=== PATIENT | male | born 1960 | race Caucasian/White ===

== ENCOUNTER 2018-03-25 20:00 | Emergency (ER) | payer SELFPAY ==
[2018-03-25 20:37] LABS: Absolute Monocytes 0.4 K/uL (0.1-1.3); Monocytes % 4.4 % (3.3-12.3)
[2018-03-25 20:40] LABS: Absolute Neutrophil 7.2 K/uL (1.8-8.0); Basophils % 0.5 % (0-1.3); Eosinophils % 1.1 % (0-4.4); Hematocrit 47.9 % (39.6-49.0); Lymphocytes % 20.2 % (15.3-44.8); MCH 28.8 pg (27.0-35.0); MCV 82.9 fL (80-100); MPV 9.2 fL (7.6-11.3); Protime INR 1.05; RBC Red Blood Cell Count 5.78 M/uL (4.33-5.43)
--- NOTE | 2018-03-25 20:46 | RAD REPORT ---
EXAM DESCRIPTION: CT - Head Brain Wo Cont - 03/25/2018 8:38 pm CLINICAL HISTORY: Difficulty speaking, confusion, transient alteration of awareness, drowsiness COMPARISON: CT head September 2017 TECHNIQUE: Axial 5 mm thick images of the head were obtained without IV contrast. All CT scans are performed using dose optimization technique as appropriate and may include automated exposure control or mA/KV adjustment according to patient size. FINDINGS: No intracranial hemorrhage, mass, edema or shift of mid-line structures. No acute cortical based infarction. There is a moderately large area of encephalomalacia in the left occipital lobe. T his is larger than seen in 2017. Patient may have had intervening infarction or further aging of the infarction present back in September. There is diminished attenuation in the right parietal periventri cular white matter new from the prior study. This is relatively hypodense but could still be a subacu te nonhemorrhagic infarction. No cortical edema or sulcal effacement. No abnormal extra-axial fluid c ollections. Ventricles are normal. Mastoid air cells and visualized portions of the paranasal sinuses are clear. No acute bony findings. IMPRESSION: No intracranial hemorrhage is present and no acute cortical based infarction confirmed. Left parietal occipital old CVA changes are present larger than seen in September. This is not suspect ed to be acute but may represent further aging or progression of the infarction that occurred back in September. Diminished attenuation 18 mm in size in the right parietal white matter is of uncertain age. Acute to subacute infarction is possible. Small low-density area near the left head of the caudate also appears to be new and could be an acute left basal ganglia infarction.
--- NOTE | 2018-03-25 20:48 | RAD REPORT ---
EXAM DESCRIPTION: RAD - Chest Single View - 03/25/2018 8:41 pm CLINICAL HISTORY: CVA COMPARISON: September 2017 TECHNIQUE: AP portable chest image was obtained 2028 hours . FINDINGS: Lung volumes are low. No peripheral mass or consolidation. Significant failure or volume o verload are doubtful. Haziness over the lateral left lung base is a common portable film artifact. Tr achea is midline. Heart and vasculature are normal. No measurable pleural effusion and no pneumothora x. No gross bony abnormality seen. No acute aortic findings suspected. IMPRESSION: No acute cardiopulmonary process. No significant change from comparison.
[2018-03-25 20:52] LABS: Magnesium 2.2 mg/dL (1.8-2.4); Potassium 3.3 mmol/L (3.5-5.1)
[2018-03-25] MEDS ORDERED: LABETALOL 20 MG/4ML SYRINGE IV ONE (21:00)
[2018-03-25] MEDS ORDERED: ASPIRIN EC 81 MG TAB PO ONE (21:01)
[2018-03-25] MEDS ORDERED: CLOPIDOGREL 75 MG TABLET ONE (21:01)
[2018-03-25] MEDS ORDERED: FOLIC ACID 5 MG/ML VIAL ONE (21:03)
[2018-03-25] MEDS ORDERED: NA CHLORIDE 0.9% 100 ML IV ONE (21:04)
[2018-03-25 21:13] LABS: Blood Morphology Comment NOT SEEN (NOT SEEN); Platelet Estimate ADEQ; Platelets, Giant FEW
[2018-03-25] MEDS ORDERED: Nicardipine/NS 25 MG/250 ML KIT IV ONE (21:36)
[2018-03-25] MEDS ORDERED: LABETALOL HCL 100 MG/20 ML ONE (21:45)
--- NOTE | 2018-03-25 21:45 | ER ---
Nurse's Notes [facility] Unit Name: Calos Marie Age: 58 yrs Sex: Male : 1960 Arrival Date: 03/25/2018 Time: 20:07 Bed 2 Private MD: Diagnosis: Cerebral infarction Presentation: 03/25 20:09 Presenting complaint: Patient states: Trouble speaking and having some confusion since aj yesterday evening. Patient is oriented to person and place. Ambulated with steady gait, no facial droop. Having difficulty with speech. Transition of care: patient was not received from another setting of care. An acute neurological deficit is present. The charge nurse has been notified. Pre-hospital glucose is not applicable to this patient. Onset of symptoms was March 24, 2018 at 20:00. Risk Assessment: Do you want to hurt yourself or someone else? Patient reports no desire to harm self or others. Initial Sepsis Screen: Does the patient meet any 2 criteria? No. Patient's initial sepsis screen is negative. Does the patient have a suspected source of infection? No. Patient's initial sepsis screen is negative. Care prior to arrival: None. 20:09 Method Of Arrival: Ambulatory aj 20:09 Acuity: KRIS 2 aj Triage Assessment: 20:12 The onset of the patients symptoms was March 24, 2018 at 20:00. General: Appears in no aj apparent distress. uncomfortable, Behavior is cooperative, anxious. Pain: Denies pain. Neuro: Level of Consciousness is awake, obeys commands, Oriented to person, place, situation, Animal Science Instructor are equal bilaterally Moves all extremities. Full function Gait is steady, Speech with expressive aphasia noted, Facial symmetry appears normal, Pupils are PERRLA, Reports. Respiratory: Airway is patent Respiratory effort is even, unlabored, Respiratory pattern is regular, symmetrical. Derm: Skin is intact, is healthy with good turgor, Skin is pink, warm \T\ dry. normal. Stroke Activation: Symptom onset > 6 hours Physician: Stroke Attending; Name: ; Notified At: ; Arrived At: Physician: Chief Stroke Resident; Name: ; Notified At: ; Arrived At: Physician: Stroke Resident; Name: ; Notified At: ; Arrived At: Physician: ED Attending; Name: ; Notified At: ; Arrived At: Physician: ED Resident; Name: ; Notified At: ; Arrived At: Historical: - Allergies: 20:11 No Known Allergies; aj - Home Meds: 20:11 None [Active]; aj - PMHx: 20:12 CVA; Hypertension; aj - PSHx: 20:11 None; aj - Immunization history:: Adult Immunizations up to date. - Social history:: Smoking status: Patient/guardian denies using tobacco. - Ebola Screening: : Patient negative for fever greater than or equal to 101.5 degrees Fahrenheit, and additional compatible Ebola Virus Disease symptoms Patient denies exposure to infectious person Patient denies travel to an Ebola-affected area in the 21 days before illness onset No symptoms or risks identified at this time. Screenin:36 Abuse screen: Denies threats or abuse. Denies injuries from another. Nutritional mg2 screening: No deficits noted. Tuberculosis screening: No symptoms or risk factors identified. Fall Risk Secondary diagnosis (15 points) CVA, IV access (20 points). Assessment: 20:37 General: Appears in no apparent distress. comfortable, Behavior is calm, cooperative. mg2 Pain: Denies pain. Neuro: Level of Consciousness is awake, alert, obeys commands, Oriented to person, place, time, situation. Cardiovascular: Capillary refill < 3 seconds Patient's skin is warm and dry. Rhythm is sinus rhythm. Respiratory: Airway is patent Respiratory effort is even, unlabored, Respiratory pattern is regular, symmetrical. GI: No signs and/or symptoms were reported involving the gastrointestinal system. : No signs and/or symptoms were reported regarding the genitourinary system. EENT: No signs and/or symptoms were reported regarding the EENT system. Derm: Skin is intact, Skin is pink, warm \T\ dry. normal. Musculoskeletal: No signs and/or symptoms reported regarding the musculoskeletal system. 20:38 Reassessment: patient in ct. mg2 21:14 Patient has been NPO before screening. The patient is alert, and able to follow mg2 commands. The patient does not exhibit slurred or garbled speech. The patient is not exhibiting difficulty speaking. The patient does not exhibit difficulty understanding words. The patient is able to swallow own secretions with no drooling or need for suction. Patient tolerated one teaspoon of water. No drooling, immediate coughing, gurgling, or clearing of the throat was noted. The patient passed the bedside swallow screening. Oral medications may be given as ordered. Contact Physician for further diet orders. 21:54 Reassessment: patient informed about the plan for transfer. mg2 22:20 Reassessment: report given to MO Saxena. mg2 Vital Signs: 20:12 BP 241 / 127; Pulse 96; Resp 21; Temp 99.5; Pulse Ox 96% on R/A; Weight 113.4 kg; aj Height 5 ft. 10 in. (177.80 cm); 21:14 BP 203 / 117; Pulse 68; Resp 18; Pulse Ox 96% on R/A; Pain 0/10; mg2 21:51 BP 162 / 114; Pulse 62; Resp 18; Pulse Ox 94% on R/A; Pain 0/10; mg2 22:04 BP 169 / 103; Pulse 63; Resp 18; Pulse Ox 95% on R/A; Pain 0/10; mg2 22:30 BP 179 / 103; Pulse 62; Resp 18; Pulse Ox 100% on R/A; Pain 0/10; mg2 20:12 Body Mass Index 35.87 (113.40 kg, 177.80 cm) aj NIH Stroke Scale Scores: 20:09 NIHSS Score: 4 jr8 21:00 NIHSS Score: 1 mg2 ED Course: 20:07 Patient arrived in ED. bb 20:08 Da Worrell PA is PHCP. jr8 20:08 Darryl Noland MD is Attending Physician. jr8 20:10 Triage completed. aj 20:12 Arm band placed on right wrist. Patient placed in an exam room, on a stretcher. aj 20:35 Phil Sandoval RN is Primary Nurse. mg2 20:36 Inserted saline lock: 20 gauge in left antecubital area, using aseptic technique. Blood mg2 collected. 20:38 CT Head Brain wo Cont In Process Unspecified. EDMS 20:38 X-ray completed. Portable x-ray completed in exam room. Patient tolerated procedure jr1 well. 20:39 Stroke CXR 1 View In Process Unspecified. EDMS 20:[address] via stretcher. nj 20:40 CT completed. Patient tolerated procedure well. Patient moved to radiology Patient nj moved back from CT. 21:30 Patient has correct armband on for positive identification. Placed in gown. Bed in low mg2 position. Call light in reach. Side rails up X2. playground monitor on. Pulse ox on. NIBP on. Door closed. Warm blanket given. 21:31 No provider procedures requiring assistance completed. mg2 22:46 Patient transferred, IV remains in place. mg2 Administered Medications: 21:13 Drug: Labetalol 20 mg Route: IVP; Infused Over: 2 mins; Site: left antecubital; mg2 21:53 Follow up: Response: No adverse reaction; Blood pressure is unchanged mg2 21:13 Drug: foLIC Acid 1 mg Route: IVPB; Site: left antecubital; mg2 21:13 Drug: PlaVIX 75 mg Route: PO; mg2 21:53 Follow up: Response: No adverse reaction mg2 21:13 Drug: Aspirin 162 mg Route: PO; mg2 21:53 Follow up: Response: No adverse reaction mg2 21:41 Not Given (Patient ): Cardene 5 mg/hr IV at calculated rate continuous; 5mg/hr jr8 21:50 Drug: Labetalol 40 mg Route: IVP; Infused Over: 2 mins; Site: left antecubital; mg2 22:23 Follow up: Response: No adverse reaction; Blood pressure is lowered mg2 Point of Care Testing: Blood Glucose: 20:12 Blood Glucose: 170 mg/dL; aj Ranges: Outcome: 21:43 ER care complete, transfer ordered by . jr8 22:46 Transferred by ground EMS to [facility], Transfer form completed. mg2 22:46 Condition: stable 22:46 Instructed on the need for transfer. 22:48 Patient left the ED. mg2 NIH Stroke Scale - NIH Stroke Score Date: 03/25/2018 Time: 20:09 Total Score = 4 1a. Level of Consciousness (LOC) - 0(Alert) 1b. Level of Consciousness (LOC) (Year \T\ Age) - 0(Both) 1c. LOC Commands (Open \T\ Closes Eyes/Negative Cleaner) - 0(Both) 2. Best Gaze (Lateral Gaze Paresis) - 0(Normal) 3. Visual Field Loss - 2(Complete hemianopia) 4. Facial Palsy - 0(Normal) 5a. Left Arm: Motor (10-second hold) - 0(No drift) 5b. Right Arm: Motor (10-second hold) - 0(No drift) 6a. Left Leg: Motor (5-second hold - always test supine) - 0(No drift) 6b. Right Leg: Motor (5-second hold - always test supine) - 0(No drift) 7. Limb Ataxia (finger/nose \T\ heel/dobson - test with eyes open) - 1(Present in one limb) 8. Sensory Loss (pinprick arms/legs/face) - 0(Normal) 9. Best Language: Aphasia (description/naming/reading) - 1(Mild to moderate aphasia) 10. Dysarthria (speech clarity - read or repeat words) - 0(Normal) 11. Extinction and Inattention (visual/tactile/auditory/spatial/personal) - 0(No abnormality) Initials: jr8 NIH Stroke Scale - NIH Stroke Score Date: 03/25/2018 Time: 21:00 Total Score = 1 1a. Level of Consciousness (LOC) - 0(Alert) 1b. Level of Consciousness (LOC) (Year \T\ Age) - 0(Both) 1c. LOC Commands (Open \T\ Closes Eyes/Negative Cleaner) - 0(Both) 2. Best Gaze (Lateral Gaze Paresis) - 0(Normal) 3. Visual Field Loss - 0(No visual loss) 4. Facial Palsy - 0(Normal) 5a. Left Arm: Motor (10-second hold) - 0(No drift) 5b. Right Arm: Motor (10-second hold) - 0(No drift) 6a. Left Leg: Motor (5-second hold - always test supine) - 0(No drift) 6b. Right Leg: Motor (5-second hold - always test supine) - 0(No drift) 7. Limb Ataxia (finger/nose \T\ heel/dobson - test with eyes open) - 0(Absent) 8. Sensory Loss (pinprick arms/legs/face) - 0(Normal) 9. Best Language: Aphasia (description/naming/reading) - 1(Mild to moderate aphasia) 10. Dysarthria (speech clarity - read or repeat words) - 0(Normal) 11. Extinction and Inattention (visual/tactile/auditory/spatial/personal) - 0(No abnormality) Initials: mg2 Signatures: Dispatcher [employer] Tenisha Schaeffer RN RN aj Ringgold, Jennifer jr1 Sanaz Churchill RN RN bb Roszak, Josh, PA PA jr8 Walt, Thad nj Gardose, Phil, RN RN mg2
--- NOTE | 2018-03-25 21:45 | EDPHYS ---
Physician Documentation [facility] Name: Calos Marie Age: 58 yrs Sex: Male : 1960 Arrival Date: 03/25/2018 Time: 20:07 Bed 2 Private MD: ED Physician Darryl Noland HPI: 03/25 20:09 This 58 yrs old Male presents to ER via Unassigned with complaints of S/S of jr8 Possible Stroke. 20:09 The patient's problem is reported as aphasia . Onset: The symptoms/episode jr8 began/occurred last known well was last night. Could not give exact time . Duration: The episode is continuous. The symptoms are alleviated by nothing. The symptoms are aggravated by nothing. Associated signs and symptoms: The patient has no apparent associated signs or symptoms. Severity of symptoms: At their worst the symptoms were moderate in the emergency department the symptoms are unchanged. The patient has experienced a previous episode. The patient has not recently seen a physician. Patient stated that he has history of stroke in past. Has not been compliant with medication. Stated that some time last night started to notice he was having trouble thinking and doing certain tasks. Historical: - Allergies: 20:11 No Known Allergies; aj - Home Meds: 20:11 None [Active]; aj - PMHx: 20:12 CVA; Hypertension; aj - PSHx: 20:11 None; aj - Immunization history:: Adult Immunizations up to date. - Social history:: Smoking status: Patient/guardian denies using tobacco. - Ebola Screening: : Patient negative for fever greater than or equal to 101.5 degrees Fahrenheit, and additional compatible Ebola Virus Disease symptoms Patient denies exposure to infectious person Patient denies travel to an Ebola-affected area in the 21 days before illness onset No symptoms or risks identified at this time. ROS: 20:09 Eyes: Negative for injury, pain, redness, and discharge, ENT: Negative for injury, jr8 pain, and discharge, Neck: Negative for injury, pain, and swelling, Cardiovascular: Negative for chest pain, palpitations, and edema, Respiratory: Negative for shortness of breath, cough, wheezing, and pleuritic chest pain, Abdomen/GI: Negative for abdominal pain, nausea, vomiting, diarrhea, and constipation, Back: Negative for injury and pain, MS/Extremity: Negative for injury and deformity, Skin: Negative for injury, rash, and discoloration. 20:09 Neuro: Positive for altered mental status, Negative for dizziness, gait disturbance, headache, hearing loss, loss of consciousness, numbness, seizure activity, speech changes, syncope, near syncope, tingling, tinnitus, tremor, visual changes, weakness. Exam: 20:09 Head/Face: Normocephalic, atraumatic. Eyes: Pupils equal round and reactive to light, jr8 extra-ocular motions intact. Lids and lashes normal. Conjunctiva and sclera are non-icteric and not injected. Cornea within normal limits. Periorbital areas with no swelling, redness, or edema. ENT: Nares patent. No nasal discharge, no septal abnormalities noted. Tympanic membranes are normal and external auditory canals are clear. Oropharynx with no redness, swelling, or masses, exudates, or evidence of obstruction, uvula midline. Mucous membranes moist. Neck: Trachea midline, no thyromegaly or masses palpated, and no cervical lymphadenopathy. Supple, full range of motion without nuchal rigidity, or vertebral point tenderness. No Meningismus. Chest/axilla: Normal chest wall appearance and motion. Nontender with no deformity. No lesions are appreciated. Cardiovascular: Regular rate and rhythm with a normal S1 and S2. No gallops, murmurs, or rubs. Normal PMI, no JVD. No pulse deficits. Respiratory: Lungs have equal breath sounds bilaterally, clear to auscultation and percussion. No rales, rhonchi or wheezes noted. No increased work of breathing, no retractions or nasal flaring. Abdomen/GI: Soft, non-tender, with normal bowel sounds. No distension or tympany. No guarding or rebound. No evidence of tenderness throughout. Back: No spinal tenderness. No costovertebral tenderness. Full range of motion. Skin: Warm, dry with normal turgor. Normal color with no rashes, no lesions, and no evidence of cellulitis. MS/ Extremity: Pulses equal, no cyanosis. Neurovascular intact. Full, normal range of motion. 20:09 Neuro: Orientation: to person, place \T\ time. Mentation: slow to respond, Memory: is normal, Cranial nerves: CN I not tested, CN II- XII are normal as tested, hononymous hemianopia noted, extraocular movements are intact, Facial palsy and sensory deficits are absent. Nystagmus is absent. Speech is clear and appropriate. slowed, Tongue strength is normal, Cerebellar function: dysmetria is noted on the right, Motor: moves all fours, Sensation: no obvious gross deficits, Gait: not tested. seizure activity, is not displayed by the patient, Abnormal movements: there are no abnormal movements. 20:35 Radiologist reports: subacute and old infarcts noted [facility] Vital Signs: 20:12 BP 241 / 127; Pulse 96; Resp 21; Temp 99.5; Pulse Ox 96% on R/A; Weight 113.4 kg; aj Height 5 ft. 10 in. (177.80 cm); 21:14 BP 203 / 117; Pulse 68; Resp 18; Pulse Ox 96% on R/A; Pain 0/10; mg2 21:51 BP 162 / 114; Pulse 62; Resp 18; Pulse Ox 94% on R/A; Pain 0/10; mg2 22:04 BP 169 / 103; Pulse 63; Resp 18; Pulse Ox 95% on R/A; Pain 0/10; mg2 22:30 BP 179 / 103; Pulse 62; Resp 18; Pulse Ox 100% on R/A; Pain 0/10; mg2 20:12 Body Mass Index 35.87 (113.40 kg, 177.80 cm) NIH Stroke Scale Scores: 20:09 NIHSS Score: 4 [facility] 21:00 NIHSS Score: 1 mg2 MDM: 20:08 Patient medically screened. [facility] 21:30 Data reviewed: vital signs, nurses notes, lab test result(s), EKG, radiologic studies, [facility] CT scan, plain films. Data interpreted: Pulse oximetry: on room air is 96 %. Counseling: I had a detailed discussion with the patient and/or guardian regarding: the historical points, exam findings, and any diagnostic results supporting the discharge/admit diagnosis, lab results, radiology results, the need to transfer to another facility, for higher level of care, [facility] does not immediately have the required specialist. ED course: Patient well outside of TPA window. Last known well approximately 24 hours ago. No Neurology on today. Will need to transfer for MRI and further neurologic evaluation for subacute stroke. Patient is good with this. 21:42 ED course: Dr. Laboy consulted at [facility] and accepted patient. Wants to do jr8 push dose labetolol for now and have BP just below 200 systolic . 03/25 20:09 Order name: Troponin (emerg Dept Use Only); Complete Time: 20:56 03/25 20:09 Order name: Magnesium; Complete Time: 20:56 03/25 20:09 Order name: Basic Metabolic Panel; Complete Time: 20:56 03/25 20:09 Order name: CBC with Diff; Complete Time: 21:16 03/25 20:09 Order name: Protime (+inr); Complete Time: 20:56 03/25 20:44 Order name: Manual Differential; Complete Time: 21:16 EDMS 03/25 20:09 Order name: Stroke CXR 1 View; Complete Time: 20:56 03/25 20:09 Order name: CT Head Brain wo Cont; Complete Time: 20:56 03/25 20:09 Order name: EKG; Complete Time: 20:09 03/25 20:09 Order name: Accucheck; Complete Time: 20:35 03/25 20:09 Order name: Cardiac monitoring; Complete Time: 20:35 03/25 20:09 Order name: EKG - Nurse/Tech; Complete Time: 20:35 03/25 20:09 Order name: IV Saline Lock; Complete Time: 20:35 03/25 20:09 Order name: Labs collected and sent; Complete Time: 20:35 03/25 20:09 Order name: NPO; Complete Time: 20:36 03/25 20:09 Order name: O2 Per Protocol; Complete Time: 20:36 03/25 20:09 Order name: O2 Sat Monitoring; Complete Time: 20:36 03/25 20:09 Order name: Stroke Swallow Screen; Complete Time: 21:14 Administered Medications: 21:13 Drug: Labetalol 20 mg Route: IVP; Infused Over: 2 mins; Site: left antecubital; mg2 21:53 Follow up: Response: No adverse reaction; Blood pressure is unchanged mg2 21:13 Drug: foLIC Acid 1 mg Route: IVPB; Site: left antecubital; mg2 21:13 Drug: PlaVIX 75 mg Route: PO; mg2 21:53 Follow up: Response: No adverse reaction mg2 21:13 Drug: Aspirin 162 mg Route: PO; mg2 21:53 Follow up: Response: No adverse reaction mg2 21:41 Not Given (Patient ): Cardene 5 mg/hr IV at calculated rate continuous; 5mg/hr jr8 21:50 Drug: Labetalol 40 mg Route: IVP; Infused Over: 2 mins; Site: left antecubital; mg2 22:23 Follow up: Response: No adverse reaction; Blood pressure is lowered mg2 Point of Care Testing: Blood Glucose: 20:12 Blood Glucose: 170 mg/dL; aj Ranges: Critical Glucose Levels:Adult <50 mg/dl or >400 mg/dl <40 mg/dl or >180 mg/dl Disposition: 03/26 19:04 Co-signature as Attending Physician, Darryl Noland MD. Disposition: 03/25/18 21:43 Transfer ordered to [facility]. Diagnosis is Cerebral infarction. - Reason for transfer: Higher level of care. - Accepting physician is Dr. Roper. - Condition is Fair. - Problem is new. - Symptoms are unchanged. NIH Stroke Scale - NIH Stroke Score Date: 03/25/2018 Time: 20:09 Total Score = 4 1a. Level of Consciousness (LOC) - 0(Alert) 1b. Level of Consciousness (LOC) (Year \T\ Age) - 0(Both) 1c. LOC Commands (Open \T\ Closes Eyes/Patient Educator) - 0(Both) 2. Best Gaze (Lateral Gaze Paresis) - 0(Normal) 3. Visual Field Loss - 2(Complete hemianopia) 4. Facial Palsy - 0(Normal) 5a. Left Arm: Motor (10-second hold) - 0(No drift) 5b. Right Arm: Motor (10-second hold) - 0(No drift) 6a. Left Leg: Motor (5-second hold - always test supine) - 0(No drift) 6b. Right Leg: Motor (5-second hold - always test supine) - 0(No drift) 7. Limb Ataxia (finger/nose \T\ heel/dobson - test with eyes open) - 1(Present in one limb) 8. Sensory Loss (pinprick arms/legs/face) - 0(Normal) 9. Best Language: Aphasia (description/naming/reading) - 1(Mild to moderate aphasia) 10. Dysarthria (speech clarity - read or repeat words) - 0(Normal) 11. Extinction and Inattention (visual/tactile/auditory/spatial/personal) - 0(No abnormality) Initials: jr8 NIH Stroke Scale - NIH Stroke Score Date: 03/25/2018 Time: 21:00 Total Score = 1 1a. Level of Consciousness (LOC) - 0(Alert) 1b. Level of Consciousness (LOC) (Year \T\ Age) - 0(Both) 1c. LOC Commands (Open \T\ Closes Eyes/Patient Educator) - 0(Both) 2. Best Gaze (Lateral Gaze Paresis) - 0(Normal) 3. Visual Field Loss - 0(No visual loss) 4. Facial Palsy - 0(Normal) 5a. Left Arm: Motor (10-second hold) - 0(No drift) 5b. Right Arm: Motor (10-second hold) - 0(No drift) 6a. Left Leg: Motor (5-second hold - always test supine) - 0(No drift) 6b. Right Leg: Motor (5-second hold - always test supine) - 0(No drift) 7. Limb Ataxia (finger/nose \T\ heel/dobson - test with eyes open) - 0(Absent) 8. Sensory Loss (pinprick arms/legs/face) - 0(Normal) 9. Best Language: Aphasia (description/naming/reading) - 1(Mild to moderate aphasia) 10. Dysarthria (speech clarity - read or repeat words) - 0(Normal) 11. Extinction and Inattention (visual/tactile/auditory/spatial/personal) - 0(No abnormality) Initials: mg2 Signatures: Dispatcher [employer] Tenisha Schaeffer RN RN Da Balderas PA PA jr8 Darryl Noland MD MD gs [place]ose, Michele, RN RN mg2 Corrections: (The following items were deleted from the chart) 03/25 21:29 20:28 Head/Face: Normocephalic, atraumatic. Eyes: Pupils equal round and jr8 reactive to light, extra-ocular motions intact. Lids and lashes normal. Conjunctiva and sclera are non-icteric and not injected. Cornea within normal limits. Periorbital areas with no swelling, redness, or edema. ENT: Nares patent. No nasal discharge, no septal abnormalities noted. Tympanic membranes are normal and external auditory canals are clear. Oropharynx with no redness, swelling, or masses, exudates, or evidence of obstruction, uvula midline. Mucous membranes moist. Neck: Trachea midline, no thyromegaly or masses palpated, and no cervical lymphadenopathy. Supple, full range of motion without nuchal rigidity, or vertebral point tenderness. No Meningismus. Chest/axilla: Normal chest wall appearance and motion. Nontender with no deformity. No lesions are appreciated. Cardiovascular: Regular rate and rhythm with a normal S1 and S2. No gallops, murmurs, or rubs. Normal PMI, no JVD. No pulse deficits. Respiratory: Lungs have equal breath sounds bilaterally, clear to auscultation and percussion. No rales, rhonchi or wheezes noted. No increased work of breathing, no retractions or nasal flaring. Abdomen/GI: Soft, non-tender, with normal bowel sounds. No distension or tympany. No guarding or rebound. No evidence of tenderness throughout. Back: No spinal tenderness. No costovertebral tenderness. Full range of motion. Skin: Warm, dry with normal turgor. Normal color with no rashes, no lesions, and no evidence of cellulitis. MS/ Extremity: Pulses equal, no cyanosis. Neurovascular intact. Full, normal range of motion. jr8 : 20:28 Neuro: Orientation: to person, place \T\ time. Mentation: slow to respond, [facility] Memory: is normal, Cranial nerves: CN I not tested, CN II- XII are normal as tested, hononymous hemianopia noted, extraocular movements are intact, Facial palsy and sensory deficits are absent. Nystagmus is absent. Speech is clear and appropriate. slowed, Tongue strength is normal, Cerebellar function: dysmetria is noted on the right, Motor: moves all fours, Sensation: no obvious gross deficits, Gait: not tested. seizure activity, is not displayed by the patient, Abnormal movements: there are no abnormal movements, 8 20:28 NIHSS Score: 3 [place] [id number] 22:48 21:43 03/25/2018 21:43 Transfer ordered to [facility]. mg2 Diagnosis is Cerebral infarction. Reason for transfer: Higher level of care. Accepting physician is Dr. Roper. Condition is Fair. Problem is new. Symptoms are unchanged. jr8
--- NOTE | 2018-03-26 11:16 | EKG ---
Test Date: 2018-03-25 Test Time: 20:29:28 Product Development Chemist: MEASUREMENT RESULTS: Intervals: Rate: 88 [place]: 164 QRSD: 92 QT: 412 QTc: 498 [place]: P: 22 [place]: 164 QRS: -19 T: 161 INTERPRETIVE STATEMENTS: Normal sinus rhythm Voltage criteria for left ventricular hypertrophy Nonspecific ST and T wave abnormality Prolonged QT Abnormal ECG Compared to ECG 09/07/2017 12:02:11 ST (T wave) deviation now present T-wave abnormality no longer present Electronically Signed On 03-26-18 11:15:53 CDT by Logan Lynch
== END 2018-03-25 22:48 | disposition short-term general hospital (02) ==
LOC: ER 20:00
DX: I63.9 Cerebral infarction, unspecified (principal); I10 Essential (primary) hypertension; R29.704 NIHSS score 4
CPT/HCPCS: 36415; 70450; 71045; 80048; 82962; 83735; 84484; 85025; 85610; 93005; 96374; 96375; 99285

== ENCOUNTER 2021-05-24 02:54 | Inpatient (IN) | payer OTHER ==
--- OUTSIDE RECORDS SUMMARY | 2021-05-24 02:57 | XMS REPORT | Continuity of Care Document ---
:1960 Author Organization [facility] t Address [address] [place] [address] Care Team Providers Name Role Phone CARLEEN PEARSON Attending Clinician Unavailable CARLEEN PEARSON Admitting Clinician Unavailable Problems Condition Condition Condition Status Onset Resolution Last Treating Co mments Source Name Details Category Date Date Treatment Clinician Date Acute Acute Disease Active [facility] right right 03-26 [facility] - parietal parietal 00:00: Medica l lobe lobe 00 [facility] infarct. infarct. 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 - athy athy 00:00: Medical 00 [facility] Hypertensi Hypertensi Disease Active [facility] ve urgency ve urgency 03-25 [facility] - 00:00: Medical 00 [facility] CKD CKD Disease Active [facility] (chronic (chronic 03-25 [facility] - kidney kidney 00:00: Medical disease) disease) 00 [facility] stage 3, stage 3, GFR 30-59 GFR 30-59 ml/min 2/2 ml/min 2/2 DM and HTN DM and HTN Allergies, Adverse Reactions, Alerts This patient has no known allergies or adverse reactions. Social History Social Habit Start Date Stop Date Quantity Comments Source Sex Assigned At [facility] Tobacco use and 2018-03-26 2018-03-[address] [facility] [address] [facility] - exposure [facility] Smoking Status Start Date Stop Date Source Never sm[facility] Medications Ordered Filled Start Stop Current Ordering Indication Dosage Frequency Signature Comments Components Source Medication Medication Date Date Medication? Clinician (SIG) Name Name HydrALAZINE HydrALAZINE Yes Ashley [address] [facility] [address] HCl HCl 6-26 [facility] - [facility] Outpat[facility] ent Clinics Lancets Lancets Yes Ashley as [facility] 6[facility]14 [facility] - 00:00: (dispense Mem[facility] 00 lancets l formulary Outpati to ent insurance) Clinics Blood Blood Yes Ashley as [facility] Glucose Glucose 6-14 [facility] - Test Strip Test Strip 00:00: (DISPENSE Mem[facility] 00 BLOOD l GLUCOSE Outpati TEST ent STRIPS Clinics FORMULARY TO INSURANCE) Blood Blood Yes Ashley as [facility] Glucose Glucose 6-14 [facility] - Monitor Monitor 00:00: (DISPENSE Me moria 00 BLOOD l GLUCOSE Outpati MONITOR ent FORMULARY Clinics TO INSURANCE) Lipitor Lipitor 2018-0 Yes Ashley [address] 3[facility] Millender in evening [facility] - 00:00: [facility] Crestor Crestor 2018-0 Yes Ashley [address] [facility] - [facility]: [facility] Lisinopril Lisinopril 2018-0 Yes Ashley [address] [facility] 2-12 [facility] - [facility]: [facility] Amlodipine Amlodipine Yes Ashley [address] Besylate Besylate [facility]ender Maria kes - [facility] Glimepiride Glimepiride Yes Ashley [address] [facility] first main Outpati meal of ent the day Clinics Coreg Coreg Yes Ashley [address] [facility] [address] [facility] Metoprolol Metoprolol Yes Ashley [address] Succinate Succinate [facility] - ER [facility] Procedures This patient has no known procedures. Encounters Start End Encounter Admission Attending Care Care Encounter Source Date/Time Date/Time Type Type Clinicians Facility Department ID 2020-11-14 2020-11-14 Outpatient [facility] [id number] [facility]00 [facility] Outpati ent Clinics 2020-04-04 2020-04-04 [facility] [id number] 01:14:00 01:14:00 [facility] Medicine Outpati ent Clinics 2020-03-30 2020-03-30 [facility] [id number] 15:40:00 15:40:00 t [facility] Medicine Outpati ent Clinics 2019-10-26 2019-10-26 [facility] [id number] 09:28:00 09:28:00 [facility] Medicine Outpati ent Clinics 2019-10-19 2019-10-19 [facility] [id number] 14:47:00 14:47:00 [facility] Medicine Outpati ent Clinics 2019-10-03 2019-10-03 [facility] [id number] 12:08:00 12:08:00 [facility] Medicine Outpati ent Clinics 2019-09-23 2019-09-23 [facility] [id number] 16:00:00 16:00:00 t [facility] Medicine Outpati ent Clinics 2019-06-23 2019-06-23 [facility] [id number] 19:12:00 19:12:00 t [facility] Medicine Outpati ent Clinics 2019-06-21 2019-06-21 [facility] [id number] 16:00:00 16:00:00 [facility] Medicine Outpati ent Clinics 2019-03-18 2019-03-18 [facility] [id number] 00:13:00 00:13:00 [facility] Medicine Outpati ent Clinics 2019-03-16 2019-03-16 [facility] [id number] 16:00:00 16:00:00 t [facility] Medicine Outpati ent Clinics 2019-02-17 2019-02-17 [facility] [id number] 13:16:00 13:16:00 t [facility] Medicine Outpati ent Clinics 2018-12-23 2018-12-23 [facility] [id number] 09:11:00 09:11:00 t [facility] Medicine Outpati ent Clinics 2018-12-15 2018-12-15 [facility] [id number] 01:25:00 01:25:00 [facility] Medicine Outpati ent Clinics 2018-12-14 2018-12-14 [facility] [id number] 16:00:00 16:00:00 [facility] Medicine Outpati ent Clinics 2018-11-25 2018-11-25 [facility] [id number] 13:38:00 13:38:00 t [facility] Medicine Outpati ent Clinics 2018-11-23 2018-11-23 [facility] [id number] 15:24:00 15:24:00 t [facility] Medicine Outpati ent Clinics 2018-11-18 2018-11-18 [facility] [id number] 14:50:00 14:50:00 t [facility] Medicine Outpati ent Clinics 2018-11-17 2018-11-17 [facility] [id number] 18:12:00 18:12:00 [facility] Medicine Outpati ent Clinics 2018-11-16 2018-11-16 [facility] [id number] 22:29:00 22:29:00 [facility] 2018-11-16 2018-11-16 [facility] [id number] 15:00:00 15:00:00 [facility] Results Test Description Test Time Test Comments Results Result Comments Source POCT-GLUCOSE METER 2018-03-29 17:37:00 Test Item Value Reference Range Interpretation Comme nts POC-GLUCOSE METER (BEAKER) (test 104 mg/dL 70-110 TESTED AT [facility] [address] [place], [place] [address]NER code = 1538) [facility] 7703 0 POCT-GLUCOSE [id number] 12:37:00 Test Item Value Reference Range Interpretation Comments POC-GLUCOSE METER 145 mg/dL 70-110 H TESTED AT [facility] 6720 (BEAKER) (test code = FRANKIE Rogers [facility] 1538) [id number] POCT-GLUCOSE [id number] 08:16:00 Test Item Value Reference Range Interpretation Comments POC-GLUCOSE METER 111 mg/dL 70-110 H TESTED AT [facility] 6720 (BEAKER) (test code = CARIUT Ken [facility] 1538) [address] BASIC METABOLIC [id number] 06:49:00 Test Item Value Reference Range Interpretation Comments SODIUM (BEAKER) 141 meq/L 136-145 (test code = 381) POTASSIUM (BEAKER) 3.8 meq/L 3.5-5.1 (test code = 379) CHLORIDE (BEAKER) 107 meq/L 98-107 (test code = 382) CO2 (BEAKER) (test 28 meq/L 22-29 code = 355) BLOOD UREA NITROGEN 17 mg/dL 7-21 (BEAKER) (test code = 354) CREATININE (BEAKER) 1.46 mg/dL 0.57-1.25 H (test code = 358) GLUCOSE RANDOM 114 mg/dL 70-105 H (BEAKER) (test code = 652) CALCIUM (BEAKER) 9.0 mg/dL 8.4-10.2 (test code = 697) EGFR (BEAKER) (test 49 mL/min/1.73 ESTIMA ANURADHA GFR IS code = 1092) sq m NOT ACCURATE CREATININE CLEARANCE IN PREDICTING GLOMERULAR FILTRATION RATE . ESTIMATED GFR I S NOT APPLICABLE FOR DIALYSIS PATIEN TS. [id number] 01:30:00 Test Item Value Reference Range Interpretation Comments RPR SCREEN (Novi) (test code = Nonreactive Nonreactive 420) POCT-GLUCOSE [id number] 20:55:00 Test Item Value Reference Range Interpretation Comments POC-GLUCOSE METER 179 mg/dL 70-110 H TESTED AT [place] [address] ([facility]) (test code = [facility] 1538) [address] VITAMIN B12 AND [id number] 20:25:00 Test Item Value Reference Range Interpretation Comments VITAMIN B12 (Novi) (test code = 422 pg/mL 213-816 774) FOLATE (Novi) (test code = 362) 9.9 ng/mL >=7.0 POCT-GLUCOSE [id number] 17:11:00 Test Item Value Reference Range Interpretation Comments POC-GLUCOSE METER 159 mg/dL 70-110 H TESTED AT [place] [address] [facility] (test code = [facility] 1538) [address] PROTHROMBIN [id number] 15:55:00 Test Item Value Reference Range Interpretation Comments PROTIME (Novi) (test code = 14.1 seconds 11.7-14.7 759) INR (Novi) (test code = 370) 1.1 <=5.9 RECOMMENDED COUMADIN/WARFARIN INR THERAPY RANGESSTANDARD DOSE: 2.0 - 3.0 Includes: PROPHYLAXIS forvenous thrombosis, systemic embolization; TREATMENT for venous thrombosis and/or pulmonary embolus.HIGH RISK: Target INR is 2.5-3.5 for patients with mechanical heart valves.[id number] 15:34:00 Test Item Value Reference Range Interpretation Comments AMMONIA (Novi) (test code = 348) 31 mol/L 18-72 POCT-GLUCOSE [id number] 11:41:00 Test Item Value Reference Range Interpretation Comments POC-GLUCOSE METER 219 mg/dL 70-110 H TESTED AT [place] [address] ([facility]) (test code = [facility] 1538) [id number] POCT-GLUCOSE [id number] 08:20:00 Test Item Value Reference Range Interpretation Comments POC-GLUCOSE METER 114 mg/dL 70-110 H TESTED AT [place] [address] (BEAKER) (test code = FRANKIE [place] 1538) [id number] TSH/FREE T4 IF [id number] 05:29:00 Test Item Value Reference Range Interpretation Comments THYROID STIMULATING HORMONE 2.18 uIU/mL 0.35-4.94 (BEAKER) (test code = 772) [id number] 04:58:00 Test Item Value Reference Range Interpretation Comments PHOSPHORUS (BEAKER) (test code = 2.3 mg/dL 2.3-4.7 604) [id number] 04:58:00 Test Item Value Reference Range Interpretation Comments MAGNESIUM (BEAKER) (test code = 2.1 mg/dL 1.6-2.6 627) COMPREHENSIVE METABOLIC [id number] 04:58:00 Test Item Value Reference Range Interpretation Comments TOTAL PROTEIN 6.9 gm/dL 6.0-8.3 (BEAKER) (test code = 770) ALBUMIN (BEAKER) 4.1 g/dL 3.5-5.0 (test code = 1145) ALKALINE PHOSPHATASE 83 U/L 40-150 (BEAKER) (test code = 346) BILIRUBIN TOTAL 1.4 mg/dL 0.2-1.2 H (BEAKER) (test code = 377) SODIUM (BEAKER) (test 140 meq/L 136-145 code = 381) POTASSIUM (BEAKER) 3.4 meq/L 3.5-5.1 L (test code = 379) CHLORIDE (BEAKER) 106 meq/L 98-107 (test code = 382) CO2 (BEAKER) (test 25 meq/L 22-29 code = 355) BLOOD UREA NITROGEN 18 mg/dL 7-21 (BEAKER) (test code = 354) CREATININE (BEAKER) 1.54 mg/dL 0.57-1.25 H (test code = 358) GLUCOSE RANDOM 120 mg/dL 70-105 H (BEAKER) (test code = 652) CALCIUM (BEAKER) 8.9 mg/dL 8.4-10.2 (test code = 697) AST (SGOT) (BEAKER) 21 U/L 5-34 (test code = 353) ALT (SGPT) (BEAKER) 26 U/L 6-55 (test code = 347) EGFR (BEAKER) (test 46 mL/min/1.73 ESTIMA ANURADHA GFR IS code = 1092) sq m NOT ACCURATE CREATININE CLEARANCE IN PREDICTING GLOMERULAR FILTRATION RATE . ESTIMATED GFR I S NOT APPLICABLE FOR DIALYSIS PATIEN TS. CBC (HEMOGRAM ONLY)2018-03-28 04:42:00 Test Item Value Reference Range Interpretation Comments WHITE BLOOD CELL COUNT (BEAKER) 9.9 K/ L 3.5-10.5 (test code = 775) RED BLOOD CELL COUNT (BEAKER) 4.97 M/ L 4.63-6.08 (test code = 761) HEMOGLOBIN (BEAKER) (test code = 14.2 GM/DL 13.7-17.5 410) HEMATOCRIT (BEAKER) (test code = 41.2 % 40.1-51.0 411) MEAN CORPUSCULAR VOLUME (BEAKER) 82.9 fL 79.0-92.2 (test code = 753) MEAN CORPUSCULAR HEMOGLOBIN 28.6 pg 25.7-32.2 (BEAKER) (test code = 751) MEAN CORPUSCULAR HEMOGLOBIN CONC 34.5 GM/DL 32.3-36.5 (BEAKER) (test code = 752) RED CELL DISTRIBUTION WIDTH 13.7 % 11.6-14.4 (BEAKER) (test code = 412) PLATELET COUNT (BEAKER) (test 208 K/CU MM 150-450 code = 756) MEAN PLATELET VOLUME (BEAKER) 10.4 fL 9.4-12.4 (test code = 754) NUCLEATED RED BLOOD CELLS 0 /100 WBC 0-0 (BEAKER) (test code = 413) POCT-GLUCOSE [id number] 20:46:00 Test Item Value Reference Range Interpretation Comments POC-GLUCOSE METER 197 mg/dL 70-110 H TESTED AT [place] [address] ([facility]) (test code = FR[place] 1538) [id number] POCT-GLUCOSE [id number] 17:00:00 Test Item Value Reference Range Interpretation Comments POC-GLUCOSE METER 158 mg/dL 70-110 H TESTED AT [place] [address] ([facility]) (test code = [place] 1538) [id number] POCT-GLUCOSE [id number] 12:04:00 Test Item Value Reference Range Interpretation Comments POC-GLUCOSE METER 180 mg/dL 70-110 H TESTED AT [facility] 6720 (BEAKER) (test code = [place] 1538) [id number] 04:51:00 Test Item Value Reference Range Interpretation Comments PHOSPHORUS (BEAKER) (test code = 2.8 mg/dL 2.3-4.7 604) [id number] 04:51:00 Test Item Value Reference Range Interpretation Comments MAGNESIUM (BEAKER) (test code = 2.3 mg/dL 1.6-2.6 627) COMPREHENSIVE METABOLIC [id number] 04:51:00 Test Item Value Reference Range Interpretation Comments TOTAL PROTEIN 7.0 gm/dL 6.0-8.3 (BEAKER) (test code = 770) ALBUMIN (BEAKER) 4.1 g/dL 3.5-5.0 (test code = 1145) ALKALINE PHOSPHATASE 81 U/L 40-150 (BEAKER) (test code = 346) BILIRUBIN TOTAL 1.4 mg/dL 0.2-1.2 H (BEAKER) (test code = 377) SODIUM (BEAKER) (test 139 meq/L 136-145 code = 381) POTASSIUM (BEAKER) 3.2 meq/L 3.5-5.1 L (test code = 379) CHLORIDE (BEAKER) 104 meq/L 98-107 (test code = 382) CO2 (BEAKER) (test 26 meq/L 22-29 code = 355) BLOOD UREA NITROGEN 19 mg/dL 7-21 (BEAKER) (test code = 354) CREATININE (BEAKER) 1.62 mg/dL 0.57-1.25 H (test code = 358) GLUCOSE RANDOM 179 mg/dL 70-105 H (BEAKER) (test code = 652) CALCIUM (BEAKER) 8.9 mg/dL 8.4-10.2 (test code = 697) AST (SGOT) (BEAKER) 21 U/L 5-34 (test code = 353) ALT (SGPT) (BEAKER) 26 U/L 6-55 (test code = 347) EGFR (BEAKER) (test 44 mL/min/1.73 ESTIMA ANURADHA GFR IS code = 1092) sq m NOT ACCURATE CREATININE CLEARANCE IN PREDICTING GLOMERULAR FILTRATION RATE . ESTIMATED GFR I S NOT APPLICABLE FOR DIALYSIS PATIEN TS. CBC (HEMOGRAM ONLY)2018-03-27 04:27:00 Test Item Value Reference Range Interpretation Comments WHITE BLOOD CELL COUNT (BEAKER) 6.8 K/ L 3.5-10.5 (test code = 775) RED BLOOD CELL COUNT (BEAKER) 5.10 M/ L 4.63-6.08 (test code = 761) HEMOGLOBIN (BEAKER) (test code = 14.3 GM/DL 13.7-17.5 410) HEMATOCRIT (BEAKER) (test code = 42.5 % 40.1-51.0 411) MEAN CORPUSCULAR VOLUME (BEAKER) 83.3 fL 79.0-92.2 (test code = 753) MEAN CORPUSCULAR HEMOGLOBIN 28.0 pg 25.7-32.2 (BEAKER) (test code = 751) MEAN CORPUSCULAR HEMOGLOBIN CONC 33.6 GM/DL 32.3-36.5 (BEAKER) (test code = 752) RED CELL DISTRIBUTION WIDTH 13.7 % 11.6-14.4 (BEAKER) (test code = 412) PLATELET COUNT (BEAKER) (test 205 K/CU MM 150-450 code = 756) MEAN PLATELET VOLUME (BEAKER) 10.4 fL 9.4-12.4 (test code = 754) NUCLEATED RED BLOOD CELLS 0 /100 WBC 0-0 (BEAKER) (test code = 413) POCT-GLUCOSE [id number] 20:52:00 Test Item Value Reference Range Interpretation Comments POC-GLUCOSE METER 300 mg/dL 70-110 H TESTED AT [facility] 67[address] ([facility]) (test code = [place] 1538) [id number] MR, MRA, BRAIN, WITHOUT [id number] 18:40:00Reason for exam:->Ischemic Stroke EvaluationFINAL REPORT MRI brain and MRA head and neck without contrast 03/26/2018 6:36 PM CLINICAL INDICATION: Ischemic Stroke Evaluationstroke eval TECHNIQUE: Multiplanar, multisequence MR imaging of the brain was performed utilizing the following imaging sequences: Axial T1, T2, FLAIR, GRE, and DWI; sagittal and coronal T1-weighted images. Two- and three- dimensional [id number] MRAimages of the intra- and extracranial carotid and vertebral arterial circulations were obtained, from which maximal intensity projection 3-D reconstructions were created. COMPARISON: None available FIND INGS: MRI: There is a small volume acute nonhemorrhagic infarct involving the periinsular right parietal lobe and adjacent right parietal periventricular white matter. There is no hematoma, mass, hydrocephalus, or extra-axial collection. There is a moderate volume chronic infarct in the adjacent left o ccipital and posterior temporal lobes. There is mild chronic microvascular ischemia in the supratentorial white matter and kulwant. There are dilated perivascular spaces and/or chronic lacunar infarcts inthe left corpus striatum. Normal appearing flow-voids are present in the major intracranial vascular structures. The sellar and pineal regions, craniocervical junction, orbits, face, and skull base arewithout worrisome finding. MRA neck: There is no vessel occlusion or flow-limiting stenosis. There is mild atherosclerotic plaque deposition in the proximal left cervical internal carotid artery, without NASCET quantifiable stenosis. Flow is antegrade in both vertebral arteries. MRA [place]: There is no acute vessel occlusion or flow-limiting stenosis. Asymmetrically diminished flow related enhancement in the left posterior cerebral artery conforms to be chronic infarct core. There is moderate stenosis in the M1 segment left middle cerebral artery. IMPRESSION: 1. Small volume acute nonhemorrhagic right parietal lobe infarct. 2. No evidence for acute vascular compromise. 3. Chronic findings as discussed. Signed: Luis Mancera Verified Date/Time: 03/26/2018 18:40:56 Reading Location: [facility] Radiology Reading Room MR, MRA, NECK, WITHOUT IV [id number] 18:40:00 Reason for exam:->Ischemic Stroke EvaluationFINAL REPORT MRI brain and MRA head and neck without contrast 03/26/2018 6:36 PM CLINICAL INDICATION: Ischemic Stroke Evaluationstroke eval TECHNIQUE: Multiplanar, multisequence MR imaging of the brain was performed utilizing the following imaging sequences: Axial T1, T2, FLAIR, GRE, and DWI; sagittal and coronal T1-weighted images. Two- and three-dimensional [id number] MRAimages of the intra- and extracranial carotid and vertebral arterial circulations were obtained, from which maximal intensity projection 3-D reconstructions were created. COMPARISON: None available FINDINGS: MRI: There is a small volume acute nonhemorrhagic infarct involving the periinsular right parietal lobe and adjacent right parietal periventricular white matter. There is no hematoma, mass, hydrocephalus, or extra-axial collection. There is a moderate volume chronic infarct in the adjacent left occipital and posterior temporal lobes. There is mild chronic microvascular ischemia in the supratentorial white matter and kulwant. There are dilated perivascular spaces and/or chronic lacunar infarcts inthe left corpus striatum. Normal appearing flow-voids are present in the major intracranial vascularstructures. The sellar and pineal regions, craniocervical junction, orbits, face, and skull base arewithout worrisome finding. MRA neck: There is no vessel occlusion or flow-limiting stenosis. There is mild atherosclerotic plaque deposition in the proximal left cervical internal carotid artery, without NASCET quantifiable stenosis. Flow is antegrade in both vertebral arteries. MRA [place]: There is no acute vessel occlusion or flow-limiting stenosis. Asymmetrically diminished flow related enhancement in the left posterior cerebral artery conforms to be chronic infarct core. There is moderate stenosis in the M1 segment left middle cerebral artery. IMPRESSION: 1. Small volume acute nonhemorrhagic right parietal lobe infarct. 2. No evidence for acute vascular compromise. 3. Chronic findings as discussed. Signed: Luis Mancera Verified Date/Time: 03/26/2018 18:40:56 Reading Location: [facility] Radiology Reading Room MR, BRAIN, WITHOUT [id number] 18:40:00Reason for exam:->Ischemic Stroke EvaluationFINAL REPORT MRI brain and MRA head and neck without contrast 03/26/2018 6:36 PM CLINICAL INDICATION: Ischemic Stroke Evaluationstroke eval TECHNIQUE: Multiplanar, multisequence MR imaging of the brain was performed utilizing the following imaging sequences: Axial T1, T2, FLAIR, GRE, and DWI; sagittal and coronal T1- weighted images. Two- and three-dimensional khyi-hx-hxadbb MRAimages of the intra- and extracranial carotid and vertebral arterial circulations were obtained, from which maximal intensity projection 3-D reconstructions were created. COMPARISON: None available FINDINGS: MRI: There is a small volume acute nonhemorrhagic infarct involving the periinsular right parietal lobe and adjacent right parietal periventricular white matter. There is no hematoma, mass, hydrocephalus, or extra-axial collection. There is a moderate volume chronic infarct in the adjacent left occipital and posterior temporal lobes. There is mild chronic microvascular ischemia in the supratentorial white matter and kulwant. There are dilated perivascular spaces and/or chronic lacunar infarcts inthe left corpus striatum. Normal appearing flow-voids are present in the major intracranial vascularstructures. The sellar and pineal regions, craniocervical junction, orbits, face, and skull base arewithout worrisome finding. MRA neck: There is no vessel occlusion or flow-limiting stenosis. There is mild atherosclerotic plaque deposition in the proximal left cervical internal carotid artery, without NASCET quantifiable stenosis. Flow is antegrade in both vertebral arteries. MRA [place]: There is no acute vessel occlusion or flow-limiting stenosis. Asymmetrically diminished flow related enhancement in the left posterior cerebral artery conforms to be chronic infarct core. There is moderate stenosis in the M1 segment left middle cerebral artery. IMPRESSION: 1. Small volume acute nonhemorrhagic right parietal lobe infarct. 2. No evidence for acute vascular compromise. 3. Chronic findings as discussed. Signed: Luis Mancera Verified Date/Time: 03/26/2018 18:40:56 Reading Location: [facility] Radiology Reading Room EEG AWAKE AND [id number] 14:46:00Reason for exam:->Repeat EEG to rule out any seizures. Another episode of word finding difficultyreported today.Date(s) of EE03/26/2018 DATE OF REPORT: 03/26/2018 ACC: [id number] EEG Number: [id number] Test Location: Inpatient ICU Start time: 13:17 Stop time: 13:39 ICD-10: R56.9 CPT Code: 03618 HISTORY: 58 y/o man with HTN, prior stroke, noncompliant with medications presents with confusion MEDICATIONS THAT COULD AFFECT EEG: TECHNICAL SUMMARY: This is a digital video-EEG recorded with 32 input channels reviewed with bipolar and referential montages using the modified combinatorial system nomenclature. DESCRIPTION OF RECORD: During the maximally alert state a 8-9 Hz posterior dominant rhythm was seen that was symmetric. More anteriorly, low voltage frontocentral beta predominated. Drowsiness was characterized by alpha attenuation and increased frontocentral theta. Stage 2 sleep was not reached. SIGNIFICANT VIDEO EVENTS: None SIGNIFICANT ELECTROCARDIOGRAM EVENTS: None HV: Hyperventilation was not performed. PHOTIC STIMULATION: Photic stimulation was done from 1-33 Hz; no photic driving was seen; photoparoxysmal responses were absent. IMPRESSION: Normal Awake and Drowsy EEG CLINICAL CORRELATION: An EEG without epileptiform discharges does not exclude the possibility of epilepsy. Kamille Holman MD Neurophysiology Fellow Magdiel Wall MD Attending Neurophysiologist JAMARCUS Lowry [facility] [place] POCT-GLUCOSE [id number] 12:30:00 Test Item Value Reference Range Interpretation Comments POC-GLUCOSE METER 154 mg/dL 70-110 H TESTED AT [facility] 6720 ([facility]) (test code = [facility] 1538) [address] HEMOGLOBIN [id number] 08:33:00 Test Item Value Reference Range Interpretation Comments HEMOGLOBIN A1C (BEAKER) (test code = 8.3 % 4.3-6.1 H 368) [id number] 02:46:00 Test Item Value Reference Range Interpretation Comments PHOSPHORUS (BEAKER) (test code = 2.8 mg/dL 2.3-4.7 604) [id number] 02:46:00 Test Item Value Reference Range Interpretation Comments MAGNESIUM (BEAKER) (test code = 2.3 mg/dL 1.6-2.6 627) COMPREHENSIVE METABOLIC [id number] 02:46:00 Test Item Value Reference Range Interpretation Comments TOTAL PROTEIN 7.1 gm/dL 6.0-8.3 (BEAKER) (test code = 770) ALBUMIN (BEAKER) 4.1 g/dL 3.5-5.0 (test code = 1145) ALKALINE PHOSPHATASE 86 U/L 40-150 (BEAKER) (test code = 346) BILIRUBIN TOTAL 1.0 mg/dL 0.2-1.2 (BEAKER) (test code = 377) SODIUM (BEAKER) (test 138 meq/L 136-145 code = 381) POTASSIUM (BEAKER) 3.1 meq/L 3.5-5.1 L (test code = 379) CHLORIDE (BEAKER) 102 meq/L 98-107 (test code = 382) CO2 (BEAKER) (test 24 meq/L 22-29 code = 355) BLOOD UREA NITROGEN 20 mg/dL 7-21 (BEAKER) (test code = 354) CREATININE (BEAKER) 1.75 mg/dL 0.57-1.25 H (test code = 358) GLUCOSE RANDOM 235 mg/dL 70-105 H (BEAKER) (test code = 652) CALCIUM (BEAKER) 8.8 mg/dL 8.4-10.2 (test code = 697) AST (SGOT) (BEAKER) 19 U/L 5-34 (test code = 353) ALT (SGPT) (BEAKER) 23 U/L 6-55 (test code = 347) EGFR (BEAKER) (test 40 mL/min/1.73 ESTIMA ANURADHA GFR IS code = 1092) sq m NOT ACCURATE CREATININE CLEARANCE IN PREDICTING GLOMERULAR FILTRATION RATE . ESTIMATED GFR I S NOT APPLICABLE FOR DIALYSIS PATIEN TS. LIPID [id number] 02:46:00 Test Item Value Reference Range Interpretation Comments TRIGLYCERIDES (BEAKER) (test code = 138 mg/dL 540) CHOLESTEROL (BEAKER) (test code = 216 mg/dL 631) HDL CHOLESTEROL (BEAKER) (test code 36 mg/dL = 976) LDL CHOLESTEROL CALCULATED (BEAKER) 152 mg/dL (test code = 633) Triglyceride Reference Range: Low Risk <150 Borderline 150-199 High Risk 200-499 Very High Risk >=500Cholesterol Reference Range: Low Risk <200 Borderline 200-239 High Risk >240HDL Cholesterol Reference Range: Low Risk >=60 High Risk <40LDL Cholesterol Reference Range: Optimal <100 Near Optimal 100-129 Borderline 130-159 High 160-189 Very High >=190CBC (HEMOGRAM ONLY)2018-03-26 02:18:00 Test Item Value Reference Range Interpretation Comments WHITE BLOOD CELL COUNT (BEAKER) 8.5 K/ L 3.5-10.5 (test code = 775) RED BLOOD CELL COUNT (BEAKER) 4.99 M/ L 4.63-6.08 (test code = 761) HEMOGLOBIN (BEAKER) (test code = 14.1 GM/DL 13.7-17.5 410) HEMATOCRIT (BEAKER) (test code = 40.7 % 40.1-51.0 411) MEAN CORPUSCULAR VOLUME (BEAKER) 81.6 fL 79.0-92.2 (test code = 753) MEAN CORPUSCULAR HEMOGLOBIN 28.3 pg 25.7-32.2 (BEAKER) (test code = 751) MEAN CORPUSCULAR HEMOGLOBIN CONC 34.6 GM/DL 32.3-36.5 (BEAKER) (test code = 752) RED CELL DISTRIBUTION WIDTH 13.7 % 11.6-14.4 (BEAKER) (test code = 412) PLATELET COUNT (BEAKER) (test 226 K/CU MM 150-450 code = 756) MEAN PLATELET VOLUME (BEAKER) 10.7 fL 9.4-12.4 (test code = 754) NUCLEATED RED BLOOD CELLS 0 /100 WBC 0-0 (BEAKER) (test code = 413)
[2021-05-24] MEDS ORDERED: NITROGLYCERIN 0.4 MG/TAB SL ONE (03:17)
[2021-05-24] MEDS ORDERED: NITROGLYCERIN/D5W 50 MG/250 ML BTL IV ONE (03:24)
[2021-05-24 03:26] LABS: Absolute Lymphocytes (CBC) 2.4 K/uL (0.7-4.9); Basophils % 0.8 % (0-1.3); Hematocrit 44.7 % (39.6-49.0); Lymphocytes % 18.6 % (15.3-44.8); MPV 9.2 fL (7.6-11.3)
[2021-05-24 03:27] LABS: Protime INR 0.98
[2021-05-24 03:49] LABS: Albumin 3.9 g/dL (3.4-5.0); Bilirubin Direct 0.2 mg/dL (0-0.2); Bilirubin Total 0.8 mg/dL (0.2-1.0); Magnesium 1.9 mg/dL (1.8-2.4); Potassium 3.4 mmol/L (3.5-5.1); Protein, Total 7.9 g/dL (6.4-8.2); Troponin (Emerg Dept Use Only) 0.03 ng/mL (0.0-0.045)
--- NOTE | 2021-05-24 04:05 | ER ---
Nurse's Notes [facility] Name: Calos Marie Age: 61 yrs Sex: Male : 1960 Arrival Date: 05/24/2021 Time: 02:55 Bed 5 Private MD: Diagnosis: Acute systolic (congestive) heart failure Presentation: 05/24 02:55 Chief complaint: EMS states: pt called EMS for SOB, 85% room air O2 sat. diaphoretic, bs2 tripoding, tachypneic, Hypertensive. Coronavirus screen: difficulty breathing, shortness of breath. Ebola Screen: No symptoms or risks identified at this time. Initial Sepsis Screen: Does the patient meet any 2 criteria? RR > 20 per min. No. Patient's initial sepsis screen is negative. Does the patient have a suspected source of infection? No. Patient's initial sepsis screen is negative. Risk Assessment: Do you want to hurt yourself or someone else? Patient reports no desire to harm self or others. Onset of symptoms was May 24, 2021. Care prior to arrival: IV initiated. 20 GA, in the left Oxygen administered. via nasal cannula, via CPAP or BiPAP. Transition of care: patient was not received from another setting of care. 02:55 Method Of Arrival: EMS: [facility] bs2 02:55 Acuity: KRIS 2 bs2 Triage Assessment: 02:55 General: Appears distressed, uncomfortable, obese, well groomed, well developed, well bs2 nourished, Behavior is cooperative, anxious, restless, Denies fever, chills. Pain: Denies pain. Cardiovascular:. Respiratory: Reports shortness of breath at rest air hunger labored breathing Onset: The symptoms/episode began/occurred today, the patient has moderate shortness of breath. Derm: Skin is clammy, diaphoretic, Skin is pale. Historical: - Allergies: 03:33 No Known Allergies; bs2 - Home Meds: 03:33 Unable to obtain [Active]; bs2 - PMHx: 03:33 CVA; Hypertension; bs2 - Immunization history:: Adult Immunizations not up to date, Client reports having NOT received the Covid vaccine. - Social history:: Smoking status: Patient denies any tobacco usage or history of. Patient uses street drugs, marijuana. Screenin:37 Abuse screen: Denies threats or abuse. Denies injuries from another. Nutritional bs2 screening: No deficits noted. Tuberculosis screening: No symptoms or risk factors identified. Fall Risk IV access (20 points). Assessment: 03:37 General: Appears distressed, uncomfortable, obese, Behavior is cooperative, anxious. bs2 Pain: Denies pain. Cardiovascular: Rhythm is sinus tachycardia. Respiratory: Airway is patent Respiratory effort is labored, Breath sounds are clear bilaterally. Vital Signs: 02:55 BP 212 / 115; Pulse 87; Resp 30; Temp 97.6(TE); Pulse Ox 93% on NC; Pain 2/10; bs2 03:15 BP 157 / 95; Pulse 87; Resp 26; Temp 97.6(TE); Pulse Ox 97% on 15% Non-rebreather mask; bs2 Weight 117.8 kg; Height 5 ft. 10 in. (177.80 cm); Pain 0/10; 03:30 BP 131 / 98; Pulse 75; Resp 16; Pulse Ox 98% on Non-rebreather mask; jb4 03:45 BP 163 / 103; Pulse 75; Resp 21; Pulse Ox 99% on Non-rebreather mask; jb4 04:00 BP 166 / 98; Pulse 69; Resp 18; Pulse Ox 99% on Non-rebreather mask; jb4 04:20 BP 160 / 93; Pulse 76; Resp 19; Pulse Ox 92% on R/A; jb4 04:40 BP 185 / 93; Pulse 76; Resp 19; Pulse Ox 92% on R/A; jb4 03:15 Body Mass Index 37.26 (117.80 kg, 177.80 cm) bs2 ED Course: 02:55 Patient arrived in ED. em 02:55 Arm band placed on right wrist. Patient placed in an exam room, on a stretcher, on bs2 oxygen, on phototypesetting equipment monitor, on pulse oximetry. EKG completed in triage. Results shown to . 03:06 Martha Sanchez, [place] is Primary Nurse. bs2 03:12 Deven Keene is Attending Physician. sp3 03:33 Triage completed. bs2 03:37 Patient has correct armband on for positive identification. Placed in gown. Bed in low bs2 position. Call light in reach. Side rails up X2. teletypesetter monitor on. Pulse ox on. NIBP on. Door closed. 03:37 No provider procedures requiring assistance completed. Inserted saline lock: 18 gauge bs2 in right forearm, using aseptic technique. Blood collected. Oxygen administration administration via face mask \\T\\ 10L/min. 03:41 COVID-19 : Document "Date of Symptom Onset" if Symptomatic. Sent. bs2 03:41 Basic Metabolic Panel Sent. bs2 03:41 CBC with Diff Sent. bs2 03:41 XRAY Chest (1 view) Sent. bs2 03:41 LFT's Sent. bs2 03:41 Magnesium Sent. bs2 03:41 NT PRO-BNP Sent. bs2 03:42 PT-INR Sent. bs2 03:42 Troponin (emerg Dept Use Only) Sent. bs2 03:46 XRAY Chest (1 view) In Process Unspecified. EDMS 04:04 Waldo Marquez DO is Hospitalizing Provider. sp3 04:30 Patient admitted, IV remains in place. jb4 10:16 Echocardiogram with doppler completed by chemical technician. tc Administered Medications: 02:55 Drug: Nitroglycerin 0.4 mg Route: Sublingual; jb4 03:00 Drug: Nitroglycerin 0.4 mg Route: Sublingual; jb4 03:05 Drug: Nitroglycerin 0.4 mg Route: Sublingual; jb4 03:40 Follow up: Response: Marked relief of symptoms; Blood pressure is lowered jb4 03:10 Drug: Nitro Drip - (Nitroglycerin 50 mg, D5W 250 ml) Route: IV; Rate: 5 mcg/min; Site: jb right forearm; 04:05 Drug: Lasix (furosemide) 40 mg Route: IVP; Site: left antecubital; jb4 05:14 Follow up: Response: No adverse reaction jb4 04:05 Drug: Aspirin 325 mg Route: PO; jb4 05:14 Follow up: Response: No adverse reaction jb4 04:41 Drug: Metoprolol 50 mg Route: PO; jb4 Outcome: 04:04 Decision to Hospitalize by Provider. sp3 04:30 Admitted to ER Hold. [facility]. jb4 04:30 Condition: stable 04:30 Discharge instructions given to patient, Instructed on the need for admit, Demonstrated understanding of instructions. 05/25 18:21 Patient left the ED. iw Signatures: Dispatcher [employer] Octaviano Chu, RN RN Edna Quinones RN RN iw Rola Farah, funding coordinator EKG Ttc Manolo Martin RN RN jb4 Deven Keene3 Martha Sanchez RN RN bs2 Corrections: (The following items were deleted from the chart) 05/24 04:49 04:41 BP 160 / 93; Pulse 76bpm; Resp 19bpm; Pulse Ox 92% RA; jb4 jb4 05:43 03:15 BP 157 / 95; Pulse 87bpm; Resp 26bpm; Pulse Ox 97% Non-rebreather mask; jb4 bs2
--- NOTE | 2021-05-24 04:05 | EDPHYS ---
Physician Documentation [facility] Name: Calos Marie Age: 61 yrs Sex: Male : 1960 Arrival Date: 05/24/2021 Time: 02:55 Bed 5 Private MD: ED Physician Deven Keene HPI: 05/24 03:14 This 61 yrs old Male presents to ER via Unassigned with complaints of sp3 Shortness Of Breath. 03:14 1-year-old male with history of hypertension and CVA in 2018 presents with chief sp3 complaint shortness of breath and hypertension via EMS. EMS arrived on scene to find dyspneic patient and had to put him on CPAP. They were unable to get a blood pressure in route secondary to it being "high". Patient was brought to the ED placed in room 5 at which point IVs were established initial vital signs were performed. Patient denies headache, neck pain, chest pain, back pain, abdominal pain, nausea, vomiting, diarrhea, fever, URI symptoms, syncope, near syncope, motor weakness, sensory deficits, memory loss other than baseline, or any other ROS at this time.. Historical: - Allergies: 03:33 No Known Allergies; bs2 - Home Meds: 03:33 Unable to obtain [Active]; bs2 - PMHx: 03:33 CVA; Hypertension; bs2 - Immunization history:: Adult Immunizations not up to date, Client reports having NOT received the Covid vaccine. - Social history:: Smoking status: Patient denies any tobacco usage or history of. Patient uses street drugs, marijuana. ROS: 03:15 Constitutional: Negative for fever, chills, and weight loss, Neck: Negative for injury, sp3 pain, and swelling, Abdomen/GI: Negative for abdominal pain, nausea, vomiting, diarrhea, and constipation, Back: Negative for injury and pain, MS/Extremity: Negative for injury and deformity, Skin: Negative for injury, rash, and discoloration, Neuro: Negative for headache, weakness, numbness, tingling, and seizure, Psych: Negative for depression, anxiety, suicide ideation, homicidal ideation, and hallucinations, Allergy/Immunology: Negative for hives, rash, and allergies, Endocrine: Negative for neck swelling, polydipsia, polyuria, polyphagia, and marked weight changes. 03:15 Cardiovascular: Negative for chest pain, palpitations, and edema. 03:15 Respiratory: Positive for dyspnea on exertion, shortness of breath, Negative for wheezing. 03:17 All other systems are negative. sp3 Exam: 03:16 Head/Face: Normocephalic, atraumatic. Eyes: Pupils equal round and reactive to light, sp3 extra-ocular motions intact. Lids and lashes normal. Conjunctiva and sclera are non-icteric and not injected. Cornea within normal limits. Periorbital areas with no swelling, redness, or edema. Neck: Trachea midline, no thyromegaly or masses palpated, and no cervical lymphadenopathy. Supple, full range of motion without nuchal rigidity, or vertebral point tenderness. No Meningismus. Chest/axilla: Normal chest wall appearance and motion. Nontender with no deformity. No lesions are appreciated. Cardiovascular: Regular rate and rhythm with a normal S1 and S2. No gallops, murmurs, or rubs. Normal PMI, no JVD. No pulse deficits. Abdomen/GI: Soft, non-tender, with normal bowel sounds. No distension or tympany. No guarding or rebound. No evidence of tenderness throughout. Back: No spinal tenderness. No costovertebral tenderness. Full range of motion. Skin: Warm, dry with normal turgor. Normal color with no rashes, no lesions, and no evidence of cellulitis. Neuro: Awake and alert, GCS 15, oriented to person, place, time, and situation. Cranial nerves II-XII grossly intact. Motor strength 5/5 in all extremities. Sensory grossly intact. Cerebellar exam normal. Normal gait. Psych: Awake, alert, with orientation to person, place and time. Behavior, mood, and affect are within normal limits. 03:16 Constitutional: The patient appears anxious, diaphoretic, obese, in obvious distress, moderately distressed. 03:16 Respiratory: moderate respiratory distress is noted, Respirations: labored breathing, Breath sounds: rales, that are moderate, are scattered, are heard diffusely, Respiratory rate: 45 Vital Signs: 02:55 BP 212 / 115; Pulse 87; Resp 30; Temp 97.6(TE); Pulse Ox 93% on NC; Pain 2/10; bs2 03:15 BP 157 / 95; Pulse 87; Resp 26; Temp 97.6(TE); Pulse Ox 97% on 15% Non-rebreather mask; bs2 Weight 117.8 kg; Height 5 ft. 10 in. (177.80 cm); Pain 0/10; 03:30 BP 131 / 98; Pulse 75; Resp 16; Pulse Ox 98% on Non-rebreather mask; jb4 03:45 BP 163 / 103; Pulse 75; Resp 21; Pulse Ox 99% on Non-rebreather mask; jb4 04:00 BP 166 / 98; Pulse 69; Resp 18; Pulse Ox 99% on Non-rebreather mask; jb4 04:20 BP 160 / 93; Pulse 76; Resp 19; Pulse Ox 92% on R/A; jb4 04:40 BP 185 / 93; Pulse 76; Resp 19; Pulse Ox 92% on R/A; jb4 03:15 Body Mass Index 37.26 (117.80 kg, 177.80 cm) bs2 MDM: 03:13 Patient medically screened. sp3 03:17 Data reviewed: vital signs, nurses notes, EMS record, lab test result(s), EKG, sp3 radiologic studies. 03:17 ED course: Patient arrived and was placed on the bed and immediately started on sp3 nitroglycerin 0.4 mg sublingual every 5 minutes x 3. Patient was then put on a nitro drip initially at 20 mcg/min but quickly titrated up to 100 mcg/min. Blood pressure initially was 260/130 range and has come down to the 180/80 range we will continue the nitroglycerin and titrate to decrease work of breathing. EKG demonstrates normal sinus rhythm at 90 bpm with high voltage nonspecific intraventricular delay, nonspecific ST/T changes normal axis. Total critical care time is 30 minutes. I spent that time directly at bedside titrating nitro drip and giving orders regarding oxygen delivery. Will admit patient to the hospitalist service as his primary care physician is Dr. Salvador Keene.. 03:29 ED course: There is now 125/80 and patient is speaking in complete sentences. Chest sp3 x-ray still pending and laboratory values are still pending as well.. 03:33 ED course: Repeat EKG with better waveform demonstrates normal sinus rhythm at 72 bpm sp3 with no intraventricular delay but leftward axis and continued nonspecific ST/T changes diffuse.. 04:03 ED course: Patient will be dispositioned to the hospitalist service with serial cardiac sp3 markers and diuresis.. 05/24 02:56 Order name: Basic Metabolic Panel em 05/24 02:56 Order name: CBC with Diff em 05/24 02:56 Order name: LFT's; Complete Time: 03:55 em 05/24 02:56 Order name: Magnesium; Complete Time: 03:55 em 05/24 02:56 Order name: NT PRO-BNP; Complete Time: 03:52 em 05/24 02:56 Order name: PT-INR; Complete Time: 03:48 em 05/24 02:56 Order name: Troponin (emerg Dept Use Only); Complete Time: 03:55 em 05/24 02:56 Order name: Basic Metabolic Panel; Complete Time: 03:53 EDMS 05/24 02:56 Order name: CBC with Automated Diff; Complete Time: 03:48 EDMS 05/24 03:10 Order name: COVID-19 : Document "Date of Symptom Onset" if Symptomatic. em 05/24 04:06 Order name: SARS-COV-2 RT PCR; Complete Time: 04:18 EDMS 05/24 05:10 Order name: Urine Dipstick-Ancillary EDMS 05/24 06:25 Order name: Urinalysis EDMS 05/24 02:56 Order name: XRAY Chest (1 view) em 05/24 09:07 Order name: Troponin I EDMS 05/24 09:07 Order name: Lipid Profile EDMS 05/24 09:07 Order name: T4 Free EDMS 05/24 09:07 Order name: Thyroid Stimulating Hormone EDMS 05/24 09:17 Order name: Hemoglobin A1c EDMS 05/24 15:30 Order name: Troponin I EDMS 05/25 05:48 Order name: CBC with Automated Diff EDMS 05/25 06:27 Order name: Comprehensive Metabolic Panel EDMS 05/25 06:27 Order name: Magnesium EDMS 05/25 07:37 Order name: RAD EDMS 05/25 09:46 Order name: Urine Culture EDMS 05/25 15:20 Order name: Potassium EDMS 05/25 16:04 Order name: Ur Protein EDMS 05/24 02:56 Order name: EKG; Complete Time: 02:57 em 05/24 02:56 Order name: Cardiac monitoring; Complete Time: 03:06 em 05/24 02:56 Order name: EKG - Nurse/Tech; Complete Time: 03:06 em 05/24 02:56 Order name: IV Saline Lock; Complete Time: 03:06 em 05/24 02:56 Order name: Labs collected and sent; Complete Time: 03:06 em 05/24 02:56 Order name: O2 Per Protocol; Complete Time: 03:07 em 05/24 02:56 Order name: O2 Sat Monitoring; Complete Time: 03:07 em Administered Medications: 02:55 Drug: Nitroglycerin 0.4 mg Route: Sublingual; jb4 03:00 Drug: Nitroglycerin 0.4 mg Route: Sublingual; jb4 03:05 Drug: Nitroglycerin 0.4 mg Route: Sublingual; jb4 03:40 Follow up: Response: Marked relief of symptoms; Blood pressure is lowered jb4 03:10 Drug: Nitro Drip - (Nitroglycerin 50 mg, D5W 250 ml) Route: IV; Rate: 5 mcg/min; Site: jb4 right forearm; 04:05 Drug: Lasix (furosemide) 40 mg Route: IVP; Site: left antecubital; jb4 05:14 Follow up: Response: No adverse reaction jb4 04:05 Drug: Aspirin 325 mg Route: PO; jb4 05:14 Follow up: Response: No adverse reaction jb4 04:41 Drug: Metoprolol 50 mg Route: PO; jb4 Disposition Summary: 05/24/21 04:04 Hospitalization Ordered Hospitalization Status: Observation sp3 Provider: Waldo Marquez sp3 Condition: Stable sp3 Problem: an acute exacerbation sp3 Symptoms: have improved sp3 Bed/Room Type: Standard sp3 Location: [facility] ER HOLD(05/25/21 11:57) Room Assignment: ERHOLD-(05/25/21 11:57) eb Diagnosis - Acute systolic (congestive) heart failure sp3 Forms: - Medication Reconciliation Form sp3 - SBAR form sp3 Signatures: Dispatcher [employer] Octaviano Chu RN RN em Abdirizak Bustamante, DEPUTY CLERK OF COURT-C DEPUTY CLERK OF COURT-Cla1 Manolo Martin RN RN jb4 Shanae Fuentes Deven Keene sp3 Martha Sanchez RN RN bs2 Corrections: (The following items were deleted from the chart) 03:14 03:11 CORONAVIRUS ordered. EDMS EDMS 11:52 04:04 Telemetry/MedSurg (observation) sp3 bs2 11:52 04:04 sp3 bs2 05/25 11:53 08 11:52 [facility] ER HOLD bs2 eb 05/25 11:53 05/24 11:52 ERHOLD- bs2 eb 05/25 11:57 11:53 Telemetry/MedSurg (observation) [facility] 11:57 11:53 206 [facility]
[2021-05-24] MEDS ORDERED: ACETAMINOPHEN 500 MG TAB PO PRN (04:30)
[2021-05-24] MEDS ORDERED: ONDANSETRON 4 MG/2 ML VIAL IV PRN (04:30)
--- NOTE | 2021-05-24 04:30 | P.HP ---
Certification for Inpatient Patient admitted to: Inpatient With expected LOS: >2 Midnights Patient will require the following post-hospital care: None Practitioner: I am a practitioner with admitting privileges, knowledge of patient current condition, hospital course, and medical plan of care. Services: Services provided to patient in accordance with Admission requirements found in Title 42 Section 412.3 of the Code of Federal Regulations Patient History Date of Service: 05/24/21 Reason for admission: Dyspnea, History of Present Illness: 61-year-old male with history of hypertension, previously CVA presents emergency primary for shortness of breath, hypertension. Patient called EMS for respiratory distress upon arrival to the emergency room and patient was tripoding, diaphoretic, significantly hypertensive with blood pressure around 215/120. Patient was medially placed on BiPAP and given nitroglycerin p.o., patient was then started on nitroglycerin drip initially titrating up to around 100 mics per minute but this was quickly trended down as patient had rapid improvement. At this time patient doing much better able to speak in full clear sentences reports significant provement in his breathing at this time chest x- ray appears to demonstrate volume overload pattern. Patient denies any known history of CHF. Patient also noted to have elevated creatinine 2.03 and GFR 33, patient denies any known history of kidney disease but this is similar to his previous labs regarding his GFR. Patient was given Lasix as well in the emergency department will admit for further evaluation and management of suspected CHF exacerbation. Allergies No Known Allergies Allergy (Unverified 09/07/17 15:26) Home Medications: Aspirin [Aspirin EC 325 MG] 325 mg PO DAILY #30 tablet.dr 09/08/17 Atorvastatin Calcium [Lipitor] 80 mg PO BEDTIME #30 tab 09/08/17 hydroCHLOROthiazide [Hydrochlorothiazide*] 12.5 mg PO DAILY #30 cap 09/08/17 - Past Medical/Surgical History -: CVA -: Hypertension -: None Psychosocial/ Personal History: Patient unemployed lives alone - Family History Father -: Heart disease - Social History Smoking Status: Never smoker Alcohol use: No CD- Drugs: Yes Caffeine use: No Place of Residence: Home Review of Systems 10-point ROS is otherwise unremarkable Respiratory: Cough, Shortness of Breath Physical Examination - Physical Exam General: Alert, In no apparent distress, Oriented x3 HEENT: Atraumatic, PERRLA, EOMI, Sclerae nonicteric Neck: Supple, 2+ carotid pulse no bruit, No LAD, Without JVD or thyroid abnormality Respiratory: Clear to auscultation bilaterally, Normal air movement Cardiovascular: Regular rate/rhythm, Normal S1 S2 Gastrointestinal: Normal bowel sounds, No tenderness Musculoskeletal: No tenderness Integumentary: No rashes Neurological: Normal speech, Normal strength at 5/5 x4 extr, Normal tone, Normal affect - Studies Laboratory Data (last 24 hrs) 05/24/21 03:07: PT 11.3, INR 0.98 05/24/21 03:07: WBC 12.70 H, Hgb 15.4, Hct 44.7, Plt Count 250 05/24/21 03:07: Sodium 140, Potassium 3.4 L, BUN 26 H, Creatinine 2.03 H, Glucose 164 H, Magnesium 1.9, Total Bilirubin 0.8, AST 23, ALT 38, Alkaline Phosphatase 92 Assessment and Plan - Plan Assessment: Dyspnea, hypertension, volume overload suspect underlying CHF exacerbationunknown EF CKD 3 History of CVA Hyperglycemia Plan: Dyspnea, hypertension, volume overload suspect underlying CHF exacerbationunknown EF: Cardiology consulted, monitor on telemetry initial troponin 0.03 will trend. Patient given Lasix 40 mg IV in the emergency department, was initially on nitro drip but this has been titrated down. Patient has been off his medications for blood pressure for the last few months, unsure what his medications were at home. Creatinine is 2 which will limit our options, will continue with Lopressor 50 mg p.o. twice daily with parameters as well as Lasix 40 mg IV 3 times daily. Appreciate further input from cardiology. Echocardiogram ordered CKD 3: Similar to previous labs will consult nephrology as patient will be getting diuresed, possible worsening renal function. History of CVA: Obtain and continue medications Hyperglycemia: Obtain a1c, pt reports borderline DM DVT PPX: Heparin Code status: Full Discharge Plan: Home Plan to discharge in: 48 Hours - Advance Directives Does patient have a Living Will: No Does patient have a Durable POA for Healthcare: No - Code Status/Comfort Care Code Status Assessed: Yes (Full code) Critical Care: No Time Spent Managing Pts Care (In Minutes): 55
[2021-05-24] MEDS ORDERED: ASPIRIN 325 MG TAB ONE (04:50)
[2021-05-24] MEDS ORDERED: FUROSEMIDE 40 MG/4 ML VIAL ONE ×3 (04:51→17:49)
[2021-05-24] MEDS ORDERED: METOPROLOL TAR 50 MG TAB ONE ×3 (05:03→19:51)
[2021-05-24 05:10] LABS: Urine Blood Trace-lysed (Negative); Urine Glucose Trace (Negative); Urine Protein 3+ (Negative); Urine Specific Gravity 1.025 (1.005-1.030)
[2021-05-24 06:12] LABS: Urine Appearance CLEAR (Clear); Urine Bilirubin NEGATIVE (Negative); Urine Blood TRACE (Negative); Urine Color YELLOW (Yellow); Urine Glucose TRACE (Negative); Urine Protein 3+ (Negative); Urine Urobilinogen 0.2 mg/dL (0.2-1.0)
[2021-05-24 06:25] LABS: Urine Microscopic Reflex ORDER UMIC
[2021-05-24 06:28] LABS: Urine Bacteria 20-50 /HPF (NONE SEEN); Urine Mucus 1+ /HPF (NONE SEEN); Urine RBC <5 /HPF (NONE SEEN)
--- NOTE | 2021-05-24 06:37 | P.PN ---
Subjective Date of Service: 05/24/21 Chief Complaint: Dyspnea, Subjective: Improving (Patient overall stable. Blood pressure improved. Patient off nitro drip.) Physical Examination - Studies Laboratory Data (last 24 hrs) 05/24/21 03:07: PT 11.3, INR 0.98 05/24/21 03:07: WBC 12.70 H, Hgb 15.4, Hct 44.7, Plt Count 250 05/24/21 03:07: Sodium 140, Potassium 3.4 L, BUN 26 H, Creatinine 2.03 H, Glucose 164 H, Magnesium 1.9, Total Bilirubin 0.8, AST 23, ALT 38, Alkaline Phosphatase 92 Assessment & Plan Discharge Plan: Home Plan to discharge in: 48 Hours Physician Review Additional Text: COVID: negative CXR: FINDINGS: Patient is lordotic in positioning with under penetrated technique. Overlying soft tissues accentuate each lower lung field. Interstitial markings are prominent without a dense mass or consolidation identifiable. Cardiac silhouette is prominent but not clearly different from comparison. Pericardial fat pads are present. Trachea is midline. Recording device overlies the upper left lung field. No measurable pleural effusion and no pneumothorax. No acute bony abnormality seen. No acute aortic findings suspected. IMPRESSION: No mass, focal consolidation or other focal lung parenchymal process. Interstitial pattern is increased throughout both lung boone most of which is artifact from body habitus and film technique. A mild interstitial edema or infiltrate would still be possible. ECHO: MEASUREMENTS (cm) DIASTOLIC (NORMALS) SYSTOLIC (NORMALS) IVSd 1.4 (0.6-1.2) LA Diam 3.1 (1.9-4.0) LVEF 48% LVIDd 5.8 (3.5-5.7) LVIDs 4.4 (2.0-3.5) %FS 25% LVPWd 1.5 (0.6-1.2) Ao Diam 3.0 (2.0-3.7) 2 DIMENSIONAL ASSESSMENT: RIGHT ATRIUM: NORMAL LEFT ATRIUM: NORMAL RIGHT VENTRICLE: NORMAL LEFT VENTRICLE: LEFT VENTRICULAR HYPERTROPHY TRICUSPID VALVE: NORMAL MITRAL VALVE: NORMAL PULMONIC VALVE: NORMAL AORTIC VALVE: NORMAL PERICARDIAL EFFUSION: NONE AORTIC ROOT: NORMAL LEFT VENTRICULAR WALL MOTION: MILD GLOBAL HYPOKINESIS. DOPPLER/COLOR FLOW: MILD TRICUSPID REGURGITATION. COMMENTS: MILD GLOBAL HYPOKINESIS. LEFT VENTRICULAR EJECTION FRACTION 45- 50%. MILD TRICUSPID REGURGITATION. NORMAL RIGHT VENTRICULAR SYSTOLIC PRESSURE. LEFT VENTRICULAR HYPERTROPHY. Physical exam: General: Alert, In no apparent distress, Oriented x3 HEENT: Atraumatic, PERRLA, EOMI, Sclerae nonicteric Neck: Supple, 2+ carotid pulse no bruit, No LAD, Without JVD or thyroid abnormality Respiratory: Decreased at the bases. Currently on 4 L per nasal cannula. Cardiovascular: Regular rate/rhythm, Normal S1 S2 Gastrointestinal: Normal bowel sounds, No tenderness Musculoskeletal: No tenderness Integumentary: No rashes Neurological: Normal speech, Normal strength at 5/5 x4 extr, Normal tone, Normal affect Impression: Dyspnea secondary to acute on chronic diastolic CHF with ejection fraction 48% Hypertensive urgency Acute on chronic renal disease stage III History of CVA Hyperlipidemia Hyperglycemia suspect diabetes mellitus type 2 Plan: Dyspnea secondary to acute on chronic diastolic CHF with ejection fraction 48%: Continue IV diuretic therapy. Echocardiogram reviewed. Ejection fraction 48%. Patient with diastolic dysfunction. Case discussed with cardiology. Continue with IV Lasix. This can be transitioned to oral medication at discharge. We will arrange for home oxygen if required at discharge. Patient now off nitro drip. We will continue with metoprolol and hydralazine for blood pressure control. We will add lisinopril. We will try to wean off oxygen to maintain sats above 90%. Patient may require oxygen at discharge. Possible discharge within the next 48 hours. I will turn the service over to the hospitalist team tomorrow. I will go plan of care with him. Hypertensive urgency: Patient now off nitro drip. Continue with metoprolol. Hydralazine added this morning. We will also add lisinopril. Acute on chronic renal disease stage III: We will obtain renal ultrasound. Nephrology consulted. Continue with above plan of care. Anticipated continued improvement History of CVA: Continue with aspirin, folic acid. Hyperlipidemia: LDL 132. Continue with statin medication. Hyperglycemia secondary to diabetes mellitus type 2: Hemoglobin A1c 6.6. Continue Accu-Cheks and sliding scale. Patient will likely require medication at discharge. DVT PPX: Heparin Code status: Full Discharge Plan: Home at discharge likely with home oxygen. Time Spent Managing Pts Care (In Minutes): 55
[2021-05-24] MEDS ORDERED: HYDRALAZINE HCL 20 MG/ML VIAL IV PRN (06:47)
[2021-05-24] MEDS: HYDRALAZINE HCL 25 MG TABLET PO SCH ×3 (06:50→20:49)
[2021-05-24] MEDS ORDERED: HYDRALAZINE HCL 25 MG TABLET ONE ×2 (07:09→19:51)
--- NOTE | 2021-05-24 07:32 | P.CNS ---
Chief Complaint: Dyspnea, Allergies No Known Allergies Allergy (Unverified 09/07/17 15:26) Home Medications: Aspirin [Aspirin EC 325 MG] 325 mg PO DAILY #30 tablet. 09/08/17 Atorvastatin Calcium [Lipitor] 80 mg PO BEDTIME #30 tab 09/08/17 hydroCHLOROthiazide [Hydrochlorothiazide*] 12.5 mg PO DAILY #30 cap 09/08/17 - Past Medical/Surgical History -: CVA -: Hypertension -: None Psychosocial/ Personal History: Patient unemployed lives alone - Family History Father Medical History: Heart disease - Social History Alcohol use: No CD- Drugs: Yes Caffeine use: No Place of Residence: Home Physical Examination Laboratory Data (last 24 hrs) 05/24/21 03:07: PT 11.3, INR 0.98 05/24/21 03:07: WBC 12.70 H, Hgb 15.4, Hct 44.7, Plt Count 250 05/24/21 03:07: Sodium 140, Potassium 3.4 L, BUN 26 H, Creatinine 2.03 H, Glucose 164 H, Magnesium 1.9, Total Bilirubin 0.8, AST 23, ALT 38, Alkaline Phosphatase 92
[2021-05-24] MEDS ORDERED: FOLIC ACID 1 MG TABLET ONE (08:31)
[2021-05-24] MEDS ORDERED: THIAMINE HCL 100 MG TABLET ONE (08:31)
[2021-05-24] MEDS ORDERED: HEPARIN 5000 UNIT/ML 1 ML VIAL ONE ×2 (08:31→19:51)
[2021-05-24] MEDS ORDERED: ASPIRIN EC 81 MG TAB PO ONE (08:32)
[2021-05-24] MEDS: METOPROLOL TAR 50 MG TAB PO SCH ×2 (09:00→20:49)
[2021-05-24] MEDS: THIAMINE HCL 100 MG TABLET PO SCH (09:00)
[2021-05-24] MEDS: FOLIC ACID 1 MG TABLET PO SCH (09:00)
[2021-05-24] MEDS: HEPARIN 5000 UNIT/ML 1 ML VIAL SQ SCH ×2 (09:00→20:49)
[2021-05-24] MEDS: ASPIRIN EC 81 MG TAB PO SCH (09:00)
[2021-05-24] MEDS: FUROSEMIDE 40 MG/4 ML VIAL IV SCH ×2 (09:00→17:00)
--- NOTE | 2021-05-24 09:04 | RAD REPORT ---
EXAM DESCRIPTION: RAD - Chest Single View - 05/24/2021 3:46 am CLINICAL HISTORY: CHEST PAIN COMPARISON: March 25 TECHNIQUE: AP portable chest image was obtained 05/24/2021 3:46 am . FINDINGS: Patient is lordotic in positioning with under penetrated technique. Overlying soft tissues accentuate each lower lung field. Interstitial markings are prominent without a dense mass or consol idation identifiable. Cardiac silhouette is prominent but not clearly different from comparison. Veronique cardial fat pads are present. Trachea is midline. Recording device overlies the upper left lung field . No measurable pleural effusion and no pneumothorax. No acute bony abnormality seen. No acute aortic findings suspected. IMPRESSION: No mass, focal consolidation or other focal lung parenchymal process. Interstitial pattern is increased throughout both lung boone most of which is artifact from body hab itus and film technique. A mild interstitial edema or infiltrate would still be possible.
[2021-05-24 09:07] LABS: Thyroid Stimulating Hormone 1.5 uIU/mL (0.360-3.740); Troponin I 0.06 ng/mL (0.0-0.045)
[2021-05-24 10:22] VITALS: BMI 37.3
--- NOTE | 2021-05-24 11:09 | EKG ---
Test Date: 2021-05-24 Test Time: 03:32:06 Manager Transportation Planning: EPIFANIO MEASUREMENT RESULTS: Intervals: Rate: 72 WA: 150 QRSD: 90 QT: 448 QTc: 490 [place]ell: P: 18 WA: 150 QRS: -35 T: 106 INTERPRETIVE STATEMENTS: Normal sinus rhythm Possible Left atrial enlargement Left axis deviation Left ventricular hypertrophy with repolarization abnormality Prolonged QT Abnormal ECG Compared to ECG 03/25/2018 20:29:28 Left-axis deviation now present Early repolarization now present ST (T wave) deviation no longer present Electronically Signed On 05-24-21 11:07:28 CDT by Mauricio Arguelles
--- NOTE | 2021-05-24 11:09 | EKG ---
Test Date: 2021-05-24 Test Time: 02:56:32 Elderly Companion: MEASUREMENT RESULTS: Intervals: Rate: 90 CA: 164 QRSD: 94 QT: 400 QTc: 489 [place]: P: 47 CA: 164 QRS: -1 T: 108 INTERPRETIVE STATEMENTS: Normal sinus rhythm Possible Left atrial enlargement ST & T wave abnormality, consider lateral ischemia Prolonged QT Abnormal ECG Compared to ECG 03/25/2018 20:29:28 Possible ischemia now present Left ventricular hypertrophy no longer present ST (T wave) deviation still present Electronically Signed On 05-24-21 11:07:29 CDT by Mauricio Arguelles
--- NOTE | 2021-05-24 12:16 | ECHO ---
HEIGHT: 5 ft 10 in WEIGHT: 260 lb 0 oz DATE OF STUDY: 05/24/[address]: Abdirizak Bustamante NP 2-DIMENSIONAL: YES M.MODE: YES DOPPLER: YES COLOR FLOW: YES TDS: YES PORTABLE: YES DEFINITY: NO BUBBLE STUDY: NO DIAGNOSIS: DYSPNEA, HYPERTENSION, SUSPECT CONGESTIVE HEART FAILURE CARDIAC HISTORY: CATHERIZATION: NO SURGERY: NO PROSTHETIC VALVE: NO PACEMAKER: NO MEASUREMENTS (cm) DIASTOLIC (NORMALS) SYSTOLIC (NORMALS) IVSd 1.4 (0.6-1.2) LA Diam 3.1 (1.9-4.0) LVEF 48% LVIDd 5.8 (3.5-5.7) LVIDs 4.4 (2.0-3.5) %FS 25% LVPWd 1.5 (0.6-1.2) Ao Diam 3.0 (2.0-3.7) 2 DIMENSIONAL ASSESSMENT: RIGHT ATRIUM: NORMAL LEFT ATRIUM: NORMAL RIGHT VENTRICLE: NORMAL LEFT VENTRICLE: LEFT VENTRICULAR HYPERTROPHY TRICUSPID VALVE: NORMAL MITRAL VALVE: NORMAL PULMONIC VALVE: NORMAL AORTIC VALVE: NORMAL PERICARDIAL EFFUSION: NONE AORTIC ROOT: NORMAL LEFT VENTRICULAR WALL MOTION: MILD GLOBAL HYPOKINESIS. DOPPLER/COLOR FLOW: MILD TRICUSPID REGURGITATION. COMMENTS: MILD GLOBAL HYPOKINESIS. LEFT VENTRICULAR EJECTION FRACTION 45-50%. MILD TRICUSPID REGURGITATION. NORMAL RIGHT VENTRICULAR SYSTOLIC PRESSURE. LEFT VENTRICULAR HYPERTROPHY. TECHNOLOGIST: Guzman VARGAS
[2021-05-24] MEDS ORDERED: HYDRALAZINE HCL 20 MG/ML VIAL ONE (19:16)
[2021-05-24] MEDS ORDERED: ATORVASTATIN 20 MG TAB ONE (19:51)
[2021-05-24] MEDS ORDERED: ATORVASTATIN 20 MG TAB PO SCH (21:00)
[2021-05-25] MEDS: FUROSEMIDE 40 MG/4 ML VIAL IV SCH ×3 (00:30→17:00)
[2021-05-25] MEDS ORDERED: FUROSEMIDE 40 MG/4 ML VIAL ONE ×3 (00:49→17:34)
[2021-05-25 05:47] LABS: Basophils % 0.6 % (0-1.3); Hematocrit 42.9 % (39.6-49.0); Lymphocytes % 17.8 % (15.3-44.8); MPV 9.1 fL (7.6-11.3); RBC Red Blood Cell Count 5.15 M/uL (4.33-5.43)
[2021-05-25 06:27] LABS: Albumin 3.9 g/dL (3.4-5.0); Bilirubin Total 0.9 mg/dL (0.2-1.0); Magnesium 2.3 mg/dL (1.8-2.4); Potassium 3.1 mmol/L (3.5-5.1); Protein, Total 7.7 g/dL (6.4-8.2)
[2021-05-25 06:40] VITALS: O2SAT 98
--- NOTE | 2021-05-25 07:37 | RAD REPORT ---
EXAM DESCRIPTION: Walter Single View05/25/2021 5:21 am CLINICAL HISTORY: CHF COMPARISON: May 24, 2021 FINDINGS: Minimal bilateral interstitial lung opacities. Heart remains enlarged. protection chief industrial plant overlies left chest IMPRESSION: Minimal CHF is suspected
[2021-05-25] MEDS ORDERED: POTASSIUM CL SA 10 MEQ TAB PO ONE ×3 (08:10→09:35)
--- NOTE | 2021-05-25 08:26 | P.PN ---
Subjective Date of Service: 05/25/21 Chief Complaint: Dyspnea, Subjective: Doing well (Patient is doing well on lasix . Denies SOB , edema , chest pain. Breathing on RA.) <Dari Oliver - Last Filed: 05/25/21 11:03> Date of Service: 05/25/21 Agree with plan of care as mentioned above. Physical exam: General: Oriented to person place and time Cardiovascular: Regular rate rhythm no murmur Lungs: Clear bilaterally. Abdomen: Nontender Neuro: No focal deficits Assessment: 1. Dehydration Plan: 1. IV hydration and plan to discharge afterwards <Lorie Pryor - Last Filed: 06/03/21 03:07> Physical Examination - Vital Signs Temperature: 98.3 F Blood Pressure: 167/94 Pulse: 64 Respirations: 20 Pulse Ox (%): 100 - Physical Exam General: Alert, In no apparent distress, Oriented x3, Cooperative, Obese HEENT: Atraumatic, Normocephalic, PERRLA, Mucous membr. moist/pink, Sclerae nonicteric Neck: Supple, JVD not distended, Without JVD or thyroid abnormality Respiratory: Clear to auscultation bilaterally, Normal air movement Cardiovascular: No edema, Normal pulses, Regular rate/rhythm Gastrointestinal: Normal bowel sounds, Soft and benign, Non-distended, No tenderness, No rebound, No guarding Musculoskeletal: No clubbing, No swelling, No erythema, No tenderness, No warmth Integumentary: No rashes, No erythema, No ulcers Neurological: Normal gait, Normal speech, Normal strength at 5/5 x4 extr <Dari Oliver - Last Filed: 05/25/21 11:03> Assessment And Plan Discharge Plan: Home Plan to discharge in: 72 Hours Physician Review: Patient Assessed, Agree with Above Assessment and Plan Physician Review Additional Text: COVID: negative CXR: FINDINGS: Patient is lordotic in positioning with under penetrated technique. Overlying soft tissues accentuate each lower lung field. Interstitial markings are prominent without a dense mass or consolidation identifiable. Cardiac silhouette is prominent but not clearly different from comparison. Pericardial fat pads are present. Trachea is midline. Recording device overlies the upper left lung field. No measurable pleural effusion and no pneumothorax. No acute bony abnormality seen. No acute aortic findings suspected. IMPRESSION: No mass, focal consolidation or other focal lung parenchymal process. Interstitial pattern is increased throughout both lung boone most of which is artifact from body habitus and film technique. A mild interstitial edema or infiltrate would still be possible. ECHO: MEASUREMENTS (cm) DIASTOLIC (NORMALS) SYSTOLIC (NORMALS) IVSd 1.4 (0.6-1.2) LA Diam 3.1 (1.9-4.0) LVEF 48% LVIDd 5.8 (3.5-5.7) LVIDs 4.4 (2.0-3.5) %FS 25% LVPWd 1.5 (0.6-1.2) Ao Diam 3.0 (2.0-3.7) 2 DIMENSIONAL ASSESSMENT: RIGHT ATRIUM: NORMAL LEFT ATRIUM: NORMAL RIGHT VENTRICLE: NORMAL LEFT VENTRICLE: LEFT VENTRICULAR HYPERTROPHY TRICUSPID VALVE: NORMAL MITRAL VALVE: NORMAL PULMONIC VALVE: NORMAL AORTIC VALVE: NORMAL PERICARDIAL EFFUSION: NONE AORTIC ROOT: NORMAL LEFT VENTRICULAR WALL MOTION: MILD GLOBAL HYPOKINESIS. DOPPLER/COLOR FLOW: MILD TRICUSPID REGURGITATION. COMMENTS: MILD GLOBAL HYPOKINESIS. LEFT VENTRICULAR EJECTION FRACTION 45- 50%. MILD TRICUSPID REGURGITATION. NORMAL RIGHT VENTRICULAR SYSTOLIC PRESSURE. LEFT VENTRICULAR HYPERTROPHY. Physical exam: General: Alert, In no apparent distress, Oriented x3 HEENT: Atraumatic, PERRLA, EOMI, Sclerae nonicteric Neck: Supple, 2+ carotid pulse no bruit, No LAD, Without JVD or thyroid abnormality Respiratory: Decreased at the bases. Currently on 4 L per nasal cannula. Cardiovascular: Regular rate/rhythm, Normal S1 S2 Gastrointestinal: Normal bowel sounds, No tenderness Musculoskeletal: No tenderness Integumentary: No rashes Neurological: Normal speech, Normal strength at 5/5 x4 extr, Normal tone, Normal affect Impression: Dyspnea secondary to acute on chronic diastolic CHF with ejection fraction 48% Hypertensive urgency Acute on chronic renal disease stage III History of CVA Hyperlipidemia Hyperglycemia suspect diabetes mellitus type 2 Plan: Dyspnea secondary to acute on chronic diastolic CHF with ejection fraction 48%: Continue IV diuretic therapy. Echocardiogram reviewed. Ejection fraction 48%. Patient with diastolic dysfunction. Case discussed with cardiology. Continue with IV Lasix. This can be transitioned to oral medication at discharge. We w ill arrange for home oxygen if required at discharge. Patient now off nitro drip. We will continue with metoprolol and hydralazine for blood pressure control. We will add lisinopril. weaned off oxygen. sats above 90%. Patient may require oxygen at discharge. Possible discharge within the next 48 hours. Hypertensive urgency: Patient now off nitro drip. Continue with metoprolol. Hydralazine added this morning. We will also add lisinopril. Acute on chronic renal disease stage III: We will obtain renal ultrasound. Nephrology consulted. Continue with above plan of care. Anticipated continued improvement History of CVA: Continue with aspirin, folic acid. Hyperlipidemia: LDL 132. Continue with statin medication. Hyperglycemia secondary to diabetes mellitus type 2: Hemoglobin A1c 6.6. Continue Accu-Cheks and sliding scale. Patient will likely require medication at discharge. Hypokalemia: likely 2/2 lasix. will replete per protocol. DVT PPX: Heparin Code status: Full Discharge Plan: Home at discharge likely with home oxygen. <Dari Oliver - Last Filed: 05/25/21 11:03>
[2021-05-25] MEDS ORDERED: THIAMINE HCL 100 MG TABLET ONE (08:37)
[2021-05-25] MEDS ORDERED: HYDRALAZINE HCL 10 MG TABLET ONE ×2 (08:37→14:36)
[2021-05-25] MEDS ORDERED: HEPARIN 5000 UNIT/ML 1 ML VIAL ONE ×2 (08:37→08:38)
[2021-05-25] MEDS ORDERED: METOPROLOL TAR 50 MG TAB ONE (08:37)
[2021-05-25] MEDS ORDERED: FOLIC ACID 1 MG TABLET ONE (08:37)
[2021-05-25] MEDS: HYDRALAZINE HCL 25 MG TABLET PO SCH ×2 (08:38→15:15)
[2021-05-25] MEDS: ASPIRIN EC 81 MG TAB PO SCH (08:38)
[2021-05-25] MEDS: FOLIC ACID 1 MG TABLET PO SCH (08:38)
[2021-05-25] MEDS ORDERED: ASPIRIN EC 81 MG TAB PO ONE (08:38)
[2021-05-25] MEDS: THIAMINE HCL 100 MG TABLET PO SCH (08:39)
[2021-05-25] MEDS: METOPROLOL TAR 50 MG TAB PO SCH (08:39)
[2021-05-25] MEDS: HEPARIN 5000 UNIT/ML 1 ML VIAL SQ SCH (08:39)
[2021-05-25] MEDS ORDERED: POTASSIUM CL SA 10 MEQ TAB PO SCH (09:00)
[2021-05-25] MEDS ORDERED: lisinopriL 5 MG TAB PO SCH (09:00)
--- NOTE | 2021-05-25 11:04 | P.DS ---
Admission Date: 05/24/21 Discharge Date: 05/25/21 Reason for Admission: Dyspnea, Consultations: Cardiology - Dr. Mauricio Arguelles Nephrology- Dr. Lilly Reddy Procedures: COVID: negative CXR: FINDINGS: Patient is lordotic in positioning with under penetrated technique. Overlying soft tissues accentuate each lower lung field. Interstitial markings are prominent without a dense mass or consolidation identifiable. Cardiac silhouette is prominent but not clearly different from comparison. Pericardial fat pads are present. Trachea is midline. Recording device overlies the upper left lung field. No measurable pleural effusion and no pneumothorax. No acute bony abnormality seen. No acute aortic findings suspected. IMPRESSION: No mass, focal consolidation or other focal lung parenchymal process. Interstitial pattern is increased throughout both lung boone most of which is artifact from body habitus and film technique. A mild interstitial edema or infiltrate would still be possible. ECHO: MEASUREMENTS (cm) DIASTOLIC (NORMALS) SYSTOLIC (NORMALS) IVSd 1.4 (0.6-1.2) LA Diam 3.1 (1.9-4.0) LVEF 48% LVIDd 5.8 (3.5-5.7) LVIDs 4.4 (2.0-3.5) %FS 25% LVPWd 1.5 (0.6-1.2) Ao Diam 3.0 (2.0-3.7) 2 DIMENSIONAL ASSESSMENT: RIGHT ATRIUM: NORMAL LEFT ATRIUM: NORMAL RIGHT VENTRICLE: NORMAL LEFT VENTRICLE: LEFT VENTRICULAR HYPERTROPHY TRICUSPID VALVE: NORMAL MITRAL VALVE: NORMAL PULMONIC VALVE: NORMAL AORTIC VALVE: NORMAL PERICARDIAL EFFUSION: NONE AORTIC ROOT: NORMAL LEFT VENTRICULAR WALL MOTION: MILD GLOBAL HYPOKINESIS. DOPPLER/COLOR FLOW: MILD TRICUSPID REGURGITATION. COMMENTS: MILD GLOBAL HYPOKINESIS. LEFT VENTRICULAR EJECTION FRACTION 45- 50%. MILD TRICUSPID REGURGITATION. NORMAL RIGHT VENTRICULAR SYSTOLIC PRESSURE. LEFT VENTRICULAR HYPERTROPHY. Brief History of Present Illness: Medical problem list: Dyspnea secondary to acute on chronic diastolic CHF with ejection fraction 48% Hypertensive urgency Acute on chronic renal disease stage III History of CVA Hyperlipidemia diabetes mellitus type 2 Brief History of present illness: 61 year old male with PMHx of HTN , CVA admitted hospital for respiratory distress and hypertension. He was diaphoretic with blood pressure in 200s systolic. He was admitted for treatment. Hospital Course: Patient presented to emegency department with respiratory distress and hypertensive urgency requiring admission for oxygen therapy via bipap. He was p laced on IV nitro which was later discontinued as patient's condition stabilized. He was consulted by cardiology for troponin of 0.3 and his cardiac work up was noted for ejection fraction of 48%. He was treated with IV Lasix which eventually improved his breathing and he was weaned off oxygen. Blood pressure is normalized. His creatinine was also found to be 2 which has now improved to 1.99. He was also consulted by nephrology and his renal ultrasound is unremarkable. Dyspnea secondary to acute on chronic diastolic CHF with ejection fraction 48%: Stable on room air. did not qualify for home oxyegen. Hypertensive urgency: Continue metoprolol and hydralazine. He will start lisinopril 20 mg once daily. Acute on chronic renal disease stage III: Avoid nephrotoxic agents. Strict diabetic and hypertension control. History of CVA: Continue with aspirin, folic acid. Hyperlipidemia: Continue with statin medication. Hyperglycemia secondary to diabetes mellitus type 2: Hemoglobin A1c 6.6. start metformin 500 mg twice daily Hypokalemia: improved <Dari Oliver - Last Filed: 05/25/21 12:12> Admission Date: 05/24/21 Discharge Date: 06/03/21 <Lorie Pryor - Last Filed: 06/03/21 03:08> Disposition: ROUTINE DISCHARGE Discharge Condition: GOOD Vital Signs/Physical Exam: Temp Pulse Resp BP Pulse Ox 98.3 F 64 20 167/94 H 100 05/25/21 11:03 05/25/21 11:03 05/25/21 11:03 05/25/21 11:03 05/25/21 11:03 General: Alert, In no apparent distress, Oriented x3 HEENT: Atraumatic, Normocephalic, PERRLA, Mucous membr. moist/pink, Sclerae nonicteric Neck: Supple, Without JVD or thyroid abnormality Respiratory: Clear to auscultation bilaterally, Normal air movement Cardiovascular: No edema, Normal pulses, Regular rate/rhythm Gastrointestinal: Normal bowel sounds, No tenderness, No masses, No rebound Musculoskeletal: No clubbing, No swelling, No erythema Integumentary: No rashes, No breakdown, No ulcers Neurological: Normal gait, Normal speech, Normal strength at 5/5 x4 extr Laboratory Data at Discharge: WBC 11.00 K/uL (4.3-10.9) H 05/25/21 05:35 Hgb 14.9 g/dL (13.6-17.9) 05/25/21 05:35 Hct 42.9 % (39.6-49.0) 05/25/21 05:35 Plt Count 259 K/uL (152-406) 05/25/21 05:35 PT 11.3 SECONDS (9.5-12.5) 05/24/21 03:07 INR 0.98 05/24/21 03:07 Sodium 139 mmol/L (136-145) 05/25/21 05:35 Potassium Cancelled 05/25/21 Unknown BUN 29 mg/dL (7-18) H 05/25/21 05:35 Creatinine 1.99 mg/dL (0.55-1.3) H 05/25/21 05:35 Glucose 137 mg/dL (74-106) H 05/25/21 05:35 Magnesium 2.3 mg/dL (1.8-2.4) 05/25/21 05:35 Total Bilirubin 0.9 mg/dL (0.2-1.0) 05/25/21 05:35 AST 18 U/L (15-37) 05/25/21 05:35 ALT 32 U/L (12-78) 05/25/21 05:35 Alkaline Phosphatase 81 U/L (45-117) 05/25/21 05:35 Troponin I 0.06 ng/mL (0.0-0.045) H 05/24/21 14:56 Triglycerides 136 mg/dL (<150) 05/24/21 08:32 Cholesterol 201 mg/dL (<200) H 05/24/21 08:32 HDL Cholesterol 42 mg/dL (40-60) 05/24/21 08:32 Cholesterol/HDL Ratio 4.79 05/24/21 08:32 <Benito,Dari - Last Filed: 05/25/21 12:12> Vital Signs/Physical Exam: Temp Pulse Resp BP Pulse Ox 98.0 F 72 18 176/73 H 98 05/25/21 17:30 05/25/21 17:30 05/25/21 17:30 05/25/21 17:30 05/25/21 17:30 Laboratory Data at Discharge: WBC 11.00 K/uL (4.3-10.9) H 05/25/21 05:35 Hgb 14.9 g/dL (13.6-17.9) 05/25/21 05:35 Hct 42.9 % (39.6-49.0) 05/25/21 05:35 Plt Count 259 K/uL (152-406) 05/25/21 05:35 PT 11.3 SECONDS (9.5-12.5) 05/24/21 03:07 INR 0.98 05/24/21 03:07 Sodium 139 mmol/L (136-145) 05/25/21 05:35 Potassium Cancelled 05/25/21 Unknown BUN 29 mg/dL (7-18) H 05/25/21 05:35 Creatinine 1.99 mg/dL (0.55-1.3) H 05/25/21 05:35 Glucose 137 mg/dL (74-106) H 05/25/21 05:35 Magnesium 2.3 mg/dL (1.8-2.4) 05/25/21 05:35 Total Bilirubin 0.9 mg/dL (0.2-1.0) 05/25/21 05:35 AST 18 U/L (15-37) 05/25/21 05:35 ALT 32 U/L (12-78) 05/25/21 05:35 Alkaline Phosphatase 81 U/L (45-117) 05/25/21 05:35 Troponin I 0.06 ng/mL (0.0-0.045) H 05/24/21 14:56 Triglycerides 136 mg/dL (<150) 05/24/21 08:32 Cholesterol 201 mg/dL (<200) H 05/24/21 08:32 HDL Cholesterol 42 mg/dL (40-60) 05/24/21 08:32 Cholesterol/HDL Ratio 4.79 05/24/21 08:32 <Lorie Pryor - Last Filed: 06/03/21 03:08> Diet: AHA Activity: Ad eileen Physician Review: Patient Assessed, Agree with Above Assessment and Plan Time spent managing pt's care (in minutes): 55 <Dari Oliver - Last Filed: 05/25/21 12:12> <Lorie Pryor - Last Filed: 06/03/21 03:08> Home Medications: Atorvastatin Calcium [Lipitor] 80 mg PO BEDTIME #30 tab 09/08/17 Furosemide [Lasix] 40 mg PO BID #60 tablet 05/25/21 Hydralazine [Apresoline*] 50 mg PO TID #90 tab 05/25/21 Isosorbide Dinitrate [Isordil] 30 mg PO DAILY #30 tablet 05/25/21 Metoprolol Tartrate 50 mg PO BID #60 tablet 05/25/21 Potassium Chloride [K-Dur] 10 meq PO BID #60 tab.er.prt 05/25/21 New Medications: Hydralazine [Apresoline*] 50 mg PO TID #90 tab Isosorbide Dinitrate [Isordil] 30 mg PO DAILY #30 tablet Potassium Chloride [K-Dur] 10 meq PO BID #60 tab.er.prt Furosemide [Lasix] 40 mg PO BID #60 tablet Metoprolol Tartrate 50 mg PO BID #60 tablet Physician Discharge Instructions: Patient presented to emegency department with respiratory distress and hypertensive urgency requiring admission for oxygen therapy via bipap. He was placed on IV nitro which was later discontinued as patient's condition stabilized. He was consulted by cardiology for troponin of 0.3 and his cardiac work up was noted for ejection fraction of 48%. He was treated with IV Lasix which eventually improved his breathing and he was weaned off oxygen. Blood pressure is normalized. His creatinine was also found to be 2 which has now improved to 1.99. He was also consulted by nephrology and his renal ultrasound is unremarkable. Dyspnea secondary to acute on chronic diastolic CHF with ejection fraction 48%: Stable on room air. did not qualify for home oxyegen. Hypertensive urgency: Continue metoprolol and hydralazine. Acute on chronic renal disease stage III: Avoid nephrotoxic agents. Strict diabetic and hypertension control. History of CVA: Continue with aspirin, folic acid. Hyperlipidemia: Continue with statin medication. Hyperglycemia secondary to diabetes mellitus type 2: Hemoglobin A1c 6.6. start metformin 500 mg twice daily Hypokalemia: improved Followup: Mauricio Arguelles MD [ACTIVE - CAN ADMIT] - Date of Service: 05/25/21 Agree with plan of care as mentioned above <Lorie Pryor - Last Filed: 06/03/21 03:08>
[2021-05-25] MEDS ORDERED: HYDRALAZINE HCL 20 MG/ML VIAL IV ONE ×2 (14:30→17:50)
[2021-05-25] MEDS ORDERED: HYDRALAZINE HCL 20 MG/ML VIAL ONE (14:37)
[2021-05-25] MEDS ORDERED: HYDRALAZINE HCL 25 MG TABLET ONE (15:39)
[2021-05-25 16:04] LABS: Urine Protein/Creatinine Ratio 0.76 ratio (<0.15)
[2021-05-25] MEDS ORDERED: HYDRALAZINE HCL 20 MG/ML VIAL IV PRN (17:50)
[2021-05-25] MEDS ORDERED: MORPHINE 2 MG/ML SYR IV PRN (17:54)
[2021-05-25 18:09] VITALS: BP 176/73; TEMP 98
[2021-05-25] MEDS ORDERED: SPIRONOLACTONE 25 MG TABLET PO SCH (21:00)
[2021-05-25] MEDS ORDERED: clonazePAM 0.5 MG TAB PO SCH (21:00)
--- NOTE | 2021-05-25 21:17 | PN ---
Date of Progress Note: 05/25/2021 Mr. Marie was admitted and seen on 05/24/2021 with congestive heart failure, renal insufficiency, hype rtension. EKG showed left ventricular hypertrophy. Chest x-ray showed mild interstitial edema. He has improved oxygenation is as adequate. He is 97% o n nasal cannula. His blood pressure, however, was 203/96. Creatinine is 1.99. Echocardiogram showe d an ejection fraction of 48% with mild global hypokinesis. He should be on KIMBERLY inhibitor, low-dose beta bambi, Lasix, aspirin. Continue his statin. Discontinue his hydrochlorothiazide. Consider a dding Norvasc to his regimen for his beta-bambi or consider increasing metoprolol or the hydralazin e. He can go home whenever it is okay with Dr. Marquez. When I will see him in the office as an outp atient, he will need a Lexiscan. DWAYNE/ALINE Voice ID: [id number] Report ID: [id number]
--- NOTE | 2021-05-25 22:02 | CON ---
Date of Consultation: 05/24/2021 Reason For Admission: Congestive heart failure. History Of Present Illness: Mr. Marie is 61, has a history of hypertension and dyslipidemia who was a dmitted with shortness of breath. No chest pain. Denies nausea, vomiting, diaphoresis, PND, orthopn ea, or pedal edema. Has had some syncope and has had some palpitations, but no syncope. Denied any fever or chills. Symptoms have been going on for about 2 weeks. Chest x-ray showed mild interstitia l anemia. EKG showed left ventricular hypertrophy. He was very hypertensive when he came in. Past Medical History: As stated above his. Allergies: NONE. Review of Systems: Negative. Social History: Negative. Family History: Noncontributory. Medications: At home include aspirin, Lipitor, and hydrochlorothiazide. Physical Examination: General: Mr. Marie was in no acute distress. Mildly obese. Vital Signs: Stable except he was hypertensive with a sinus rhythm, afebrile. HEENT: Negative. Neck: Supple. No bruit. Chest: Clear to auscultation and percussion. Cardiac: Revealed irregular rhythm and rate with S4 gallops. No murmurs or rubs. Abdomen: Obese, but benign. Extremities: Revealed 1+ edema. Diagnostic Data: Creatinine is 1.99, potassium is 3.14. Chest x-ray and EKG were stated earlier. Impression And Plan: Acute congestive heart failure, more likely systolic. Echocardiogram is pendin g. He needs to be on beta blockers, Lasix, inhibitors. We will watch his creatinine. We will watch his I's and O's and weight. He should eventually have an outpatient stress test, most likely MPI af ter he goes home. We will focus on better blood pressure control. His dyslipidemia is well controll ed. I will continue to follow him. NB/MODL Voice ID: [id number] Report ID: [id number]
[2021-05-26] MEDS ORDERED: ISOSORBIDE MONO SR 30 MG TAB PO ONE (17:52)
== END 2021-05-25 17:45 | disposition home or self-care (01) | DRG 291 ==
LOC: ER 02:54 → ERHOLD 04:14
PROVIDERS: ADMIT Hospitalist; ATTEND Family Medicine
DX: I13.0 Hypertensive heart and chronic kidney disease with heart failure and stage 1 through stage 4 chronic kidney disease, or unspecified chronic kidney disease (principal); I50.33 Acute on chronic diastolic (congestive) heart failure; N17.9 Acute kidney failure, unspecified; I50.32 Chronic diastolic (congestive) heart failure; N18.30 Chronic kidney disease, stage 3 unspecified; E11.22 Type 2 diabetes mellitus with diabetic chronic kidney disease; E11.65 Type 2 diabetes mellitus with hyperglycemia; I16.0 Hypertensive urgency; E78.5 Hyperlipidemia, unspecified; E87.6 Hypokalemia; R06.03 Acute respiratory distress; Z86.73 Personal history of transient ischemic attack (TIA), and cerebral infarction without residual deficits; Z20.822 Contact with and (suspected) exposure to COVID-19
CPT/HCPCS: 36415; 71045; 80048; 80053; 80061; 80076; 81003; 81015; 82570; 83036; 83735; 83880; 84132; 84156; 84439; 84443; 84484; 85025; 85610; 86021; 86038; 87086; 87088; 93005; 93306; 99285; J0360; J1644; J1940; U0003

== ENCOUNTER 2023-01-14 11:58 | Inpatient (IN) | payer OTHER ==
--- OUTSIDE RECORDS SUMMARY | 2023-01-14 12:03 | XMS REPORT | Continuity of Care Document ---
:[address] [facility] t Address [address] [facility] [place] [address] Care Team Providers Name Role Phone Salvador Keene Attending Clinician Unavailable Ashley Pike Attending Clinician Unavailable KAROLINE PEARSON Attending Clinician Unavailable KAROLINE PEARSON Admitting Clinician Unavailable Payers Payer Name Policy Type Policy Number Effective Date [place] [address] [id number] 2021 [facility] 00:00:00 Spirit - [facility] Problems Condition Condition Condition Status Onset Resolution Last Treating Co mments Source Name Details Category Date Date Treatment Clinician Date Acute Acute Disease Active [facility] parietal [facility]: Medica l lobe lobe 00 [place] infarct. infarct. Acute Acute Disease Active [facility] Encephalop Encephalop 03-25 Maria kes athy athy 00:00: Medical 00 [place] Hypertensi Hypertensi Disease Active C [facility] ve urgency ve urgency 03-25 Maria kes 00:00: Medical 00 [place] CKD CKD Disease Active [facility] (chronic (chronic 6-21 [facility] kidney kidney 00:00: Medical disease) disease) Center stage 3, stage 3, GFR 30-59 GFR 30-59 ml/min 2/2 ml/min 2/2 DM and HTN DM and HTN Type 2 Type 2 Disease Active [facility] diabetes diabetes 03-25 [facility] mellitus mellitus 00:00: Medica l with with Center kidney kidney complicati complicati on, on, without without long-term long-term current current use of use of insulin insulin [id number] Uncontroll Problem Com mon ed Spirit hypertensi - [facility] on [facility] [id number] Shortness Problem Com mon of breath Spirit [facility] Anxiety Anxiety Problem Common [facility] [id number] History of Problem Co mmon multiple Spirit strokes [facility] [id number] Orthopnea Problem Comm on [facility] [id number] Uncontroll Problem Co mmon ed type 2 Spirit diabetes - [facility] mellitus with [facility] hyperglyce Medica l [facility] [id number] Abnormal Problem Comm on laboratory Spirit test - [facility] result [facility] [id number] Microalbum Problem Co mmon inuria [facility] [id number] Essential Problem Comm on hypertensi Spirit on [facility] [id number] [place] [id number] tunnel Spirit syndrome - [facility] of right [facility] [id number] Hyperglobu Problem Co mmon linemia [facility] [id number] Type 2 Problem Commo n 05 diabetes Spirit mellitus - [facility] with diabetic [facility] chronic Medical kidney Center disease [id number] Elevated Problem Comm on brain Spirit natriureti - [facility] c peptide St (BNP) [facility] [id number] Hypoxia Problem Commo n Spirit - [facility] [id number] Mixed Problem Common hyperlipid Spirit emia [facility] [id number] Abnormal Problem Commo n renal Spirit function - [facility] [id number] Obesity Problem Commo n (BMI Spirit 30-39.9) - [facility] [id number] Peripheral Problem Co mmon edema Spirit [facility] [id number] Type 2 [place] [address] diabetes Spirit mellitus - [facility] with other [facility] kidney Medical complicati Center on Allergies, Adverse Reactions, Alerts This patient has no known allergies or adverse reactions. Social History Social Habit Start Date Stop Date Quantity Comments Source History of Tobacco Common Spirit - Use [facility] Tobacco use and 2018-03-26 2018-03-26 Never used [facility] exposure 00:00:00 00:00:00 Medical Center Sex Ass[birth year] At [birth year] [facility] 00:00:00 00:00:00 [facility] Smoking Status Start Date Stop Date Source Never Smoker [facility] Medications Ordered Filled Start Stop Current Ordering Indication Dosage Frequency Signature Comments Components Source Medication Medication Date Date Medication? Clinician (SIG) Name Name Lisinopril Lisinopril 2021-0 No .5{tabl BID Lisinopril 40 MG 40 MG 3-16 et} 40 MG 00:00: 00 Lisinopril Lisinopril 2-0 No .5{tabl BID Lisinopril 40 MG 40 MG 3-16 et} 40 MG 00:00: 00 Lisinopril Lisinopril 2-0 No .5{tabl BID Lisinopril 40 MG 40 MG 3-16 et} 40 MG 00:00: 00 HydrALAZINE HydrALAZINE 2019-0 Yes Ashley 1 tablet Common HCl HCl 6-26 Millender Spirit 00:00: [facility] Lancets Lancets 2019-0 Yes Ashley as Common 6-14 [place] directed Spirit 00:00: (dispense - [facility] lancets [facility] to Medical insurance) [place] Blood Blood 2019-0 Yes Ashley as Common Glucose Glucose 6-14 Millender directed Spirit Test Strip Test Strip 00:00: (DISPENSE - [facility] BLOOD GLUCOSE [facility] TEST Medical STRIPS [place] FORMULARY TO INSURANCE) Blood Blood 2019-0 Yes Ashley as Common Glucose Glucose 6-14 Millender directed Spirit Monitor Monitor 00:00: (DISPENSE - [facility] BLOOD GLUCOSE [facility] MONITOR Medical FORMULARY [place] TO INSURANCE) Lancets - Lancets - 2019-0 No Lancets - 6-14 00:00: 00 Blood Blood 2019-0 No Blood Glucose Glucose 6-14 Glucose Monitor Monitor 00:00: Monitor 00 Blood Blood 2019-0 No Blood Glucose Glucose 6-14 Glucose Test Strip Test Strip 00:00: Test Strip 00 Lancets - Lancets - No Lancets - 6-14 00:00: 00 Blood Blood No Blood Glucose Glucose 6-14 Glucose Monitor Monitor 00:00: Monitor 00 Blood Blood No Blood Glucose Glucose 6-14 Glucose Monitor Monitor 00:00: Monitor 00 Blood Blood No Blood Glucose Glucose 6-14 Glucose Test Strip Test Strip 00:00: Test Strip Lancets - Lancets - No Lancets - 6-14 00:00: 00 Blood Blood No Blood Glucose Glucose 6-14 Glucose Test Strip Test Strip 00:00: Test Strip Lipitor Lipitor Yes Ashley 1 tablet Co mmon 3-21 Millender in evening Spir it 00:00: - [facility] 00 [facility] Crestor Crestor Yes Ashley 1 tablet Co mmon 3-13 Millender Spirit 00:00: - [facility] Crestor 20 Crestor 20 No 1{table Crestor 20 mg mg 3-13 t} mg 00:00: 00 Crestor 20 Crestor 20 No 1{table Crestor 20 mg mg 3-13 t} mg 00:00: 00 Crestor 20 Crestor 20 No 1{table Crestor 20 mg mg 3-13 t} mg 00:00: 00 Lisinopril Lisinopril Yes Ashley 1 tablet Common 2-12 Millender Spirit 00:00: - [facility] 00 [facility] Amlodipine Amlodipine Yes Ashley 1 tablet Common Besylate Besylate Millender Sp yaw [facility] Glimepiride Glimepiride Yes Ashley 1 tablet Common Millender with Spirit breakfast [facility] or the [facility] meal of Medical the day [place] Coreg Coreg Yes Ashley 1 tablet Common [facility] Spirit [facility] Metoprolol Metoprolol Yes Ashley 1 tablet Common Succinate Succinate Millender Spirit ER ER [facility] Furosemide Furosemide No Furosemide Coreg 12.5 Coreg 12.5 No 1{table BID Coreg 12.5 MG MG t} MG Glimepiride Glimepiride No 1{table QD Glimepirid 2 MG 2 MG t_with_ e [address]_or_t he_firs t_main_ meal_of _the_da y} amLODIPine amLODIPine No 1{table QD amLODIPine Besylate 10 Besylate 10 t} Besylate MG MG 10 MG hydrALAZINE hydrALAZINE No 1{table hydrALAZIN HCl 50 MG HCl 50 MG t} E HCl 50 MG Lisinopril Lisinopril No 1{table Lisinopril 20 MG 20 MG t} 20 MG Metoprolol Metoprolol No 1{table Metoprolol Succinate Succinate t} Succinate ER 25 MG ER 25 MG ER 25 MG hydrALAZINE hydrALAZINE No hydrALAZIN HCl 25 MG HCl 25 MG E HCl 25 MG Lipitor 20 Lipitor 20 No QD Lipitor 20 MG MG MG Furosemide Furosemide No Furosemide Coreg 12.5 Coreg 12.5 No 1{table BID Coreg 12.5 MG MG t} MG Glimepiride Glimepiride No 1{table QD Glimepirid 2 MG 2 MG t_with_ e [address]_or_t he_firs t_main_ meal_of _the_da y} amLODIPine amLODIPine No 1{table QD amLODIPine Besylate 10 Besylate 10 t} Besylate MG MG 10 MG hydrALAZINE hydrALAZINE No 1{table hydrALAZIN HCl 50 MG HCl 50 MG t} E HCl 50 MG Lisinopril Lisinopril No 1{table Lisinopril 20 MG 20 MG t} 20 MG hydrALAZINE hydrALAZINE No 1{table hydrALAZIN HCl 100 MG HCl 100 MG t} E HCl 100 MG Lipitor 20 Lipitor 20 No QD Lipitor 20 MG MG MG amLODIPine amLODIPine No 1{table QD amLODIPine Besylate 10 Besylate 10 t} Besylate MG MG 10 MG Coreg 12.5 Coreg 12.5 No 1{table BID Coreg 12.5 MG MG t} MG Furosemide Furosemide No Furosemide Lisinopril Lisinopril No 1{table Lisinopril 20 MG 20 MG t} 20 MG Glimepiride Glimepiride No 1{table QD Glimepirid 2 MG 2 MG t_with_ e [address]_or_t he_firs t_main_ meal_of _the_da y} amLODIPine amLODIPine No 1{table QD amLODIPine Besylate 10 Besylate 10 t} Besylate MG MG 10 MG Glimepiride Glimepiride No 1{table QD Glimepirid 2 MG 2 MG t_with_ e [address]_or_t he_firs t_main_ meal_of _the_da y} hydrALAZINE hydrALAZINE No hydrALAZIN HCl 50 MG HCl 50 MG E HCl 50 MG Lipitor 20 Lipitor 20 No QD Lipitor 20 MG MG MG Lisinopril Lisinopril No Lisinopril 20 MG 20 MG 20 MG Glimepiride Glimepiride No Glimepirid 2 MG 2 MG e 2 MG Carvedilol Carvedilol No Carvedilol 12.5 MG 12.5 MG 12.5 MG hydrALAZINE hydrALAZINE No 1{table TID hydrALAZIN HCl 100 MG HCl 100 MG t} E HCl 100 MG Atorvastati Atorvastati No Atorvastat n Calcium n Calcium in Calcium 20 MG 20 MG 20 MG Lisinopril Lisinopril No 1{table Lisinopril 20 MG 20 MG t} 20 MG amLODIPine amLODIPine No amLODIPine Besylate 10 Besylate 10 Besylate MG MG 10 MG Furosemide Furosemide No Furosemide Coreg 12.5 Coreg 12.5 No 1{table BID Coreg 12.5 MG MG t} MG hydrALAZINE hydrALAZINE No hydrALAZIN HCl 100 MG HCl 100 MG E HCl 100 MG Carvedilol Carvedilol No Carvedilol 12.5 MG 12.5 MG 12.5 MG Glimepiride Glimepiride No 1{table QD Glimepirid 2 MG 2 MG t_with_ e [address]_or_t he_firs t_main_ meal_of _the_da y} Lisinopril Lisinopril No Lisinopril 20 MG 20 MG 20 MG Lipitor 20 Lipitor 20 No QD Lipitor 20 MG MG MG Furosemide Furosemide No Furosemide amLODIPine amLODIPine No amLODIPine Besylate 10 Besylate 10 Besylate MG MG 10 MG Glimepiride Glimepiride No Glimepirid 2 MG 2 MG e 2 MG hydrALAZINE hydrALAZINE No 1{table TID hydrALAZIN HCl 100 MG HCl 100 MG t} E HCl 100 MG hydrALAZINE hydrALAZINE No hydrALAZIN HCl 50 MG HCl 50 MG E HCl 50 MG amLODIPine amLODIPine No 1{table QD amLODIPine Besylate 10 Besylate 10 t} Besylate MG MG 10 MG Atorvastati Atorvastati No Atorvastat n Calcium n Calcium in Calcium 20 MG 20 MG 20 MG Coreg 12.5 Coreg 12.5 No 1{table BID Coreg 12.5 MG MG t} MG hydrALAZINE hydrALAZINE No hydrALAZIN HCl 100 MG HCl 100 MG E HCl 100 MG amLODIPine amLODIPine No amLODIPine Besylate 10 Besylate 10 Besylate MG MG 10 MG Glimepiride Glimepiride No Glimepirid 2 MG 2 MG e 2 MG Lisinopril Lisinopril No 1{table Lisinopril 20 MG 20 MG t} 20 MG hydrALAZINE hydrALAZINE No 1{table TID hydrALAZIN HCl 100 MG HCl 100 MG t} E HCl 100 MG Coreg 12.5 Coreg 12.5 No 1{table BID Coreg 12.5 MG MG t} MG Glimepiride Glimepiride No 1{table QD Glimepirid 2 MG 2 MG t_with_ e [address]_or_t he_firs t_main_ meal_of _the_da y} hydrALAZINE hydrALAZINE No hydrALAZIN HCl 100 MG HCl 100 MG E HCl 100 MG amLODIPine amLODIPine No 1{table QD amLODIPine Besylate 10 Besylate 10 t} Besylate MG MG 10 MG Carvedilol Carvedilol No Carvedilol 12.5 MG 12.5 MG 12.5 MG Lisinopril Lisinopril No Lisinopril 20 MG 20 MG 20 MG Furosemide Furosemide No Furosemide Lipitor 20 Lipitor 20 No QD Lipitor 20 MG MG MG Atorvastati Atorvastati No Atorvastat n Calcium n Calcium in Calcium 20 MG 20 MG 20 MG hydrALAZINE hydrALAZINE No BID hydrALAZIN HCl 50 MG HCl 50 MG E HCl 50 MG Lipitor 20 Lipitor 20 No QD Lipitor 20 MG MG MG Atorvastati Atorvastati No Atorvastat n Calcium n Calcium in Calcium 20 MG 20 MG 20 MG amLODIPine amLODIPine No amLODIPine Besylate 10 Besylate 10 Besylate MG MG 10 MG hydrALAZINE hydrALAZINE No BID hydrALAZIN HCl 50 MG HCl 50 MG E HCl 50 MG Lisinopril Lisinopril No 1{table Lisinopril 20 MG 20 MG t} 20 MG Coreg 12.5 Coreg 12.5 No 1{table BID Coreg 12.5 MG MG t} MG Furosemide Furosemide No Furosemide Lisinopril Lisinopril No Lisinopril 20 MG 20 MG 20 MG Carvedilol Carvedilol No Carvedilol 12.5 MG 12.5 MG 12.5 MG Glimepiride Glimepiride No Glimepirid 2 MG 2 MG e 2 MG hydrALAZINE hydrALAZINE No hydrALAZIN HCl 100 MG HCl 100 MG E HCl 100 MG Lisinopril Lisinopril No 1{table Lisinopril 20 MG 20 MG t} 20 MG amLODIPine amLODIPine No 1{table QD amLODIPine Besylate 10 Besylate 10 t} Besylate MG MG 10 MG Glimepiride Glimepiride No 1{table QD Glimepirid 2 MG 2 MG t_with_ e [address]_or_t he_firs t_main_ meal_of _the_da y} hydrALAZINE hydrALAZINE No 1{table TID hydrALAZIN HCl 100 MG HCl 100 MG t} E HCl 100 MG Lisinopril Lisinopril No Lisinopril 20 MG 20 MG 20 MG Carvedilol Carvedilol No Carvedilol 12.5 MG 12.5 MG 12.5 MG Atorvastati Atorvastati No Atorvastat n Calcium n Calcium in Calcium 20 MG 20 MG 20 MG Glimepiride Glimepiride No Glimepirid 2 MG 2 MG e 2 MG hydrALAZINE hydrALAZINE No BID hydrALAZIN HCl 50 MG HCl 50 MG E HCl 50 MG amLODIPine amLODIPine No amLODIPine Besylate 10 Besylate 10 Besylate MG MG 10 MG Chlorthalid Chlorthalid No 1{table QD Chlorthali one 25 MG one 25 MG t_in_th done 25 MG e_morni ng_with _food} Coreg 25 MG Coreg 25 MG No 1{table BID Coreg 25 t} MG Lipitor 20 Lipitor 20 No QD Lipitor 20 MG MG MG Furosemide Furosemide No Furosemide Spironolact Spironolact No 1{table QD Spironolac one 50 MG one 50 MG t} tone 50 MG hydrALAZINE hydrALAZINE No hydrALAZIN HCl 100 MG HCl 100 MG E HCl 100 MG Lisinopril Lisinopril No Lisinopril 40 MG 40 MG 40 MG Lisinopril Lisinopril No 1{table Lisinopril 20 MG 20 MG t} 20 MG Lipitor 20 Lipitor 20 No QD Lipitor 20 MG MG MG Glimepiride Glimepiride No 1{table QD Glimepirid 2 MG 2 MG t_with_ e [address]_or_t he_firs t_main_ meal_of _the_da y} Coreg 12.5 Coreg 12.5 No 1{table BID Coreg 12.5 MG MG t} MG amLODIPine amLODIPine No 1{table QD amLODIPine Besylate 10 Besylate 10 t} Besylate MG MG 10 MG hydrALAZINE hydrALAZINE No 1{table hydrALAZIN HCl 25 MG HCl 25 MG t} E HCl 25 MG hydrALAZINE hydrALAZINE No 1{table hydrALAZIN HCl 25 MG HCl 25 MG t} E HCl 25 MG Coreg 12.5 Coreg 12.5 No 1{table BID Coreg 12.5 MG MG t} MG Lisinopril Lisinopril No 1{table Lisinopril 20 MG 20 MG t} 20 MG Furosemide Furosemide No Furosemide Glimepiride Glimepiride No 1{table QD Glimepirid 2 MG 2 MG t_with_ e [address]_or_t he_firs t_main_ meal_of _the_da y} hydrALAZINE hydrALAZINE No hydrALAZIN HCl 25 MG HCl 25 MG E HCl 25 MG Metoprolol Metoprolol No 1{table Metoprolol Succinate Succinate t} Succinate ER 25 MG ER 25 MG ER 25 MG amLODIPine amLODIPine No 1{table QD amLODIPine Besylate 10 Besylate 10 t} Besylate MG MG 10 MG Lipitor 20 Lipitor 20 No QD Lipitor 20 MG MG MG Metoprolol Metoprolol No 1{table Metoprolol Succinate Succinate t} Succinate ER 25 MG ER 25 MG ER 25 MG hydrALAZINE hydrALAZINE No hydrALAZIN HCl 25 MG HCl 25 MG E HCl 25 MG Lipitor 20 Lipitor 20 No QD Lipitor 20 MG MG MG Vital Signs Vital Name Observation Time Observation Value Comments Source height 2022-05-12 13:00:00 71.00 [in_i] [facility] weight 2022-05-12 13:00:00 279.8 [lb_av] [facility] temperature 2022-05-12 13:00:00 100.0 [degF] [facility] bmi 2022-05-12 13:00:00 39.02 kg/m2 [facility] oximetry 2022-05-12 13:00:00 91 % [facility] respiratory rate 2022-05-12 13:00:00 16 /min Comm on [facility] blood pressure 2022-05-12 13:00:00 189 mm[Hg] Common [facility] - systolic [facility] blood pressure 2022-05-12 13:00:00 86 mm[Hg] Common [facility] - diastolic [facility] height 2021-12-09 11:20:00 71.00 [in_i] [facility] weight 2021-12-09 11:20:00 275.8 [lb_av] [facility] temperature 2021-12-09 11:20:00 97.4 [degF] [facility] bmi 2021-12-09 11:20:00 38.46 kg/m2 [facility] oximetry 2021-12-09 11:20:00 97 % [facility] respiratory rate 2021-12-09 11:20:00 19 /min Comm on [facility] blood pressure 2021-12-09 11:20:00 152 mm[Hg] Common [facility] - systolic [facility] blood pressure 2021-12-09 11:20:00 79 mm[Hg] Common Spirit - diastolic [facility] height 2021-11-08 10:50:00 71.00 [in_i] Common S pirit [facility] weight 2021-11-08 10:50:00 275.2 [lb_av] [facility] temperature 2021-11-08 10:50:00 97.9 [degF] Common S pirit - [facility] bmi 2021-11-08 10:50:00 38.38 kg/m2 Common S pirit [facility] oximetry 2021-11-08 10:50:00 98 % Common S [facility] respiratory rate 2021-11-08 10:50:00 18 /min Comm on [facility] blood pressure 2021-11-08 10:50:00 165 mm[Hg] Common [facility] - systolic [facility] blood pressure 2021-11-08 10:50:00 74 mm[Hg] Common [facility] - diastolic [facility] height 2021-10-11 10:10:00 71.00 [in_i] Common S [facility] weight 2021-10-11 10:10:00 280.5 [lb_av] [facility] temperature 2021-10-11 10:10:00 97.7 [degF] Common S pirit [facility] bmi 2021-10-11 10:10:00 39.12 kg/m2 Common S pirit [facility] oximetry 2021-10-11 10:10:00 98 % Common S pirit [facility] respiratory rate 2021-10-11 10:10:00 18 /min Comm on [facility] blood pressure 2021-10-11 10:10:00 178 mm[Hg] Common [facility] - systolic [facility] blood pressure 2021-10-11 10:10:00 80 mm[Hg] Common Spirit - diastolic [facility] height 2021-09-11 14:30:00 71.00 [in_i] Common S pirit [facility] weight 2021-09-11 14:30:00 264.9 [lb_av] Common [facility] temperature 2021-09-11 14:30:00 98.4 [degF] Common [facility] bmi 2021-09-11 14:30:00 36.94 kg/m2 Common [facility] oximetry 2021-09-11 14:30:00 95 % Common [facility] respiratory rate 2021-09-11 14:30:00 18 /min Comm on [facility] blood pressure 2021-09-11 14:30:00 192 mm[Hg] Common [facility] systolic [facility] blood pressure 2021-09-11 14:30:00 88 mm[Hg] Common [facility] diastolic [facility] Procedures This patient has no known procedures. Encounters Start End Encounter Admission Attending Care Care Encounter Source Date/Time Date/Time Type Type Clinicians Facility Department ID 2022-05-12 Outpatient Keene, STLMLC [facility] [id number] Common 13:03:00 Salvador [facility] 2021-11-08 Outpatient Keene, STLMLC [facility] [id number] Common 10:52:00 Salvador [facility] 2021-11-07 Outpatient Keene, STLMLC [facility] [id number] Common 12:04:00 Salvador [facility] 2021-10-30 Outpatient Keene, STLMLC [facility] [id number] Common 14:32:21 Salvador [facility] 2021-10-30 Outpatient Keene, STLMLC [facility] [id number] Common 14:31:54 Salvador [facility] 2021-10-30 Outpatient Keene, STLMLC [facility] [id number] Common 14:22:25 Salvador [id number] [facility] 2021-10-30 Outpatient Keene, STLMLC [facility] [id number] Common 12:40:20 Salvador 92043 [facility] 2021-10-30 Outpatient Keene, STLMLC [facility] [id number] Common 12:39:30 Salvador [id number] [facility] 2021-10-30 Outpatient Keene, STLMLC [facility] [id number] Common 12:32:53 Salvador 65341 [facility] 2021-10-30 Outpatient Keene, STLMLC ST[facility] [id number] Common 12:29:47 Salvador 24109 [facility] 2021-10-30 Outpatient Millender, STLMLC [facility] [id number] Common 11:28:42 Ashley 43275 [facility] 2021-10-30 Outpatient Millender, STLMLC ST[facility] [id number] Common 11:14:50 Ashley [id number] [facility] 2021-10-30 Outpatient Millender, STLMLC STL[facility]C [id number] 11:14:28 Ashley [id number] [facility] 2022-09-05 2022-09-05 (TEL) STLMLC STLMLC [id number] Co mmon 00:00:00 00:00:00 [facility] 2022-05-15 2022-05-15 (TEL) STLMLC STL[facility]C [id number] Co mmon 00:00:00 00:00:00 [facility] 2022-05-12 2022-05-12 OFFICE STLMLC STLMLC [id number] Co mmon 00:00:00 00:00:00 VISIT [facility] PT - CHI LEVEL 4 [facility] 2021-12-16 2021-12-16 (TEL) STLMLC STLMLC [id number] Co mmon 00:00:00 00:00:00 [facility] 2021-12-09 2021-12-09 OFFICE STLMLC STLMLC [id number] Co mmon 00:00:00 00:00:00 VISIT Spirit [facility] PT - CHI LEVEL 4 [facility] 2021-11-08 2021-11-08 OFFICE STLMLC STLMLC [id number] Co mmon 00:00:00 00:00:00 VISIT [facility] PT - CHI LEVEL 4 [facility] 2021-10-11 2021-10-11 OFFICE STLMLC STLMLC [id number] Co mmon 00:00:00 00:00:00 VISIT Spirit ESTAB PT - CHI LEVEL 4 [facility] 2021-10-09 2021-10-09 (TEL) STLMLC STLMLC [id number] Co mmon 00:00:00 00:00:00 Spirit - CHI [facility] 2021-09-11 2021-09-11 OFFICE STLMLC STLMLC [id number] Co mmon 00:00:00 00:00:00 VISIT Spirit ESTAB PT - CHI LEVEL 5 [facility] 2021-09-10 2021-09-10 (TEL) STLMLC STLMLC [id number] Co mmon 00:00:00 00:00:00 [facility] 2020-11-14 2020-11-14 Outpatient STLMLC STLMLC [id number] Common 00:00:00 00:00:00 [facility] 2020-04-04 2020-04-04 [facility] [id number] Common 01:14:00 01:14:[address] [facility] [address] [facility] 2020-03-30 2020-03-30 [facility] [id number] Common 15:40:00 15:40:00 [facility] [address] [facility] 2019-10-26 2019-10-26 [facility] [id number] Common 09:28:00 09:28:[address] [facility] [address] [facility] [address] [facility] 2019-10-19 2019-10-19 [facility] [id number] Common 14:47:00 14:47:[address] [facility] [address] [facility] [address] [facility] 2019-10-03 2019-10-03 [facility] [id number] Common 12:08:00 12:08:00 [facility] it [address] [facility] 2019-09-23 2019-09-23 [facility] [id number] Common 16:00:00 16:00:[address] Spir [address] [facility] 2019-06-23 2019-06-23 [facility] [id number] Common 19:12:00 19:12:[address] Spir [address] [facility] 2019-06-21 2019-06-21 [facility] [id number] Common 16:00:00 16:00:[address] Sp[address] [facility] 2019-03-18 2019-03-18 [facility] [id number] Common 00:13:00 00:13:[address] Sp[address] [facility] 2019-03-16 2019-03-16 [facility] [id number] Common 16:00:00 16:00:[address] Sp[address] [facility] 2019-02-17 2019-02-17 [facility] [id number] Common 13:16:00 13:16:[address] [facility] 2018-12-23 2018-12-23 [facility] [id number] Common 09:11:00 09:11:[address] [facility] 2018-12-15 2018-12-15 [facility] 24 [id number] Common 01:25:00 01:25:[address] [facility] 2018-12-14 2018-12-14 [facility] 24 [id number] Common 16:00:00 16:00:[address] [facility] 2018-11-25 2018-11-25 [facility] 24 [id number] Common 13:38:00 13:38:[address] [facility] 2018-11-23 2018-11-23 [facility] 24 [id number] Common 15:24:00 15:24:[address] [facility] 2018-11-18 2018-11-18 [facility] 24 [id number] Common 14:50:00 14:50:00 t [facility] [address] [facility] 2018-11-17 2018-11-17 [facility] 24 [id number] Common 18:12:00 18:12:00 t [facility] [address] [facility] 2018-11-16 2018-11-16 [facility] 24 [id number] Common 22:29:00 22:29:00 t [facility] [address] [facility] 2018-11-16 2018-11-16 [facility] [id number] Common 15:00:00 15:00:00 t [facility] [address] [facility] Results Test Description Test Time Test Comments Results Result Comments Source HEMOGLOBIN A1C 2022-05-12 00:00:00 Test Item Value Reference Range Interpretation Comme nts A1C (test code = 4548-4) 6.8 POCT-GLUCOSE [id number] 17:37:00 Test Item Value Reference Range Interpretation Comments POC-GLUCOSE METER 104 mg/dL 70-110 TESTED AT [facility] 67[facility] (test code = FRANKIE Rogers [facility] 1538) [id number] POCT-GLUCOSE [id number] 12:37:00 Test Item Value Reference Range Interpretation Comments POC-GLUCOSE METER 145 mg/dL 70-110 H TESTED AT [facility] 67[facility] (test code = FRANKIE Rogers [facility] 1538) [address] POCT-GLUCOSE [id number] 08:16:00 Test Item Value Reference Range Interpretation Comments POC-GLUCOSE METER 111 mg/dL 70-110 H TESTED AT [facility] 67[address] [facility] (test code = FRANKIE Rogers [facility] 1538) [address] BASIC METABOLIC [id number] 06:49:00 Test Item Value Reference Range Interpretation Comments SODIUM (BEAKER) 141 meq/L 136-145 (test code = 381) POTASSIUM (BEAKER) 3.8 meq/L 3.5-5.1 (test code = 379) CHLORIDE (BEAKER) 107 meq/L 98-107 (test code = 382) CO2 (BEAKER) (test 28 meq/L 22-29 code = 355) BLOOD UREA NITROGEN 17 mg/dL 7-21 ([facility]) (test code = 354) CREATININE (BEAKER) 1.46 mg/dL 0.57-1.25 H (test code = 358) GLUCOSE RANDOM 114 mg/dL 70-105 H ([facility]) (test code = 652) CALCIUM (BEAKER) 9.0 mg/dL 8.4-10.2 (test code = 697) EGFR (AKER) (test 49 mL/min/1.73 ESTIMA ANURADHA GFR IS code = 1092) sq m NOT ACCURATE CREATININE CLEARANCE IN PREDICTING GLOMERULAR FILTRATION RATE . ESTIMATED GFR I S NOT APPLICABLE FOR DIALYSIS PATISHAHEEN TS. [id number] 01:30:00 Test Item Value Reference Range Interpretation Comments RPR SCREEN ([facility]) (test code = Nonreactive Nonreactive 420) POCT-GLUCOSE [id number] 20:55:00 Test Item Value Reference Range Interpretation Comments POC-GLUCOSE METER 179 mg/dL 70-110 H TESTED AT [place] [address] ([facility]) (test code = [facility] 1538) [address] VITAMIN B12 AND [id number] 20:25:00 Test Item Value Reference Range Interpretation Comments VITAMIN B12 ([facility]) (test code = 422 pg/mL 213-816 774) FOLATE ([facility]) (test code = 362) 9.9 ng/mL >=7.0 POCT-GLUCOSE [id number] 17:11:00 Test Item Value Reference Range Interpretation Comments POC-GLUCOSE METER 159 mg/dL 70-110 H TESTED AT [place] [address] ([facility]) (test code = [facility] 1538) [address] PROTHROMBIN [id number] 15:55:00 Test Item Value Reference Range Interpretation Comments PROTIME ([facility]) (test code = 14.1 seconds 11.7-14.7 759) INR ([facility]) (test code = 370) 1.1 <=5.9 RECOMMENDED COUMADIN/WARFARIN INR THERAPY RANGESSTANDARD DOSE: 2.0 - 3.0 Includes: PROPHYLAXIS for venous thrombosis, systemic embolization; TREATMENT for venous thrombosis and/or pulmonary embolus.HIGH RISK: Target INR is 2.5-3.5 for patients with mechanical heart valves.[id number] 15:34:00 Test Item Value Reference Range Interpretation Comments AMMONIA (BEAKER) (test code = 348) 31 mol/L 18-72 POCT-GLUCOSE [id number] 11:41:00 Test Item Value Reference Range Interpretation Comments POC-GLUCOSE METER 219 mg/dL 70-110 H TESTED AT [facility] 6720 (BEAKER) (test code = FRANKIE Rogers [place] 1538) [id number] POCT-GLUCOSE [id number] 08:20:00 Test Item Value Reference Range Interpretation Comments POC-GLUCOSE METER 114 mg/dL 70-110 H TESTED AT [facility] 67[address] [facility] (test code = CAR[place] 1538) [address] TSH/FREE T4 IF [id number] 05:29:00 Test Item Value Reference Range Interpretation Comments THYROID STIMULATING HORMONE 2.18 uIU/mL 0.35-4.94 (BEAKER) (test code = 772) [id number] 04:58:00 Test Item Value Reference Range Interpretation Comments PHOSPHORUS (BEAKER) (test code = 2.3 mg/dL 2.3-4.7 604) [id number] 04:58:00 Test Item Value Reference Range Interpretation Comments MAGNESIUM (BEAKER) (test code = 2.1 mg/dL 1.6-2.6 627) COMPREHENSIVE METABOLIC [id number] 04:58:00 Test Item Value Reference Range Interpretation [...] 0-0 (BEAKER) (test code = 413) POCT-GLUCOSE [id number] 20:46:00 Test Item Value Reference Range Interpretation Comments POC-GLUCOSE METER 197 mg/dL 70-110 H TESTED AT [facility] 67[address] (BEAKER) (test code = FRANKIE Rogers [facility] 1538) [address] POCT-GLUCOSE [id number] 17:00:00 Test Item Value Reference Range Interpretation Comments POC-GLUCOSE METER 158 mg/dL 70-110 H TESTED AT [facility] 6720 (BEAKER) (test code = FRANKIE Rogers [facility] 1538) [address] POCT-GLUCOSE [id number] 12:04:00 Test Item Value Reference Range Interpretation Comments POC-GLUCOSE METER 180 mg/dL 70-110 H TESTED AT [facility] 67[address] (BEAKER) (test code = FRANKIE Rogers [facility] 1538) [address] [id number] 04:51:00 Test Item Value Reference Range Interpretation Comments PHOSPHORUS (BEAKER) (test code = 2.8 mg/dL 2.3-4.7 604) [id number] 04:51:00 Test Item Value Reference Range Interpretation Comments MAGNESIUM (BEAKER) (test code = 2.3 mg/dL 1.6-2.6 627) COMPREHENSIVE METABOLIC [id number] 04:51:00 Test Item Value Reference Range Interpretation [...] 0-0 (BEAKER) (test code = 413) POCT-GLUCOSE [id number] 20:52:00 Test Item Value Reference Range Interpretation Comments POC-GLUCOSE METER 300 mg/dL 70-110 H TESTED AT [facility] 67[address] ([facility]) (test code = FRANKIE CHANEL 6923) [address] MR, MRA, BRAIN, WITHOUT [id number] 18:40:00Reason for exam:->Ischemic Stroke EvaluationFINAL REPORT MRI brain and MRA head and neck without contrast 03/26/2018 6:36 PMCLINICAL INDICATION: Ischemic Stroke Evaluationstroke eval TECHNIQUE: Multiplanar, multisequence MR imaging of the brain was performed utilizing the following imaging sequences: Axial T1, T2, FLAIR, GRE, and DWI; sagittal and coronal T1-weighted images. Two- and three- dimensional [id number]-qc-[id number] MRA images of the intra- and extracranial carotid and vertebral arterial circulations were obtained, from which maximal intensity projection 3-D reconstructions were created. COMPARISON: None available FINDING S: MRI: There is a small volume acute nonhemorrhagic infarct involving the periinsular right parietal lobe and adjacent right parietal periventricular white matter. There is no hematoma, mass, hydrocephalus, or extra-axial collection. There is a moderate volume chronic infarct in the adjacent left occi pital and posterior temporal lobes. There is mild chronic microvascular ischemia in the supratentorial white matter and kulwant. There are dilated perivascular spaces and/or chronic lacunar infarcts in the left corpus striatum. Normal appearing flow-voids are present in the major intracranial vascular structures. The sellar and pineal regions, craniocervical junction, orbits, face, and skull base are without worrisome finding. MRA neck: There is no vessel occlusion or flow-limiting stenosis. There is mild atherosclerotic plaque deposition in the proximal left cervical internal carotid artery, without NASCET quantifiable stenosis. Flow is antegrade in both vertebral arteries. MRA ambler of Boy[place]: There is no acute vessel occlusion or flow-limiting stenosis. Asymmetrically diminished flow related enhancement in the left posterior cerebral artery conforms to be chronic infarct core. There is moderatestenosis in the M1 segment left middle cerebral artery. IMPRESSION: 1. Small volume acute nonhemorrhagic right parietal lobe infarct. 2. No evidence for acute vascular compromise. 3. Chronic findings as discussed. Signed: Luis Mancera Verified Date/Time: 03/26/2018 18:40:56 Reading Location: [facility] Reading Room MR, MRA, NECK, WITHOUT IV [id number] 18:40:00Reason for exam:->Ischemic Stroke EvaluationFINAL REPORT MRI brain and MRA head and neck without contrast 03/26/2018 6:36 PMCLINICAL INDICATION: Ischemic Stroke Evaluationstroke eval TECHNIQUE: Multiplanar, multisequence MR imaging of the brain was performed utilizing the following imaging sequences: Axial T1, T2, FLAIR, GRE, and DWI; sagittal and coronal T1-weighted images. Two- and three- dimensional mjyr-op-igdora MRA images of the intra- and extracranial carotid and vertebral arterial circulations were obtained, from which maximal intensity projection 3-D reconstructions were created. COMPARISON: None available FINDING S: MRI: There is a small volume acute nonhemorrhagic infarct involving the periinsular right parietal lobe and adjacent right parietal periventricular white matter. There is no hematoma, mass, hydrocephalus, or extra-axial collection. There is a moderate volume chronic infarct in the adjacent left occi pital and posterior temporal lobes. There is mild chronic microvascular ischemia in the supratentorial white matter and kulwant. There are dilated perivascular spaces and/or chronic lacunar infarcts in the left corpus striatum. Normal appearing flow-voids are present in the major intracranial vascular structures. The sellar and pineal regions, craniocervical junction, orbits, face, and skull base are without worrisome finding. MRA neck: There is no vessel occlusion or flow-limiting stenosis. There is mild atherosclerotic plaque deposition in the proximal left cervical internal carotid artery, without NASCET quantifiable stenosis. Flow is antegrade in both vertebral arteries. MRA ambler of Boyle: There is no acute vessel occlusion or flow-limiting stenosis. Asymmetrically diminished flow related enhancement in the left posterior cerebral artery conforms to be chronic infarct core. There is moderatestenosis in the M1 segment left middle cerebral artery. IMPRESSION: 1. Small volume acute nonhemorrhagic right parietal lobe infarct. 2. No evidence for acute vascular compromise. 3. Chronic findings as discussed. Signed: Luis Mancera Verified Date/Time: 03/26/2018 18:40:56 Reading Location: [facility] Reading Room MR, BRAIN, WITHOUT [id number] 18:40:00Reason for exam:->Ischemic Stroke EvaluationFINAL REPORT MRI brain and MRA head and neck without contrast 03/26/2018 6:36 PMCLINICAL INDICATION: Ischemic Stroke Evaluationstroke eval TECHNIQUE: Multiplanar, multisequence MR imaging of the brain was performed utilizing the following imaging sequences: Axial T1, T2, FLAIR, GRE, and DWI; sagittal and coronal T1-weighted images. Two- and three- dimensional hxnu-kz-yinjzm MRA images of the intra- and extracranial carotid and vertebral arterial circulations were obtained, from which maximal intensity projection 3-D reconstructions were created. COMPARISON: None available FINDING S: MRI: There is a small volume acute nonhemorrhagic infarct involving the periinsular right parietal lobe and adjacent right parietal periventricular white matter. There is no hematoma, mass, hydrocephalus, or extra-axial collection. There is a moderate volume chronic infarct in the adjacent left occi pital and posterior temporal lobes. There is mild chronic microvascular ischemia in the supratentorial white matter and kulwant. There are dilated perivascular spaces and/or chronic lacunar infarcts in the left corpus striatum. Normal appearing flow-voids are present in the major intracranial vascular structures. The sellar and pineal regions, craniocervical junction, orbits, face, and skull base are without worrisome finding. MRA neck: There is no vessel occlusion or flow-limiting stenosis. There is mild atherosclerotic plaque deposition in the proximal left cervical internal carotid artery, without NASCET quantifiable stenosis. Flow is antegrade in both vertebral arteries. MRA ambler of [place]le: There is no acute vessel occlusion or flow-limiting stenosis. Asymmetrically diminished flow related enhancement in the left posterior cerebral artery conforms to be chronic infarct core. There is moderatestenosis in the M1 segment left middle cerebral artery. IMPRESSION: 1. Small volume acute nonhemorrhagic right parietal lobe infarct. 2. No evidence for acute vascular compromise. 3. Chronic findings as discussed. Signed: Luis Mancera Verified Date/Time: 03/26/2018 18:40:56 Reading Location: [facility] Reading Room EEG AWAKE AND [id number] 14:46:00Reason for exam:->Repeat EEG to rule out any seizures. Another episode of word finding difficultyreported today.Date(s) of EE03/26/2018 DATE OF REPORT: 03/26/2018 ACC: [id number] EEG Number: [id number] Test Location: Inpatient ICU Start time: 13:17 Stop time: 13:39 ICD-10: R56.9 CPT Code: 78871 HISTORY: 58 y/o manwith HTN, prior stroke, noncompliant with medications presents with confusion MEDICATIONS THAT COULDAFFECT EEG: TECHNICAL SUMMARY: This is a digital video-EEG recorded with 32 input channels reviewed w ith bipolar and referential montages using the modified [...] Neurophysiology Fellow Magdiel Wall MD Attending Neurophysiologist [facility] POCT-GLUCOSE METER 2018-03-26 12:30:00 Test Item Value Reference Range Interpretation Comments POC-GLUCOSE METER 154 mg/dL 70-110 H TESTED AT [facility] 6720 (BEAKER) (test code = FRANKIE Rogers [facility] 1538) [address] HEMOGLOBIN [id number] 08:33:00 Test Item Value Reference Range Interpretation Comments HEMOGLOBIN A1C (BEAKER) (test code = 8.3 % 4.3-6.1 H 368) [id number] 02:46:00 Test Item Value Reference Range Interpretation Comments PHOSPHORUS (BEAKER) (test code = 2.8 mg/dL 2.3-4.7 604) [id number] 02:46:00 Test Item Value Reference Range Interpretation Comments MAGNESIUM (BEAKER) (test code = 2.3 mg/dL 1.6-2.6 627) COMPREHENSIVE METABOLIC [id number] 02:46:00 Test Item Value Reference Range Interpretation [...] NOT APPLICABLE FOR DIALYSIS PATIEN TS. LIPID [id number] 02:46:00 Test Item Value Reference Range Interpretation Comments TRIGLYCERIDES (BEAKER) (test code = 138 mg/dL 540) CHOLESTEROL (BEAKER) (test code = 216 mg/dL 631) HDL CHOLESTEROL (BEAKER) (test code 36 mg/dL = 976) LDL CHOLESTEROL CALCULATED (BEAKER) 152 mg/dL (test code = 633) Triglyceride Reference Range: Low Risk <150 Borderline 150-199 High Risk 200- 499 Very High Risk >=500Cholesterol Reference Range: Low [...]
[2023-01-14] MEDS ORDERED: NITROGLYCERIN 0.4 MG/TAB SL ONE (12:24)
[2023-01-14 12:31] LABS: Absolute Lymphocytes (CBC) 0.9 K/uL (0.7-4.9); Hematocrit 40.5 % (39.6-49.0); Lymphocytes % 11.1 % (15.3-44.8); MCV 86.2 fL (80-100); MPV 8.9 fL (7.6-11.3)
[2023-01-14 12:32] LABS: Protime INR 1.25
--- NOTE | 2023-01-14 12:32 | RAD REPORT ---
EXAM DESCRIPTION: RADChest Single View01/14/2023 12:25 pm CLINICAL HISTORY: DYSPNEA COMPARISON: Chest Single View dated 05/25/2021; Chest Single View dated 05/24/2021; Chest Single View dated 03/25/2018; Chest Single View dated 09/07/2017 TECHNIQUE: Portable AP view of the chest. FINDINGS: The lungs are clear. No pneumothorax or effusion. The heart is moderate to markedly enlarg ed. Mediastinal contours are stable. Implantable rhythm monitoring device is present. . IMPRESSION: No acute pulmonary process. Moderate to marked enlargement of the cardiac silhouette.
[2023-01-14 13:45] LABS: Bilirubin Total 1.3 mg/dL (0.2-1.0); Magnesium 1.7 mg/dL (1.6-2.4); Potassium 3.2 mEq/L (3.5-5.1); Protein, Total 7.3 g/dL (6.4-8.2)
[2023-01-14 13:48] LABS: Albumin 3.4 g/dL (3.4-5.0); Bilirubin Direct 0.3 mg/dL (0-0.2)
[2023-01-14] MEDS ORDERED: LABETALOL 20 MG/4ML SYRINGE IV ONE (13:48)
[2023-01-14 13:50] LABS: Troponin High Sensitivity 62.6 pg/mL (<58.9)
[2023-01-14] MEDS ORDERED: FUROSEMIDE 40 MG/4 ML VIAL ONE ×3 (14:14→18:45)
--- NOTE | 2023-01-14 14:22 | ER ---
Nurse's Notes [facility] Name: Calos Marie Age: 62 yrs Sex: Male : 1960 Arrival Date: 01/14/2023 Time: 11:59 Bed 26 Private MD: Salvador Keene Diagnosis: NSTEMI, CHF Exacerbation, HTN Urgency Presentation: 01/14 12:10 Chief complaint: Patient states: difficulty breathing that began weeks ago. Pt states, ss "my blood pressure is always kendell high, and my testicles are swollen, I haven't peed much.". Coronavirus screen: Client denies travel out of the [place] in the last 14 days. Ebola Screen: Patient denies exposure to infectious person. Patient denies travel to an Ebola-affected area in the 21 days before illness onset. Initial Sepsis Screen: Does the patient meet any 2 criteria? No. Patient's initial sepsis screen is negative. Does the patient have a suspected source of infection? No. Patient's initial sepsis screen is negative. Risk Assessment: Do you want to hurt yourself or someone else? Patient reports no desire to harm self or others. Onset of symptoms is unknown. 12:10 Method Of Arrival: Ambulatory ss 12:10 Acuity: KRIS 1 ss Historical: - Allergies: 14:09 No Known Allergies; kc6 - PMHx: 12:13 CVA; Hypertension; ss Screenin:[address] [facility] ED Fall Risk Assessment (Adult) History of falling in the last 3 months, kc6 including since admission No falls in past 3 months (0 pts) Confusion or Disorientation No (0 pts) Intoxicated or Sedated No (0 pts) Impaired Gait No (0 pts) Mobility Assist Device Used No (0 pt) Altered Elimination No (0 pt) Score/Fall Risk Level 0 - 2 = Low Risk Oriented to surroundings, Maintained a safe environment, Educated pt \\T\\ family on fall prevention, incl call for assistance when getting out of bed, Assessed \\T\\ reinforced patient's understanding of fall precautions, Hourly rounding (assess needs \\T\\ fall precautionary measures) done. Abuse screen: Denies threats or abuse. Denies injuries from another. Nutritional screening: No deficits noted. Tuberculosis screening: No symptoms or risk factors identified. Assessment: 12:24 General: Appears in no apparent distress. comfortable, obese, Behavior is cooperative, kc6 appropriate for age, anxious. Pain: Denies pain. Neuro: Pina Agitation-Sedation Scale (RASS): 0 - Alert and Calm Level of Consciousness is awake, alert, obeys commands, Oriented to person, place, time, situation, Appropriate for age. Cardiovascular: Heart tones S1 S2 present Capillary refill < 3 seconds Edema is 3+ to left midcalf and right midcalf pitting to left midcalf and right midcalf Rhythm is sinus tachycardia Chest pain is denied. Respiratory: Reports shortness of breath at rest on exertion Airway is patent Trachea midline Respiratory effort is even, labored, Respiratory pattern is symmetrical, tachypnea Breath sounds with crackles bilaterally. GI: No signs and/or symptoms were reported involving the gastrointestinal system. : No signs and/or symptoms were reported regarding the genitourinary system. EENT: Reports blurred vision. Derm: No signs and/or symptoms reported regarding the dermatologic system. Skin is intact, Skin is pink, warm \\T\\ dry. Musculoskeletal: No signs and/or symptoms reported regarding the musculoskeletal system. Circulation, motion, and sensation intact. Capillary refill < 3 seconds, Range of motion: intact in all extremities. 13:24 Reassessment: Patient appears in no apparent distress at this time. No changes from kc6 previously documented assessment. Patient and/or family updated on plan of care and expected duration. Pain level reassessed. Patient is alert, oriented x 3, equal unlabored respirations, skin warm/dry/pink. 13:50 Reassessment: pt appears to be 88% on RA. respirations even, tachypneic. placed on 2L kc6 via NC. pt is now 96% on 2L. 14:24 Reassessment: Patient appears in no apparent distress at this time. No changes from kc6 previously documented assessment. Patient and/or family updated on plan of care and expected duration. Pain level reassessed. Patient is alert, oriented x 3, equal unlabored respirations, skin warm/dry/pink. 15:05 Reassessment: pt appears to have voided 125 mL of clear yellow urine into urinal. kc6 15:23 Reassessment: pt appears to have voided 450 mL of clear, yellow urine into the urinal. kc6 15:24 Reassessment: Patient appears in no apparent distress at this time. No changes from kc6 previously documented assessment. Patient and/or family updated on plan of care and expected duration. Pain level reassessed. Patient is alert, oriented x 3, equal unlabored respirations, skin warm/dry/pink. 16:24 Reassessment: Patient appears in no apparent distress at this time. No changes from kc6 previously documented assessment. Patient and/or family updated on plan of care and expected duration. Pain level reassessed. Patient is alert, oriented x 3, equal unlabored respirations, skin warm/dry/pink. 17:00 Reassessment: please see [facility] for further charting. kc6 17:24 Reassessment: Patient appears in no apparent distress at this time. No changes from kc6 previously documented assessment. Patient and/or family updated on plan of care and expected duration. Pain level reassessed. Patient is alert, oriented x 3, equal unlabored respirations, skin warm/dry/pink. 23:30 Reassessment: Patient appears in no apparent distress at this time. Patient and/or jb4 family updated on plan of care and expected duration. Pain level reassessed. Patient is alert, oriented x 3, equal unlabored respirations, skin warm/dry/pink. 01/15 00:38 Reassessment: Patient appears in no apparent distress at this time. Patient and/or jb4 family updated on plan of care and expected duration. Pain level reassessed. Patient is alert, oriented x 3, equal unlabored respirations, skin warm/dry/pink. 02:00 Reassessment: Pt is resting in bed with eyes closed, respirations are even and jb4 unlabored with no s/s of pain or distress noted. 04:50 Reassessment: Patient appears in no apparent distress at this time. Patient and/or jb4 family updated on plan of care and expected duration. Pain level reassessed. Patient is alert, oriented x 3, equal unlabored respirations, skin warm/dry/pink. Pt resting peacefully in bed. Vital Signs: 01/14 12:10 BP 244 / 135; Pulse 104; Resp 26; Temp 99.4(O); Pulse Ox 95% on R/A; Pain 0/10; ss 13:28 BP 218 / 133; Pulse 95; Resp 18; Pulse Ox 90% on R/A; ld1 14:04 BP 217 / 132; Pulse 84; Resp 18; Pulse Ox 95% on 2 lpm NC; kc6 15:27 BP 225 / 131; Pulse 85; Pulse Ox 95% on 2 lpm NC; kc6 15:32 BP 200 / 106; Pulse 84; Pulse Ox 96% on 2 lpm NC; kc6 15:37 BP 186 / 91; Pulse 73; Resp 18; Pulse Ox 94% on 2 lpm NC; kc6 18:12 BP 172 / 90; Pulse 76; Resp 18; Pulse Ox 95% on 2 lpm NC; ld1 20:15 BP 226 / 125; Pulse 88; jb4 20:30 BP 194 / 96; Pulse 87; jb4 21:00 BP 203 / 106; Pulse 87; Resp 21; Pulse Ox 93% ; jb4 21:30 BP 188 / 104; Pulse 85; Resp 25; Pulse Ox 84% on 5 lpm NC; jb4 22:30 BP 181 / 78; Pulse 72; Resp 21; Pulse Ox 93% on 40 lpm BiPAP; jb4 23:29 BP 201 / 114; Pulse 73; jb4 04/13 00:06 BP 176 / 86; Pulse 68; Resp 15; Pulse Ox 97% on BiPAP; jb4 00:30 BP 176 / 85; Pulse 67; Resp 14; Pulse Ox 94% on R/A; jb4 01:47 BP 193 / 101; Pulse 73; jb4 03:14 BP 139 / 72; Pulse 61; Resp 17; Pulse Ox 100% on 40 lpm Mask: BiPAP; jb4 03:22 BP 151 / 71; Pulse 100; Resp 16; Pulse Ox 100% on BiPAP; jb4 03:30 BP 138 / 72; Pulse 62; Resp 17; Temp 97.1(TE); Pulse Ox 98% on BiPAP; jb4 04:30 BP 149 / 78; Pulse 63; Resp 19; Pulse Ox 100% on BiPAP; jb4 06:15 BP 152 / 79; Pulse 66; Resp 16; Pulse Ox 100% on BiPAP; jb4 08:21 BP 180 / 98; Pulse 67; Resp 19; Pulse Ox 95% on CPAP; rs5 01/14 12:10 Pain Scale: Adult ss ED Course: 01/14 11:59 Patient arrived in ED. rg4 11:59 Salvador Keene DO is Private Physician. rg4 12:02 Deven Keene MD is Attending Physician. sp3 12:11 Meron Alcocer, [place] is Primary Nurse. kc6 12:13 Triage completed. ss 12:13 Arm band placed on right wrist. ss 12:23 Inserted saline lock: 20 gauge in left antecubital area, using aseptic technique. Blood kc6 collected. 12:27 XRAY Chest (1 view) In Process Unspecified. EDMS 12:27 Patient has correct armband on for positive identification. Placed in gown. Bed in low kc6 position. Call light in reach. Side rails up X2. Adult w/ patient. 14:21 Remington Bro MD is Hospitalizing Provider. sp3 19:05 Coud inserted, using sterile technique, 14 Fr. Returned clear yellow urine. To gravity kc6 drainage. 01/15 01:15 Missed attempt(s): 20 gauge in right forearm. bc6 01:19 Missed attempt(s): 20 gauge in right forearm. bc6 Administered Medications: 01/14 12:20 Drug: Nitroglycerin Sublingual 0.4 mg Route: Sublingual; kc6 12:20 Drug: Nitroglycerin Sublingual 0.4 mg Route: Sublingual; ld1 12:25 Drug: Nitroglycerin Sublingual 0.4 mg Route: Sublingual; ld1 15:41 Follow up: Response: No adverse reaction; Blood pressure is unchanged kc6 13:47 Drug: Labetalol IV 10 mg Route: IV; Rate: calculated rate; Site: left antecubital; kc6 15:41 Follow up: Response: No adverse reaction; Blood pressure is unchanged; IV Status: kc6 Completed infusion 14:11 Drug: Furosemide IVP 40 mg Route: IVP; Site: left antecubital; ld1 15:42 Follow up: Response: No adverse reaction kc6 15:27 Drug: Nitroglycerin Sublingual 0.4 mg Route: Sublingual; kc6 15:28 Drug: Furosemide IVP 40 mg Route: IVP; Site: left antecubital; kc6 16:00 Follow up: Response: No adverse reaction kc6 15:32 Drug: Nitroglycerin Sublingual 0.4 mg Route: Sublingual; kc6 15:37 Drug: Nitroglycerin Sublingual 0.4 mg Route: Sublingual; kc6 15:42 Follow up: Response: No adverse reaction; Blood pressure is lowered kc6 19:10 Drug: Nitro Drip - (Nitroglycerin IV 50 mg, D5W IV 250 ml) 5 mcg/min Route: IV; Rate: 5 kc6 mcg/min; Site: left antecubital; 20:30 Follow up: Rate change 15 mcg/min jb4 21:11 Follow up: Rate change 25 mcg/min jb4 21:45 Follow up: Rate change 45 mcg/min jb4 22:45 Follow up: Rate change 55 mcg/min jb4 23:29 Follow up: BP 201 / 114; Pulse 73 bpm; Rate change 70 mcg/min jb4 0413 00:06 Follow up: Rate change 80 mcg/min jb4 00:39 Follow up: Rate change 100 mcg/min jb4 01:47 Follow up: BP 193 / 101; Pulse 73 bpm; Rate change 120 mcg/min jb4 03:14 Follow up: BP 139 / 72; Pulse 61 bpm; Resp 17 bpm; Pulse Ox 100% 40lpm Mask: BiPAP; jb4 Rate change 100 mcg/min 03:38 Follow up: Rate change 80 mcg/min jb4 04:00 Follow up: Rate change 60 mcg/min jb4 04:49 Follow up: Rate change 40 mcg/min jb4 10:46 Follow up: Rate change 20 mcg/min ph Output: 00:44 Urine: 2250ml (Kwon); Total: 2250ml. jb4 Outcome: 01/14 14:22 Decision to Hospitalize by Provider. sp3 01/16 13:55 Patient left the ED. eb Signatures: Dispatcher [employer] EDMS Raina Helton RN RN ss Hall, Patricia, RN RN ph Garcia, Rubi rg4 Manolo Martin RN RN jb4 Shanae Fuentes Jacqueline Nova RN RN ld1 Deven Keene MD MD sp3 Meron Alcocer RN RN kc6 Maxwell Llamas rs5 Angela Mathias bc6 Corrections: (The following items were deleted from the chart) 01/14 12:27 12:24 Cardiovascular: Heart tones S1 S2 present Capillary refill < 3 seconds Rhythm is kc6 sinus tachycardia Chest pain is denied kc6 14:10 14:04 BP 217 / 132; Pulse 84bpm; Resp 18bpm; Pulse Ox 95% RA; [facility] kc6 15:41 15:38 BP 186 / 91; Pulse 74bpm; Resp 18bpm; Pulse Ox 95% 2 lpm Nasal Cannula; [facility] kc6 20:44 20:31 BP 226 / 125; Pulse 88bpm; jb4 jb4 04 03:43 03:30 BP 138 / 72; Pulse 62bpm; Resp 17bpm; Pulse Ox 98% BiPAP; [facility] jb4 06:30 06:30 BP 152 / 79; Pulse 66bpm; Resp 16bpm; Pulse Ox 100% BiPAP; 4 4
--- NOTE | 2023-01-14 14:23 | EDPHYS ---
Physician Documentation [facility] Name: Calos Marie Age: 62 yrs Sex: Male : 1960 Arrival Date: 01/14/2023 Time: 11:59 Bed 26 Private MD: Jassi [facility] ED Physician Deven Keene HPI: 01/14 13:26 This 62 yrs old Male presents to ER via Ambulatory with complaints of Shortness Of sp3 Breath, Breathing Difficulty. 13:26 62-year-old male with a history of CVA and hypertension presents to the ED with chief sp3 complaint shortness of breath and elevated blood pressure. Patient's PCP is also Dr. Keene whom the family called who recommended to come to the ED. Patient denies chest pain, headache, abdominal pain, nausea, vomiting, diarrhea, rash or any other symptoms on ROS at this time. He does have some peripheral edema which she states has been getting worse. He does not report any prior history of congestive heart failure, asthma or COPD. Patient has been recently seeing a cashier receptionist and sack maker for unknown pathology.. Historical: - Allergies: 14:09 No Known Allergies; kc6 - PMHx: 12:13 CVA; Hypertension; ss ROS: 13:32 Constitutional: Negative for fever, chills, and weight loss, Eyes: Negative for injury, sp3 pain, redness, and discharge, ENT: Negative for injury, pain, and discharge, Neck: Negative for injury, pain, and swelling, Abdomen/GI: Negative for abdominal pain, nausea, vomiting, diarrhea, and constipation, Back: Negative for injury and pain, Skin: Negative for injury, rash, and discoloration, Neuro: Negative for headache, weakness, numbness, tingling, and seizure, Psych: Negative for depression, anxiety, suicide ideation, homicidal ideation, and hallucinations, Allergy/Immunology: Negative for hives, rash, and allergies, Endocrine: Negative for neck swelling, polydipsia, polyuria, polyphagia, and marked weight changes. 13:32 All other systems are negative. Exam: 13:32 Head/Face: Normocephalic, atraumatic. Eyes: Pupils equal round and reactive to light, sp3 extra-ocular motions intact. Lids and lashes normal. Conjunctiva and sclera are non-icteric and not injected. Cornea within normal limits. Periorbital areas with no swelling, redness, or edema. ENT: Nares patent. No nasal discharge, no septal abnormalities noted. External auditory canals are clear. Oropharynx with no redness, swelling, or masses, exudates, or evidence of obstruction, uvula midline. Mucous membranes moist. Neck: Trachea midline, no thyromegaly or masses palpated, and no cervical lymphadenopathy. Supple, full range of motion without nuchal rigidity, or vertebral point tenderness. No Meningismus. Chest/axilla: Normal chest wall appearance and motion. Nontender with no deformity. No lesions are appreciated. Cardiovascular: Regular rate and rhythm with a normal S1 and S2. No gallops, murmurs, or rubs. Normal PMI, no JVD. No pulse deficits. Abdomen/GI: Soft, non-tender, with normal bowel sounds. No distension or tympany. No guarding or rebound. No evidence of tenderness throughout. Skin: Warm, dry with normal turgor. Normal color with no rashes, no lesions, and no evidence of cellulitis. Neuro: Awake and alert, GCS 15, oriented to person, place, time, and situation. Cranial nerves II-XII grossly intact. Motor strength 5/5 in all extremities. Sensory grossly intact. Cerebellar exam normal. Normal gait. Psych: Awake, alert, with orientation to person, place and time. Behavior, mood, and affect are within normal limits. 13:32 ECG was reviewed by the Attending Physician. EKG demonstrates normal sinus rhythm at 97 bpm with normal intervals, normal axis, normal QRS, nonspecific diffuse ST/T-segment changes particularly in leads III without any evidence of acute ischemia. 13:32 Respiratory: Patient mild respiratory distress currently tripoding and breathing at 20-24 times per minute. Full edema noted on the entirety of both lower extremities. Lung sounds are clear with no audible rales or rhonchi. Blood pressure is 250/120 on initial exam.. Vital Signs: 12:10 BP 244 / 135; Pulse 104; Resp 26; Temp 99.4(O); Pulse Ox 95% on R/A; Pain 0/10; ss 13:28 BP 218 / 133; Pulse 95; Resp 18; Pulse Ox 90% on R/A; ld1 14:04 BP 217 / 132; Pulse 84; Resp 18; Pulse Ox 95% on 2 lpm NC; kc6 15:27 BP 225 / 131; Pulse 85; Pulse Ox 95% on 2 lpm NC; kc6 15:32 BP 200 / 106; Pulse 84; Pulse Ox 96% on 2 lpm NC; kc6 15:37 BP 186 / 91; Pulse 73; Resp 18; Pulse Ox 94% on 2 lpm NC; kc6 18:12 BP 172 / 90; Pulse 76; Resp 18; Pulse Ox 95% on 2 lpm NC; ld1 20:15 BP 226 / 125; Pulse 88; jb4 20:30 BP 194 / 96; Pulse 87; jb4 21:00 BP 203 / 106; Pulse 87; Resp 21; Pulse Ox 93% ; jb4 21:30 BP 188 / 104; Pulse 85; Resp 25; Pulse Ox 84% on 5 lpm NC; jb4 22:30 BP 181 / 78; Pulse 72; Resp 21; Pulse Ox 93% on 40 lpm BiPAP; jb4 23:29 BP 201 / 114; Pulse 73; jb4 01/15 00:06 BP 176 / 86; Pulse 68; Resp 15; Pulse Ox 97% on BiPAP; jb4 00:30 BP 176 / 85; Pulse 67; Resp 14; Pulse Ox 94% on R/A; jb4 01:47 BP 193 / 101; Pulse 73; jb4 03:14 BP 139 / 72; Pulse 61; Resp 17; Pulse Ox 100% on 40 lpm Mask: BiPAP; jb4 03:22 BP 151 / 71; Pulse 100; Resp 16; Pulse Ox 100% on BiPAP; jb4 03:30 BP 138 / 72; Pulse 62; Resp 17; Temp 97.1(TE); Pulse Ox 98% on BiPAP; jb4 04:30 BP 149 / 78; Pulse 63; Resp 19; Pulse Ox 100% on BiPAP; jb4 06:15 BP 152 / 79; Pulse 66; Resp 16; Pulse Ox 100% on BiPAP; jb4 08:21 BP 180 / 98; Pulse 67; Resp 19; Pulse Ox 95% on CPAP; rs5 01/14 12:10 Pain Scale: Adult ss MDM: 01/14 12:13 Patient medically screened. sp3 13:35 Data reviewed: vital signs, nurses notes, lab test result(s), EKG, radiologic studies. sp3 ED course: 62-year-old male with hypertensive urgency and difficulty breathing. Initially nitroglycerin x3 were given sublingually to bring blood pressure down which is helped patient tremendously. Further labetalol is indicated IV. Chest x-ray is clear and EKG demonstrates no significant ischemic changes. We will continue to monitor remainder of diagnostic work-up and disposition accordingly which would likely be inpatient observation for anginal equivalent and hypertensive urgency as well as any other diagnoses that are made after complete work-up.. 14:19 ED course: Patient is much improved. Troponin is positive. Will admit with diagnoses sp3 NSTEMI, hypertensive urgency and CHF exacerbation. Hospitalist team notified and have accepted patient.. 01/14 12:02 Order name: Basic Metabolic Panel; Complete Time: 14:06 sp3 01/14 12:02 Order name: CBC with Diff; Complete Time: 13:26 sp3 01/14 12:02 Order name: LFT's; Complete Time: 14:06 sp3 01/14 12:02 Order name: Magnesium; Complete Time: 14:06 sp3 01/14 12:02 Order name: NT PRO-BNP; Complete Time: 14:06 sp3 01/14 12:02 Order name: PT-INR; Complete Time: 13:26 sp3 01/14 12:02 Order name: Troponin HS; Complete Time: 14:06 sp3 01/14 15:27 Order name: Troponin High Sensitivity EDMS 01/14 15:27 Order name: Troponin High Sensitivity EDMS 01/14 15:27 Order name: Troponin High Sensitivity EDMS 01/14 16:43 Order name: SARS-COV-2 Antigen Rapid; Complete Time: 18:31 bd 01/14 16:47 Order name: Magnesium EDMS 01/14 16:47 Order name: Phosphorus EDMS 01/14 16:47 Order name: T4 Free EDMS 01/14 16:47 Order name: Thyroid Stimulating Hormone EDMS 01/14 16:47 Order name: Urinalysis w/ reflexes EDMS 01/14 16:47 Order name: CBC with Automated Diff EDMS 01/14 16:47 Order name: CBC with Automated Diff EDMS 01/14 16:47 Order name: Comprehensive Metabolic Panel EDMS 01/14 16:47 Order name: Comprehensive Metabolic Panel EDMS 01/14 16:47 Order name: Lipid Profile EDMS 01/14 16:47 Order name: Lipid Profile EDTN 01/14 16:47 Order name: NT PRO-BNP EDTN 01/14 16:47 Order name: NT PRO-BNP EDTN 01/14 16:49 Order name: Hemoglobin A1c EDTN 01/15 05:50 Order name: Troponin High Sensitivity EDTN 01/16 02:18 Order name: Comprehensive Metabolic Panel EDTN 01/16 03:34 Order name: Cortisol EDTN 01/16 04:56 Order name: Miscellaneous Test Lab EDTN 01/14 12:02 Order name: XRAY Chest (1 view); Complete Time: 13:26 sp3 01/14 16:52 Order name: Echo with Doppler EDTN 01/14 12:02 Order name: EKG; Complete Time: 12:03 sp3 01/15 16:42 Order name: Diet Heart Healthy; Complete Time: 16:42 ph 01/14 12:02 Order name: Cardiac monitoring; Complete Time: 12:16 sp3 01/14 12:02 Order name: EKG - Nurse/Tech; Complete Time: 12:23 sp3 01/14 12:02 Order name: IV Saline Lock; Complete Time: 12:23 sp3 01/14 12:02 Order name: Labs collected and sent; Complete Time: 12:23 sp3 01/14 12:02 Order name: O2 Per Protocol; Complete Time: 12:16 sp3 01/14 12:02 Order name: O2 Sat Monitoring; Complete Time: 12:16 sp3 01/14 18:41 Order name: Kwon; Complete Time: 19:12 la1 01/14 19:22 Order name: IV Saline Lock - Large Bore; Complete Time: 19:12 kc Administered Medications: 12:20 Drug: Nitroglycerin Sublingual 0.4 mg Route: Sublingual; kc6 12:20 Drug: Nitroglycerin Sublingual 0.4 mg Route: Sublingual; ld1 12:25 Drug: Nitroglycerin Sublingual 0.4 mg Route: Sublingual; ld1 15:41 Follow up: Response: No adverse reaction; Blood pressure is unchanged kc6 13:47 Drug: Labetalol IV 10 mg Route: IV; Rate: calculated rate; Site: left antecubital; kc6 15:41 Follow up: Response: No adverse reaction; Blood pressure is unchanged; IV Status: kc6 Completed infusion 14:11 Drug: Furosemide IVP 40 mg Route: IVP; Site: left antecubital; ld1 15:42 Follow up: Response: No adverse reaction kc6 15:27 Drug: Nitroglycerin Sublingual 0.4 mg Route: Sublingual; kc6 15:28 Drug: Furosemide IVP 40 mg Route: IVP; Site: left antecubital; kc6 16:00 Follow up: Response: No adverse reaction kc6 15:32 Drug: Nitroglycerin Sublingual 0.4 mg Route: Sublingual; kc6 15:37 Drug: Nitroglycerin Sublingual 0.4 mg Route: Sublingual; kc6 15:42 Follow up: Response: No adverse reaction; Blood pressure is lowered kc6 19:10 Drug: Nitro Drip - (Nitroglycerin IV 50 mg, D5W IV 250 ml) 5 mcg/min Route: IV; Rate: 5 kc6 mcg/min; Site: left antecubital; 20:30 Follow up: Rate change 15 mcg/min jb4 21:11 Follow up: Rate change 25 mcg/min jb4 21:45 Follow up: Rate change 45 mcg/min jb4 22:45 Follow up: Rate change 55 mcg/min jb4 23:29 Follow up: BP 201 / 114; Pulse 73 bpm; Rate change 70 mcg/min jb4 0413 00:06 Follow up: Rate change 80 mcg/min jb4 00:39 Follow up: Rate change 100 mcg/min jb4 01:47 Follow up: BP 193 / 101; Pulse 73 bpm; Rate change 120 mcg/min jb4 03:14 Follow up: BP 139 / 72; Pulse 61 bpm; Resp 17 bpm; Pulse Ox 100% 40lpm Mask: BiPAP; jb4 Rate change 100 mcg/min 03:38 Follow up: Rate change 80 mcg/min jb4 04:00 Follow up: Rate change 60 mcg/min jb4 04:49 Follow up: Rate change 40 mcg/min jb4 10:46 Follow up: Rate change 20 mcg/min ph Disposition Summary: 01/14/23 14:22 Hospitalization Ordered Hospitalization Status: Inpatient Admission sp3 Provider: Remington Bro spLudmila Condition: Stable sp3 Problem: new sp3 Symptoms: have worsened sp3 Bed/Room Type: Standard sp3 Location: Telemetry/MedSurg (Inpatient)(01/16/23 12:13) ja1 Room Assignment: 205(01/16/23 12:13) ja1 Diagnosis - NSTEMI, CHF Exacerbation, HTN Urgency sp3 Forms: - Medication Reconciliation Form sp3 - SBAR form sp3 Signatures: Dispatcher [employer] EDMS Raina Helton RN RN ss Abdirizak Bustamante, OUTSIDE SOLAR SALES CONSULTANT-C OUTSIDE [employer]AR SALES CONSULTANT-Cla1 Damari Ramos, RN RN cg Armen Whitaker RN RN ja1 Jacqueline Nova RN RN ld1 Deven Keene MD MD sp3 Meron Alcocer RN RN kc6 Cristy Spence RN Manolo Martin RN jb4 Corrections: (The following items were deleted from the chart) 01/14 13:30 13:26 62-year-old male with a history of CVA and hypertension presents to the ED with sp3 chief complaint shortness of breath and elevated blood pressure. Patient's PCP is also Dr. Keene whom the family called who recommended to come to the ED. Patient denies chest pain, headache, abdominal pain, nausea, vomiting, diarrhea, rash or any other symptoms on ROS at this time. He does have some peripheral edema which she states has been getting worse. He does not report any prior history of congestive heart failure, asthma or COPD.. sp3 22:30 14:22 Telemetry/MedSurg (Inpatient) sp3 cg 22:30 14:22 sp3 cg 01/16 12:13 01/14 22:30 [facility] ER HOLD cg ja1 01/16 12:13 01/14 22:30 ERHOLD- cg ja1
[2023-01-14] MEDS ORDERED: ACETAMINOPHEN 325 MG TABLET PO PRN (16:34)
[2023-01-14] MEDS ORDERED: ONDANSETRON 4 MG/2 ML VIAL IV PRN (16:44)
--- NOTE | 2023-01-14 16:50 | P.HP ---
Certification for Inpatient Patient admitted to: Inpatient With expected LOS: >2 Midnights Patient will require the following post-hospital care: None Practitioner: I am a practitioner with admitting privileges, knowledge of patient current condition, hospital course, and medical plan of care. Services: Services provided to patient in accordance with Admission requirements found in Title 42 Section 412.3 of the Code of Federal Regulations Patient History Date of Service: 01/14/23 Reason for admission: Shortness of breath History of Present Illness: Patient is a 62-year-old male with a past medical history significant for hypertension, CVA, obesity who presents with complaint of shortness of breath and elevated blood pressure. Patient reports generalized swelling that has been ongoing for the past 1 week. Swelling is mainly pronounced in the abdomen, bilateral lower extremity and scrotum. Patient reported that he has been having trouble with urinating--(experiences episodes of hesitancy and dribbling). Patient also noted with bilateral lower wound. Patient denies any other signs and symptoms. Symptoms are aggravated by exertion and relieved by nothing. Patient decided to present to the hospital due to worsening symptoms. Of note, patient reported that has been following up with a emergency planner and black puller outpatient. Allergies No Known Allergies Allergy (Unverified 09/07/17 15:26) Home Medications: Atorvastatin Calcium [Lipitor] 80 mg PO BEDTIME #30 tab 09/08/17 Furosemide [Lasix] 40 mg PO BID #60 tablet 05/25/21 Hydralazine [Apresoline*] 50 mg PO TID #90 tab 05/25/21 Isosorbide Dinitrate [Isordil] 30 mg PO DAILY #30 tablet 05/25/21 Metoprolol Tartrate 50 mg PO BID #60 tablet 05/25/21 Potassium Chloride [K-Dur] 10 meq PO BID #60 tab.er.prt 05/25/21 - Past Medical/Surgical History Diabetic: No -: CVA -: Hypertension -: None Psychosocial/ Personal History: Patient unemployed lives alone - Family History Father -: Heart disease - Social History Smoking Status: Never smoker Alcohol use: No CD- Drugs: Yes Caffeine use: No Place of Residence: Home Review of Systems General: Unremarkable Eyes: Unremarkable ENT: Unremarkable Respiratory: Shortness of Breath, SOB with Excertion Cardiovascular: Edema Gastrointestinal: Distention, Other Genitourinary: Frequency, Retention (Hesitancy), Other Musculoskeletal: Pedal edema Integumentary: Unremarkable Neurological: Unremarkable Lymphatics: Unremarkable Physical Examination - Physical Exam General: Alert, Oriented x3, Cooperative, Mild distress HEENT: Atraumatic, PERRLA, Mucous membr. moist/pink, EOMI, Sclerae nonicteric Neck: Supple, 2+ carotid pulse no bruit, No LAD, Without JVD or thyroid abnormality Respiratory: Diminished Cardiovascular: Regular rate/rhythm, Normal S1 S2, Edema Capillary refill: <2 Seconds Gastrointestinal: Normal bowel sounds, No tenderness, Other (Excoriation to abdominal folds.), Distended Musculoskeletal: No clubbing, No tenderness, Swelling Integumentary: No rashes, No breakdown, Tenderness/swelling Neurological: Normal speech, Normal tone, Normal affect Lymphatics: No axilla or inguinal lymphadenopathy - Studies Laboratory Data (last 24 hrs) 01/14/23 12:21: PT 13.8 H, INR 1.25 01/14/23 12:21: WBC 8.50, Hgb 13.2 L, Hct 40.5, Plt Count 304 01/14/23 12:21: Sodium 139, Potassium 3.2 L, BUN 42 H, Creatinine 3.24 H, Glucose 161 H, Magnesium 1.7, Total Bilirubin 1.3 H, AST 24, ALT 46, Alkaline Phosphatase 89 Male Exam - Male Exam Scrotum: Edema Assessment and Plan - Plan --Acute on chronic systolic CHF exacerbation. Cardiology consulted. Chest x- ray indicates : No acute pulmonary process. Moderate to marked enlargement of the cardiac silhouette. Patient placed on diuresis with Lasix. Daily weight and strict I/O. Echocardiogram pending to assess cardiac structures and functions. Telemetry to monitor for any significant arrhythmia. Further management per emergency planner. -- ELMER on CKD 3B. Nephrology consulted. Will await further recommendations from black puller. --Hypertensive urgency. Continue home medications and labetalol as needed. Further management per emergency planner. --Bilateral lower extremity wound. Wound care consult initiated. We will await further recommendation. --History of CVA. Continue aspirin and statin. --Hyperlipidemia. Continue statin. --Hypokalemia. Replete as needed. --Elevated troponin. Likely secondary to demand ischemia. We will continue to trend troponin levels. Telemetry. Further management per emergency planner. --DVT prophylaxis with Lovenox subQ. Discharge Plan: Home Plan to discharge in: Greater than 2 days - Advance Directives Does patient have a Living Will: No Does patient have a Durable POA for Healthcare: No - Code Status/Comfort Care Code Status Assessed: Yes Physician Review: Patient Assessed, Agree with Above Assessment and Plan Critical Care: No
[2023-01-14] MEDS: FUROSEMIDE 40 MG/4 ML VIAL IV SCH (17:00)
[2023-01-14] MEDS: ENOXAPARIN 40 MG/0.4 ML SQ SCH (17:00)
[2023-01-14 17:22] LABS: SARS-CoV-2 Antigen Rapid Res Negative (Negative)
[2023-01-14] MEDS ORDERED: ENOXAPARIN 40 MG/0.4 ML SQ ONE (18:45)
[2023-01-14] MEDS ORDERED: NITROGLYCERIN/D5W 50 MG/250 ML BTL IV ONE (18:54)
[2023-01-14] MEDS ORDERED: NITROGLYCERIN/D5W 50 MG/250 ML BTL IV SCH (19:00)
[2023-01-14 19:17] LABS: Magnesium 1.8 mg/dL (1.6-2.4); Phosphorus 3.4 mg/dL (2.5-4.9); Thyroid Stimulating Hormone 3.26 uIU/mL (0.358-3.740)
[2023-01-14] MEDS ORDERED: LABETALOL 20 MG/4ML SYRINGE IV PRN (19:35)
[2023-01-14] MEDS ORDERED: IPRATROPIUM BROM 0.5MG/2.5ML NEB SCH (20:00)
[2023-01-14] MEDS ORDERED: ALBUTEROL 2.5 MG/3 ML NEB SOL NEB SCH (20:00)
[2023-01-14] MEDS ORDERED: ALBUTEROL 2.5 MG/3 ML NEB SOL NEB PRN (20:00)
[2023-01-14] MEDS ORDERED: IPRATROPIUM BROM 0.5MG/2.5ML NEB PRN (20:00)
[2023-01-14] MEDS: NYSTATIN PWDR 100000 UNIT/GM TOP SCH (21:00)
[2023-01-14] MEDS ORDERED: HOME MED 1 EA UNK (Potassium Chloride [K-Dur] 10 MEQ Tab.Er.Prt) PO SCH (21:00)
[2023-01-14] MEDS: METOPROLOL TAR 50 MG TAB PO SCH (21:00)
[2023-01-14] MEDS ORDERED: POTASSIUM CL SA 10 MEQ TAB PO SCH (21:00)
[2023-01-15] MEDS ORDERED: METOPROLOL TAR 50 MG TAB ONE ×3 (02:23→21:40)
[2023-01-15] MEDS ORDERED: ATORVASTATIN 40 MG TAB ONE ×2 (02:24→20:40)
[2023-01-15] MEDS ORDERED: HYDRALAZINE HCL 25 MG TABLET ONE ×4 (02:24→20:39)
[2023-01-15] MEDS: HYDRALAZINE HCL 25 MG TABLET PO SCH ×4 (02:33→21:00)
[2023-01-15] MEDS: ATORVASTATIN 80 MG TAB PO SCH ×2 (02:33→21:00)
[2023-01-15 05:17] LABS: Absolute Lymphocytes (CBC) 0.8 K/uL (0.7-4.9); Hematocrit 37.3 % (39.6-49.0); Lymphocytes % 8.1 % (15.3-44.8); MCV 86.4 fL (80-100); MPV 8.8 fL (7.6-11.3); RBC Red Blood Cell Count 4.32 M/uL (4.33-5.43)
[2023-01-15 05:48] LABS: Bilirubin Total 1.6 mg/dL (0.2-1.0); Potassium 2.7 mEq/L (3.5-5.1); Protein, Total 6.3 g/dL (6.4-8.2)
[2023-01-15 05:49] LABS: Troponin High Sensitivity 77.8 pg/mL (<58.9)
[2023-01-15] MEDS ORDERED: POTASSIUM CL SA 10 MEQ TAB PO ONE ×4 (07:35→14:52)
[2023-01-15] MEDS: ENOXAPARIN 40 MG/0.4 ML SQ SCH (09:00)
[2023-01-15] MEDS ORDERED: ISOSORBIDE DINITRATE 30 MG PO SCH (09:00)
[2023-01-15] MEDS: ASPIRIN 81 MG CHEWABLE TABLET PO SCH (09:00)
[2023-01-15] MEDS: METOPROLOL TAR 50 MG TAB PO SCH ×2 (09:00→21:00)
[2023-01-15] MEDS: FUROSEMIDE 40 MG/4 ML VIAL IV SCH ×3 (09:00→19:05)
[2023-01-15] MEDS: NYSTATIN PWDR 100000 UNIT/GM TOP SCH ×2 (09:00→21:00)
[2023-01-15] MEDS ORDERED: FUROSEMIDE 40 MG/4 ML VIAL ONE ×3 (09:04→19:22)
[2023-01-15] MEDS ORDERED: ENOXAPARIN 40 MG/0.4 ML SQ ONE (09:04)
[2023-01-15] MEDS ORDERED: ASPIRIN EC 81 MG TAB PO ONE (09:04)
[2023-01-15] MEDS ORDERED: NITROGLYCERIN/D5W 50 MG/250 ML BTL IV ONE (09:05)
--- NOTE | 2023-01-15 09:08 | EKG ---
Test Date: 2023-01-14 Test Time: 12:25:33 Wholesale Representative: ONESIMO MEASUREMENT RESULTS: Intervals: Rate: 97 ME: 186 QRSD: 96 QT: 376 QTc: 477 Dumont: P: 53 ME: 186 QRS: 73 T: 42 INTERPRETIVE STATEMENTS: Normal sinus rhythm Biatrial enlargement Abnormal ECG Compared to ECG 05/24/2021 03:32:06 Left-axis deviation no longer present Left ventricular hypertrophy no longer present Early repolarization no longer present Prolonged QT interval no longer present Electronically Signed On 01-15-23 09:04:28 CDT by Mauricio Arguelles
--- NOTE | 2023-01-15 09:52 | P.CNS ---
Date of Consult: 01/15/23 Reason for Consult: ELMER/ CKD Requesting Physician: Remington Bro Chief Complaint: Shortness of breath History of Present Illness: Patient is a 62-year-old male with a past medical history significant for hypertension, CVA, obesity who presents with complaint of shortness of breath and elevated blood pressure. Patient reports generalized swelling that has been ongoing for the past 1 week. Swelling is mainly pronounced in the abdomen, bilateral lower extremity and scrotum. Patient reported that he has been having trouble with urinating--(experiences episodes of hesitancy and dribbling). Patient also noted with bilateral lower wound. Patient denies any other signs and symptoms. Symptoms are aggravated by exertion and relieved by nothing. Patient decided to present to the hospital due to worsening symptoms. Of note, patient reported that has been following up with a inspector radar and electronics and linux programmer outpatient. 13:26 This 62 yrs old Male presents to ER via Ambulatory with complaints of Sh ortness Of sp3 Breath, Breathing Difficulty. 13:26 62-year-old male with a history of CVA and hypertension presents to the ED with chief sp3 complaint shortness of breath and elevated blood pressure. Patient's PCP is also Dr. Keene whom the family called who recommended to come to the ED. Patient denies chest pain, headache, abdominal pain, nausea, vomiting, diarrhea, rash or any other symptoms on ROS at this time. He does have some peripheral edema which she states has been getting worse. He does not report any prior history of congestive heart failure, asthma or COPD. Patient has been recently seeing a inspector radar and electronics and linux programmer for unknown pathology.. Allergies No Known Allergies Allergy (Unverified 09/07/17 15:26) Home medications list reviewed: Yes Home Medications: Potassium Chloride [K-Dur] 10 meq PO BID #60 tab.er.prt 05/25/21 Amlodipine [Norvasc] 10 mg PO DAILY 01/15/23 Atorvastatin Calcium 20 mg PO DAILY 01/15/23 Carvedilol [Coreg] 25 mg PO BID 01/15/23 Chlorthalidone 25 mg PO DAILY 01/15/23 Glimepiride 2 mg PO DAILY 01/15/23 Hydralazine HCl 100 mg PO BID 01/15/23 Lisinopril [Zestril] 20 mg PO BID 01/15/23 Spironolactone 50 mg PO DAILY 01/15/23 - Past Medical/Surgical History Diabetic: No -: CVA -: HTN -: DM II -: CKD/ Proteinuria (Dr. Merritt) -: Systolic CHF -: None Psychosocial/ Personal History: Patient unemployed lives alone - Family History Father Medical History: Heart disease - Social History Alcohol use: No CD- Drugs: Yes Caffeine use: No Place of Residence: Home Review of Systems 10-point ROS is otherwise unremarkable General: Weakness, Malaise Respiratory: SOB with Excertion Cardiovascular: Edema Physical Examination Temp Pulse Resp BP Pulse Ox 97.8 F 66 20 173/96 H 100 01/15/23 07:31 01/15/23 08:31 01/15/23 08:31 01/15/23 08:31 01/15/23 08:31 General: Oriented x3, Cooperative HEENT: Atraumatic Neck: Supple Respiratory: Clear to auscultation bilaterally Cardiovascular: Regular rate/rhythm, Edema Gastrointestinal: Soft and benign, Non-distended Musculoskeletal: No clubbing, No contractures Integumentary: No cyanosis, Skin lesion Neurological: Normal speech Laboratory Data (last 24 hrs) 01/14/23 12:21: PT 13.8 H, INR 1.25 01/14/23 12:21: WBC 8.50, Hgb 13.2 L, Hct 40.5, Plt Count 304 01/14/23 12:21: Sodium 139, Potassium 3.2 L, BUN 42 H, Creatinine 3.24 H, Glucose 161 H, Magnesium 1.7, Total Bilirubin 1.3 H, AST 24, ALT 46, Alkaline Phosphatase 89 Imagings Data: EXAM DESCRIPTION: RADChest Single View01/14/2023 12:25 pm CLINICAL HISTORY: DYSPNEA COMPARISON: Chest Single View dated 05/25/2021; Chest Single View dated 05/24/2021; Chest Single View dated 03/25/2018; Chest Single View dated 09/07/2017 TECHNIQUE: Portable AP view of the chest. FINDINGS: The lungs are clear. No pneumothorax or effusion. The heart is moderate to markedly enlarged. Mediastinal contours are stable. Implantable rhythm monitoring device is present. . IMPRESSION: No acute pulmonary process. Moderate to marked enlargement of the cardiac silhouette. LEFT VENTRICULAR WALL MOTION: MILD GLOBAL HYPOKINESIS. DOPPLER/COLOR FLOW: MILD TRICUSPID REGURGITATION. COMMENTS: MILD GLOBAL HYPOKINESIS. LEFT VENTRICULAR EJECTION FRACTION 45-50%. MILD TRICUSPID REGURGITATION. NORMAL RIGHT VENTRICULAR SYSTOLIC PRESSURE. LEFT VENTRICULAR HYPERTROPHY. LEFT VENTRICULAR WALL MOTION: SEVERE GLOBAL HYPOKINESIS DOPPLER/COLOR FLOW: NORMAL COMMENTS: 1. SEVERE GLOBAL HYPOKINESIS 2. EJECTION FRACTION 23% 3. NO THROMBUS Conclusions/Impression: ELMER likely CRS complicated by HTN CKD III with proteinuria -No NSAIDs -Continue diuresis Hypokalemia -Replete potassium HTN with CKD/ CHF -Continue Hydralazine -Increase Imdur BID -Nitro gtt -24 hour urine for secondary HTN eval Systolic CHF, A/C -Increase Lasix q6h -Daily weight -Low sodium diet DM II with CKD -Recommend RISS -No sugar diet Anemia in chronic illness -Monitor H&H Case reviewed with Dr. Bro Thank you kindly for the consultation
--- NOTE | 2023-01-15 13:15 | CON ---
Date of Consultation: 01/15/2023 Reason For Consultation: Congestive heart failure. History Of Present Illness: Mr. Marie is 62. Has a history of hypertension, CHF, dyslipidemia. Came in with PND, orthopnea, pedal edema, palpitation. No syncope. No fever. No chills. He denied any chest pain. Was noted to have a BNP of 12,000, potassium was 2.7, creatinine is 3.10 which appears to be chronic. His troponin was 75. He is on CPAP and BiPAP right now. He is breathing a lot sol r. He does have a history of hypertension, dyslipidemia, obesity. Past Medical History: As stated above. Allergies: NONE. Review of Systems: Negative. Social History: Negative. Family History: Positive for CHF and diabetes. Medications: At home include metoprolol, hydralazine, Lipitor, Lasix, Imdur, and potassium. He is a lso now on Lovenox. Physical Examination: Vital Signs: He had a CPAP and BiPAP on with sinus rhythm, afebrile. O2 saturation was adequate. HEENT: Negative. Neck: Supple without any bruit, lymphadenopathy, JVD, or thyromegaly. Chest: Positive for rales and wheezing on expiration on both bases. Cardiac: Revealed sinus tachycardia with S3 gallops. Abdomen: Obese. Extremities: Revealed 4+ edema to the knees. Diagnostic Data: As stated earlier. Impression And Plan: Probable acute on chronic systolic congestive heart failure. Echocardiogram is pending. Consider Lasix drip. Consider Nephrology consultation. He has chronic renal insufficienc y. He does not know what his creatinine was. His potassium needs to be supplemented gently. He nichol l eventually to have an outpatient followup with us in the office for stress test and closer followup . I will continue to follow him. We will see what his echo shows and we will see what the pathology says. For now, I agree with his present regimen. DWAYNE/ALINE Voice ID: [id number] Report ID: [id number]
--- NOTE | 2023-01-15 14:10 | ECHO ---
HEIGHT: 5 ft 10 in WEIGHT: 282 lb 3.067 oz DATE OF STUDY: 01/15/[address]: Johann Lyons 2-DIMENSIONAL: YES M.MODE: YES DOPPLER: YES COLOR FLOW: YES TDS: PORTABLE: YES DEFINITY: BUBBLE STUDY: DIAGNOSIS: CONGESTIVE HEART FAILURE EXERBATION CARDIAC HISTORY: CATHERIZATION: NO SURGERY: NO PROSTHETIC VALVE: NO PACEMAKER: NO MEASUREMENTS (cm) DIASTOLIC (NORMALS) SYSTOLIC (NORMALS) IVSd 1.3 (0.6-1.2) LA Diam 3.6 (1.9-4.0) LVEF 23% LVIDd 5.5 (3.5-5.7) LVIDs 4.9 (2.0-3.5) %FS 11% LVPWd 1.3 (0.6-1.2) Ao Diam 2.8 (2.0-3.7) 2 DIMENSIONAL ASSESSMENT: RIGHT ATRIUM: NORMAL LEFT ATRIUM: NORMAL RIGHT VENTRICLE: NORMAL LEFT VENTRICLE: NORMAL TRICUSPID VALVE: NORMAL MITRAL VALVE: NORMAL PULMONIC VALVE: NORMAL AORTIC VALVE: NORMAL PERICARDIAL EFFUSION: NONE AORTIC ROOT: NORMAL LEFT VENTRICULAR WALL MOTION: SEVERE GLOBAL HYPOKINESIS DOPPLER/COLOR FLOW: NORMAL COMMENTS: 1. SEVERE GLOBAL HYPOKINESIS 2. EJECTION FRACTION 23% 3. NO THROMBUS 4. NO EFFUSION TECHNOLOGIST: TEJAL GUERRERO
--- NOTE | 2023-01-15 18:47 | P.PN ---
Subjective Date of Service: 01/15/23 Chief Complaint: Shortness of breath He presented yesterday with a blood pressure of 244/135. He was in respiratory distress and developed flash pulmonary edema. He was placed on BiPAP and a nitroglycerin drip, with significant improvement in his symptoms. He remains on the nitroglycerin drip, but has weaned off of BiPAP. Review of Systems 10-point ROS is otherwise unremarkable Respiratory: Cough, Shortness of Breath Cardiovascular: Edema Physical Examination - Vital Signs Temperature: 97.5 F Blood Pressure: 157/85 Pulse: 74 Respirations: 20 Pulse Ox (%): 98 - Physical Exam General: Alert, In no apparent distress, Oriented x3 HEENT: Atraumatic, EOMI, Sclerae nonicteric Neck: JVD distended Respiratory: Diminished, Crackles/rales (bibasilar) Cardiovascular: Regular rate/rhythm, Normal S1 S2, No gallops, No rubs, No murmurs, Edema (2-3+ BLE) Gastrointestinal: Normal bowel sounds, Soft and benign, Non-distended, No tenderness, No rebound, No guarding Musculoskeletal: No clubbing Integumentary: No rashes Neurological: Normal speech, Normal affect Assessment And Plan - Plan # Hypertensive Emergency with Acute on Chronic Decompensated Systolic Congestive Heart Failure with Reduced Ejection Fraction - Consulted Cardiology and spoke with Dr. Arguelles - recommendations appreciated - Consulted Nephrology and spoke with Dr. Merritt - recommendations appreciated - Chest x-ray = "No acute pulmonary process. Moderate to marked enlargement of the cardiac silhouette." - Transthoracic echocardiogram = "1. severe global hypokinesis 2. ejection fraction 23% 3. no thrombus 4. no effusion" - Currently off of BiPAP - Continue nitroglycerin drip and wean as tolerated - Continue Imdur, hydralazine, metoprolol - Daily weights - Strict I/O - Cardiac diet, 1.5 L fluid restriction, 2 g Na restriction # Suspect Type II Non-ST Segment Elevation Myocardial Infarction (Demand Ischemia) due to above # History of Cerebrovascular Accident # Dyslipidemia - Evaluation thus far: - EKG: reportedly without STEMI criteria, trend - Serial troponin: 62.6 -> 75.1 -> 78.1 -> 77.8 - Transthoracic echocardiogram = "1. severe global hypokinesis 2. ejection fraction 23% 3. no thrombus 4. no effusion" - Management plan: - Consult Cardiology and spoke with Dr. Arguelles - recommendations appreciated - Continue aspirin, atorvastatin, metoprolol - Hold KIMBERLY-inhibitor/ARB given ELMER # KDIGO Stage I Acute Kidney Injury on Chronic Kidney Disease Stage III # Hypokalemia - Nephrology consulted and spoke with Dr. Merritt - recommendations appreciated - Creatinine = 3.24 -> 3.10 - Urinalysis = pending - IV diuretics as mentioned above - Monitor creatinine and urine output - If worsening, obtain renal ultrasound - Renally dose medications Remington Bro M.D.
[2023-01-15] MEDS ORDERED: NYSTATIN 100MU/GM CREAM 15GM TOP ONE (20:41)
[2023-01-15] MEDS ORDERED: ISOSORBIDE MONO SR 30 MG TAB PO ONE (20:50)
[2023-01-15] MEDS: ISOSORBIDE MONO SR 30 MG TAB PO SCH (21:00)
[2023-01-16] MEDS: FUROSEMIDE 40 MG/4 ML VIAL IV SCH ×3 (00:25→17:30)
[2023-01-16] MEDS ORDERED: FUROSEMIDE 40 MG/4 ML VIAL ONE ×2 (00:27→06:06)
[2023-01-16 02:18] LABS: Bilirubin Total 1.8 mg/dL (0.2-1.0); Protein, Total 7.1 g/dL (6.4-8.2)
[2023-01-16] MEDS: ASPIRIN 81 MG CHEWABLE TABLET PO SCH (09:00)
[2023-01-16] MEDS: ENOXAPARIN 40 MG/0.4 ML SQ SCH (09:00)
[2023-01-16] MEDS: ISOSORBIDE MONO SR 30 MG TAB PO SCH ×2 (09:00→20:51)
[2023-01-16] MEDS: NYSTATIN PWDR 100000 UNIT/GM TOP SCH ×2 (09:00→21:00)
[2023-01-16] MEDS: METOPROLOL TAR 50 MG TAB PO SCH ×2 (09:00→20:50)
[2023-01-16] MEDS: HYDRALAZINE HCL 25 MG TABLET PO SCH ×3 (09:00→20:51)
[2023-01-16] MEDS ORDERED: ENOXAPARIN 40 MG/0.4 ML SQ ONE (09:25)
[2023-01-16] MEDS ORDERED: HYDRALAZINE HCL 25 MG TABLET ONE (09:25)
[2023-01-16] MEDS ORDERED: ASPIRIN 81 MG CHEWABLE TABLET ONE (09:25)
[2023-01-16] MEDS ORDERED: METOPROLOL TAR 50 MG TAB ONE (09:25)
[2023-01-16] MEDS: MAGNESIUM OXIDE 400 MG TAB PO SCH (10:30)
[2023-01-16] MEDS ORDERED: POTASSIUM CL SA 10 MEQ TAB PO ONE (10:50)
[2023-01-16] MEDS ORDERED: MAGNESIUM OXIDE 400 MG TAB ONE (10:59)
--- NOTE | 2023-01-16 12:43 | P.PN ---
Nephrology note: (S) Pt reports feeling better with diuresis this far, reports peripheral edema has improved, can breathe a bit easier, BP with cuff adjusted was down to systolic 150 when I checked it in the ER earlier. (O) Vitals reviewed in the EMR General: NAD HEENT: Atraumatic, on NC Neck: Supple Respiratory: Poor effott, Reduced BS at the bases Cardiovascular: Non tachy, no gallop heart sounds appreciated, improving peripheral edema Gastrointestinal: Obese, mild distention, NT Musculoskeletal: Shins are non tender Integumentary: Skin excoriations and plaques across LE Neurological: Normal speech, awake, alert, non focal Laboratory Data (last 24 hrs) Reviewed in the EMR Imagings Data: EXAM DESCRIPTION: RADChest Single View01/14/2023 12:25 pm CLINICAL HISTORY: DYSPNEA COMPARISON: Chest Single View dated 05/25/2021; Chest Single View dated 05/24/2021; Chest Single View dated 03/25/2018; Chest Single View dated 09/07/2017 TECHNIQUE: Portable AP view of the chest. FINDINGS: The lungs are clear. No pneumothorax or effusion. The heart is moderate to markedly enlarged. Mediastinal contours are stable. Implantable rhythm monitoring device is present. . IMPRESSION: No acute pulmonary process. Moderate to marked enlargement of the cardiac silhouette. LEFT VENTRICULAR WALL MOTION: MILD GLOBAL HYPOKINESIS. DOPPLER/COLOR FLOW: MILD TRICUSPID REGURGITATION. COMMENTS: MILD GLOBAL HYPOKINESIS. LEFT VENTRICULAR EJECTION FRACTION 45-50%. MILD TRICUSPID REGURGITATION. NORMAL RIGHT VENTRICULAR SYSTOLIC PRESSURE. LEFT VENTRICULAR HYPERTROPHY. LEFT VENTRICULAR WALL MOTION: SEVERE GLOBAL HYPOKINESIS DOPPLER/COLOR FLOW: NORMAL COMMENTS: 1. SEVERE GLOBAL HYPOKINESIS 2. EJECTION FRACTION 23% 3. NO THROMBUS Conclusions/Impression: Stage II ELMER on underlying Stage III CKD unspecified 2nd to multifactorial etiology but likely with CRS driving -Cont diuresis for renal vein decongestion, monitor renal function closely Hypokalemia -In the setting of loop diuretic escalation, Mg level ok. ARR screen ordered although there will secondary aldosterone activation in the setting of his CHF exacerbation, will restart Spironolactonr Accelerated HTN, hypertensive heart and kidney disease with HF -BP should improved as volume overload improves, cont current meds Systolic CHF, A/C -Will adjust Lasix freq to slow down diuresis slightly, as renal function stabilizes/improves, will assess for switching his ACEi to Entresto which would be indicated along with SGLT2i agent. Johnathon Sabillon MD, NILAM[facility]
[2023-01-16] MEDS: SPIRONOLACTONE 25 MG TABLET PO SCH (17:29)
--- NOTE | 2023-01-16 17:44 | P.PN ---
Subjective Date of Service: 01/16/23 Chief Complaint: Shortness of breath Overnight, he did very well. The nitroglycerin drip was discontinued. He continues to have significant urine output with the furosemide. Per charting, his net I/O is -10.5 L since admission. He is no longer in respiratory distress and is on 2 L nasal cannula on rounds. He denies any chest pain, palpitations, or shortness of breath. Review of Systems 10-point ROS is otherwise unremarkable Cardiovascular: Orthopnea, Edema Physical Examination - Vital Signs Temperature: 98.3 F Blood Pressure: 167/81 Pulse: 74 Respirations: 17 Pulse Ox (%): 94 Assessment And Plan - Plan - Physical Exam General: Alert, In no apparent distress, Oriented x3 HEENT: Atraumatic, Sclerae nonicteric Neck: JVD distended Respiratory: Diminished, Crackles/rales (bibasilar) Cardiovascular: Regular rate/rhythm, No murmurs, Edema (2+ BLE) Gastrointestinal: Normal bowel sounds, Soft, Non-distended, No tenderness Musculoskeletal: No clubbing Integumentary: No rashes Neurological: Normal speech, Normal affect # Hypertensive Emergency with Acute on Chronic Decompensated Systolic Congestive Heart Failure with Reduced Ejection Fraction - Consulted Cardiology and spoke with Dr. Arguelles - recommendations appreciated - Consulted Nephrology and spoke with Dr. Sabillon - recommendations appreciated - Chest x-ray = "No acute pulmonary process. Moderate to marked enlargement of the cardiac silhouette." - Transthoracic echocardiogram = "1. severe global hypokinesis 2. ejection fraction 23% 3. no thrombus 4. no effusion" - Continue Imdur, hydralazine, metoprolol, spironolactone - Daily weights - Strict I/O - Net I/O charted as -10.5 L since admission - Cardiac diet, 1.5 L fluid restriction, 2 g Na restriction # Suspect Type II Non-ST Segment Elevation Myocardial Infarction (Demand Ischemia) due to above # History of Cerebrovascular Accident # Dyslipidemia - Evaluation thus far: - EKG: reportedly without STEMI criteria, trend - Serial troponin: 62.6 -> 75.1 -> 78.1 -> 77.8 - Transthoracic echocardiogram = "1. severe global hypokinesis 2. ejection fraction 23% 3. no thrombus 4. no effusion" - Management plan: - Consult Cardiology and spoke with Dr. Arguelles - recommendations appreciated - Continue aspirin, atorvastatin, metoprolol - Hold KIMBERLY-inhibitor/ARB given ELMER # KDIGO Stage I Acute Kidney Injury on Chronic Kidney Disease Stage III # Hypokalemia - Nephrology consulted and spoke with Dr. Sabillon - recommendations appreciated - Creatinine = 3.24 -> 3.10 -> 3.18 - Urinalysis = pending - IV diuretics as mentioned above - Monitor creatinine and urine output - If worsening, obtain renal ultrasound - Renally dose medications Remington Bro M.D.
[2023-01-16] MEDS: ATORVASTATIN 80 MG TAB PO SCH (20:51)
--- NOTE | 2023-01-16 22:25 | PN ---
Date of Progress Note: 01/16/2023 Mr. Marie came in with congestive heart failure, acute on chronic systolic. Creatinine remained at 3. 1. His potassium remained at 2.7. He is on appropriate therapy with beta-blockers and Lasix, potass ium supplementation. Nephrology is following. Echocardiogram showed ejection fraction of 23% with s evere global hypokinesis. Mr. Marie, I think eventually need an outpatient Lexiscan and some more agg ressive treatment with possible defibrillator and pacemaker. I will make arrangements for that as an outpatient. Hopefully, we will see him in the office in the next week or 2 after discharge. DWAYNE/ALINE Voice ID: [id number] Report ID: [id number]
[2023-01-16 23:06] LABS: Specific Gravity 1.007 (1.005-1.030); Urine Bacteria <20 /HPF (<20); Urine Bilirubin NEGATIVE (Negative); Urine Blood Trace (Negative); Urine Clarity Clear (Clear); Urine Color Colorless (Yellow); Urine Glucose NEGATIVE (Negative); Urine Protein NEGATIVE (Negative); Urine RBC <5 /HPF (None Seen); Urine Urobilinogen Normal (Normal)
[2023-01-17 03:57] LABS: Albumin 2.9 g/dL (3.4-5.0); Bilirubin Direct 0.3 mg/dL (0-0.2); Bilirubin Total 1.5 mg/dL (0.2-1.0); Magnesium 1.8 mg/dL (1.6-2.4); Protein, Total 6.3 g/dL (6.4-8.2)
[2023-01-17] MEDS ORDERED: MAGNESIUM SULFATE 1 gm IVPB 1 GM/100 ML BAG IV ONE (04:02)
[2023-01-17] MEDS: FUROSEMIDE 40 MG/4 ML VIAL IV SCH ×2 (04:12→15:15)
[2023-01-17] MEDS: NYSTATIN PWDR 100000 UNIT/GM TOP SCH ×2 (09:00→21:00)
[2023-01-17] MEDS: ENOXAPARIN 40 MG/0.4 ML SQ SCH (09:35)
[2023-01-17] MEDS: METOPROLOL TAR 50 MG TAB PO SCH ×2 (09:36→21:15)
[2023-01-17] MEDS: ISOSORBIDE MONO SR 30 MG TAB PO SCH ×2 (09:36→21:15)
[2023-01-17] MEDS: MAGNESIUM OXIDE 400 MG TAB PO SCH (09:37)
[2023-01-17] MEDS: ASPIRIN 81 MG CHEWABLE TABLET PO SCH (09:37)
[2023-01-17] MEDS: SPIRONOLACTONE 25 MG TABLET PO SCH (09:37)
[2023-01-17] MEDS: HYDRALAZINE HCL 25 MG TABLET PO SCH ×3 (09:38→21:15)
[2023-01-17] MEDS ORDERED: POTASSIUM 25 MEQ EFFERV TAB PO ONE (16:52)
--- NOTE | 2023-01-17 16:55 | P.PN ---
Nephrology note: (S) Pt seen sitting in chair, continues to diurese, BP still a bit labile but not persistently elevated, no dyspnea reported (O) Vitals reviewed in the EMR General: NAD HEENT: Atraumatic, on NC Neck: Supple Respiratory: Improved lung sounds, no rales appreciated Cardiovascular: Non tachy, no gallop heart sounds appreciated, improving pitting b/l peripheral edema Gastrointestinal: Obese, mild distention, soft, NT Musculoskeletal: Shins are non tender Integumentary: Skin excoriations and plaques across LE Neurological: Normal speech, awake, alert, non focal Laboratory Data (last 24 hrs) Reviewed in the EMR Imagings Data: EXAM DESCRIPTION: RADChest Single View01/14/2023 12:25 pm CLINICAL HISTORY: DYSPNEA COMPARISON: Chest Single View dated 05/25/2021; Chest Single View dated 05/24/2021; Chest Single View dated 03/25/2018; Chest Single View dated 09/07/2017 TECHNIQUE: Portable AP view of the chest. FINDINGS: The lungs are clear. No pneumothorax or effusion. The heart is moderate to markedly enlarged. Mediastinal contours are stable. Implantable rhythm monitoring device is present. . IMPRESSION: No acute pulmonary process. Moderate to marked enlargement of the cardiac silhouette. LEFT VENTRICULAR WALL MOTION: MILD GLOBAL HYPOKINESIS. DOPPLER/COLOR FLOW: MILD TRICUSPID REGURGITATION. COMMENTS: MILD GLOBAL HYPOKINESIS. LEFT VENTRICULAR EJECTION FRACTION 45-50%. MILD TRICUSPID REGURGITATION. NORMAL RIGHT VENTRICULAR SYSTOLIC PRESSURE. LEFT VENTRICULAR HYPERTROPHY. LEFT VENTRICULAR WALL MOTION: SEVERE GLOBAL HYPOKINESIS DOPPLER/COLOR FLOW: NORMAL COMMENTS: 1. SEVERE GLOBAL HYPOKINESIS 2. EJECTION FRACTION 23% 3. NO THROMBUS Conclusions/Impression: Stage II ELMER on underlying Stage III CKD unspecified 2nd to multifactorial etiology but likely with CRS driving -Cont diuresis for renal vein decongestion, Cr level is downward trending, cont to monitor renal function closely Hypokalemia -In the setting of loop diuretic escalation, Mg level ok. ARR screen ordered although there will secondary aldosterone activation in the setting of his CHF exacerbation, did restart Spironolactone. Will replete with PO KCL Accelerated HTN, hypertensive heart and kidney disease with HF -BP should improved as volume overload improves, cont current meds includin afterload reduction agents with nitrate/Hydralazine Systolic CHF, A/C -Did adjust Lasix freq to slow down diuresis slightly, as renal function stabilizes/improving, will switch his home dose ACEi to low dose Entresto which would be indicated and if he tolerates, will explore adding a SGLT2i agent. Johnathon Sabillon MD, SHERRIE
[2023-01-17] MEDS ORDERED: POTASSIUM 25 MEQ EFFERV TAB ONE (17:10)
--- NOTE | 2023-01-17 19:29 | P.PN ---
Subjective Date of Service: 01/17/23 Chief Complaint: Shortness of breath No acute events overnight. He has had significant improvement in his breathing. Per charting, his net I/O is -13.0 L since admission. He reports some generalized weakness - will consult PT. He denies any chest pain, palpitations, or shortness of breath. Review of Systems 10-point ROS is otherwise unremarkable General: Weakness (generalized) Respiratory: Shortness of Breath (improved) Physical Examination - Vital Signs Temperature: 97.6 F Blood Pressure: 150/82 Pulse: 63 Respirations: 14 Pulse Ox (%): 94 Assessment And Plan - Plan - Physical Exam General: Alert, In no apparent distress, Oriented x3 HEENT: Atraumatic, Sclerae nonicteric Neck: JVD not distended Respiratory: Diminished, Crackles/rales (faint bibasilar) Cardiovascular: Regular rate/rhythm, No murmurs, Edema (1-2+ BLE) Gastrointestinal: Normal bowel sounds, Soft, Non-distended, No tenderness Musculoskeletal: No clubbing Integumentary: No rashes Neurological: Normal speech, Normal affect # Hypertensive Emergency with Acute on Chronic Decompensated Systolic Congestive Heart Failure with Reduced Ejection Fraction - Consulted Cardiology and spoke with Dr. Arguelles - recommendations appreciated - Consulted Nephrology - recommendations appreciated - Chest x-ray = "No acute pulmonary process. Moderate to marked enlargement of the cardiac silhouette." - Transthoracic echocardiogram = "1. severe global hypokinesis 2. ejection fraction 23% 3. no thrombus 4. no effusion" - Continue Imdur, hydralazine, metoprolol, spironolactone - Daily weights - Strict I/O - Net I/O charted as -13.0 L since admission - Cardiac diet, 1.5 L fluid restriction, 2 g Na restriction # Suspect Type II Non-ST Segment Elevation Myocardial Infarction (Demand Ischemia) due to above # History of Cerebrovascular Accident # Dyslipidemia - Evaluation thus far: - EKG: reportedly without STEMI criteria, trend - Serial troponin: 62.6 -> 75.1 -> 78.1 -> 77.8 - Transthoracic echocardiogram = "1. severe global hypokinesis 2. ejection fraction 23% 3. no thrombus 4. no effusion" - Management plan: - Consult Cardiology and spoke with Dr. Arguelles - recommendations appreciated - Continue aspirin, atorvastatin, metoprolol - Hold KIMBERLY-inhibitor/ARB given ELMER # KDIGO Stage I Acute Kidney Injury on Chronic Kidney Disease Stage III # Hypokalemia - Nephrology consulted - recommendations appreciated - Creatinine = 3.24 -> 3.10 -> 3.18 -> 2.78 - Urinalysis = fairly unremarkable - IV diuretics as mentioned above - Monitor creatinine and urine output - If worsening, obtain renal ultrasound - Renally dose medications Remington Bro M.D.
[2023-01-17] MEDS: SACUBITRIL/VALSARTAN 24/26 MG TAB PO SCH (21:15)
[2023-01-17] MEDS: ATORVASTATIN 80 MG TAB PO SCH (21:16)
[2023-01-18] MEDS: FUROSEMIDE 40 MG/4 ML VIAL IV SCH (04:51)
[2023-01-18 05:03] LABS: Magnesium 2.1 mg/dL (1.6-2.4); Potassium 3.3 mEq/L (3.5-5.1)
[2023-01-18] MEDS: NYSTATIN PWDR 100000 UNIT/GM TOP SCH ×2 (09:00→21:00)
[2023-01-18] MEDS: ENOXAPARIN 40 MG/0.4 ML SQ SCH (09:06)
[2023-01-18] MEDS: MAGNESIUM OXIDE 400 MG TAB PO SCH (09:07)
[2023-01-18] MEDS: SACUBITRIL/VALSARTAN 24/26 MG TAB PO SCH (09:07)
[2023-01-18] MEDS: SPIRONOLACTONE 25 MG TABLET PO SCH (09:08)
[2023-01-18] MEDS: METOPROLOL TAR 50 MG TAB PO SCH ×2 (09:08→21:33)
[2023-01-18] MEDS: HYDRALAZINE HCL 25 MG TABLET PO SCH ×3 (09:08→21:33)
[2023-01-18] MEDS: ASPIRIN 81 MG CHEWABLE TABLET PO SCH (09:08)
[2023-01-18] MEDS: ISOSORBIDE MONO SR 30 MG TAB PO SCH ×2 (09:09→21:35)
--- NOTE | 2023-01-18 14:28 | P.PN ---
Subjective Date of Service: 01/18/23 Chief Complaint: Shortness of breath No acute events overnight. He has had significant improvement in his breathing. He is pending PT eval. Per charting, his net I/O is -14.2 L since admission. His creatinine is up-trending, appreciate Nephrology recs. He denies any chest pain, palpitations, or shortness of breath. Review of Systems 10-point ROS is otherwise unremarkable Respiratory: Shortness of Breath (mild) Cardiovascular: Edema Physical Examination - Vital Signs Temperature: 97.1 F Blood Pressure: 116/57 Pulse: 56 Respirations: 16 Pulse Ox (%): 93 Assessment And Plan - Plan - Physical Exam General: Alert, In no apparent distress, Oriented x3 HEENT: Atraumatic, Sclerae nonicteric Neck: JVD not distended Respiratory: Diminished, Crackles/rales (faint bibasilar) Cardiovascular: Regular rate/rhythm, No murmurs, Edema (1+ BLE) Gastrointestinal: Normal bowel sounds, Soft, Non-distended, No tenderness Musculoskeletal: No clubbing Integumentary: No rashes Neurological: Normal speech, Normal affect # Hypertensive Emergency with Acute on Chronic Decompensated Systolic Congestive Heart Failure with Reduced Ejection Fraction - Consulted Cardiology and spoke with Dr. Arguelles - recommendations appreciated - Consulted Nephrology - recommendations appreciated - Chest x-ray = "No acute pulmonary process. Moderate to marked enlargement of the cardiac silhouette." - Transthoracic echocardiogram = "1. severe global hypokinesis 2. ejection fraction 23% 3. no thrombus 4. no effusion" - Continue Imdur, hydralazine, metoprolol, spironolactone - Daily weights - Strict I/O - Net I/O charted as -14.2 L since admission - Cardiac diet, 1.5 L fluid restriction, 2 g Na restriction # Suspect Type II Non-ST Segment Elevation Myocardial Infarction (Demand Ischemia) due to above # History of Cerebrovascular Accident # Dyslipidemia - Evaluation thus far: - EKG: reportedly without STEMI criteria, trend - Serial troponin: 62.6 -> 75.1 -> 78.1 -> 77.8 - Transthoracic echocardiogram = "1. severe global hypokinesis 2. ejection fraction 23% 3. no thrombus 4. no effusion" - Management plan: - Consult Cardiology and spoke with Dr. Arguelles - recommendations appreciated - Continue aspirin, atorvastatin, metoprolol - Hold sacubitrilvalsartan given ELMER # KDIGO Stage I Acute Kidney Injury on Chronic Kidney Disease Stage III # Hypokalemia - Nephrology consulted - recommendations appreciated - Creatinine = 3.24 -> 3.10 -> 3.18 -> 2.78 -> 3.09 - Urinalysis = fairly unremarkable - IV diuretics as mentioned above - Monitor creatinine and urine output - If worsening, obtain renal ultrasound - Renally dose medications Remington Bro M.D.
[2023-01-18] MEDS: ATORVASTATIN 80 MG TAB PO SCH (21:33)
[2023-01-19 03:48] LABS: Albumin 3.1 g/dL (3.4-5.0); Bilirubin Total 0.9 mg/dL (0.2-1.0); Potassium 3.4 mEq/L (3.5-5.1)
[2023-01-19] MEDS: NYSTATIN PWDR 100000 UNIT/GM TOP SCH ×3 (09:00→21:00)
[2023-01-19] MEDS: METOPROLOL TAR 50 MG TAB PO SCH ×2 (09:23→21:33)
[2023-01-19] MEDS: SPIRONOLACTONE 25 MG TABLET PO SCH (09:24)
[2023-01-19] MEDS: MAGNESIUM OXIDE 400 MG TAB PO SCH (09:24)
[2023-01-19] MEDS: HYDRALAZINE HCL 25 MG TABLET PO SCH ×3 (09:24→21:33)
[2023-01-19] MEDS: ASPIRIN 81 MG CHEWABLE TABLET PO SCH (09:24)
[2023-01-19] MEDS: TORSEMIDE 20 MG TAB PO SCH (09:25)
[2023-01-19] MEDS: ISOSORBIDE MONO SR 30 MG TAB PO SCH (09:25)
[2023-01-19] MEDS: ENOXAPARIN 40 MG/0.4 ML SQ SCH (09:26)
--- NOTE | 2023-01-19 19:10 | P.PN ---
Subjective Date of Service: 01/19/23 Chief Complaint: Shortness of breath No acute events overnight. He denies any shortness of breath this morning. He is pending PT eval. Per charting, his net I/O is -14.5 L since admission. His creatinine continues to up-trend, appreciate Nephrology recs. He denies any chest pain, palpitations, or shortness of breath. Review of Systems 10-point ROS is otherwise unremarkable General: Weakness (generalized) Physical Examination - Vital Signs Temperature: 97.9 F Blood Pressure: 113/59 Pulse: 54 Respirations: 16 Pulse Ox (%): 94 Assessment And Plan - Plan - Physical Exam General: Alert, In no apparent distress, Oriented x3 HEENT: Atraumatic, Sclerae nonicteric Neck: JVD not distended Respiratory: Diminished, Crackles/rales (faint bibasilar) Cardiovascular: Regular rate/rhythm, No murmurs, Edema (1+ BLE) Gastrointestinal: Normal bowel sounds, Soft, Non-distended, No tenderness Musculoskeletal: No clubbing Integumentary: No rashes Neurological: Normal speech, Normal affect # Hypertensive Emergency with Acute on Chronic Decompensated Systolic Congestive Heart Failure with Reduced Ejection Fraction - Consulted Cardiology and spoke with Dr. Arguelles - recommendations appreciated - Consulted Nephrology - recommendations appreciated - Chest x-ray = "No acute pulmonary process. Moderate to marked enlargement of the cardiac silhouette." - Transthoracic echocardiogram = "1. severe global hypokinesis 2. ejection fraction 23% 3. no thrombus 4. no effusion" - Continue Imdur, hydralazine, metoprolol, spironolactone - Daily weights - Strict I/O - Net I/O charted as -14.5 L since admission - Cardiac diet, 1.5 L fluid restriction, 2 g Na restriction # Suspect Type II Non-ST Segment Elevation Myocardial Infarction (Demand I schemia) due to above # History of Cerebrovascular Accident # Dyslipidemia - Evaluation thus far: - EKG: reportedly without STEMI criteria, trend - Serial troponin: 62.6 -> 75.1 -> 78.1 -> 77.8 - Transthoracic echocardiogram = "1. severe global hypokinesis 2. ejection fraction 23% 3. no thrombus 4. no effusion" - Management plan: - Consult Cardiology and spoke with Dr. Arguelles - recommendations appreciated - Continue aspirin, atorvastatin, metoprolol - Hold sacubitrilvalsartan given ELMER # KDIGO Stage I Acute Kidney Injury on Chronic Kidney Disease Stage III # Hypokalemia - Nephrology consulted - recommendations appreciated - Creatinine = 3.24 -> 3.10 -> 3.18 -> 2.78 -> 3.09 -> 3.16 - Urinalysis = fairly unremarkable - IV diuretics as mentioned above - Monitor creatinine and urine output - If worsening, obtain renal ultrasound - Renally dose medications Remington Bro M.D.
--- NOTE | 2023-01-19 19:55 | P.PN ---
Date of Service: 01/19/23 Vital Signs Temp Pulse Resp BP Pulse Ox 97.9 F 54 16 113/59 L 94 01/19/23 19:22 01/19/23 19:22 01/19/23 19:22 01/19/23 19:22 01/19/23 19:22 Medications Acetaminophen (Acetaminophen 325 Mg Tablet) 650 mg PO Q6H PRN PRN Reason: TEMP > 100.4' F Aspirin (Aspirin 81 Mg Chewable Tablet) 81 mg PO DAILY [facility] Last Admin: 01/19/23 09:24 Dose: 81 mg Atorvastatin Calcium (Atorvastatin 80 Mg Tab) 80 mg PO BEDTIME [facility] Last Admin: 01/18/23 21:33 Dose: 80 mg Enoxaparin Sodium (Enoxaparin 40 Mg/0.4 Ml) 40 mg SQ DAILY [facility] Last Admin: 01/19/23 09:26 Dose: 40 mg Hydralazine HCl (Hydralazine Hcl 25 Mg Tablet) 50 mg PO TID [facility] Last Admin: 01/19/23 13:18 Dose: 50 mg Nitroglycerin/Dextrose (Ntg 0.2 Mg/Ml In D5w 250 Ml) 50 mg in 250 mls @ 3 mls/hr IV TITR [facility]; Protocol Last Titration: 01/15/23 15:00 Dose: 5 mcg/min, 1.5 mls/hr Isosorbide Mononitrate (Isosorbide [place] Sr 30 Mg Tab) 30 mg PO BID [facility] Last Admin: 01/19/23 09:25 Dose: 30 mg Labetalol HCl (Labetalol 20 Mg/4ml Syringe) 10 mg IV Q6H PRN PRN Reason: sbp Last Admin: 01/17/23 06:10 Dose: 10 mg Magnesium Oxide (Magnesium Oxide 400 Mg Tab) 400 mg PO DAILY [facility] Last Admin: 01/19/23 09:24 Dose: 400 mg Metoprolol Tartrate (Metoprolol Tar 50 Mg Tab) 50 mg PO BID [facility] Last Admin: 01/19/23 09:23 Dose: 50 mg Nystatin (Nystatin Pwdr [id number] Unit/Gm) 0 appl TOP BID [facility] Last Admin: 01/19/23 13:23 Dose: 15 appl Ondansetron HCl (Ondansetron 4 Mg/2 Ml Vial) 4 mg IV Q6HP PRN PRN Reason: NAUSEA / VOMITING Sodium Chloride (Flush Normal Saline 10 Ml) 10 ml IV BID [facility] Last Admin: 01/19/23 09:27 Dose: 10 ml Spironolactone (Spironolactone 25 Mg Tablet) 25 mg PO DAILY [facility] Last Admin: 01/19/23 09:24 Dose: 25 mg Torsemide (Torsemide 20 Mg Tab) 40 mg PO DAILY [facility] Last Admin: 01/19/23 09:25 Dose: 40 mg Assessment/ Plan: Nephrology No dyspnea No chest pain Feeling better No acute events overnight Vitals, medications, blood work and imaging reviewed in the chart. General: Oriented x3, Cooperative HEENT: Atraumatic Neck: Supple Respiratory: Clear to auscultation bilaterally Cardiovascular: Regular rate/rhythm, Edema Gastrointestinal: Soft and benign, Non-distended Musculoskeletal: No clubbing, No contractures Integumentary: No cyanosis, Skin lesion Neurological: Normal speech Laboratory Data (last 24 hrs) 01/14/23 12:21: PT 13.8 H, INR 1.25 01/14/23 12:21: WBC 8.50, Hgb 13.2 L, Hct 40.5, Plt Count 304 01/14/23 12:21: Sodium 139, Potassium 3.2 L, BUN 42 H, Creatinine 3.24 H, Glucose 161 H, Magnesium 1.7, Total Bilirubin 1.3 H, AST 24, ALT 46, Alkaline Phosphatase 89 Imagings Data: EXAM DESCRIPTION: RADChest Single View01/14/2023 12:25 pm CLINICAL HISTORY: DYSPNEA COMPARISON: Chest Single View dated 05/25/2021; Chest Single View dated 05/24/2021; Chest Single View dated 03/25/2018; Chest Single View dated 09/07/2017 TECHNIQUE: Portable AP view of the chest. FINDINGS: The lungs are clear. No pneumothorax or effusion. The heart is moderate to markedly enlarged. Mediastinal contours are stable. Implantable rhythm monitoring device is present. . IMPRESSION: No acute pulmonary process. Moderate to marked enlargement of the cardiac silhouette. LEFT VENTRICULAR WALL MOTION: MILD GLOBAL HYPOKINESIS. DOPPLER/COLOR FLOW: MILD TRICUSPID REGURGITATION. COMMENTS: MILD GLOBAL HYPOKINESIS. LEFT VENTRICULAR EJECTION FRACTION 45-50%. MILD TRICUSPID REGURGITATION. NORMAL RIGHT VENTRICULAR SYSTOLIC PRESSURE. LEFT VENTRICULAR HYPERTROPHY. LEFT VENTRICULAR WALL MOTION: SEVERE GLOBAL HYPOKINESIS DOPPLER/COLOR FLOW: NORMAL COMMENTS: 1. SEVERE GLOBAL HYPOKINESIS 2. EJECTION FRACTION 23% 3. NO THROMBUS Conclusions/Impression: ELMER likely CRS complicated by HTN CKD III with proteinuria -No NSAIDs -Continue diuresis Hyponatremia -Continue torsemide Hypokalemia -Replete potassium -Continue spironolactone HTN with CKD/ CHF -Continue Hydralazine -Reduce Imdur -Continue Metoprolol Systolic Diastolic CHF, A/C LVEF 23% -Continue torsemide & spironolactone -Daily weight -Low sodium diet DM II with CKD -RISS prn -No sugar diet Anemia in chronic illness -Monitor H&H
--- NOTE | 2023-01-19 20:40 | PN ---
Date of Progress Note: 01/19/2023 Mr. Marie has been followed by Dr. Bro and ourself for congestive heart failure, but he has been in the hospital about a plan; however, we noted that his creatinine had gone up to 3.16. He is on aspirin, Lipitor, Lovenox, Lasix, hydralazine, metoprolol, Aldactone, and Entresto. I think it would be better to take him off the Entresto. Follow his creatinine closely. Continue t he rest of the medicine for now. He will continue to follow. DWAYNE/ALINE Voice ID: [id number] Report ID: [id number]
[2023-01-19] MEDS: ATORVASTATIN 80 MG TAB PO SCH (21:33)
[2023-01-20 06:10] LABS: Absolute Lymphocytes (CBC) 0.9 K/uL (0.7-4.9); Hematocrit 41.8 % (39.6-49.0); Lymphocytes % 15.4 % (15.3-44.8); MCV 85.8 fL (80-100); MPV 8.3 fL (7.6-11.3); RBC Red Blood Cell Count 4.87 M/uL (4.33-5.43)
[2023-01-20 06:23] LABS: Magnesium 2.3 mg/dL (1.6-2.4); Phosphorus 3.4 mg/dL (2.5-4.9); Potassium 3.6 mEq/L (3.5-5.1)
--- NOTE | 2023-01-20 08:59 | P.DS ---
Admission Date: 01/14/23 Discharge Date: 01/20/23 Disposition: ROUTINE DISCHARGE Discharge Condition: GOOD Reason for Admission: Shortness of breath Consultations: 1. Cardiology 2. Nephrology Hospital Course: DIAGNOSES: # Hypertensive Emergency with Acute on Chronic Decompensated Systolic Congestive Heart Failure with Reduced Ejection Fraction # Suspect Type II Non-ST Segment Elevation Myocardial Infarction (Demand Ischemia) due to above # History of Cerebrovascular Accident # Dyslipidemia # KDIGO Stage I Acute Kidney Injury on Chronic Kidney Disease Stage III # Hypokalemia HOSPITAL COURSE: Mr. Calos Marie is a pleasant 62-year-old male with a past medical history significant for chronic systolic congestive heart failure, prior cerebrovascular accident, dyslipidemia and chronic kidney disease stage III who was admitted to the [facility] on 01/14/2023 for hypertensive emergency with acute on chronic decompensated heart failure. He was admitted to the Medicine service. Upon further evaluation, his chest x- ray revealed, "no acute pulmonary process. Moderate to marked enlargement of the cardiac silhouette." His transthoracic echocardiogram revealed, "1. severe global hypokinesis 2. ejection fraction 23% 3. no thrombus 4. no effusion." His troponin trend was 62.6 -> 75.1 -> 78.1 -> 77.8. Cardiology was consulted and he was evaluated by Dr. Arguelles. He was given IV furosemide and placed on BiPAP. Over the course of his hospitalizations, his symptoms improved significantly. Per charting, he was net -14.5 L over the course of his admission. Today, his symptoms had improved significantly and he was able to ambulate, while maintaining adequate pulse oximetry readings. He requested to be discharged home. From a cardiology standpoint, Dr. Arguelles has cleared him for discharge home. During his evaluation, he was noted to have a KDIGO stage I acute kidney injury. Nephrology was consulted and he was evaluated by Dr. Merritt. Initially, he attempted to start sacubitrilvalsartan, but his creatinine continued to uptrend. Dr. Merritt recommended that he be discharged on isosorbide mononitrate, hydralazine, metoprolol, torsemide, and spironolactone. Dr. Merritt and Dr. Arguelles will follow him up in clinic and consider starting sacubitril- valsartan if tolerated. In regards to his depressed ejection fraction, his LVEF was 23%. He would be a good candidate for a LifeVest and possibly an implantable cardiodefibrillator as an outpatient after guideline directed medical management is attempted. Dr. Arguelles stated that he will assist with obtaining a LifeVest via his clinic. On 01/20/2023, he was seen on morning rounds and deemed medically stable for discharge. He was discharged with instructions to schedule follow-up appointments with his PCP (Dr. Keene), with Cardiology (Dr. Arguelles), and with Nephrology (Dr. Merritt). He was provided prescriptions for spironolactone, torsemide, hydralazine, isosorbide mononitrate, and metoprolol. He was given the opportunity to ask questions and reported no further questions. Furthermore, all questions were answered to the best of my ability. A copy of this discharge summary will be sent to the above providers to facilitate continuity of care. Today, I personally spent 25 minutes on his case, of which greater than 50% of the time was spent in patient education, counseling, and coordination of care as described above. - Physical Exam General: Alert, In no apparent distress, Oriented x3 HEENT: Atraumatic, Sclerae nonicteric Neck: JVD not distended Respiratory: Diminished, Clear to auscultation without wheezes, rhonchi, rales Cardiovascular: Regular rate/rhythm, No murmurs, Edema (trace BLE) Gastrointestinal: Normal bowel sounds, Soft, Non-distended, No tenderness Musculoskeletal: No clubbing Integumentary: No rashes Neurological: Normal speech, Normal affect Vital Signs/Physical Exam: Temp Pulse Resp BP Pulse Ox 97 F 62 18 158/69 H 94 01/20/23 04:00 01/20/23 04:00 01/20/23 04:00 01/20/23 04:00 01/20/23 04:00 Laboratory Data at Discharge: WBC 6.10 thou/uL (4.3-10.9) 01/20/23 05:53 Hgb 13.5 g/dL (13.6-17.9) L 01/20/23 05:53 Hct 41.8 % (39.6-49.0) 01/20/23 05:53 Plt Count 244 thou/uL (152-406) 01/20/23 05:53 PT 13.8 SECONDS (9.5-12.5) H 01/14/23 12:21 INR 1.25 01/14/23 12:21 Sodium 138 mEq/L (136-145) 01/20/23 05:53 Potassium 3.6 mEq/L (3.5-5.1) 01/20/23 05:53 BUN 50 mg/dL (7-18) H 01/20/23 05:53 Creatinine 2.91 mg/dL (0.70-1.30) H 01/20/23 05:53 Glucose 107 mg/dL (74-106) H 01/20/23 05:53 Phosphorus 3.4 mg/dL (2.5-4.9) 01/20/23 05:53 Magnesium 2.3 mg/dL (1.6-2.4) 01/20/23 05:53 Total Bilirubin 0.9 mg/dL (0.2-1.0) 01/19/23 02:56 AST 43 U/L (15-37) H 01/19/23 02:56 ALT 52 U/L (16-61) 01/19/23 02:56 Alkaline Phosphatase 81 U/L (45-117) 01/19/23 02:56 Triglycerides 83 mg/dL (<150) 01/15/23 04:42 Cholesterol 114 mg/dL (<200) 01/15/23 04:42 HDL Cholesterol 35 mg/dL (40-60) L 01/15/23 04:42 Cholesterol/HDL Ratio 3.26 01/15/23 04:42 Home Medications: Atorvastatin Calcium 20 mg PO DAILY 01/15/23 Glimepiride 2 mg PO DAILY 01/15/23 Aspirin Chewable [Aspirin Chewable*] 81 mg PO DAILY tab.chew 01/20/23 Hydralazine HCl 50 mg PO BID #60 tab 01/20/23 Isosorbide Mononitrate [Isosorbide Mononitrate ER] 30 mg PO DAILY #30 tab 01/20/23 Metoprolol Tartrate [Lopressor*] 50 mg PO BID #60 tab 01/20/23 Spironolactone [Aldactone*] 25 mg PO DAILY #30 tab 01/20/23 Torsemide [Demadex*] 40 mg PO DAILY #60 tab 01/20/23 New Medications: Spironolactone [Aldactone*] 25 mg PO DAILY #30 tab Torsemide [Demadex*] 40 mg PO DAILY #60 tab Hydralazine HCl 50 mg PO BID #60 tab Isosorbide Mononitrate [Isosorbide Mononitrate ER] 30 mg PO DAILY #30 tab Metoprolol Tartrate [Lopressor*] 50 mg PO BID #60 tab Physician Discharge Instructions: 1. Please call and schedule a follow-up appointment with your PCP (Dr. Keene) in 3-5 days 2. Please call and schedule a follow-up appointment with Cardiology (Dr. Arguelles) in 5-7 days 3. Please call and schedule a follow-up appointment with Nephrology (Dr. Merritt) in 5-7 days Followup: Shemar Merritt DO [ACTIVE - CAN ADMIT] - Mauricio Arguelles MD [ACTIVE - CAN ADMIT] - Salvador Keene DO [Primary Care Provider] - Time spent managing pt's care (in minutes): 25
[2023-01-20] MEDS ORDERED: ISOSORBIDE MONO SR 30 MG TAB PO SCH (09:00)
[2023-01-20] MEDS: ENOXAPARIN 40 MG/0.4 ML SQ SCH (09:00)
[2023-01-20] MEDS: NYSTATIN PWDR 100000 UNIT/GM TOP SCH (09:36)
[2023-01-20] MEDS: HYDRALAZINE HCL 25 MG TABLET PO SCH (09:36)
[2023-01-20] MEDS: METOPROLOL TAR 50 MG TAB PO SCH (09:37)
[2023-01-20] MEDS: ASPIRIN 81 MG CHEWABLE TABLET PO SCH (09:37)
[2023-01-20] MEDS: SPIRONOLACTONE 25 MG TABLET PO SCH (09:37)
[2023-01-20] MEDS: TORSEMIDE 20 MG TAB PO SCH (09:37)
[2023-01-20] MEDS: MAGNESIUM OXIDE 400 MG TAB PO SCH (09:37)
[2023-01-20 09:44] VITALS: BP 127/60; TEMP 97.8
[2023-01-20 09:53] VITALS: O2SAT 95
--- NOTE | 2023-01-20 20:23 | P.PN ---
Date of Service: 01/20/23 Vital Signs Temp Pulse Resp BP Pulse Ox 97.8 F 65 20 127/60 97 01/20/23 08:00 01/20/23 08:00 01/20/23 08:00 01/20/23 08:00 01/20/23 08:00 Assessment/ Plan: Nephrology No dyspnea No chest pain Feeling better No acute events overnight Vitals, medications, blood work and imaging reviewed in the chart. General: Oriented x3, Cooperative HEENT: Atraumatic Neck: Supple Respiratory: Clear to auscultation bilaterally Cardiovascular: Regular rate/rhythm, Edema Gastrointestinal: Soft and benign, Non-distended Musculoskeletal: No clubbing, No contractures. Ambulatory. Integumentary: No cyanosis, Skin lesion Neurological: Normal speech Laboratory Data (last 24 hrs) 01/14/23 12:21: PT 13.8 H, INR 1.25 01/14/23 12:21: WBC 8.50, Hgb 13.2 L, Hct 40.5, Plt Count 304 01/14/23 12:21: Sodium 139, Potassium 3.2 L, BUN 42 H, Creatinine 3.24 H, Glucose 161 H, Magnesium 1.7, Total Bilirubin 1.3 H, AST 24, ALT 46, Alkaline Phosphatase 89 Imagings Data: EXAM DESCRIPTION: RADChest Single View01/14/2023 12:25 pm CLINICAL HISTORY: DYSPNEA COMPARISON: Chest Single View dated 05/25/2021; Chest Single View dated 05/24/2021; Chest Single View dated 03/25/2018; Chest Single View dated 09/07/2017 TECHNIQUE: Portable AP view of the chest. FINDINGS: The lungs are clear. No pneumothorax or effusion. The heart is moderate to markedly enlarged. Mediastinal contours are stable. Implantable rhythm monitoring device is present. . IMPRESSION: No acute pulmonary process. Moderate to marked enlargement of the cardiac silhouette. LEFT VENTRICULAR WALL MOTION: MILD GLOBAL HYPOKINESIS. DOPPLER/COLOR FLOW: MILD TRICUSPID REGURGITATION. COMMENTS: MILD GLOBAL HYPOKINESIS. LEFT VENTRICULAR EJECTION FRACTION 45-50%. MILD TRICUSPID REGURGITATION. NORMAL RIGHT VENTRICULAR SYSTOLIC PRESSURE. LEFT VENTRICULAR HYPERTROPHY. LEFT VENTRICULAR WALL MOTION: SEVERE GLOBAL HYPOKINESIS DOPPLER/COLOR FLOW: NORMAL COMMENTS: 1. SEVERE GLOBAL HYPOKINESIS 2. EJECTION FRACTION 23% 3. NO THROMBUS Conclusions/Impression: [facility]MER likely CRS complicated by HTN CKD III with proteinuria -No NSAIDs -Continue diuresis Hyponatremia -Continue torsemide Hypokalemia -Replete potassium -Continue spironolactone HTN with CKD/ CHF -Continue Hydralazine -Continue Imdur -Continue Metoprolol Systolic Diastolic CHF, A/C LVEF 23% -Continue torsemide & spironolactone -Daily weight -Low sodium diet DM II with CKD -RISS prn -No sugar diet Anemia in chronic illness -Monitor H&H Case reviewed with Dr. Bro
[2023-01-22 18:09] LABS: 24 HR VOLUME 5000 mL/24 h; Epinephrine Level REPORT
[2023-01-26 14:35] LABS: Urine 24HR Volume Metan 5000 mL
[2023-01-27 10:48] LABS: Urine Total Volume (Cortisol) 5000 mL
== END 2023-01-20 09:45 | disposition home or self-care (01) | DRG 280 ==
LOC: ER 11:58 → ERHOLD 16:33 → 2ND 01-16 13:20
PROVIDERS: ADMIT Internal Medicine; ATTEND Internal Medicine
PROC: 5A09357 Assistance with Respiratory Ventilation, Less than 24 Consecutive Hours, Continuous Positive Airway Pressure (ICD-10-PCS; principal; 2023-01-14)
DX: I13.0 Hypertensive heart and chronic kidney disease with heart failure and stage 1 through stage 4 chronic kidney disease, or unspecified chronic kidney disease (principal); I50.23 Acute on chronic systolic (congestive) heart failure; I21.A1 Myocardial infarction type 2; N17.9 Acute kidney failure, unspecified; E87.1 Hypo-osmolality and hyponatremia; I16.0 Hypertensive urgency; N18.32 Chronic kidney disease, stage 3b; E11.22 Type 2 diabetes mellitus with diabetic chronic kidney disease; D63.1 Anemia in chronic kidney disease; E78.5 Hyperlipidemia, unspecified; E87.6 Hypokalemia; J44.9 Chronic obstructive pulmonary disease, unspecified; Z60.2 Problems related to living alone; Z56.0 Unemployment, unspecified; Z79.82 Long term (current) use of aspirin; Z79.84 Long term (current) use of oral hypoglycemic drugs; Z86.73 Personal history of transient ischemic attack (TIA), and cerebral infarction without residual deficits; Z79.899 Other long term (current) drug therapy; Z20.822 Contact with and (suspected) exposure to COVID-19
CPT/HCPCS: 36415; 71045; 80048; 80053; 80061; 80076; 81001; 82088; 82248; 82384; 82530; 82533; 82570; 82947; 83036; 83735; 83835; 83880; 84100; 84244; 84439; 84443; 84484; 85025; 85610; 87811; 93005; 93306; 94010; 94660; 96365; 96366; 96375; 97110; 97116; 97161; 99291; 99292; J1650; J1940

== ENCOUNTER 2023-03-13 01:15 | Inpatient (IN) | payer OTHER ==
--- OUTSIDE RECORDS SUMMARY | 2023-03-13 01:19 | XMS REPORT | Continuity of Care Document ---
:1960 Author Organization [facility] t Address [address] [facility] [address] [place] [address] Care Team Providers Name Role Phone Salvador Keene Attending Clinician Unavailable Ashley Pike Attending Clinician Unavailable KAROLINE PEARSON Attending Clinician Unavailable KAROLINE PEARSON Admitting Clinician Unavailable Payers Payer Name Policy Type Policy Number Effective Date [place] [id number] 2021 [facility] 00:00:00 Spirit - [facility] Problems Condition Condition Condition Status Onset Resolution Last Treating Co mments Source Name Details Category Date Date Treatment Clinician Date Acute Acute Disease Active [facility] right 03-26 [facility] parietal parietal 00:00: Medica l lobe lobe 00 [place] infarct. infarct. Acute Acute Disease Active [facility] Encephalop Encephalop - Maria kes athy athy 00:00: Medical 00 [place] Hypertensi Hypertensi Disease Active C [facility] ve urgency ve urgency - Maria kes 00:00: Medical 00 Center CKD CKD Disease Active [facility] (chronic (chronic 03-25 [facility] kidney kidney 00:00: Medical disease) disease) 00 Center stage 3, stage 3, GFR 30-59 GFR 30-59 ml/min 2/2 ml/min 2/2 DM and HTN DM and HTN Type 2 Type 2 Disease Active [facility] diabetes diabetes 03-25 [facility] mellitus mellitus 00:00: Medica l with with Center kidney kidney complicati complicati on, on, without without long-term long-term current current use of use of insulin insulin [id number] Uncontroll Problem Com mon ed Spirit hypertensi - [facility] on [facility] [id number] Shortness Problem Com mon of breath [facility] Anxiety Anxiety Problem Common [facility] [id number] History of Problem Co mmon multiple Spirit strokes [facility] [id number] Orthopnea Problem Comm on [facility] [id number] Uncontroll Problem Co mmon ed type 2 [facility] diabetes - [facility] mellitus with [facility] hyperglyce Medica l [facility] Center [id number] Abnormal Problem Comm on laboratory [facility] test - [facility] result [facility] [id number] Microalbum Problem Co mmon inuria [facility] [id number] Essential Problem Comm on hypertensi Spirit on [facility] [id number] [place] [address] tunnel Spirit syndrome - [facility] of right [facility] [id number] Hyperglobu Problem Co mmon linemia [facility] [id number] Type 2 Problem Commo n 05 diabetes [facility] mellitus - [facility] with diabetic [facility] chronic Medical kidney Center disease [id number] Elevated Problem Comm on brain [facility] natriureti [facility] c peptide (BNP) [facility] [id number] Hypoxia Problem Commo n Spirit [facility] [id number] Mixed Problem Common hyperlipid Spirit emia [facility] [id number] Abnormal Problem Commo n renal [facility] function [facility] [id number] Obesity Problem Commo n (BMI Spirit 30-39.9) - [facility] [id number] Peripheral Problem Co mmon edema [facility] [id number] Type 2 [place] [id number] diabetes [facility] mellitus - [facility] with other [facility] kidney [facility] complicati Center on Allergies, Adverse Reactions, Alerts This patient has no known allergies or adverse reactions. Social History Social Habit Start Date Stop Date Quantity Comments Source History of Common Spirit - Tobacco Use [facility] Tobacco use and 2018-03-26 2018-03-26 Smokeless tobacco CH [facility] exposure 00:00:00 00:00:00 non-user Medical Center Sex Assigned At [birth year] [facility] 00:00:00 00:00:00 Medical Center Smoking Status Start Date Stop Date Source Never Smoker [facility] Medications Ordered Filled Start Stop Current Ordering Indication Dosage Frequency Signature Comments Components Source Medication Medication Date Date Medication? Clinician (SIG) Name Name Lisinopril Lisinopril 0 No .5{tabl BID Lisinopril 40 MG 40 MG 3-16 et} 40 MG 00:00: 00 Lisinopril Lisinopril 2021-0 No .5{tabl BID Lisinopril 40 MG 40 MG 3-16 et} 40 MG 00:00: 00 Lisinopril Lisinopril 2-0 No .5{tabl BID Lisinopril 40 MG 40 MG 3-16 et} 40 MG 00:00: 00 HydrALAZINE HydrALAZINE 2019-0 Yes Ashley 1 tablet Common HCl HCl 6-26 [place] Spirit 00:00: - [facility] Lancets Lancets 2019-0 Yes Ashley as Common 6-14 [place] directed Spirit 00:00: (dispense - [facility] lancets [facility] to Medical insurance) [place] Blood Blood 2018-0 Yes Ashley as Common Glucose Glucose 6-14 [place] directed Spirit Test Strip Test Strip 00:00: (DISPENSE - [facility] BLOOD GLUCOSE [facility] TEST Medical STRIPS [place] FORMULARY TO INSURANCE) Blood Blood 2019-0 Yes Ashley as Common Glucose Glucose 6-14 [place] directed Spirit Monitor Monitor 00:00: (DISPENSE - [facility] BLOOD GLUCOSE [facility] MONITOR Medical FORMULARY [place] TO INSURANCE) Lancets - Lancets - 2019-0 No Lancets - 6-14 00:00: 00 Blood Blood 2019-0 No Blood Glucose Glucose 6-14 Glucose Monitor Monitor 00:00: Monitor Blood Blood 2018- No Blood Glucose Glucose 6-14 Glucose Test Strip Test Strip 00:00: Test Strip Lancets - Lancets - 0 No Lancets - 6-14 00:00: 00 Blood Blood 2018-0 No Blood Glucose Glucose 6-14 Glucose Monitor Monitor 00:00: Monitor 00 Blood Blood 2018- No Blood Glucose Glucose 6-14 Glucose Monitor Monitor 00:00: Monitor Blood Blood No Blood Glucose Glucose 6-14 Glucose Test Strip Test Strip 00:00: Test Strip Lancets - Lancets - No Lancets - 6-14 00:00: 00 Blood Blood 2018- No Blood Glucose Glucose 6-14 Glucose Test Strip Test Strip 00:00: Test Strip Lipitor Lipitor 2018-0 Yes Ashley 1 tablet Co mmon 3-21 [place] in evening Spir it 00:00: - [facility] 00 [facility] Crestor Crestor 2018-0 Yes Ashley 1 tablet Co mmon 3-13 [place] Spirit 00:00: - [facility] Crestor 20 Crestor 20 2018-0 No 1{table Crestor 20 mg mg 3-13 t} mg 00:00: 00 Crestor 20 Crestor 20 2018-0 No 1{table Crestor 20 mg mg 3-13 t} mg 00:00: 00 Crestor 20 Crestor 20 2018-0 No 1{table Crestor 20 mg mg 3-13 t} mg 00:00: 00 Lisinopril Lisinopril 2018- Yes Ashley 1 tablet Common 2-12 [place] Spirit 00:00: - [facility] 00 [facility] Amlodipine Amlodipine Yes Ashley 1 tablet Common Besylate Besylate [place] Sp yaw [facility] Glimepiride Glimepiride Yes Ashley 1 tablet Common [place] with Spirit breakfast [facility] or the [facility] meal of Medical the day [place] Coreg Coreg Yes Ashley 1 tablet Common [place] Spirit - [facility] Metoprolol Metoprolol Yes Ashley 1 tablet Common Succinate Succinate [place] Spirit ER ER [facility] Furosemide Furosemide No Furosemide Coreg 12.5 [...] Comments Source height 2022-05-12 13:00:00 71.00 [in_i] Common [facility] weight 2022-05-12 13:00:00 279.8 [lb_av] [facility] temperature 2022-05-12 13:00:00 100.0 [degF] [facility] bmi 2022-05-12 13:00:00 39.02 kg/m2 [facility] oximetry 2022-05-12 13:00:00 91 % [facility] respiratory rate 2022-05-12 13:00:00 16 /min Comm on [facility] blood pressure 2022-05-12 13:00:00 189 mm[Hg] [facility] systolic [facility] blood pressure 2022-05-12 13:00:00 86 mm[Hg] Common [facility] diastolic [facility] height 2021-12-09 11:20:00 71.00 [in_i] [facility] weight 2021-12-09 11:20:00 275.8 [lb_av] [facility] temperature 2021-12-09 11:20:00 97.4 [degF] [facility] bmi 2021-12-09 11:20:00 38.46 kg/m2 [facility] oximetry 2021-12-09 11:20:00 97 % [facility] respiratory rate 2021-12-09 11:20:00 19 /min Comm on [facility] blood pressure 2021-12-09 11:20:00 152 mm[Hg] Common [facility] - systolic [facility] blood pressure 2021-12-09 11:20:00 79 mm[Hg] Common Spirit - diastolic [facility] height 2021-11-08 10:50:00 71.00 [in_i] Common S pirit - [facility] weight 2021-11-08 10:50:00 275.2 [lb_av] [facility] temperature 2021-11-08 10:50:00 97.9 [degF] Common S pirit - [facility] bmi 2021-11-08 10:50:00 38.38 kg/m2 Common S pirit [facility] oximetry 2021-11-08 10:50:00 98 % Common S pirit [facility] respiratory rate 2021-11-08 10:50:00 18 /min Comm on [facility] blood pressure 2021-11-08 10:50:00 165 mm[Hg] Common [facility] - systolic [facility] blood pressure 2021-11-08 10:50:00 74 mm[Hg] Common [facility] - diastolic [facility] height 2021-10-11 10:10:00 71.00 [in_i] [facility] 2021-10-11 10:10:00 280.5 [lb_av] [facility] temperature 2021-10-11 10:10:00 97.7 [degF] Common S pirit [facility] bmi 2021-10-11 10:10:00 39.12 kg/m2 Common S pirit [facility] oximetry 2021-10-11 10:10:00 98 % Common S pirit [facility] respiratory rate 2021-10-11 10:10:00 18 /min Comm on [facility] blood pressure 2021-10-11 10:10:00 178 mm[Hg] Common [facility] - systolic [facility] blood pressure 2021-10-11 10:10:00 80 mm[Hg] Common [facility] - diastolic [facility] height 2021-09-11 14:30:00 71.00 [in_i] Common S pirit [facility] weight 2021-09-11 14:30:00 264.9 [lb_av] Common [facility] temperature 2021-09-11 14:30:00 98.4 [degF] Common [facility] bmi 2021-09-11 14:30:00 36.94 kg/m2 Common [facility] oximetry 2021-09-11 14:30:00 95 % Common [facility] respiratory rate 2021-09-11 14:30:00 18 /min Comm on [facility] blood pressure 2021-09-11 14:30:00 192 mm[Hg] Common [facility] systolic [facility] blood pressure 2021-09-11 14:30:00 88 mm[Hg] Common [facility] diastolic [facility] Procedures This patient has no known procedures. Encounters Start End Encounter Admission Attending Care Care Encounter Source Date/Time Date/Time Type Type Clinicians Facility Department ID 2023-01-26 Outpatient Keene, STLMLC [facility] [id number] Common 11:53:00 Salvador 05340 [facility] 2023-01-21 Out[facility] [id number] Common 14:45:00 Salvador [facility] 2022-05-12 Outpatient Keene, [facility] [id number] Common 13:03:00 Salvador [facility] 2021-11-08 Outpatient Keene, [facility] [id number] Common 10:52:00 Salvador [facility] 2021-11-07 Outpatient Keene, [facility] [id number] Common 12:04:00 Salvador [facility] 2021-10-30 Out[facility] Keene, [facility] [id number] Common 14:32:21 Salvador [facility] 2021-10-30 Outpatient Keene, [facility] [id number] Common 14:31:54 Salvador [facility] 2021-10-30 Outpatient Keene, STLMLC ST[facility]C [id number] Common 14:22:25 Salvador 97076 [facility] 2021-10-30 Outpatient Keene, STLMLC STLMLC [id number] Common 12:40:20 Salvador [id number] [facility] 2021-10-30 Outpatient Keene, STLMLC STLMLC [id number] Common 12:39:30 Salvador [id number] [facility] 2021-10-30 Outpatient Keene, STLMLC STLMLC [id number] Common 12:32:53 Salvador [id number] [facility] 2021-10-30 Outpatient Keene, STLMLC STLMLC [id number] Common 12:29:47 Salvador [id number] [facility] 2021-10-30 Outpatient Millender, STLMLC STLMLC [id number] Common 11:28:42 Ashley [id number] [facility] 2021-10-30 Outpatient Millender, STLMLC STLMLC [id number] Common 11:14:50 Ashley 98796 [facility] 2021-10-30 Outpatient Millender, STLMLC STLMLC [id number] Common 11:14:28 Ashley [id number] [facility] 2022-09-05 2022-09-05 (TEL) STLMLC STLMLC [id number] Co mmon 00:00:00 00:00:00 [facility] 2022-05-15 2022-05-15 (TEL) STLMLC STLMLC [id number] Co mmon 00:00:00 00:00:00 [facility] 2022-05-12 2022-05-12 OFFICE STLMLC STLMLC [id number] Co mmon 00:00:00 00:00:[address] [facility] LEVEL 4 [facility] 2021-12-16 2021-12-16 (TEL) STLMLC STLMLC [id number] Co mmon 00:00:00 00:00:00 [facility] 2021-12-09 2021-12-09 OFFICE STLMLC STLMLC [id number] Co mmon 00:00:00 00:00:00 VISIT Spirit ESTAB PT - CHI LEVEL 4 [facility] 2021-11-08 2021-11-08 OFFICE STLMLC STLMLC [id number] Co mmon 00:00:00 00:00:00 VISIT Spirit ESTAB PT - CHI LEVEL 4 [facility] 2021-10-11 2021-10-11 OFFICE STLMLC STLMLC [id number] Co mmon 00:00:00 00:00:00 VISIT Spirit ESTAB PT - CHI LEVEL 4 [facility] 2021-10-09 2021-10-09 (TEL) STLMLC STLMLC [id number] Co mmon 00:00:00 00:00:00 [facility] 2021-09-11 2021-09-11 OFFICE STLMLC STLMLC [id number] Co mmon 00:00:00 00:00:00 VISIT Spirit ESTAB PT - CHI LEVEL 5 [facility] 2021-09-10 2021-09-10 (TEL) STLMLC STLMLC [id number] Co mmon 00:00:00 00:00:00 [facility] 2020-11-14 2020-11-14 Outpatient STLMLC STLMLC [id number] Common 00:00:00 00:00:00 [facility] 2020-04-04 2020-04-04 [facility] [id number] Common 01:14:00 01:14:00 t [facility] Spir [address] Road [facility] 2020-03-30 2020-03-30 [facility] [id number] Common 15:40:00 15:40:00 t [facility] it Road [facility] 2019-10-26 2019-10-26 [facility] [id number] Common 09:28:00 09:28:00 t [facility] Spir [address] Road [facility] 2019-10-19 2019-10-19 [facility] [id number] Common 14:47:00 14:47:[address] [facility] 2019-10-03 2019-10-03 [facility] [id number] Common 12:08:00 12:08:[address] [facility] 2019-09-23 2019-09-23 [facility] [id number] Common 16:00:00 16:00:[address] [facility] 2019-06-23 2019-06-23 [facility] [id number] Common 19:12:00 19:12:[address] [facility] 2019-06-21 2019-06-21 [facility] [id number] Common 16:00:00 16:00:[address] [facility] 2019-03-18 2019-03-18 [facility] [id number] Common 00:13:00 00:13:[address] [facility] 2019-03-16 2019-03-16 [facility] [id number] Common 16:00:00 16:00:[address] [facility] 2019-02-17 2019-02-17 [facility] [id number] Common 13:16:00 13:16:[address] [facility] 2018-12-23 2018-12-23 [facility] [id number] Common 09:11:00 09:11:[address] [facility] 2018-12-15 2018-12-15 [facility] [id number] Common 01:25:00 01:25:[address] [facility] 2018-12-14 2018-12-14 [facility] [id number] Common 16:00:00 16:00:[address] [facility] 2018-11-25 2018-11-25 [facility] [id number] Common 13:38:00 13:38:00 t [facility] Spir [address] Road [facility] 2018-11-23 2018-11-23 [facility] [id number] Common 15:24:00 15:24:00 t [facility] [address] Sp[address] Road [facility] 2018-11-18 2018-11-18 [facility] [id number] Common 14:50:00 14:50:00 t [facility] [address] Sp[address] Road [facility] 2018-11-17 2018-11-17 [facility] [id number] Common 18:12:00 18:12:00 t [facility] [address] Sp[address] Road [facility] 2018-11-16 2018-11-16 [facility] [id number] Common 22:29:00 22:29:00 t [facility] [address] Sp[address] Road [facility] 2018-11-16 2018-11-16 [facility] [id number] Common 15:00:00 15:00:00 t [facility] [address] Sp[address] Road [facility] Results Test Description Test Time Test Comments Results Result Comments Source HEMOGLOBIN A1C 2022-05-12 00:00:00 Test Item Value Reference Range Interpretation Comme nts A1C (test code = 4548-4) 6.8 POCT-GLUCOSE [id number] 17:37:00 Test Item Value Reference Range Interpretation Comments POC-GLUCOSE METER 104 mg/dL 70-110 TESTED AT [place] [address] ([place]) (test code = [place]IE [place] 1538) [id number] POCT-GLUCOSE [id number] 12:37:00 Test Item Value Reference Range Interpretation Comments POC-GLUCOSE METER 145 mg/dL 70-110 H TESTED AT [place] [address] ([employer]) (test code = [place] 1538) [id number] POCT-GLUCOSE [id number] 08:16:00 Test Item Value Reference Range Interpretation Comments POC-GLUCOSE METER 111 mg/dL 70-110 H TESTED AT [place] [address] (BEAKER) (test code = FRANKIE Rogers [facility] 1538) [address] BASIC METABOLIC [id number] 06:49:00 Test Item Value Reference Range Interpretation [...] S NOT APPLICABLE FOR DIALYSIS PATIEN TS. [id number] 01:30:00 Test Item Value Reference Range Interpretation Comments RPR SCREEN (BEAKER) (test code = Nonreactive Nonreactive 420) POCT-GLUCOSE [id number] 20:55:00 Test Item Value Reference Range Interpretation Comments POC-GLUCOSE METER 179 mg/dL 70-[address] [facility] 6720 (BEAKER) (test code = [facility] 1538) 15969 VITAMIN B12 AND [id number] 20:25:00 Test Item Value Reference Range Interpretation Comments VITAMIN B12 (BEAKER) (test code = 422 pg/mL 213-816 774) FOLATE (BEAKER) (test code = 362) 9.9 ng/mL >=7.0 POCT-GLUCOSE [id number] 17:11:00 Test Item Value Reference Range Interpretation Comments POC-GLUCOSE METER 159 mg/dL 70-[address] [facility] 6720 (BEAKER) (test code = [facility] 1538) 89359 PROTHROMBIN [id number] 15:55:00 Test Item Value Reference Range Interpretation Comments PROTIME (BEAKER) (test code = 14.1 seconds 11.7-14.7 759) INR ([facility]) (test code = 370) 1.1 <=5.9 RECOMMENDED COUMADIN/WARFARIN INR THERAPY RANGESSTANDARD DOSE: 2.0 - 3.0 Includes: PROPHYLAXIS for venous thrombosis, systemic embolization; TREATMENT for venous thrombosis and/or pulmonary embolus.HIGH RISK: Target INR is 2.5-3.5 for patients with mechanical heart valves.[id number] 15:34:00 Test Item Value Reference Range Interpretation Comments AMMONIA (BECCA) (test code = 348) 31 mol/L 18-72 POCT-GLUCOSE [id number] 11:41:00 Test Item Value Reference Range Interpretation Comments POC-GLUCOSE METER 219 mg/dL 70-110 H TESTED AT [place] [address] ([facility]) (test code = [facility] 1538) 89363 POCT-GLUCOSE [id number] 08:20:00 Test Item Value Reference Range Interpretation Comments POC-GLUCOSE METER 114 mg/dL 70-110 H TESTED AT [place] [address] ([facility]) (test code = [facility] 1538) [address] TSH/FREE T4 IF [id number] 05:29:00 Test Item Value Reference Range Interpretation Comments THYROID STIMULATING HORMONE 2.18 uIU/mL 0.35-4.94 ([facility]) (test code = 772) [id number] 04:58:00 Test Item Value Reference Range Interpretation Comments [facility]OSPHORUS ([facility]) (test code = 2.3 mg/dL 2.3-4.7 604) [id number] 04:58:00 Test Item Value Reference Range Interpretation Comments MAGNESIUM (BEAKER) (test code = 2.1 mg/dL 1.6-2.6 627) COMPREHENSIVE METABOLIC [id number] 04:58:00 Test Item Value Reference Range Interpretation Comments TOTAL PROTEIN 6.9 gm/dL 6.0-8.3 (AKER) (test code = 770) ALBUMIN ([facility]) 4.1 g/dL 3.5-5.0 (test code = 1145) ALKALINE PHOSPHATASE 83 U/L 40-150 ([facility]) (test code = 346) BILIRUBIN TOTAL 1.4 [...] 0-0 (BEAKER) (test code = 413) POCT-GLUCOSE [id number] 20:46:00 Test Item Value Reference Range Interpretation Comments POC-GLUCOSE METER 197 mg/dL 70-110 H TESTED AT [place] [address] ([facility]) (test code = [facility] Ken [facility] 1538) [id number] POCT-GLUCOSE [id number] 17:00:00 Test Item Value Reference Range Interpretation Comments POC-GLUCOSE METER 158 mg/dL 70-110 H TESTED AT [place] [address] ([facility]) (test code = [facility] Ken [facility] 1538) [address]8061 POCT-GLUCOSE [id number] 12:04:00 Test Item Value Reference Range Interpretation Comments POC-GLUCOSE METER 180 mg/dL 70-110 H TESTED AT [place] [address] ([facility]) (test code = [facility] 1538) 15054 [id number] 04:51:00 Test Item Value Reference Range Interpretation Comments PHOSPHORUS (BEAKER) (test code = 2.8 mg/dL 2.3-4.7 604) [id number] 04:51:00 Test Item Value Reference Range Interpretation Comments MAGNESIUM (BEAKER) (test code = 2.3 mg/dL 1.6-2.6 627) COMPREHENSIVE METABOLIC [id number] 04:51:00 Test Item Value Reference Range Interpretation [...] RED BLOOD CELLS 0 /100 WBC 0-0 (MAGAN) (test code = 413) POCT-GLUCOSE [id number] 20:52:00 Test Item Value Reference Range Interpretation Comments POC-GLUCOSE METER 300 mg/dL 70-[address] [facility] 6720 (MAGAN) (test code = [place] 1538) [address] MR, MRA, BRAIN, WITHOUT [id number] 18:40:00Reason for exam:->Ischemic Stroke EvaluationFINAL REPORT MRI brain and MRA head and neck without contrast 03/26/2018 6:36 PMCLINICAL INDICATION: Ischemic Stroke Evaluationstroke eval TECHNIQUE: Multiplanar, multisequence MR imaging of the brain was performed utilizing the following imaging sequences: Axial T1, T2, FLAIR, GRE, and DWI; sagittal and coronal T1-weighted images. Two- and three- dimensional [id number] MRA images of the intra- and extracranial [...] is antegrade in both vertebral arteries. MRA bois forte of [place]: There is no acute vessel [...] Chronic findings as discussed. Signed: Luis Mancera MDReport Verified Date/Time: 03/26/2018 18:40:56 Reading Location: [facility] Radiology Reading Room MR, MRA, NECK, WITHOUT IV [id number] 18:40:00Reason for exam:->Ischemic Stroke EvaluationFINAL REPORT MRI brain and MRA head and neck without contrast 03/26/2018 6:36 PMCLINICAL INDICATION: Ischemic Stroke Evaluationstroke eval TECHNIQUE: Multiplanar, multisequence MR imaging of the brain was performed utilizing the following imaging sequences: Axial T1, T2, FLAIR, GRE, and DWI; sagittal and coronal T1-weighted images. Two- and three- dimensional [id number] MRA images of the intra- and extracranial [...] is antegrade in both vertebral arteries. MRA bois forte of [place]: There is no acute vessel [...] Chronic findings as discussed. Signed: Luis Mancera MDReport Verified Date/Time: 03/26/2018 18:40:56 Reading Location: [facility] Radiology Reading Room MR, BRAIN, WITHOUT [id number] 18:40:00Reason for exam:->Ischemic Stroke EvaluationFINAL REPORT MRI brain and MRA head and neck without contrast 03/26/2018 6:36 PMCLINICAL INDICATION: Ischemic Stroke Evaluationstroke eval TECHNIQUE: Multiplanar, multisequence MR imaging of the brain was performed utilizing the following imaging sequences: Axial T1, T2, FLAIR, GRE, and DWI; sagittal and coronal T1-weighted images. Two- and three- dimensional [id number] MRA images of the intra- and extracranial [...] is antegrade in both vertebral arteries. MRA bois for[place] of [place]: There is no acute vessel [...] Chronic findings as discussed. Signed: Luis Mancera MDReport Verified Date/Time: 03/26/2018 18:40:56 [facility] [place] [facility] EEG AWAKE AND [id number] 14:46:00Reason for exam:->Repeat EEG to rule out any seizures. Another episode of word finding difficultyreported today.Date(s) of EE03/26/2018 DATE OF REPORT: 03/26/2018 ACC: [id number] EEG Number: [id number] Test Location: Inpatient ICU Start time: 13:17 Stop time: 13:39 ICD-10: R56.9 CPT Code: 62166 HISTORY: 58 y/o manwith HTN, prior stroke, [...] Fellow Magdiel Wall MD Attending Neurophysiologist [facility] POCT-GLUCOSE METER 2018-03-26 12:30:00 Test Item Value Reference Range Interpretation Comments POC-GLUCOSE METER 154 mg/dL 70-[address] [facility] 6720 (MAGAN) (test code = FRANKIE Rogers [facility] 1538) [address] HEMOGLOBIN [id number] 08:33:00 Test Item Value Reference Range Interpretation Comments HEMOGLOBIN A1C (BEAKER) (test code = 8.3 % 4.3-6.1 H 368) [id number] 02:46:00 Test Item Value Reference Range Interpretation Comments PHOSPHORUS (BEAKER) (test code = 2.8 mg/dL 2.3-4.7 604) [id number] 02:46:00 Test Item Value Reference Range Interpretation Comments MAGNESIUM (BEAKER) (test code = 2.3 mg/dL 1.6-2.6 627) COMPREHENSIVE METABOLIC [id number] 02:46:00 Test Item Value Reference Range Interpretation [...] NOT APPLICABLE FOR DIALYSIS PATIEN TS. LIPID [id number] 02:46:00 Test Item Value Reference Range Interpretation [...]
[2023-03-13] MEDS ORDERED: NITROGLYCERIN/D5W 50 MG/250 ML BTL IV ONE ×4 (01:29→12:08)
[2023-03-13] MEDS ORDERED: FUROSEMIDE 40 MG/4 ML VIAL ONE ×2 (01:38→08:38)
[2023-03-13 02:06] LABS: Absolute Lymphocytes (CBC) 1.2 K/uL (0.7-4.9); Hematocrit 39.1 % (39.6-49.0); Lymphocytes % 11.5 % (15.3-44.8); MCV 84.8 fL (80-100); MPV 8.7 fL (7.6-11.3); RBC Red Blood Cell Count 4.62 M/uL (4.33-5.43)
[2023-03-13 02:32] LABS: Albumin 3.2 g/dL (3.4-5.0); Bilirubin Direct 0.4 mg/dL (0-0.2); Bilirubin Indirect, Calculated 0.8 mg/dL (0.2-0.8); Bilirubin Total 1.2 mg/dL (0.2-1.0); Magnesium 1.7 mg/dL (1.6-2.4); Potassium 3.2 mEq/L (3.5-5.1)
[2023-03-13 02:33] LABS: Troponin High Sensitivity 88.3 pg/mL (<58.9)
--- NOTE | 2023-03-13 02:44 | ER ---
Nurse's Notes [facility] Name: Calos Marie Age: 63 yrs Sex: Male : 1960 Arrival Date: 03/13/2023 Time: 01:15 Bed 3 Private MD: Diagnosis: CHF exacerbation, hypertensive urgency Presentation: 03/13 01:16 Chief complaint: Patient states: C/O SOB,onset 2200 tonight. [facility] stated patient pf1 was 02 sat's was 71% on RA improved to 100 on CPAP. EMS stated gave patient Nitro x 0.4mg SL. Patient stated has not taking any fluid medication in 2 weeks. Patient denies any pain. Coronavirus screen: Vaccine status: Patient reports receiving the 2nd dose of the covid vaccine. [employer] Client denies travel out of the [place] in the last 14 days. Client presents with at least one sign or symptom that may indicate coronavirus-19. Ebola Screen: Patient negative for fever greater than or equal to 101.5 degrees Fahrenheit, and additional compatible Ebola Virus Disease symptoms. 01:16 Method Of Arrival: EMS: [facility] pf1 01:16 Initial Sepsis Screen: Does the patient meet any 2 criteria? No. Patient's initial pf1 sepsis screen is negative. Does the patient have a suspected source of infection? No. Patient's initial sepsis screen is negative. Risk Assessment: Do you want to hurt yourself or someone else? Patient reports no desire to harm self or others. 01:16 Acuity: KRIS 2 pf1 Historical: - Allergies: 05:02 No Known Allergies; pf1 - PMHx: 05:02 CHF; CVA; Hypertension; pf1 - PSHx: 05:02 None; pf1 - Immunization history:: Adult Immunizations up to date, Client reports receiving the 2nd dose of the Covid vaccine, Last tetanus immunization: > 10 years ago Flu vaccine is not up to date. - Social history:: Smoking status: . Screenin:40 [facility] ED Fall Risk Assessment (Adult) History of falling in the last 3 months, pf1 including since admission No falls in past 3 months (0 pts) Confusion or Disorientation No (0 pts) Intoxicated or Sedated No (0 pts) Impaired Gait Yes (1 pt) Mobility Assist Device Used No (0 pt) Altered Elimination No (0 pt) Score/Fall Risk Level 0 - 2 = Low Risk Oriented to surroundings, Maintained a safe environment, Educated pt \T\ family on fall prevention, incl call for assistance when getting out of bed, Assessed \T\ reinforced patient's understanding of fall precautions, Provided non-skid footwear, Hourly rounding (assess needs \T\ fall precautionary measures) done, Used ambulatory aids as needed (educated on \T\ assisted with), Used gait belt as appropriate. Abuse screen: Denies threats or abuse. Nutritional screening: No deficits noted. Tuberculosis screening: No symptoms or risk factors identified. Assessment: 01:16 General: Appears in no apparent distress. comfortable, obese, Behavior is calm, pf1 cooperative, appropriate for age, quiet. 01:16 Pain: Denies pain. Neuro: No deficits noted. Level of Consciousness is awake, alert, pf1 obeys commands, Oriented to person, place, time, situation. Cardiovascular: Capillary refill < 3 seconds Patient's skin is warm and dry. Rhythm is sinus rhythm. Respiratory: Airway is patent Trachea midline Respiratory effort is even, labored, Respiratory pattern is tachypnea Patient placed on BiPAP: Inspiratory Pressure: 16 Expiratory (EPAP) Pressure: 7 FiO2%: 50 Respiratory Rate: 16 Breath sounds are diminished bilaterally. GI: No deficits noted. No signs and/or symptoms were reported involving the gastrointestinal system. Abdomen is round distended, Bowel sounds present X 4 quads. : No deficits noted. No signs and/or symptoms were reported regarding the genitourinary system. EENT: No deficits noted. No signs and/or symptoms were reported regarding the EENT system. Derm: No deficits noted. No signs and/or symptoms reported regarding the dermatologic system. Musculoskeletal: No deficits noted. Circulation, motion, and sensation intact. Capillary refill < 3 seconds, Swelling present in abdomen, pelvis, right arm, left arm, right leg and left leg. 02:20 Reassessment: Patient appears in no apparent distress at this time. No changes from pf1 previously documented assessment. Patient and/or family updated on plan of care and expected duration. Pain level reassessed. Patient is alert, oriented x 3, equal unlabored respirations, skin warm/dry/pink. Patient states symptoms have not improved. 03:30 Reassessment: Patient appears in no apparent distress at this time. Patient and/or pf1 family updated on plan of care and expected duration. Pain level reassessed. Patient is alert, oriented x 3, equal unlabored respirations, skin warm/dry/pink. Patient states feeling better. Patient states symptoms have improved. 04:30 Reassessment: Patient appears in no apparent distress at this time. No changes from pf1 previously documented assessment. Patient and/or family updated on plan of care and expected duration. Pain level reassessed. Patient is alert, oriented x 3, equal unlabored respirations, skin warm/dry/pink. Patient states feeling better. Patient states symptoms have improved. Vital Signs: 01:16 BP 234 / 147; Pulse 93; Resp 21; Temp 97.5(A); Pulse Ox 100% on BiPAP; Weight 131.5 kg; pf1 Height 5 ft. 10 in. ; Pain 0/10; 01:30 BP 213 / 131; Pulse 87; Resp 20; Pulse Ox 100% on BiPAP; pf1 02:00 BP 193 / 105; Pulse 76; Resp 18; Pulse Ox 99% on BiPAP; pf1 02:30 BP 189 / 114; Pulse 75; Resp 20; Pulse Ox 100% on BiPAP; pf1 03:00 BP 193 / 119; Pulse 79; Resp 20; Pulse Ox 100% on BiPAP; pf1 03:30 BP 195 / 120; Pulse 78; Resp 20; Pulse Ox 100% on BiPAP; pf1 04:00 BP 190 / 110; Pulse 81; Resp 20; Pulse Ox 100% on BiPAP; pf1 04:30 BP 196 / 113; Pulse 75; Resp 15; Pulse Ox 100% on BiPAP; pf1 05:00 BP 193 / 107; Pulse 74; Resp 18; Pulse Ox 100% on BiPAP; pf1 05:30 BP 194 / 105; Pulse 74; Resp 19; Pulse Ox 100% on BiPAP; pf1 01:16 Body Mass Index 41.60 (131.50 kg, 177.8 cm) pf1 01:16 Pain Scale: Adult pf1 ED Course: 01:16 Patient arrived in ED. rv1 01:16 Deven Keene MD is Attending Physician. sp3 01:16 No provider procedures requiring assistance completed. Maintain EMS IV. Dressing pf1 intact. Good blood return noted. Site clean \T\ dry. Gauge \T\ site: 20 gauge to left hand. 01:16 Patient has correct armband on for positive identification. Placed in gown. Bed in low pf1 position. Call light in reach. Side rails up X2. 01:20 Arm band placed on. pf1 01:50 XRAY Chest (1 view) In Process Unspecified. EDMS 02:00 Inserted saline lock: 20 gauge in right antecubital area, using aseptic technique. pf1 Blood collected. 02:03 Tara Swanson, RN is Primary Nurse. kd3 02:13 Basic Metabolic Panel Sent. pf1 02:13 LFT's Sent. pf1 02:13 Magnesium Sent. pf1 02:13 NT PRO-BNP Sent. pf1 02:13 Troponin HS Sent. pf1 02:24 Triage completed. pf1 02:43 Remington Bro MD is Hospitalizing Provider. sp3 04:12 Patient admitted, IV remains in place. pf1 Administered Medications: 01:28 Drug: Nitroglycerin IV 400 mcg Route: IV; Rate: bolus; Site: left hand; pf1 01:30 Follow up: Response: No adverse reaction; Marked relief of symptoms; IV Status: pf1 Completed infusion; IV Intake: 2ml 01:33 Drug: Nitro Drip - (Nitroglycerin IV 50 mg, D5W IV 250 ml) 5 mcg/min Route: IV; Rate: 5 pf1 mcg/min; Site: left hand; 01:45 Follow up: Rate change 60 mcg/min pf1 01:50 Follow up: Rate change 80 mcg/min pf1 02:00 Follow up: Rate change 90 mcg/min pf1 02:10 Follow up: Rate change 100 mcg/min pf1 02:15 Follow up: Rate change 120 mcg/min pf1 02:20 Follow up: Rate change 140 mcg/min pf1 02:25 Follow up: Rate change 160 mcg/min pf1 02:30 Follow up: Rate change 180 mcg/min pf1 02:35 Follow up: Rate change 200 mcg/min pf1 02:40 Follow up: Rate change 220 mcg/min pf1 02:45 Follow up: Rate change 240 mcg/min pf1 02:48 Follow up: Response: No adverse reaction; Marked relief of symptoms pf1 02:50 Follow up: Rate change 260 mcg/min pf1 02:55 Follow up: Rate change 280 mcg/min pf1 03:00 Follow up: Rate change 300 mcg/min pf1 03:10 Follow up: Rate change 320 mcg/min pf1 03:20 Follow up: Rate change 340 mcg/min pf1 03:30 Follow up: Rate change 360 mcg/min pf1 03:40 Follow up: Rate change 380 mcg/min pf1 03:50 Follow up: Rate change 400 mcg/min pf1 04:12 Follow up: Response: No adverse reaction; Marked relief of symptoms; Blood pressure is pf1 lowered; IV Status: Infusion continued upon admission 07:00 Follow up: Rate change 200 mcg/min pf1 01:35 Drug: Furosemide IVP 80 mg Route: IVP; Site: left hand; pf1 02:30 Follow up: Response: No adverse reaction; Marked relief of symptoms pf1 01:38 Drug: Nitroglycerin IV 400 mcg Route: IV; Rate: bolus; Site: left hand; pf1 01:40 Follow up: Response: No adverse reaction; Blood pressure is lowered; IV Status: pf1 Completed infusion; IV Intake: 2ml 04:28 Drug: Aspirin PO Chewable Tablet 324 mg Route: PO; pf1 05:18 Follow up: Response: No adverse reaction; Marked relief of symptoms pf1 Medication: 02:55 VIS not applicable for this client. pf1 Intake: 01:30 IV: 2ml; Total: 2ml. pf1 01:40 IV: 2ml; Total: 4ml. pf1 Outcome: 02:44 Decision to Hospitalize by Provider. sp3 04:12 Admitted to ER Hold. Please see [facility] for further documentation. pf1 04:12 Condition: stable pf1 04:12 Instructed on the need for admit, Demonstrated understanding of instructions. 17:25 Patient left the ED. Signatures: Dispatcher [employer] EDMS Raina Laboy RN RN ss Deven Keene MD MD sp3 Tara Swanson RN RN kd3 Zaynab España RN RN pf1 Brit Taylor rv1
--- NOTE | 2023-03-13 02:44 | EDPHYS ---
Physician Documentation [facility] Name: Calos Marie Age: 63 yrs Sex: Male : 1960 Arrival Date: 03/13/2023 Time: 01:15 Bed 3 Private MD: ED Physician Deven Keene HPI: 03/13 01:38 This 63 yrs old Male presents to ER via Unassigned with complaints of Shortness Of sp3 Breath. 01:38 63-year-old male with a history of CHF with an ejection fraction of 23% presents to the 3 ED with chief complaint difficulty breathing, peripheral edema and he states he is out of his Lasix. EMS arrived to find patient in respiratory distress and started CPAP. Initial blood pressures were 240/120s. Patient denies any chest pain, back pain, abdominal pain, nausea, vomiting, diarrhea, fever, URI symptoms, or any other signs or symptoms on ROS at this time.. Historical: - Allergies: 05:02 No Known Allergies; pf1 - PMHx: 05:02 CHF; CVA; Hypertension; pf1 - PSHx: 05:02 None; pf1 - Immunization history:: Adult Immunizations up to date, Client reports receiving the 2nd dose of the Covid vaccine, Last tetanus immunization: > 10 years ago Flu vaccine is not up to date. - Social history:: Smoking status: . ROS: 01:39 Constitutional: Negative for fever, chills, and weight loss, Eyes: Negative for injury, sp3 pain, redness, and discharge, ENT: Negative for injury, pain, and discharge, Neck: Negative for injury, pain, and swelling, Cardiovascular: Negative for chest pain, palpitations, and edema, Abdomen/GI: Negative for abdominal pain, nausea, vomiting, diarrhea, and constipation, Back: Negative for injury and pain, Skin: Negative for injury, rash, and discoloration, Neuro: Negative for headache, weakness, numbness, tingling, and seizure, Psych: Negative for depression, anxiety, suicide ideation, homicidal ideation, and hallucinations, Allergy/Immunology: Negative for hives, rash, and allergies, Endocrine: Negative for neck swelling, polydipsia, polyuria, polyphagia, and marked weight changes. 01:39 All other systems are negative. Exam: 01:39 Constitutional: This is a well developed, well nourished patient who is awake, alert, sp3 and in no acute distress. Head/Face: Normocephalic, atraumatic. Eyes: Pupils equal round and reactive to light, extra-ocular motions intact. Lids and lashes normal. Conjunctiva and sclera are non-icteric and not injected. Cornea within normal limits. Periorbital areas with no swelling, redness, or edema. Neck: Trachea midline, no thyromegaly or masses palpated, and no cervical lymphadenopathy. Supple, full range of motion without nuchal rigidity, or vertebral point tenderness. No Meningismus. Chest/axilla: Normal chest wall appearance and motion. Nontender with no deformity. No lesions are appreciated. Abdomen/GI: Soft, non-tender, with normal bowel sounds. No distension or tympany. No guarding or rebound. No evidence of tenderness throughout. Back: No spinal tenderness. No costovertebral tenderness. Full range of motion. Skin: Warm, dry with normal turgor. Normal color with no rashes, no lesions, and no evidence of cellulitis. Neuro: Awake and alert, GCS 15, oriented to person, place, time, and situation. Cranial nerves II-XII grossly intact. Motor strength 5/5 in all extremities. Sensory grossly intact. Cerebellar exam normal. Normal gait. Psych: Awake, alert, with orientation to person, place and time. Behavior, mood, and affect are within normal limits. 01:39 Respiratory: Peripheral edema noted. Rales bilaterally. Blood pressure initially 240s over 120.. 03:49 ECG was reviewed by the Attending Physician. EKG demonstrates normal sinus rhythm at 90 sp3 bpm with normal intervals, normal QRS, normal axis, nonspecific diffuse ST changes without evidence of acute ischemia. Vital Signs: 01:16 BP 234 / 147; Pulse 93; Resp 21; Temp 97.5(A); Pulse Ox 100% on BiPAP; Weight 131.5 kg; pf1 Height 5 ft. 10 in. ; Pain 0/10; 01:30 BP 213 / 131; Pulse 87; Resp 20; Pulse Ox 100% on BiPAP; pf1 02:00 BP 193 / 105; Pulse 76; Resp 18; Pulse Ox 99% on BiPAP; pf1 02:30 BP 189 / 114; Pulse 75; Resp 20; Pulse Ox 100% on BiPAP; pf1 03:00 BP 193 / 119; Pulse 79; Resp 20; Pulse Ox 100% on BiPAP; pf1 03:30 BP 195 / 120; Pulse 78; Resp 20; Pulse Ox 100% on BiPAP; pf1 04:00 BP 190 / 110; Pulse 81; Resp 20; Pulse Ox 100% on BiPAP; pf1 04:30 BP 196 / 113; Pulse 75; Resp 15; Pulse Ox 100% on BiPAP; pf1 05:00 BP 193 / 107; Pulse 74; Resp 18; Pulse Ox 100% on BiPAP; pf1 05:30 BP 194 / 105; Pulse 74; Resp 19; Pulse Ox 100% on BiPAP; pf1 01:16 Body Mass Index 41.60 (131.50 kg, 177.8 cm) pf1 01:16 Pain Scale: Adult pf1 MDM: 01:19 Patient medically screened. sp3 01:40 Data reviewed: vital signs, nurses notes, EMS record, old medical records, lab test sp3 result(s), EKG, radiologic studies. ED course: 63-year-old male with extensive medical history and EF of 23% now and CHF exacerbation secondary to not being on Lasix. Patient placed on BiPAP in the ER. Nitro drip started with 400 mcg boluses until blood pressures resolved and symptoms are improved. We will keep patient on nitro drip for now with disposition being admission to inpatient service. I am not highly suspicious for acute coronary syndrome, PE, sepsis/infectious etiology, vascular pathology including aneurysm and dissection, or any other critical illness at this time.. 03/13 01:19 Order name: Basic Metabolic Panel; Complete Time: 02:36 sp3 03/13 01:19 Order name: CBC with Diff; Complete Time: 02:14 sp3 03/13 01:19 Order name: LFT's; Complete Time: 02:36 sp3 03/13 01:19 Order name: Magnesium; Complete Time: 02:36 sp3 03/13 01:19 Order name: NT PRO-BNP; Complete Time: 02:36 sp3 03/13 01:19 Order name: Troponin HS; Complete Time: 02:36 sp3 03/13 07:57 Order name: Glucose, Ancillary Testing EDMS 03/13 09:48 Order name: Hemoglobin A1c EDMS 03/13 09:55 Order name: Troponin High Sensitivity EDMS 03/13 12:35 Order name: Glucose, Ancillary Testing EDMS 03/13 16:24 Order name: Troponin High Sensitivity EDMS 03/13 01:19 Order name: XRAY Chest (1 view) sp3 03/13 01:22 Order name: BIPAP sp3 03/13 01:19 Order name: EKG; Complete Time: 01:20 sp3 03/13 01:19 Order name: Cardiac monitoring; Complete Time: 01:38 sp3 03/13 01:19 Order name: EKG - Nurse/Tech; Complete Time: 02:13 sp3 03/13 01:19 Order name: IV Saline Lock; Complete Time: 01:38 sp3 03/13 01:19 Order name: Labs collected and sent; Complete Time: 02:13 sp3 03/13 01:19 Order name: O2 Per Protocol; Complete Time: :38 sp3 03/13 01:19 Order name: O2 Sat Monitoring; Complete Time: 01:38 sp3 Administered Medications: 01:28 Drug: Nitroglycerin IV 400 mcg Route: IV; Rate: bolus; Site: left hand; pf1 01:30 Follow up: Response: No adverse reaction; Marked relief of symptoms; IV Status: pf1 Completed infusion; IV Intake: 2ml 01:33 Drug: Nitro Drip - (Nitroglycerin IV 50 mg, D5W IV 250 ml) 5 mcg/min Route: IV; Rate: 5 pf1 mcg/min; Site: left hand; 01:45 Follow up: Rate change 60 mcg/min pf1 01:50 Follow up: Rate change 80 mcg/min pf1 02:00 Follow up: Rate change 90 mcg/min pf1 02:10 Follow up: Rate change 100 mcg/min pf1 02:15 Follow up: Rate change 120 mcg/min pf1 02:20 Follow up: Rate change 140 mcg/min pf1 02:25 Follow up: Rate change 160 mcg/min pf1 02:30 Follow up: Rate change 180 mcg/min pf1 02:35 Follow up: Rate change 200 mcg/min pf1 02:40 Follow up: Rate change 220 mcg/min pf1 02:45 Follow up: Rate change 240 mcg/min pf1 02:48 Follow up: Response: No adverse reaction; Marked relief of symptoms pf1 02:50 Follow up: Rate change 260 mcg/min pf1 02:55 Follow up: Rate change 280 mcg/min pf1 03:00 Follow up: Rate change 300 mcg/min pf1 03:10 Follow up: Rate change 320 mcg/min pf1 03:20 Follow up: Rate change 340 mcg/min pf1 03:30 Follow up: Rate change 360 mcg/min pf1 03:40 Follow up: Rate change 380 mcg/min pf1 03:50 Follow up: Rate change 400 mcg/min pf1 04:12 Follow up: Response: No adverse reaction; Marked relief of symptoms; Blood pressure is pf1 lowered; IV Status: Infusion continued upon admission 07:00 Follow up: Rate change 200 mcg/min pf1 01:35 Drug: Furosemide IVP 80 mg Route: IVP; Site: left hand; pf1 02:30 Follow up: Response: No adverse reaction; Marked relief of symptoms pf1 01:38 Drug: Nitroglycerin IV 400 mcg Route: IV; Rate: bolus; Site: left hand; pf1 01:40 Follow up: Response: No adverse reaction; Blood pressure is lowered; IV Status: pf1 Completed infusion; IV Intake: 2ml 04:28 Drug: Aspirin PO Chewable Tablet 324 mg Route: PO; pf1 05:18 Follow up: Response: No adverse reaction; Marked relief of symptoms pf1 Disposition Summary: 03/13/23 02:44 Hospitalization Ordered Hospitalization Status: Inpatient Admission sp3 Provider: Remington Bro spLudmila Condition: Stable sp3 Problem: an acute exacerbation sp3 Symptoms: have worsened sp3 Bed/Room Type: Standard sp3 Location: [facility](03/13/23 04:12) cg [facility] cg Diagnosis - CHF exacerbation, hypertensive urgency sp3 Forms: - Medication Reconciliation Form sp3 - SBAR form sp3 Signatures: Dispatcher [employer] EDAbdirizak Harrison FNP-C FNP-Cla1 Damari Ramos RN RN cg Deven Keene MD MD sp3 Zaynab España RN RN pf1 Corrections: (The following items were deleted from the chart) 04:12 02:44 Intensive Care Unit sp3 cg 04:12 02:44 sp3 cg
--- NOTE | 2023-03-13 03:38 | P.HP ---
Certification for Inpatient Patient admitted to: Inpatient With expected LOS: >2 Midnights Patient will require the following post-hospital care: None Practitioner: I am a practitioner with admitting privileges, knowledge of patient current condition, hospital course, and medical plan of care. Services: Services provided to patient in accordance with Admission requirements found in Title 42 Section 412.3 of the Code of Federal Regulations <Abdirizak Bustamante - Last Filed: 03/13/23 03:33> Patient History Date of Service: 03/13/23 Reason for admission: CHF exacerbation History of Present Illness: 63-year-old male chronic systolic congestive heart failure, previous CVA, hyperlipidemia, CKD 4, hypokalemia presents emergency department with respiratory distress, hypertensive reporting he has been out of his Lasix for the last couple of weeks. His last echocardiogram showed a LVEF of about 23%. He was evaluated in the emergency department his blood pressure was initially in the 230s over 140s, who is decreasing it, dyspneic requiring BiPAP. He was started on nitroglycerin drip and given IV Lasix. Symptoms are improving moderately. Blood pressure improved to around 190 systolic currently, diuresing well. He will need to be admitted to the ICU for decompensated CHF, NSTEMI, hypertensive emergency. - Past Medical/Surgical History Diabetic: No -: CVA -: HTN -: DM II -: CKD 4 (Dr. Merritt) -: Systolic CHF -: None Psychosocial/ Personal History: Patient unemployed lives alone - Family History Father -: Heart disease - Social History Smoking Status: Never smoker Alcohol use: No CD- Drugs: Yes Caffeine use: No Place of Residence: Home <Abdirizak Bustamante - Last Filed: 03/13/23 03:33> Date of Service: 03/13/23 <Remington Bro - Last Filed: 03/13/23 15:25> Allergies No Known Allergies Allergy (Unverified 09/07/17 15:26) Home Medications: Atorvastatin Calcium 20 mg PO DAILY 01/15/23 Glimepiride 2 mg PO DAILY 01/15/23 Aspirin Chewable [Aspirin Chewable*] 81 mg PO DAILY tab.chew 01/20/23 Isosorbide Mononitrate [Isosorbide Mononitrate ER] 30 mg PO DAILY #30 tab 01/20/23 Torsemide [Demadex*] 40 mg PO DAILY #60 tab 01/20/23 Hydralazine HCl 100 mg PO BID 03/13/23 Metoprolol Tartrate [Lopressor*] 25 mg PO BID 03/13/23 Spironolactone [Aldactone*] 50 mg PO DAILY 03/13/23 Review of Systems 10-point ROS is otherwise unremarkable Respiratory: Shortness of Breath <Abdirizak Bustamante - Last Filed: 03/13/23 03:33> Physical Examination - Vital Signs Pulse Ox (%): 99 - Physical Exam General: Alert, In no apparent distress, Oriented x3, Obese HEENT: Atraumatic, PERRLA, Mucous membr. moist/pink, EOMI, Sclerae nonicteric Neck: Supple, 2+ carotid pulse no bruit, No LAD, Without JVD or thyroid abnormality Respiratory: Diminished, Crackles/rales Cardiovascular: Regular rate/rhythm, Normal S1 S2, Edema Capillary refill: <2 Seconds Gastrointestinal: Normal bowel sounds, No tenderness Musculoskeletal: No tenderness Integumentary: No rashes Neurological: Normal speech, Normal strength at 5/5 x4 extr, Normal tone, Normal affect Lymphatics: No axilla or inguinal lymphadenopathy - Studies Laboratory Data (last 24 hrs) 03/13/23 01:50: WBC 10.00, Hgb 12.8 L, Hct 39.1 L, Plt Count 260 03/13/23 01:50: Sodium 138, Potassium 3.2 L, BUN 48 H, Creatinine 3.75 H, Glucose 192 H, Magnesium 1.7, Total Bilirubin 1.2 H, AST 21, ALT 30, Alkaline Phosphatase 74 <Abdirizak Bustamante - Last Filed: 03/13/23 03:33> - Studies Laboratory Data (last 24 hrs) 03/13/23 01:50: WBC 10.00, Hgb 12.8 L, Hct 39.1 L, Plt Count 260 03/13/23 01:50: Sodium 138, Potassium 3.2 L, BUN 48 H, Creatinine 3.75 H, Glucose 192 H, Magnesium 1.7, Total Bilirubin 1.2 H, AST 21, ALT 30, Alkaline Phosphatase 74 <Remington Bro - Last Filed: 03/13/23 15:25> Assessment and Plan - Plan Assessment: Acute on chronic decompensated systolic congestive heart failure Hypertensive emergency NSTEMI ELMER on CKD 4 Diabetes mellitus type [id number] with hyperglycemia Hypertension Hyperlipidemia Plan: Acute on chronic decompensated systolic congestive heart failure Hypertensive emergency NSTEMI Has been without Lasix in the past couple weeks, stressed importance of medication compliance at home. Received 80 of IV Lasix in the ED and was started on nitroglycerin drip, also on BiPAP at this time. Will need to be admitted to the ICU. Troponin mildly elevated suspect this is related to demand ischemia. Patient denies chest pain at this time EKG without STEMI criteria. Home medications continued, will attempt to wean off of nitroglycerin drip throughout the day. ELMER on CKD [address] in [address], continue with diuresis. Patient had been trialed on sacubitril/valsartan during previous admission but was unable to tolerate related to his creatinine. Diabetes mellitus type [id number] with hyperglycemia ACHS Accu-Chek, sliding scale insulin. A1c in the morning. Hypertension Continue nitroglycerin drip, other home medications continued. Will attempt to wean off of nitroglycerin. Hyperlipidemia Atorvastatin continued. DVT PPX: Heparin subcu Code status: Full Discharge Plan: Home Plan to discharge in: 72 Hours - Advance Directives Does patient have a Living Will: No Does patient have a Durable POA for Healthcare: No - Code Status/Comfort Care Code Status Assessed: Yes (Full code) Critical Care: No Time Spent Managing Pts Care (In Minutes): 70 <Abdirizak Bustamante - Last Filed: 03/13/23 03:33> Physician Review: Patient Assessed, Agree with Above Assessment and Plan <Remington Bro - Last Filed: 03/13/23 15:25>
[2023-03-13] MEDS ORDERED: ASPIRIN 81 MG CHEWABLE TABLET ONE (04:15)
[2023-03-13] MEDS ORDERED: D50W 25 GM/50 ML SYRINGE IV PRN (05:43)
[2023-03-13] MEDS ORDERED: GLUCAGON 1 MG/VIAL IM PRN (05:43)
[2023-03-13] MEDS ORDERED: ONDANSETRON 4 MG/2 ML VIAL IV PRN (05:43)
[2023-03-13] MEDS ORDERED: NITROPRUSSIDE 50 MG in D5W 250 ML IV SCH (05:43)
[2023-03-13] MEDS ORDERED: D10W 125 ML IV PRN (05:50)
[2023-03-13] MEDS: NITROGLYCERIN/D5W 50 MG/250 ML BTL IV SCH ×3 (07:00→11:30)
[2023-03-13] MEDS: INSULIN -REGULAR HUMAN 50 UNIT/0.5 ML ML SQ SCH ×2 (07:30→11:30)
[2023-03-13 07:38] VITALS: BMI 41.4
[2023-03-13] MEDS ORDERED: NITROGLYCERIN/D5W 50 MG/250 ML BTL IV SCH (08:00)
[2023-03-13] MEDS ORDERED: HEPARIN 5000 UNIT/ML 1 ML VIAL ONE (08:37)
[2023-03-13] MEDS ORDERED: METOPROLOL TAR 50 MG TAB ONE (08:37)
[2023-03-13] MEDS ORDERED: ASPIRIN EC 81 MG TAB PO ONE (08:38)
[2023-03-13] MEDS ORDERED: HYDRALAZINE HCL 25 MG TABLET ONE (08:38)
[2023-03-13] MEDS ORDERED: HYDRALAZINE HCL 25 MG TABLET PO SCH (09:00)
[2023-03-13] MEDS ORDERED: SPIRONOLACTONE 25 MG TABLET PO SCH (09:00)
[2023-03-13] MEDS ORDERED: HEPARIN 5000 UNIT/ML 1 ML VIAL SQ SCH (09:00)
[2023-03-13] MEDS ORDERED: FUROSEMIDE 40 MG/4 ML VIAL IV SCH (09:00)
[2023-03-13] MEDS ORDERED: METOPROLOL TAR 50 MG TAB PO SCH (09:00)
[2023-03-13] MEDS ORDERED: ASPIRIN EC 81 MG TAB PO SCH (09:00)
--- NOTE | 2023-03-13 12:11 | P.CNS ---
Date of Consult: 03/13/23 Reason for Consult: Renal insufficiency Requesting Physician: Remington Bro Chief Complaint: CHF exacerbation History of Present Illness: 63-year-old male chronic systolic congestive heart failure, HTN, CKD III/IV seen by Dr. Merritt in January, who presents to the emergency department with respiratory distress, hypertensive urgency reporting he has been out of his Lasix for the last couple of weeks. He reports not calling our office or other as he did not have a ride to the pharmacy or other. BP has improved but he remains on a nitro gtt. Allergies No Known Allergies Allergy (Unverified 09/07/17 15:26) Home Medications: Atorvastatin Calcium 20 mg PO DAILY 01/15/23 Glimepiride 2 mg PO DAILY 01/15/23 Aspirin Chewable [Aspirin Chewable*] 81 mg PO DAILY tab.chew 01/20/23 Hydralazine HCl 50 mg PO BID #60 tab 01/20/23 Isosorbide Mononitrate [Isosorbide Mononitrate ER] 30 mg PO DAILY #30 tab 01/20/23 Metoprolol Tartrate [Lopressor*] 50 mg PO BID #60 tab 01/20/23 Spironolactone [Aldactone*] 25 mg PO DAILY #30 tab 01/20/23 Torsemide [Demadex*] 40 mg PO DAILY #60 tab 01/20/23 - Past Medical/Surgical History Diabetic: No -: CVA -: HTN -: DM II -: CKD 4 (Dr. Merritt) -: Systolic CHF -: None Psychosocial/ Personal History: Patient unemployed lives alone - Family History Father Medical History: Heart disease - Social History Alcohol use: No CD- Drugs: Yes Caffeine use: No Place of Residence: Home Review of Systems General: Weakness Respiratory: Shortness of Breath, SOB with Excertion Cardiovascular: Paroxysmal Noc. Dyspnea, Edema, As per HPI Genitourinary: Unremarkable Musculoskeletal: Leg Pain Integumentary: Rash Neurological: Weakness, As per HPI Physical Examination Temp Pulse Resp BP Pulse Ox 97.4 F 68 18 146/75 H 96 03/13/23 11:00 03/13/23 11:00 03/13/23 11:00 03/13/23 11:00 03/13/23 11:00 General: In no apparent distress, Cooperative, Disheveled HEENT: Atraumatic, Normocephalic Neck: Supple Respiratory: Normal air movement, Other (on O2) Cardiovascular: Regular rate/rhythm, Edema Gastrointestinal: No tenderness, Distended Musculoskeletal: No tenderness, No warmth, Swelling Integumentary: Skin lesion, Venous stasis ulcer Neurological: Normal speech, Normal tone, Normal affect Laboratory Data (last 24 hrs) 03/13/23 01:50: WBC 10.00, Hgb 12.8 L, Hct 39.1 L, Plt Count 260 03/13/23 01:50: Sodium 138, Potassium 3.2 L, BUN 48 H, Creatinine 3.75 H, Glucose 192 H, Magnesium 1.7, Total Bilirubin 1.2 H, AST 21, ALT 30, Alkaline Phosphatase 74 Conclusions/Impression: A/P) Stage I ELMER on underlying CKD (previously Stage III historically but likely with progression since to Stage IV) 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 ARR prev checked and not elevated although low K can suppress aldosterone Systolic CHF, A/C -Cont IV lasix diuresis, will add back Spironolactone if renal function stabilizes/K level remains on the lower end. Johnathon Sabillon MD, SHERRIE
[2023-03-13] MEDS ORDERED: POTASSIUM 25 MEQ EFFERV TAB PO ONE (12:20)
--- NOTE | 2023-03-13 14:45 | EKG ---
Test Date: 2023-03-13 Test Time: 02:00:57 Lipcoat Sprayer: JUAQUIN MEASUREMENT RESULTS: Intervals: Rate: 89 MA: 178 QRSD: 104 QT: 414 QTc: 503 [place]: P: 53 MA: 178 QRS: 10 T: 85 INTERPRETIVE STATEMENTS: Normal sinus rhythm Nonspecific T wave abnormality Prolonged QT Abnormal ECG Compared to ECG 01/14/2023 12:25:33 T-wave abnormality now present Prolonged QT interval now present Atrial abnormality no longer present Electronically Signed On 03-13-23 14:44:13 CDT by Mauricio Arguelles
--- NOTE | 2023-03-13 15:33 | P.DS ---
Admission Date: 03/13/23 Discharge Date: 03/13/23 Disposition: TRANSFER TO [facility] Comment: [facility] [place], [place] Discharge Condition: FAIR Reason for Admission: CHF exacerbation Consultations: 1. Cardiology 2. Nephrology Hospital Course: DIAGNOSES: # Hypertensive Emergency with Acute on Chronic Decompensated Systolic Congestive Heart Failure with Reduced Ejection Fraction # Suspect Type II Non-ST Segment Elevation Myocardial Infarction (Demand Ischemia) due to above # KDIGO Stage I Acute Kidney Injury on Chronic Kidney Disease Stage III # History of Cerebrovascular Accident # Type II Diabetes Mellitus # Dyslipidemia # Hypokalemia HOSPITAL COURSE: Mr. Calos Marie is a pleasant 62-year-old male with a past medical history significant for chronic systolic congestive heart failure (LVEF 23 %), prior cerebrovascular accident, type II diabetes mellitus, dyslipidemia, and chronic kidney disease stage III who was admitted to the [facility] on 03/13/2023 for hypertensive emergency with acute on chronic decompensated systolic heart failure. He was admitted to the Medicine service. Upon further evaluation, his NT-Pro BNP was 14,991. His troponin trend was 88.3 -> 100.5. He was placed on a IV furosemide, a nitroglycerin drip, and a BiPAP mask due to respiratory distress. Cardiology and Nephrology were consulted. Shortly after admission, it was discovered that our hospital is at capacity, and we would be unable to place him in an ICU bed. After discussion with Mr. Marie, he agreed to transfer to a facility with ICU availability. Transfer requested was initiated. Doc-to-doc was completed with Dr. Zheng ([facility]), who has generously accepted him for transfer. On 03/13/2023, he was seen on rounds and deemed medically stable for transfer. He was given the opportunity to ask questions and reported no further questions. Furthermore, all questions were answered to the best of my ability. A copy of this discharge summary will be sent to the above providers to facilitate continuity of care. Today, I personally spent 40 minutes on his case, of which greater than 50% of the time was spent in patient education, counseling, and coordination of care as described above. Vital Signs/Physical Exam: Temp Pulse Resp BP Pulse Ox 97.9 F 71 18 135/76 97 03/13/23 13:00 03/13/23 13:00 03/13/23 13:00 03/13/23 13:00 03/13/23 13:00 General: Alert, Oriented x3, Mild distress HEENT: Atraumatic, Sclerae nonicteric Neck: JVD distended Respiratory: Diminished, Crackles/rales (bibasilar) Cardiovascular: Regular rate/rhythm, No gallops, No rubs, No murmurs, Edema (1- 2+ BLE) Gastrointestinal: Normal bowel sounds, Soft and benign, Non-distended, No tenderness, No rebound, No guarding Musculoskeletal: No clubbing Integumentary: No rashes Neurological: Normal speech, Normal affect Laboratory Data at Discharge: WBC 10.00 thou/uL (4.3-10.9) 03/13/23 01:50 Hgb 12.8 g/dL (13.6-17.9) L 03/13/23 01:50 Hct 39.1 % (39.6-49.0) L 03/13/23 01:50 Plt Count 260 thou/uL (152-406) 03/13/23 01:50 Sodium 138 mEq/L (136-145) 03/13/23 01:50 Potassium 3.2 mEq/L (3.5-5.1) L 03/13/23 01:50 BUN 48 mg/dL (7-18) H 03/13/23 01:50 Creatinine 3.75 mg/dL (0.70-1.30) H 03/13/23 01:50 Glucose 192 mg/dL (74-106) H 03/13/23 01:50 Magnesium 1.7 mg/dL (1.6-2.4) 03/13/23 01:50 Total Bilirubin 1.2 mg/dL (0.2-1.0) H 03/13/23 01:50 AST 21 U/L (15-37) 03/13/23 01:50 ALT 30 U/L (16-61) 03/13/23 01:50 Alkaline Phosphatase 74 U/L (45-117) 03/13/23 01:50 Home Medications: Atorvastatin Calcium 20 mg PO DAILY 01/15/23 Glimepiride 2 mg PO DAILY 01/15/23 Aspirin Chewable [Aspirin Chewable*] 81 mg PO DAILY tab.chew 04/18/23 Isosorbide Mononitrate [Isosorbide Mononitrate ER] 30 mg PO DAILY #30 tab 01/20/23 Torsemide [Demadex*] 40 mg PO DAILY #60 tab 01/20/23 Hydralazine HCl 100 mg PO BID 03/13/23 Metoprolol Tartrate [Lopressor*] 25 mg PO BID 03/13/23 Spironolactone [Aldactone*] 50 mg PO DAILY 03/13/23 Physician Discharge Instructions: - Continue care at [facility] Diet: AHA Activity: Bedrest Time spent managing pt's care (in minutes): 40
[2023-03-13 18:01] VITALS: TEMP 97.5
[2023-03-13 18:07] VITALS: O2SAT 100
[2023-03-13 18:18] VITALS: BP 194/105
[2023-03-13] MEDS ORDERED: ATORVASTATIN 20 MG TAB PO SCH (21:00)
--- NOTE | 2023-03-15 09:32 | CON ---
Date of Consultation: 03/13/2023 Reason For Consultation: Congestive heart failure. History Of Present Illness: Mr. Calos Marie is 63 years old. He is a patient of Dr. Keene. He has k nown chronic systolic congestive heart failure with an ejection fraction of 23%. He has a history of CVA and hypertension. Came in with a blood pressure of 190/405, renal insufficiency, creatinine of 3.75. He is on BiPAP. He is on nitroglycerin drip because of his blood pressure. His blood pressur e is improved. He never had any chest pain. His main complaint was shortness of breath, PND, orthop brian, and pedal edema. He denied fever or chills or palpitations. Past Medical History: As stated above. Allergies: NONE. Review of Systems: Negative. Social History: Negative. Family History: Negative. Physical Examination: Vital Signs: When I saw him; his blood pressure was 160/100 with a sinus rhythm. He was pleasant. He was still on BiPAP with adequate O2 saturation, still on nitroglycerin drip. HEENT: Negative. Neck: Supple with no bruit. Chest: Reveals rales both bases. Cardiac: Revealed tachycardia with S3 gallops. Abdomen: Obese, but benign. Extremities: Revealed 1+ edema. Diagnostic Data: Showed a creatinine of 3.75. Troponin was mildly elevated at 79. Chest x-ray show ed failure. Impression And Plan: 1.Acute on chronic systolic congestive heart failure. 2.Hypertensive crisis, on nitroglycerin. 3.History of cerebrovascular accident. 4.Elevated troponin secondary to demand ischemia. 5.Renal failure. The patient is on aspirin, BiPAP, nitroglycerin, Lasix metoprolol, and hydralazine . We can certainly add Norvasc to his regimen. He is not a candidate for KIMBERLY inhibitors or ARBs due to his kidney. I think we should have Nephrology following him. Continue present regimen. No need for any further cardiac workup at this point. We will continue to follow. DWAYNE/ALINE Voice ID: [id number] Report ID: [id number]
--- NOTE | 2023-03-15 14:15 | RAD REPORT ---
EXAM DESCRIPTION: XR Chest, 1 View CLINICAL HISTORY: The patient is 63 years old and is Male; DYSPNEA TECHNIQUE: Frontal view of the chest. COMPARISON: No relevant prior studies available. FINDINGS: LUNGS: Unremarkable. No consolidation. PLEURAL SPACE: Unremarkable. No pneumothorax. HEART: The cardiac silhouette is enlarged. MEDIASTINUM: Unremarkable. BONES/JOINTS: Unremarkable. UPPER ABDOMEN: Unremarkable as visualized. IMPRESSION: Cardiomegaly without failure. Electronically signed by: Laurita Lamas MD 03/13/2023 2:09 AM CDT Due to temporary technical issues with the PACS/Fluency reporting system, reports are being signed by the in house radiologists without review as a courtesy to insure prompt reporting. The interpreting radiologist is fully responsible for the content of the report.
== END 2023-03-13 17:30 | disposition short-term general hospital (02) | DRG 280 ==
LOC: ER 01:15 → ERHOLD 03:19
PROVIDERS: ADMIT Internal Medicine; ATTEND Internal Medicine
PROC: 5A09357 Assistance with Respiratory Ventilation, Less than 24 Consecutive Hours, Continuous Positive Airway Pressure (ICD-10-PCS; principal; 2023-03-13)
DX: I13.0 Hypertensive heart and chronic kidney disease with heart failure and stage 1 through stage 4 chronic kidney disease, or unspecified chronic kidney disease (principal); I50.23 Acute on chronic systolic (congestive) heart failure; I21.A1 Myocardial infarction type 2; N18.4 Chronic kidney disease, stage 4 (severe); I16.1 Hypertensive emergency; Z68.41 Body mass index [BMI] 40.0-44.9, adult; N17.9 Acute kidney failure, unspecified; E11.22 Type 2 diabetes mellitus with diabetic chronic kidney disease; E11.65 Type 2 diabetes mellitus with hyperglycemia; E66.9 Obesity, unspecified; E78.5 Hyperlipidemia, unspecified; E87.6 Hypokalemia; Z56.0 Unemployment, unspecified; Z60.2 Problems related to living alone; Z79.82 Long term (current) use of aspirin; Z86.73 Personal history of transient ischemic attack (TIA), and cerebral infarction without residual deficits; Z79.84 Long term (current) use of oral hypoglycemic drugs; Z79.899 Other long term (current) drug therapy
CPT/HCPCS: 36415; 71045; 80048; 80076; 82947; 83036; 83735; 83880; 84484; 85025; 93005; 94660; 96365; 96366; 96375; 99285; J1644; J1940

== ENCOUNTER 2023-04-03 11:33 | Observation (INO) | payer OTHER ==
--- OUTSIDE RECORDS SUMMARY | 2023-04-03 11:41 | XMS REPORT | Continuity of Care Document ---
:1960 Author Organization [facility] t Address [address] [facility] [place] [address] Care Team Providers Name Role Phone DESTINY RICO Primary Care Physician Unavailable OLIVIA SANCHES Attending Clinician Unavailable Salvador Keene Attending Clinician Unavailable Ashley Pike Attending Clinician Unavailable LEO WORLEY Attending Clinician Unavailable DESTINY RICO Attending Clinician Unavailable KAROLINE PEARSON Attending Clinician Unavailable LEO WORLEY Admitting Clinician Unavailable DESTINY RICO Admitting Clinician Unavailable KAROLINE PEARSON Admitting Clinician Unavailable Payers Payer Name Policy Type Policy Number Effective Date Expiration Date S fred MEDICARE A B [id number] 2023 00:00:00 [facility] [id number] 2023 PLAN 00:00:00 [place] [id number] 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 [id number] Shortness Problem Com mon of breath [facility] Anxiety Anxiety Problem Common [facility] [id number] History of Problem Co mmon multiple Spirit strokes [facility] [id number] Orthopnea Problem Comm on [facility] [id number] Uncontroll Problem Co mmon ed type 2 Spirit diabetes - CHI mellitus [facility] hyperglyce Medica l [facility] Center [id number] Abnormal Problem Comm on laboratory Spirit test - [facility] result [facility] [id number] Microalbum Problem Co mmon inuria [facility] [id number] Essential Problem Comm on hypertensi Spirit on [facility] [id number] Asymptomat Problem Co mmon ic Spirit hypertensi - [facility] ve urgency 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 [facility] [id number] Hyperglobu Problem Co mmon linemia Spirit [facility] [id number] Type 2 Problem Commo n 05 diabetes Spirit mellitus - [facility] with [facility] chronic [facility] kidney Center disease [id number] Elevated Problem Comm on brain Spirit natriureti - [facility] c peptide (BNP) [facility] [id number] Hypoxia Problem Commo n Spirit [facility] [id number] Mixed Problem Common hyperlipid Spirit emia [facility] [id number] Abnormal Problem Commo n renal Spirit function [facility] [id number] Obesity Problem Commo n (BMI Spirit 30-39.9) [facility] [id number] Peripheral Problem Co mmon edema Spirit - [facility] [id number] Chronic Problem Commo n kidney Spirit disease, - [facility] stage 3 [facility] [id number] Type 2 [place] [address] diabetes Spirit mellitus - [facility] with other diabetic [facility] kidney Medical complicati Center on Allergies, Adverse Reactions, Alerts Allergy Allergy Status Severity Reaction(s) Onset Inactive Treating Comm ents Source Name Type Date Date Clinician NO KNOWN Allergy Active [facility] ALLERGIE S Social History Social Habit Start Date Stop Date Quantity Comments Source History of Common Spirit - Tobacco Use [facility] Sex Assigned At Common Sp yaw - [facility] Tobacco use and 2018-03-26 2018-03-26 Smokeless tobacco I [facility] exposure 00:00:00 00:00:00 non-user Medical Center Smoking Status Start Date Stop Date Source Never Smoker [facility] Medications Ordered Filled Start Stop Current Ordering Indication Dosage Frequency Signature Comments Components Source Medication Medication Date Date Medication? Clinician (SIG) Name Name Lisinopril Lisinopril 2021-0 No .5{tabl BID Lisinopril 40 MG 40 MG 3-16 et} 40 MG 00:00: 00 Lisinopril Lisinopril 2-0 No .5{tabl BID Lisinopril 40 MG 40 MG 3-16 et} 40 MG 00:00: 00 Lisinopril Lisinopril 2022-0 No .5{tabl BID Lisinopril 40 MG 40 MG 3-16 et} 40 MG 00:00: 00 HydrALAZINE HydrALAZINE 2019-0 Yes Ashley 1 tablet Common HCl HCl 6-26 [facility] Spirit 00:00: - [facility] Lancets Lancets 2019-0 Yes Ashley as Common 6-14 Millender directed Spirit 00:00: (dispense - [facility] lancets [facility] to Medical insurance) [place] Blood Blood 2019-0 Yes Ashley as Common Glucose Glucose 6-14 Millender directed Spirit Test Strip Test Strip 00:00: (DISPENSE - [facility] BLOOD GLUCOSE [facility] TEST Medical STRIPS [place] FORMULARY TO INSURANCE) Blood Blood 2019- Yes Ashley as Common Glucose Glucose 6-14 Millender directed Spirit Monitor Monitor 00:00: (DISPENSE - BLOOD GLUCOSE [facility] MONITOR Medical FORMULARY Center TO INSURANCE) Lancets - Lancets - 2018-0 No Lancets - 6-14 00:00: 00 Blood [...] Strip Test Strip 00:00: Test Strip 00 Lipitor Lipitor Yes Ashley 1 tablet Co mmon 3-21 Millender in evening Spir it 00:00: - [facility] Crestor Crestor 2018-0 Yes Ashley 1 tablet Co mmon 3-13 Millender Spirit 00:00: - [facility] Crestor 20 Crestor 20 2018-0 No 1{table Crestor 20 mg mg 3-13 t} mg 00:00: 00 Crestor 20 Crestor 20 2018-0 No 1{table Crestor 20 mg mg 3-13 t} mg 00:00: 00 Crestor 20 Crestor 20 2018-0 No 1{table Crestor 20 mg mg 3-13 t} mg 00:00: 00 Lisinopril Lisinopril Yes Ashley 1 tablet Common 2-12 [facility]ender Spirit 00:00: - [facility] [address] [facility] Amlodipine Amlodipine Yes Ashley 1 tablet Common Besylate Besylate Millender Sp yaw - [facility] Glimepiride Glimepiride Yes Ashley 1 tablet Common Millender with Spirit breakfast - [facility] or the [facility] meal of Medical the day [place] Coreg Coreg Yes Ashley 1 tablet Common Millender Spirit - [facility] Metoprolol Metoprolol Yes Ashley 1 tablet Common Succinate Succinate Millender Spirit ER ER - [facility] Furosemide Furosemide No Furosemide Coreg 12.5 Coreg [...] Name Observation Time Observation Value Comments Source WEIGHT 2023-03-15 06:00:00 115 kg HEIGHT 2023-03-13 19:30:00 177.8 cm WEIGHT 2023-03-13 19:30:00 109.3 kg WEIGHT 2023-03-15 06:00:00 115 kg HEIGHT 2023-03-13 19:30:00 177.8 cm WEIGHT 2023-03-13 19:30:00 109.3 kg height 2022-05-12 13:00:00 71.00 [in_i] [facility] weight 2022-05-12 13:00:00 279.8 [lb_av] [facility] temperature 2022-05-12 13:00:00 100.0 [degF] [facility] bmi 2022-05-12 13:00:00 39.02 kg/m2 [facility] oximetry 2022-05-12 13:00:00 91 % [facility] respiratory rate 2022-05-12 13:00:00 16 /min Comm on [facility] blood pressure 2022-05-12 13:00:00 189 mm[Hg] Common [facility] - systolic [facility] blood pressure 2022-05-12 13:00:00 86 mm[Hg] [facility] - diastolic [facility] height 2021-12-09 11:20:00 71.00 [in_i] [facility] weight 2021-12-09 11:20:00 275.8 [lb_av] [facility] temperature 2021-12-09 11:20:00 97.4 [degF] Common S pirit [facility] bmi 2021-12-09 11:20:00 38.46 kg/m2 Common S pirit [facility] oximetry 2021-12-09 11:20:00 97 % [facility] respiratory rate 2021-12-09 11:20:00 19 /min Comm on [facility] blood pressure 2021-12-09 11:20:00 152 mm[Hg] Common [facility] - systolic [facility] blood pressure 2021-12-09 11:20:00 79 mm[Hg] Common [facility] - diastolic [facility] height 2021-11-08 10:50:00 71.00 [in_i] Common S [facility] weight 2021-11-08 10:50:00 275.2 [lb_av] [facility] temperature 2021-11-08 10:50:00 97.9 [degF] Common S [facility] bmi 2021-11-08 10:50:00 38.38 kg/m2 [facility] oximetry 2021-11-08 10:50:00 98 % [facility] respiratory rate 2021-11-08 10:50:00 18 /min Comm on [facility] blood pressure 2021-11-08 10:50:00 165 mm[Hg] Common [facility] - systolic [facility] blood pressure 2021-11-08 10:50:00 74 mm[Hg] Common [facility] - diastolic [facility] height 2021-10-11 10:10:00 71.00 [in_i] [facility] weight 2021-10-11 10:10:00 280.5 [lb_av] [facility] temperature 2021-10-11 10:10:00 97.7 [degF] [facility] bmi 2021-10-11 10:10:00 39.12 kg/m2 Common [facility] oximetry 2021-10-11 10:10:00 98 % Common [facility] respiratory rate 2021-10-11 10:10:00 18 /min Comm on [facility] blood pressure 2021-10-11 10:10:00 178 mm[Hg] Common [facility] - systolic [facility] blood pressure 2021-10-11 10:10:00 80 mm[Hg] Common [facility] - diastolic [facility] height 2021-09-11 14:30:00 71.00 [in_i] [facility] weight 2021-09-11 14:30:00 264.9 [lb_av] [facility] temperature 2021-09-11 14:30:00 98.4 [degF] [facility] bmi 2021-09-11 14:30:00 36.94 kg/m2 [facility] oximetry 2021-09-11 14:30:00 95 % [facility] respiratory rate 2021-09-11 14:30:00 18 /min Comm on [facility] blood pressure 2021-09-11 14:30:00 192 mm[Hg] Common [facility] - systolic [facility] blood pressure 2021-09-11 14:30:00 88 mm[Hg] [facility] diastolic [facility] Procedures This patient has no known procedures. Encounters Start End Encounter Admission Attending Care Care Encounter Source Date/Time Date/Time Type Type Clinicians Facility Department ID 2023-03-14 Inpatient ER VERÓNICA, ARTUROMarc [facility] [id number] [facility] 15:14:41 OLIVIA 2023-03-13 [facility] [id number] [facility] 19:34:56 OLIVIA 2023-03-13 [facility] [id number] [facility] 19:28:55 OLIVIA 2023-01-26 [facility] [id number] Common 11:53:00 [facility] [address] [facility] 2023-01-21 Out[facility] Keene[facility] [id number] Common 14:45:00 Salvador [facility] 2022-05-12 Outpatient Keene, STLMLC ST[facility] [id number] Common 13:03:00 Salvador [facility] 2021-11-08 Outpatient Keene, STLMLC ST[facility] [id number] Common 10:52:00 Salvador [facility] 2021-11-07 Outpatient Keene, STLMLC ST[facility] [id number] Common 12:04:00 Salvador [facility] 2021-10-30 Outpatient Keeen, STLMLC STLC [id number] Common 14:32:21 Salvador [facility] 2021-10-30 Outpatient Keene, STLMLC ST[facility] [id number] Common 14:31:54 Salvador [facility] 2021-10-30 Outpatient Keene, STLMLC STLC [id number] Common 14:22:25 Salvador 72699 [facility] 2021-10-30 Outpatient Keene, STLMLC STLC [id number] Common 12:40:20 Salvador 57027 [facility] 2021-10-30 Outpatient Keene, STLMLC STLC [id number] Common 12:39:30 Salvador 95271 [facility] 2021-10-30 Outpatient Keene, STLMLC ST[facility] [id number] Common 12:32:53 Salvador 15884 [facility] 2021-10-30 Outpatient Keene, STLMLC ST[facility] [id number] Common 12:29:47 Salvador 89085 [facility] 2021-10-30 Outpatient Millender, [facility] [id number] Common 11:28:42 Ashley 71581 [facility] 2021-10-30 Outpatient Millender, [facility] [id number] Common 11:14:50 Ashley 66635 [facility] 2021-10-30 Outpatient Glenyd, STLMLC STLMLC [id number] 11:14:28 Ashley 82101 [facility] 2023-03-13 2023-03-16 Inpatient ER DESTINY RICO [facility] Medical ICU [id number] [facility] 18:50:00 16:05:00 2022-09-05 2022-09-05 (TEL) STLMLC STLMLC [id number] Co mmon 00:00:00 00:00:00 [facility] 2022-05-15 2022-05-15 (TEL) STLMLC STLMLC [id number] Co mmon 00:00:00 00:00:00 [facility] 2022-05-12 2022-05-12 OFFICE STLMLC STLMLC [id number] Co mmon 00:00:00 00:00:00 VISIT Spirit ESTAB PT - [facility] LEVEL 4 [facility] 2021-12-16 2021-12-16 (TEL) STLMLC STLMLC [id number] Co mmon 00:00:00 00:00:00 [facility] 2021-12-09 2021-12-09 OFFICE STLMLC STLMLC [id number] Co mmon 00:00:00 00:00:00 VISIT Spirit ESTAB PT - [facility] LEVEL 4 [facility] 2021-11-08 2021-11-08 OFFICE STLMLC STLMLC [id number] Co mmon 00:00:00 00:00:00 VISIT Spirit ESTAB PT - [facility]I LEVEL [address] [facility] 2021-10-11 2021-10-11 OFFICE STLMLC STLMLC [id number] Co mmon 00:00:00 00:00:00 VISIT Spirit ESTAB PT - [facility] LEVEL 4 [facility] 2021-10-09 2021-10-09 (TEL) STLMLC STLMLC [id number] Co mmon 00:00:00 00:00:00 [facility] 2021-09-11 2021-09-11 OFFICE STLMLC STLMLC [id number] Co mmon 00:00:00 00:00:00 VISIT Spirit ESTAB PT - [facility] LEVEL 5 [facility] 2021-09-10 2021-09-10 (TEL) STLMLC STLMLC [id number] Co mmon 00:00:00 00:00:00 [facility] 2020-11-14 2020-11-14 Outpatient STLMLC STLMLC [id number] Common 00:00:00 00:00:00 [facility] 2020-04-04 2020-04-04 [facility] [id number] Common 01:14:00 01:14:[address] [facility] 2020-03-30 2020-03-30 [facility] [id number] Common 15:40:00 15:40:[address] [facility] 2019-10-26 2019-10-26 [facility] [id number] Common 09:28:00 09:28:[address] [facility] 2019-10-19 2019-10-19 [facility] [id number] Common 14:47:00 14:47:[address] [facility] 2019-10-03 2019-10-03 [facility] [id number] Common 12:08:00 12:08:[address] [facility] 2019-09-23 2019-09-23 [facility] [id number] Common 16:00:00 16:00:[address] [facility] 2019-06-23 2019-06-23 [facility] [id number] Common 19:12:00 19:12:[address] [facility] 2019-06-21 2019-06-21 [facility] [id number] Common 16:00:00 16:00:[address] [facility] 2019-03-18 2019-03-18 [facility] [id number] Common 00:13:00 00:13:[address] [facility] 2019-03-16 2019-03-16 [facility] [id number] Common 16:00:00 16:00:[address] [facility] 2019-02-17 2019-02-17 [facility] [id number] Common 13:16:00 13:16:[address] [facility] 2018-12-23 2018-12-23 [facility] [id number] Common 09:11:00 09:11:[address] [facility] 2018-12-15 2018-12-15 [facility] [id number] Common 01:25:00 01:25:[address] [facility] 2018-12-14 2018-12-14 [facility] [id number] Common 16:00:00 16:00:[address] [facility] 2018-11-25 2018-11-25 [facility] [id number] Common 13:38:00 13:38:[address] [facility] 2018-11-23 2018-11-23 [facility] [id number] Common 15:24:00 15:24:[address] [facility] 2018-11-18 2018-11-18 Out[facility] [id number] Common 14:50:00 14:50:[address] [facility] 2018-11-17 2018-11-17 [facility] [id number] Common 18:12:00 18:12:[address] [facility] 2018-11-16 2018-11-16 [facility] [id number] Common 22:29:00 22:29:00 [facility] 2018-11-16 2018-11-16 Out[facility] [id number] Common 15:00:00 15:00:00 [facility] Results Test Description Test Time Test Comments Results Result Comments Source BLOOD CULTURE 2023-03-18 22:00:59 Test Item Value Reference Range Interpretation Comme nts CULTURE (BEAKER) (test code = 1095) No growth in 5 days BLOOD [id number] 22:00:59 Test Item Value Reference Range Interpretation Comments CULTURE (BEAKER) (test No growth in 5 days code = 1095) POCT-GLUCOSE [id number] 11:32:44 Test Item Value Reference Range Interpretation Comments POC-GLUCOSE METER 125 mg/dL 70-110 H : TESTED A T [facility] 1317 (BEAKER) (test code [address], = 1538) [place] [id number]: Artillery Specialist/Techni dorys ID = [id number] for Buff ord, Mariya POCT-GLUCOSE [id number] 07:36:54 Test Item Value Reference Range Interpretation Comments POC-GLUCOSE METER 97 mg/dL 70-110 : TESTED A T [facility] 1317 (BEAKER) (test code = [address], 1538) [place] [id number]: Artillery Specialist/Techni dorys ID = [id number] for Buff ord, Mariya B-TYPE NATRIURETIC FACTOR (BNP)2023-03-16 05:20:06 Test Item Value Reference Range Interpretation Comments B-TYPE NATRIURETIC PEPTIDE (BEAKER) 294 pg/mL 0-100 H (test code = 700) Artillery Specialist ID - [id number] 05:10:37 Test Item Value Reference Range Interpretation Comments MAGNESIUM (BEAKER) 2.2 mg/dL 1.5-3.0 Specimen slightly (test code = 627) hemolyzed Artillery Specialist ID - [id number] ID - [id number] ID - [id number] ID - [id number] METABOLIC [id number] 05:09:31 Test Item Value Reference Range Interpretation Comments SODIUM (BEAKER) 136 meq/L 135-148 (test code = 381) POTASSIUM 3.7 meq/L 3.6-5.5 Specimen slight ly (BEAKER) (test hemolyzed code = 379) CHLORIDE (BEAKER) 102 meq/L 98-106 (test code = 382) CO2 (BEAKER) 19 meq/L 20-29 L (test code = 355) BLOOD UREA 42 mg/dL 10-26 H NITROGEN (BEAKER) (test code = 354) CREATININE 3.39 mg/dL 0.50-1.20 H Specimen slight ly (BEAKER) (test hemolyzed code = 358) GLUCOSE RANDOM 83 mg/dL 70-110 (BEAKER) (test code = 652) CALCIUM (BEAKER) 8.2 mg/dL 8.5-10.5 L (test code = 697) EGFR (BEAKER) 20 Interpretatio n of eGFR (test code = mL/min/1.73 values Stage De scription 1092) sq m Result G1 Opal l or high >=90 G2 Mildly decreased 60-89 G3a Mildl y to moderately 45-5 9 G3b Moderately to s everely 30-44 G4 Sever ly decreased 15-29 G5 Kidney failure <15Repo rted eGFR is based on the CKD-EPI 2020 equation t hat does not use a race coefficientEsti mated GFR is not as accur ate as Creatinine Lexis [place] in predicting glom erular filtration rate . Estimated GFR is not appl icable for dialysis patien ts Artillery Specialist ID - [id number] ID - [id number] ID - [id number] ID - [id number] ID - [id number] ID - [id number] ID - [id number] ID - [id number] ID - [id number] ID - [id number] 05:07:59 Test Item Value Reference Range Interpretation Comments PHOSPHORUS (BEAKER) 3.4 mg/dL 2.5-4.5 Specimen slightly (test code = 604) hemolyzed Artillery Specialist ID - [id number] W/PLT COUNT & AUTO [id number] 04:55:46 Test Item Value Reference Range Interpretation Comments WHITE BLOOD CELL COUNT (BEAKER) 8.3 K/ L 4.0-10.0 (test code = 775) RED BLOOD CELL COUNT (BEAKER) 4.53 M/ L 4.20-5.80 (test code = 761) HEMOGLOBIN (BEAKER) (test code = 12.6 GM/DL 13.0-16.8 L 410) HEMATOCRIT (BEAKER) (test code = 40.4 % 36.0-50.0 411) MEAN CORPUSCULAR VOLUME (BEAKER) 89 fL 82-99 (test code = 753) MEAN CORPUSCULAR HEMOGLOBIN 27.8 pg 27.0-33.0 (BEAKER) (test code = 751) MEAN CORPUSCULAR HEMOGLOBIN CONC 31.2 GM/DL 32.0-36.0 L (BEAKER) (test code = 752) RED CELL DISTRIBUTION WIDTH 18.0 % 12.0-15.0 H (BEAKER) (test code = 412) PLATELET COUNT (BEAKER) (test 280 K/CU MM 150-430 code = 756) MEAN PLATELET VOLUME (BEAKER) 10.9 fL 6.0-11.5 (test code = 754) NUCLEATED RED BLOOD CELLS 0 /100 WBC 0-0 (BEAKER) (test code = 413) NEUTROPHILS RELATIVE PERCENT 75 % (BEAKER) (test code = 429) LYMPHOCYTES RELATIVE PERCENT 12 % (BEAKER) (test code = 430) MONOCYTES RELATIVE PERCENT 9 % (BEAKER) (test code = 431) EOSINOPHILS RELATIVE PERCENT 4 % (BEAKER) (test code = 432) BASOPHILS RELATIVE PERCENT 1 % (BEAKER) (test code = 437) NEUTROPHILS ABSOLUTE COUNT 6.17 K/ L 1.80-8.00 (BEAKER) (test code = 670) LYMPHOCYTES ABSOLUTE COUNT 1.00 K/ L 1.48-4.50 L (BEAKER) (test code = 414) MONOCYTES ABSOLUTE COUNT (BEAKER) 0.71 K/ L 0.00-1.30 (test code = 415) EOSINOPHILS ABSOLUTE COUNT 0.30 K/ L 0.00-0.50 (BEAKER) (test code = 416) BASOPHILS ABSOLUTE COUNT (BEAKER) 0.06 K/ L 0.00-0.20 (test code = 417) IMMATURE GRANULOCYTES-RELATIVE 0.40 % 0.00-0.00 H PERCENT (BEAKER) (test code = 2801) CALCIUM, [id number] 04:33:04 Test Item Value Reference Range Interpretation Comments CALCIUM IONIZED (BEAKER) (test 1.01 mmol/L 1.12-1.27 L code = 698) PH, BLOOD (BEAKER) (test code = 7.45 1810) POCT-GLUCOSE [id number] 20:50:40 Test Item Value Reference Range Interpretation Comments POC-GLUCOSE METER 146 mg/dL 70-110 H : TESTED A T [facility] 1317 (BEAKER) (test code [facility], = 1538) [place] [id number]: Artillery Specialist/Techni dorys ID = [id number] for Rukhsana Busby POCT-GLUCOSE [id number] 17:26:32 Test Item Value Reference Range Interpretation Comments POC-GLUCOSE METER 126 mg/dL 70-110 H : TESTED A T [facility] 1317 (BEAKER) (test code [facility], = 1538) [place] [id number]: Artillery Specialist/Techni dorys ID = [id number] for Guero Sharron mullera POCT-GLUCOSE [id number] 13:21:50 Test Item Value Reference Range Interpretation Comments POC-GLUCOSE METER 176 mg/dL 70-110 H : TESTED A T [facility] 1317 (BEAKER) (test code [facility], = 1538) [place] [id number]: Artillery Specialist/Techni dorys ID = [id number] for Guero yohana, Jolene MRSA [id number] 09:43:15 Test Item Value Reference Range Interpretation Comments CULTURE (BEAKER) (test code No MRSA isolated = 1095) BASIC METABOLIC [id number] 04:14:53 Test Item Value Reference Range Interpretation Comments SODIUM (BEAKER) 139 meq/L 135-148 (test code = 381) POTASSIUM 3.3 meq/L 3.6-5.5 L (BEAKER) (test code = 379) CHLORIDE (BEAKER) 102 meq/L 98-106 (test code = 382) CO2 (BEAKER) 26 meq/L 20-29 (test code = 355) BLOOD UREA 34 mg/dL 10-26 H NITROGEN (BEAKER) (test code = 354) CREATININE 3.15 mg/dL 0.50-1.20 H (BEAKER) (test code = 358) GLUCOSE RANDOM 95 mg/dL 70-110 (BEAKER) (test code = 652) CALCIUM (BEAKER) 8.6 mg/dL 8.5-10.5 (test code = 697) EGFR (BEAKER) 21 Interpretatio n of eGFR (test code = mL/min/1.73 values Stage De scription 1092) sq m Result G1 Opal l or high >=90 G2 Mildly decreased 60-89 G3a Mildl y to moderately 45-5 9 G3b Moderately to s everely 30-44 G4 Severl y decreased 15-29 G5 Kidney failure <15Reported eGF R is based on the CKD-EPI 2020 equation that d oes not use a race coefficientEsti mated GFR is not as accur ate as Creatinine Lexis tiki in predicting glom erular filtration rate . Estimated GFR is not appl icable for dialysis patien ts Artillery Specialist ID - LITOOperator ID - LITOOperator ID - LITOOperator ID - LITOOperator ID - LITOOperator ID - LITOOperator ID - LITOOperator ID - LITOOperator ID - LITOOperator ID - [id number] 04:12:51 Test Item Value Reference Range Interpretation Comments MAGNESIUM (BEAKER) (test code = 2.1 mg/dL 1.5-3.0 627) Artillery Specialist ID - LITOOperator ID - LITOOperator ID - LITOOperator ID - DARRON [id number] 04:10:28 Test Item Value Reference Range Interpretation Comments PHOSPHORUS (BEAKER) (test code = 3.6 mg/dL 2.5-4.5 604) Artillery Specialist ID - LITOCBC W/PLT COUNT & AUTO [id number] 04:02:54 Test Item Value Reference Range Interpretation Comments WHITE BLOOD CELL COUNT (BEAKER) 9.3 K/ L 4.0-10.0 (test code = 775) RED BLOOD CELL COUNT (BEAKER) 4.75 M/ L 4.20-5.80 (test code = 761) HEMOGLOBIN (BEAKER) (test code = 13.1 GM/DL 13.0-16.8 410) HEMATOCRIT (BEAKER) (test code = 42.0 % 36.0-50.0 411) MEAN CORPUSCULAR VOLUME (BEAKER) 88 fL 82-99 (test code = 753) MEAN CORPUSCULAR HEMOGLOBIN 27.6 pg 27.0-33.0 (BEAKER) (test code = 751) MEAN CORPUSCULAR HEMOGLOBIN CONC 31.2 GM/DL 32.0-36.0 L (BEAKER) (test code = 752) RED CELL DISTRIBUTION WIDTH 18.0 % 12.0-15.0 H (BEAKER) (test code = 412) PLATELET COUNT (BEAKER) (test 247 K/CU MM 150-430 code = 756) MEAN PLATELET VOLUME (BEAKER) 10.8 fL 6.0-11.5 (test code = 754) NUCLEATED RED BLOOD CELLS 0 /100 WBC 0-0 (BEAKER) (test code = 413) NEUTROPHILS RELATIVE PERCENT 78 % (BEAKER) (test code = 429) LYMPHOCYTES RELATIVE PERCENT 11 % (BEAKER) (test code = 430) MONOCYTES RELATIVE PERCENT 7 % (BEAKER) (test code = 431) EOSINOPHILS RELATIVE PERCENT 3 % (BEAKER) (test code = 432) BASOPHILS RELATIVE PERCENT 1 % (BEAKER) (test code = 437) NEUTROPHILS ABSOLUTE COUNT 7.25 K/ L 1.80-8.00 (BEAKER) (test code = 670) LYMPHOCYTES ABSOLUTE COUNT 1.04 K/ L 1.48-4.50 L (BEAKER) (test code = 414) MONOCYTES ABSOLUTE COUNT (BEAKER) 0.67 K/ L 0.00-1.30 (test code = 415) EOSINOPHILS ABSOLUTE COUNT 0.30 K/ L 0.00-0.50 (BEAKER) (test code = 416) BASOPHILS ABSOLUTE COUNT (BEAKER) 0.05 K/ L 0.00-0.20 (test code = 417) IMMATURE GRANULOCYTES-RELATIVE 0.30 % 0.00-0.00 H PERCENT (BEAKER) (test code = 2801) CALCIUM, [id number] 03:46:05 Test Item Value Reference Range Interpretation Comments CALCIUM IONIZED (BEAKER) (test 1.12 mmol/L 1.12-1.27 code = 698) PH, BLOOD (BEAKER) (test code = 7.39 1810) BASIC METABOLIC [id number] 21:09:33 Test Item Value Reference Range Interpretation Comments SODIUM (BEAKER) 138 meq/L 135-148 (test code = 381) POTASSIUM 3.3 meq/L 3.6-5.5 L (BEAKER) (test code = 379) CHLORIDE (BEAKER) 100 meq/L 98-106 (test code = 382) CO2 (BEAKER) 25 meq/L 20-29 (test code = 355) BLOOD UREA 40 mg/dL 10-26 H NITROGEN (BEAKER) (test code = 354) CREATININE 3.47 mg/dL 0.50-1.20 H (BEAKER) (test code = 358) GLUCOSE RANDOM 111 mg/dL 70-110 H (BEAKER) (test code = 652) CALCIUM (BEAKER) 8.7 mg/dL 8.5-10.5 (test code = 697) EGFR (BEAKER) 19 Interpretatio n of eGFR (test code = mL/min/1.73 values Stage De scription 1092) sq m Result G1 Opal l or high >=90 G2 Mildly decreased 60-89 G3a Mildl y to moderately 45-5 9 G3b Moderately to s everely 30-44 G4 Severl y decreased 15-29 G5 Kidney failure <15Reported eGF R is based on the CKD-EPI 2020 equation that d oes not use a race coefficientEsti mated GFR is not as accur ate as Creatinine Lexis [place] in predicting glom erular filtration rate . Estimated GFR is not appl icable for dialysis patien ts Artillery Specialist ID - LEVIOTAOperator ID - LEVIOTAOperator ID - LEVIOTAOperator ID - LEVIOTAOperator ID - LEVIOTAOperator ID - LEVIOTAOperator ID - LEVIOTAOperator ID - LEVIOTAOperator ID - LEVIOTAOperator ID - [id number] 21:09:02 Test Item Value Reference Range Interpretation Comments MAGNESIUM (BEAKER) (test code = 2.1 mg/dL 1.5-3.0 627) Artillery Specialist ID - LEVIOTAOperator ID - LEVIOTAOperator ID - LEVIOTAOperator ID - [id number] 21:06:20 Test Item Value Reference Range Interpretation Comments PHOSPHORUS (BEAKER) (test code = 4.1 mg/dL 2.5-4.5 604) Artillery Specialist ID - LEVIOTAPOCT-GLUCOSE [id number] 21:02:34 Test Item Value Reference Range Interpretation Comments POC-GLUCOSE METER 114 mg/dL 70-110 H : TESTED A T [facility] [address] (BEAKER) (test code [address]ELV[address] PENDING SALE TO [facility], = 1538) [place] [id number]: Artillery Specialist/Techni dorys ID = [id number] for Lynda Ann CALCIUM, [id number] 20:52:49 Test Item Value Reference Range Interpretation Comments CALCIUM IONIZED (BEAKER) (test 1.10 mmol/L 1.12-1.27 L code = 698) PH, BLOOD (BEAKER) (test code = 7.39 1810) POCT-GLUCOSE [id number] 16:28:38 Test Item Value Reference Range Interpretation Comments POC-GLUCOSE METER 106 mg/dL 70-110 : TESTED A T [facility] [address] (BEAKER) (test code [address] ER[address] PENDING SALE TO [facility], = 1538) [place] [address]: Artillery Specialist/Techni dorys ID = [id number] for Laurie Ny [id number] 11:51:06 Test Item Value Reference Range Interpretation Comments CORTISOL, TOTAL (BEAKER) (test 17.3 ug/dL 3.7-19.4 code = 2755) Artillery Specialist ID - ADMINPOCT-GLUCOSE [id number] 11:48:51 Test Item Value Reference Range Interpretation Comments POC-GLUCOSE METER 196 mg/dL 70-110 H : TESTED A T [facility] [address] (BEAKER) (test code [address] PENDING SALE TO [facility], = 1538) [place] [address]: Artillery Specialist/Techni dorys ID = [id number] for Laurie Ny TROPONIN [id number] 09:20:49 Test Item Value Reference Range Interpretation Comments TROPONIN I (BEAKER) (test code = 0.11 ng/mL 0.00-0.15 397) Troponin I (TnI) levels must be interpreted in the context of the presenting symptoms and the clinical findings. Elevated TnI levels indicate myocardial damage, but are not specific for ischemic heart disease. Elevated TnI levels are seen in patients with other cardiac conditions (including myocarditis and congestive heart failure), and slight TnI elevations occur in patients with other conditions, including sepsis, renal failure, acidosis, acute neurological disease, and persistent tachyarrhythmia.Artillery Specialist ID - DSENSONPOCT-GLUCOSE METER 2023-03-14 08:41:35 Test Item Value Reference Range Interpretation Comments POC-GLUCOSE METER 241 mg/dL 70-110 H : TESTED A T [facility] [address] (BEAKER) (test code [address], = 1538) [facility] [place] [address]: Artillery Specialist/Techni dorys ID = [id number] for Laurie Ny CBC W/PLT COUNT & AUTO [id number] 05:05:13 Test Item Value Reference Range Interpretation Comments WHITE BLOOD CELL COUNT (BEAKER) 10.4 K/ L 4.0-10.0 H (test code = 775) RED BLOOD CELL COUNT (BEAKER) 4.46 M/ L 4.20-5.80 (test code = 761) HEMOGLOBIN (BEAKER) (test code = 12.2 GM/DL 13.0-16.8 L 410) HEMATOCRIT (BEAKER) (test code = 38.8 % 36.0-50.0 411) MEAN CORPUSCULAR VOLUME (BEAKER) 87 fL 82-99 (test code = 753) MEAN CORPUSCULAR HEMOGLOBIN 27.4 pg 27.0-33.0 (BEAKER) (test code = 751) MEAN CORPUSCULAR HEMOGLOBIN CONC 31.4 GM/DL 32.0-36.0 L (BEAKER) (test code = 752) RED CELL DISTRIBUTION WIDTH 17.8 % 12.0-15.0 H (BEAKER) (test code = 412) PLATELET COUNT (BEAKER) (test 251 K/CU MM 150-430 code = 756) MEAN PLATELET VOLUME (BEAKER) 10.7 fL 6.0-11.5 (test code = 754) NUCLEATED RED BLOOD CELLS 0 /100 WBC 0-0 (BEAKER) (test code = 413) NEUTROPHILS RELATIVE PERCENT 80 % (BEAKER) (test code = 429) LYMPHOCYTES RELATIVE PERCENT 11 % (BEAKER) (test code = 430) MONOCYTES RELATIVE PERCENT 8 % (BEAKER) (test code = 431) EOSINOPHILS RELATIVE PERCENT 1 % (BEAKER) (test code = 432) BASOPHILS RELATIVE PERCENT 1 % (BEAKER) (test code = 437) NEUTROPHILS ABSOLUTE COUNT 8.34 K/ L 1.80-8.00 H (BEAKER) (test code = 670) LYMPHOCYTES ABSOLUTE COUNT 1.10 K/ L 1.48-4.50 L (BEAKER) (test code = 414) MONOCYTES ABSOLUTE COUNT (BEAKER) 0.80 K/ L 0.00-1.30 (test code = 415) EOSINOPHILS ABSOLUTE COUNT 0.12 K/ L 0.00-0.50 (BEAKER) (test code = 416) BASOPHILS ABSOLUTE COUNT (BEAKER) 0.05 K/ L 0.00-0.20 (test code = 417) IMMATURE GRANULOCYTES-RELATIVE 0.30 % 0.00-0.00 H PERCENT (BEAKER) (test code = 2801) TROPONIN [id number] 04:10:45 Test Item Value Reference Range Interpretation Comments TROPONIN I (BEAKER) (test code = 0.08 ng/mL 0.00-0.15 397) Troponin I (TnI) levels must be interpreted in the context of the presenting symptoms and the clinical findings. Elevated TnI levels indicate myocardial damage, but are not specific for ischemic heart disease. Elevated TnI levels are seen in patients with other cardiac conditions (including myocarditis and congestive heart failure), and slight TnI elevations occur in patients with other conditions, including sepsis, renal failure, acidosis, acute neurological disease, and persistent tachyarrhythmia.Artillery Specialist ID - [id number] 2023-03-14 04:03:58 Test Item Value Reference Range Interpretation Comments MAGNESIUM (BEAKER) (test code = 1.8 mg/dL 1.5-3.0 627) Artillery Specialist ID - [id number] ID - [id number] ID - [id number] ID - [id number] METABOLIC [id number] 04:03:12 Test Item Value Reference Range Interpretation Comments SODIUM (BEAKER) 140 meq/L 135-148 (test code = 381) POTASSIUM 3.2 meq/L 3.6-5.5 L (BEAKER) (test code = 379) CHLORIDE (BEAKER) 103 meq/L 98-106 (test code = 382) CO2 (BEAKER) 26 meq/L 20-29 (test code = 355) BLOOD UREA 35 mg/dL 10-26 H NITROGEN (BEAKER) (test code = 354) CREATININE 3.06 mg/dL 0.50-1.20 H (BEAKER) (test code = 358) GLUCOSE RANDOM 123 mg/dL 70-110 H (BEAKER) (test code = 652) CALCIUM (BEAKER) 8.1 mg/dL 8.5-10.5 L (test code = 697) EGFR (BEAKER) 22 Interpretatio n of eGFR (test code = mL/min/1.73 values Stage De scription 1092) sq m Result G1 Opal l or high >=90 G2 Mildly decreased 60-89 G3a Mildl y to moderately 45-5 9 G3b Moderately to s everely 30-44 G4 Severl y decreased 15-29 G5 Kidney failure <15Reported eGF R is based on the CKD-EPI 2020 equation that d oes not use a race coefficientEsti mated GFR is not as accur ate as Creatinine Lexis tiki in predicting glom erular filtration rate . Estimated GFR is not appl icable for dialysis patien ts Artillery Specialist ID - [id number] ID - [id number] ID - [id number] ID - [id number] ID - [id number] ID - [id number] ID - [id number] ID - [id number] ID - [id number] ID - [id number] 04:00:57 Test Item Value Reference Range Interpretation Comments PHOSPHORUS (BEAKER) (test code = 3.4 mg/dL 2.5-4.5 604) Artillery Specialist ID - [id number], [id number] 03:38:25 Test Item Value Reference Range Interpretation Comments CALCIUM IONIZED (BEAKER) (test 1.04 mmol/L 1.12-1.27 L code = 698) PH, BLOOD (BEAKER) (test code = 7.46 1810) [id number] 01:19:44 Test Item Value Reference Range Interpretation Comments POTASSIUM (BEAKER) (test code = 3.0 meq/L 3.6-5.5 L 379) Artillery Specialist ID - [id number] ID - [id number] ID - [id number] ID - [id number]-KJGMKGL [id number] 01:09:31 Test Item Value Reference Range Interpretation Comments POC-GLUCOSE METER 152 mg/dL 70-110 H : TESTED A T [facility] [address] (BEAKER) (test code [address], = 1538) [facility] [address]: Artillery Specialist/Techni dorys ID = [id number] for Lynda Ann URINALYSIS W/ [id number] 22:40:11 Test Item Value Reference Range Interpretation Comments COLOR (BEAKER) (test code = Yellow 470) CLARITY (BEAKER) (test code = Clear 469) SPECIFIC GRAVITY UA (BEAKER) 1.020 1.001-1.035 (test code = 468) PH UA (BEAKER) (test code = 6.0 5.0-8.0 467) PROTEIN UA (BEAKER) (test code 30 mg/dL Negative A = 464) GLUCOSE UA (BEAKER) (test code Negative Negative = 365) KETONES UA (BEAKER) (test code Negative Negative = 371) BILIRUBIN UA (BEAKER) (test Negative Negative code = 462) BLOOD UA (BEAKER) (test code = Trace Negative A 461) NITRITE UA (BEAKER) (test code Negative Negative = 465) LEUKOCYTE ESTERASE UA (BEAKER) Negative Negative (test code = 466) UROBILINOGEN UA (BEAKER) (test 0.2 code = 463) BACTERIA (BEAKER) (test code = None Seen 517) RBC UA-MANUAL (BEAKER) (test None Seen /HPF code = 1659) WBC UA-MANUAL (BEAKER) (test None Seen /HPF code = 1661) SQUAMOUS EPITHELIAL MANUAL None Seen /HPF (BEAKER) (test code = 1663) SOURCE(BEAKER) (test code = 2795) VENOUS DOPPLER LEGS [id number] 22:24:09 [facility] 1960 Sex: MBilateral lower extremity venous DopplerHistory: leg swellingComparison: noneFindings:Study is obtained using gloria scale, compression technique, and colorflow/spectral analysis.The bilateral common femoral, superficial femoral, and popliteal veinsdemonstrate expected compressibility. No echogenic filling defect ort urbulent flow is identified. Expected venous waveforms andaugmentation responses are observed throughout. Interrogated portions ofthe bilateral posterior tibial and peroneal veins appear patent.IMPRESSION:Impression:No evidence of deep venous thrombosis in the bilateral lowerextremities.POCT-GLUCOSE [id number] 21:32:24 Test Item Value Reference Range Interpretation Comments POC-GLUCOSE METER 99 mg/dL 70-110 : TESTED A T [facility] ([facility]) (test code = [facility] [address]) [facility] [address]: Artillery Specialist/Techni dorys ID = [id number] for Lynda Ann LACTIC ACID, [id number] 21:20:38 Test Item Value Reference Range Interpretation Comments LACTATE BLOOD 1.03 mmol/L See_Comment Specimen moder ately VENOUS (2) ([facility]) hemolyze d [Automated (test code = 2872) message] The system which generated this result transmit anuradha reference range : 0.50-<2.00. The reference range was not used to interpr et this result as normal/abnormal . Artillery Specialist ID - [id number] ID - [id number] ID - [id number] ID - [id number] ID - [id number] ID - [id number] ID - [id number] TSH/FREE T4 IF [id number] 21:11:13 Test Item Value Reference Range Interpretation Comments THYROID STIMULATING HORMONE 1.490 uIU/mL 0.350-5.500 ([facility]) (test code = 772) Artillery Specialist ID - [id number] RSV [id number] 21:02:50 Test Item Value Reference Range Interpretation Comments RSV RAPID ANTIGEN (BEAKER) Negative Negative, Inconclusive (test code = 1078) SARS-COV2/RT-PCR ([facility])2023-03-13 21:00:52 Test Item Value Reference Range Interpretation Comments SARS-COV2/RT-PCR Negative Negative The SARS-Co V-2 target (test code = nucleic acids a re not [id number]) detected in thi s specimen. Negative result s do not preclude SARS-C oV-2 infection and s hould not be used as the eduard e basis for patient managem ent decisions. Nega tive results must be combine d with clinical observ ations, patient history , and epidemiological information. A false negativ e result may occur if a spec imen is improperly zay ected, transported or handled. This SARS CoV-2 test is a rapid, real-time RT-PC R test intended for th e qualitative detection of nu cleic acid from SARS-CoV-2 in a nasopharyngeal swab specimen collected from individuals suspected of CO VID-19 by their healthcar e provider. This test has been authorized by FDA under an EUA for use by authorized laboratories. This test is only authorized for the duration of the declaration that circumstances exist justifying the authorization of emergency use of in vitro diagnostic tests for detection and/or diagnosis of COVID-19 under Section 564(b)(1) of the Federal Food, Drug and Cosmetic Act, 21 U.S.C. 360bbb-3(b)(1), unless the authorization is terminated or revoked sooner. Fact Sheet for Healthcare Providers: https://www.[employer] m/Documents/Xpert%20Xpress%20SARS%20CoV-2/Fact%20Sheets/405-2830%36XAUC-ZYI-6%20 HEALTHCARE%20PROVIDERS%20FACT%20SHEET.pdf Fact Sheet for Healthcare Patients: https://www.[employer]/Documents/Xpert%20Xp ress%20SARS%20CoV-2/Fact%20Sheets/883-3210%54ZDPH-HBD-8%20PATIENT%20FACT%20SHEET .pdfB-TYPE NATRIURETIC FACTOR (BNP)2023-03-13 21:00:23 Test Item Value Reference Range Interpretation Comments B-TYPE NATRIURETIC PEPTIDE 1049 pg/mL 0-100 H (MAGAN) (test code = 700) Artillery Specialist ID - [id number] [id number] 20:59:02 Test Item Value Reference Range Interpretation Comments TROPONIN I (MAGAN) (test code = 0.08 ng/mL 0.00-0.15 397) Troponin I (TnI) levels must be interpreted in the context of the presenting symptoms and the clinical findings. Elevated TnI levels indicate myocardial damage, but are not specific for ischemic heart disease. Elevated TnI levels are seen in patients with other cardiac conditions (including myocarditis and congestive heart failure), and slight TnI elevations occur in patients with other conditions, including sepsis, renal failure, acidosis, acute neurological disease, and persistent tachyarrhythmia.Artillery Specialist ID - [id number] [id number] 2023-03-13 20:49:52 Test Item Value Reference Range Interpretation Comments HEMOGLOBIN A1C (MAGAN) (test code = 7.4 % 4.3-6.1 H 368) Artillery Specialist ID - [id number] 20:42:11 Test Item Value Reference Range Interpretation Comments PROCALCITONIN (MAGAN) (test code 0.11 ng/mL <0.05 H = 3036) SEPSIS RISK (ng/mL)Low: 0.05-0.50Intermediate: 0.51-2.00High: >=2.01XR CHEST 1 VIEW PORTABLE / [id number] 20:29:[facility] 1960 Sex: MChest, one vi ewHistory: Shortness of breathComparison: noneFindings:Clear lungs. Cardiac silhouette is accentuated by portable technique.However, the heart is likely enlarged. No pleural effusion orpneumothorax. IMPRESSION:Impression:No definite acute findings in the chest.[id number] 20:26:12 Test Item Value Reference Range Interpretation Comments D-DIMER QUANTITATIVE 0.77 MG/L FEU <0.50 H Final Information (BEAKER) (test code = (Auto Output) 671) REGARDING D-DIMER RESULTS: The 98% NPV (Negative Predictive Value) for DVT/PE exclusion is 0.50 mg/LFEU as suggested by the road contractor and as approved by the FDA.CBC W/PLT COUNT & AUTO [id number] 20:17:57 Test Item Value Reference Range Interpretation Comments WHITE BLOOD CELL COUNT (BEAKER) 11.1 K/ L 4.0-10.0 H (test code = 775) RED BLOOD CELL COUNT (BEAKER) 4.50 M/ L 4.20-5.80 (test code = 761) HEMOGLOBIN (BEAKER) (test code = 12.7 GM/DL 13.0-16.8 L 410) HEMATOCRIT (BEAKER) (test code = 37.9 % 36.0-50.0 411) MEAN CORPUSCULAR VOLUME (BEAKER) 84 fL 82-99 (test code = 753) MEAN CORPUSCULAR HEMOGLOBIN 28.2 pg 27.0-33.0 (BEAKER) (test code = 751) MEAN CORPUSCULAR HEMOGLOBIN CONC 33.5 GM/DL 32.0-36.0 (BEAKER) (test code = 752) RED CELL DISTRIBUTION WIDTH 17.6 % 12.0-15.0 H (BEAKER) (test code = 412) PLATELET COUNT (BEAKER) (test 244 K/CU MM 150-430 code = 756) MEAN PLATELET VOLUME (BEAKER) 10.4 fL 6.0-11.5 (test code = 754) NUCLEATED RED BLOOD CELLS 0 /100 WBC 0-0 (BEAKER) (test code = 413) NEUTROPHILS RELATIVE PERCENT 83 % (BEAKER) (test code = 429) LYMPHOCYTES RELATIVE PERCENT 9 % (BEAKER) (test code = 430) MONOCYTES RELATIVE PERCENT 7 % (BEAKER) (test code = 431) EOSINOPHILS RELATIVE PERCENT 1 % (BEAKER) (test code = 432) BASOPHILS RELATIVE PERCENT 1 % (BEAKER) (test code = 437) NEUTROPHILS ABSOLUTE COUNT 9.19 K/ L 1.80-8.00 H (BEAKER) (test code = 670) LYMPHOCYTES ABSOLUTE COUNT 0.95 K/ L 1.48-4.50 L (BEAKER) (test code = 414) MONOCYTES ABSOLUTE COUNT (BEAKER) 0.74 K/ L 0.00-1.30 (test code = 415) EOSINOPHILS ABSOLUTE COUNT 0.10 K/ L 0.00-0.50 (BEAKER) (test code = 416) BASOPHILS ABSOLUTE COUNT (BEAKER) 0.05 K/ L 0.00-0.20 (test code = 417) IMMATURE GRANULOCYTES-RELATIVE 0.20 % 0.00-0.00 H PERCENT (BEAKER) (test code = 2801) COMPREHENSIVE METABOLIC [id number] 20:10:33 Test Item Value Reference Range Interpretation Comments TOTAL PROTEIN 6.5 gm/dL 6.0-8.5 (BEAKER) (test code = 770) ALBUMIN (BEAKER) 3.6 g/dL 3.5-5.0 (test code = 1145) ALKALINE 63 U/L 30-115 PHOSPHATASE (BEAKER) (test code = 346) BILIRUBIN TOTAL 1.5 mg/dL 0.1-1.2 H (BEAKER) (test code = 377) SODIUM (BEAKER) 141 meq/L 135-148 (test code = 381) POTASSIUM (BEAKER) 2.7 meq/L 3.6-5.5 L (test code = 379) CHLORIDE (BEAKER) 102 meq/L 98-106 (test code = 382) CO2 (BEAKER) (test 25 meq/L 20-29 code = 355) BLOOD UREA 42 mg/dL 10-26 H NITROGEN (BEAKER) (test code = 354) CREATININE 3.50 mg/dL 0.50-1.20 H (BEAKER) (test code = 358) GLUCOSE RANDOM 114 mg/dL 70-110 H (BEAKER) (test code = 652) CALCIUM (BEAKER) 8.4 mg/dL 8.5-10.5 L (test code = 697) AST (SGOT) 16 U/L 5-40 (BEAKER) (test code = 353) ALT (SGPT) 20 U/L 5-50 (BEAKER) (test code = 347) EGFR (BEAKER) 19 Interpretatio n of eGFR (test code = 1092) mL/min/1.[address] age Description sq m Result G1 Opal l or high >=90 G2 Mildly decreased 60-89 G3a Mildl y to moderately 45-5 9 G3b Moderately to s everely 30-44 G4 Severl y decreased 15-29 G5 Kidney failure <15Reported eGF R is based on the CKD-EPI 202 equation that d oes not use a race coefficientEsti mated GFR is not as accur ate as Creatinine Lexis tiki in predicting glom erular filtration rate . Estimated GFR is not appl icable for dialysis patien ts Artillery Specialist ID - [id number] ID - [id number] ID - [id number] ID - [id number] ID - [id number] ID - [id number] ID - [id number] ID - [id number] ID - [id number] ID - [id number] ID - [id number] ID - [id number] ID - [id number] ID - [id number] ID - [id number] ID - [id number] 20:10:17 Test Item Value Reference Range Interpretation Comments MAGNESIUM (BEAKER) (test code = 1.5 mg/dL 1.5-3.0 627) Artillery Specialist ID - [id number] ID - [id number] ID - [id number] ID - [id number] 20:06:55 Test Item Value Reference Range Interpretation Comments PHOSPHORUS (BEAKER) (test code = 3.6 mg/dL 2.5-4.5 604) Artillery Specialist ID - [id number] 20:04:18 Test Item Value Reference Range Interpretation Comments PROTIME (BEAKER) 12.4 seconds 9.3-12.0 H Final Infor mation (test code = 759) (Auto Outp ut) INR (BEAKER) (test 1.17 <=5.90 Final Inf ormation code = 370) (Auto Output) RECOMMENDED COUMADIN/WARFARIN INR THERAPY RANGESSTANDARD DOSE: 2.0 - 3.0 Includes: PROPHYLAXIS for venous thrombosis, systemic embolization; TREATMENT for venous thrombosis and/or pulmonary embolus.HIGH RISK: Target INR is 2.5-3.5 for patients with mechanical heart valves.[id number] 20:04:17 Test Item Value Reference Range Interpretation Comments PROTIME (BEAKER) (test 12.4 seconds 9.3-12.0 H Final Information code = 759) (Auto Output) INR (BEAKER) (test 1.17 <=5.90 Final Inf ormation code = 370) (Auto Output) PARTIAL THROMBOPLASTIN 26.2 seconds 23.0-35.0 Final Information TIME (BEAKER) (test (Auto Ou tput) code = 760) RECOMMENDED COUMADIN/WARFARIN INR THERAPY RANGESSTANDARD DOSE: 2.0 - 3.0 Includes: PROPHYLAXIS for venous thrombosis, systemic embolization; TREATMENT for venous thrombosis and/or pulmonary embolus.HIGH RISK: Target INR is 2.5-3.5 for patients with mechanical heart valves.CALCIUM, [id number] 19:51:35 Test Item Value Reference Range Interpretation Comments CALCIUM IONIZED ([facility]) (test 1.04 mmol/L 1.12-1.27 L code = 698) PH, BLOOD ([facility]) (test code = 7.50 1810) HEMOGLOBIN [id number] 00:00:00 Test Item Value Reference Range Interpretation Comments A1C (test code = 4548-4) 6.8 POCT-GLUCOSE [id number] 17:37:00 Test Item Value Reference Range Interpretation Comments POC-GLUCOSE METER 104 mg/dL 70-110 TESTED AT [place] [address] ([facility]) (test code = FRANKIE Rogers [facility] 1538) [address] POCT-GLUCOSE [id number] 12:37:00 Test Item Value Reference Range Interpretation Comments POC-GLUCOSE METER 145 mg/dL 70-110 H TESTED AT [place] [address] ([facility]) (test code = FRANKIE Rogers [facility] 1538) [address] POCT-GLUCOSE [id number] 08:16:00 Test Item Value Reference Range Interpretation Comments POC-GLUCOSE METER 111 mg/dL 70-110 H TESTED AT [place] [address] ([facility]) (test code = FRANKIE Rogers [facility] 1538) [address] BASIC METABOLIC [id number] 06:49:00 Test Item Value Reference Range Interpretation [...] S NOT APPLICABLE FOR DIALYSIS PATISHAHEEN TS. [id number] 01:30:00 Test Item Value Reference Range Interpretation Comments RPR SCREEN (BEAKER) (test code = Nonreactive Nonreactive 420) POCT-GLUCOSE [id number] 20:55:00 Test Item Value Reference Range Interpretation Comments POC-GLUCOSE METER 179 mg/dL 70-110 H TEST[facility] AT [place] [address] [facility] (test code = [facility] Ken [facility] 1538) [address] VITAMIN B12 AND [id number] 20:25:00 Test Item Value Reference Range Interpretation Comments VITAMIN B12 (BEAKER) (test code = 422 pg/mL 213-816 774) FOLATE (BEAKER) (test code = 362) 9.9 ng/mL >=7.0 POCT-GLUCOSE [id number] 17:11:00 Test Item Value Reference Range Interpretation Comments POC-GLUCOSE METER 159 mg/dL 70-110 H TESTED AT [facility] 6720 (BEAKER) (test code = [facility] Ken [facility] 1538) [address] PROTHROMBIN [id number] 15:55:00 Test Item Value Reference Range Interpretation Comments PROTIME (BEAKER) (test code = 14.1 seconds 11.7-14.7 759) INR (BEAKER) (test code = 370) 1.1 <=5.9 RECOMMENDED COUMADIN/WARFARIN INR THERAPY RANGESSTANDARD DOSE: 2.0 - 3.0 Includes: PROPHYLAXIS for venous thrombosis, systemic embolization; TREATMENT for venous thrombosis and/or pulmonary embolus.HIGH RISK: Target INR is 2.5-3.5 for patients with mechanical heart valves.[id number] 15:34:00 Test Item Value Reference Range Interpretation Comments AMMONIA (BEAKER) (test code = 348) 31 mol/L 18-72 POCT-GLUCOSE [id number] 11:41:00 Test Item Value Reference Range Interpretation Comments POC-GLUCOSE METER 219 mg/dL 70-110 H TESTED AT [place] [address] ([facility]) ([facility] = [facility] 1538) [address] POCT-GLUCOSE [id number] 08:20:00 Test Item Value Reference Range Interpretation Comments POC-GLUCOSE METER 114 mg/dL 70-110 H TESTED AT [place] [address] ([facility]) (test code = [facility] Ken [facility] 1538) [address] TSH/FREE T4 IF [id number] 05:29:00 Test Item Value Reference Range Interpretation Comments THYROID STIMULATING HORMONE 2.18 uIU/mL 0.35-4.94 (AKER) (test code = 772) [id number] 04:58:00 Test Item Value Reference Range Interpretation Comments PHOSPHORUS (BEAKER) (test code = 2.3 mg/dL 2.3-4.7 604) [id number] 04:58:00 Test Item Value Reference Range Interpretation Comments MAGNESIUM (BEAKER) (test code = 2.1 mg/dL 1.6-2.6 627) COMPREHENSIVE METABOLIC [id number] 04:58:00 Test Item Value Reference Range Interpretation Comments TOTAL PROTEIN 6.9 gm/dL 6.0-8.3 (BEAKER) (test code = 770) ALBUMIN (BEAKER) 4.1 g/dL 3.5-5.0 (test code = 1145) ALKALINE PHOSPHATASE 83 U/L 40-150 (BEAKER) (test code = 346) BILIRUBIN TOTAL 1.4 mg/dL 0.2-1.2 H (AKER) (test code = 377) SODIUM (BEAKER) (test [...] 0-0 (BEAKER) (test code = 413) POCT-GLUCOSE [id number] 20:46:00 Test Item Value Reference Range Interpretation Comments POC-GLUCOSE METER 197 mg/dL 70-110 H TESTED AT [place] [address] ([facility]) (test code = [facility] 1538) [address] POCT-GLUCOSE [id number] 17:00:00 Test Item Value Reference Range Interpretation Comments POC-GLUCOSE METER 158 mg/dL 70-110 H TESTED AT [place] [address] ([facility]) (test code = [facility] 1538) [address] POCT-GLUCOSE [id number] 12:04:00 Test Item Value Reference Range Interpretation Comments POC-GLUCOSE METER 180 mg/dL 70-110 H TESTED AT [place] [address] ([facility]) (test code = [facility] 1538) [address] [id number] 04:51:00 Test Item Value Reference Range Interpretation Comments PHOSPHORUS (BEAKER) (test code = 2.8 mg/dL 2.3-4.7 604) [id number] 04:51:00 Test Item Value Reference Range Interpretation Comments MAGNESIUM (BEAKER) (test code = 2.3 mg/dL 1.6-2.6 627) COMPREHENSIVE METABOLIC [id number] 04:51:00 Test Item Value Reference Range Interpretation [...] 0-0 (MAGAN) (test code = 413) POCT-GLUCOSE [id number] 20:52:00 Test Item Value Reference Range Interpretation Comments POC-GLUCOSE METER 300 mg/dL 70-110 H TESTED AT [facility] 6720 (MAGAN) (test code = FRANKIE [place] 1538) [address] MR, MRA, BRAIN, WITHOUT [id number] 18:40:00Reason for exam:->Ischemic Stroke EvaluationFINAL REPORT MRI brain and MRA head and neck without contrast 03/26/2018 6:36 PMCLINICAL INDICATION: Ischemic Stroke Evaluationstroke eval TECHNIQUE: Multiplanar, multisequence MR imaging of the brain was performed utilizing the following imaging sequences: Axial T1, T2, FLAIR, GRE, and DWI; sagittal and coronal T1-weighted images. Two- and three- dimensional kryx-ax-eovncy MRA images of the intra- and extracranial [...] is antegrade in both vertebral arteries. MRA makah of [place]: There is no acute vessel occlusion or flow-limiting stenosis. Asymmetrically diminished flow related enhancement in the left posterior cerebral artery conforms to be chronic infarct core. There is moderatestenosis in the M1 segment left middle cerebral artery. IMPRESSION: 1. Small volume acute nonhemorrhagic right parietal lobe infarct. 2. No evidence for acute vascular compromise. 3. Chronic findings as discussed. Signed: Luis Chairez MDReport Verified Date/Time: 03/26/2018 18:40:56 Reading Location: [facility] Radiology Reading Room MR, MRA, NECK, WITHOUT IV [id number] 18:40:00Reason for exam:->Ischemic Stroke EvaluationFINAL REPORT MRI brain and MRA head and neck without contrast 03/26/2018 6:36 PMCLINICAL INDICATION: Ischemic Stroke Evaluationstroke eval TECHNIQUE: Multiplanar, multisequence MR imaging of the brain was performed utilizing the following imaging sequences: Axial T1, T2, FLAIR, GRE, and DWI; sagittal and coronal T1-weighted images. Two- and three- dimensional vfgx-kc-clsblh MRA images of the intra- and extracranial [...] is antegrade in both vertebral arteries. MRA makah of [place]: There is no acute vessel occlusion or flow-limiting stenosis. Asymmetrically diminished flow related enhancement in the left posterior cerebral artery conforms to be chronic infarct core. There is moderatestenosis in the M1 segment left middle cerebral artery. IMPRESSION: 1. Small volume acute nonhemorrhagic right parietal lobe infarct. 2. No evidence for acute vascular compromise. 3. Chronic findings as discussed. Signed: Luis Chairez MDReport Verified Date/Time: 03/26/2018 18:40:56 Reading Location: [facility] Radiology Reading Room MR, BRAIN, WITHOUT [id number] 18:40:00Reason for exam:->Ischemic Stroke EvaluationFINAL REPORT MRI brain and MRA head and neck without contrast 03/26/2018 6:36 PMCLINICAL INDICATION: Ischemic Stroke Evaluationstroke eval TECHNIQUE: Multiplanar, multisequence MR imaging of the brain was performed utilizing the following imaging sequences: Axial T1, T2, FLAIR, GRE, and DWI; sagittal and coronal T1-weighted images. Two- and three- dimensional xnqa-gf-tklscr MRA images of the intra- and extracranial [...] is antegrade in both vertebral arteries. MRA makah of [place]: There is no acute vessel occlusion or flow-limiting stenosis. Asymmetrically diminished flow related enhancement in the left posterior cerebral artery conforms to be chronic infarct core. There is moderatestenosis in the M1 segment left middle cerebral artery. IMPRESSION: 1. Small volume acute nonhemorrhagic right parietal lobe infarct. 2. No evidence for acute vascular compromise. 3. Chronic findings as discussed. Signed: Luis Chairez MDReport Verified Date/Time: 03/26/2018 18:40:56 Reading Location: [facility] Reading Room EEG AWAKE AND [id number] 14:46:00Reason for exam:->Repeat EEG to rule out any seizures. Another episode of word finding difficultyreported today.Date(s) of EE03/26/2018 DATE OF REPORT: 03/26/2018 ACC: [id number] EEG Number: [id number] Test Location: Inpatient ICU Start time: 13:17 Stop time: 13:39 ICD-10: R56.9 CPT Code: 86785 HISTORY: 58 y/o manwith HTN, prior stroke, [...] epilepsy. Kamille Holman MD Neurophysiology Fellow Magdiel Mcdermott MD Attending Neurophysiologist [facility] POCT-GLUCOSE METER 2018-03-26 12:30:00 Test Item Value Reference Range Interpretation Comments POC-GLUCOSE METER 154 mg/dL 70-110 H TESTED AT [facility] 6720 (MAGAN) (test code = FRANKIE Rogers [facility] 1538) [address] HEMOGLOBIN [id number] 08:33:00 Test Item Value Reference Range Interpretation Comments HEMOGLOBIN A1C (BEAKER) (test code = 8.3 % 4.3-6.1 H 368) [id number] 02:46:00 Test Item Value Reference Range Interpretation Comments PHOSPHORUS (BEAKER) (test code = 2.8 mg/dL 2.3-4.7 604) [id number] 02:46:00 Test Item Value Reference Range Interpretation Comments MAGNESIUM (BEAKER) (test code = 2.3 mg/dL 1.6-2.6 627) COMPREHENSIVE METABOLIC [id number] 02:46:00 Test Item Value Reference Range Interpretation [...] NOT APPLICABLE FOR DIALYSIS PATIEN TS. LIPID [id number] 02:46:00 Test Item Value Reference Range Interpretation [...]
[2023-04-03] MEDS ORDERED: NA CHLORIDE 0.9% 1,000 ML ONE (12:19)
[2023-04-03] MEDS ORDERED: SILVER SULFADIAZINE 1% 25 GM TOP ONE (12:19)
[2023-04-03 12:20] LABS: Absolute Lymphocytes (CBC) 1.2 K/uL (0.7-4.9); Hematocrit 40.2 % (39.6-49.0); Lymphocytes % 13.6 % (15.3-44.8); MCV 84.9 fL (80-100); MPV 8.9 fL (7.6-11.3); RBC Red Blood Cell Count 4.74 M/uL (4.33-5.43)
[2023-04-03] MEDS ORDERED: HYDRALAZINE HCL 25 MG TABLET ONE (12:37)
[2023-04-03] MEDS ORDERED: HYDRALAZINE HCL 20 MG/ML VIAL ONE (12:37)
[2023-04-03] MEDS ORDERED: LABETALOL 20 MG/4ML SYRINGE IV ONE (12:38)
[2023-04-03] MEDS ORDERED: LABETALOL HCL 100 MG TAB ONE (12:38)
[2023-04-03] MEDS ORDERED: LABETALOL HCL 100 MG/20 ML ONE (12:38)
--- NOTE | 2023-04-03 12:40 | RAD REPORT ---
EXAM DESCRIPTION: Walter Single View04/03/2023 12:34 pm CLINICAL HISTORY: Chest pain COMPARISON: March 13, 2023 FINDINGS: Upper lobe vessels are prominent indicative of pulmonary venous hypertension The lungs appear clear of acute infiltrate. The heart is moderately enlarged
[2023-04-03 12:43] LABS: Albumin 3.4 g/dL (3.4-5.0); Bilirubin Direct 0.5 mg/dL (0-0.2); Bilirubin Indirect, Calculated 1.1 mg/dL (0.2-0.8); Bilirubin Total 1.6 mg/dL (0.2-1.0); Potassium 3.1 mEq/L (3.5-5.1); Protein, Total 7.3 g/dL (6.4-8.2)
[2023-04-03 12:50] LABS: Protime INR 1.03
[2023-04-03 13:12] LABS: Troponin High Sensitivity 61.1 pg/mL (<58.9)
--- NOTE | 2023-04-03 13:17 | ER ---
Nurse's Notes [facility] Name: Calos Marie Age: 63 yrs Sex: Male : 1960 Arrival Date: 04/03/2023 Time: 11:33 Bed 16 Private MD: Diagnosis: Acute on chronic diastolic (congestive) heart failure Presentation: 04/03 11:42 Chief complaint: Patient states: SOB EMS states: SOB, CHF exacerbation. Coronavirus os screen: Vaccine status: Patient reports receiving the 2nd dose of the covid vaccine. Ebola Screen: Patient negative for fever greater than or equal to 101.5 degrees Fahrenheit, and additional compatible Ebola Virus Disease symptoms. Initial Sepsis Screen: Does the patient meet any 2 criteria? No. Patient's initial sepsis screen is negative. Does the patient have a suspected source of infection? No. Patient's initial sepsis screen is negative. Risk Assessment: Do you want to hurt yourself or someone else? Patient reports no desire to harm self or others. Onset of symptoms was April 03, 2023. 11:42 Method Of Arrival: EMS os 11:42 Acuity: KRIS 3 os Triage Assessment: 11:45 General: Appears distressed, Behavior is calm, cooperative, appropriate for age. Pain: os Denies pain. Historical: - Allergies: 11:44 No Known Allergies; os - Immunization history:: Adult Immunizations up to date. - Social history:: Smoking status: Patient denies any tobacco usage or history of. Vital Signs: 11:42 BP 199 / 150; Pulse 98; Resp 24; Temp 97.9; Pulse Ox 99% on 4 lpm NC; os 12:26 BP 226 / 156; Pulse 89; Resp 20; Pulse Ox 97% on 3 lpm NC; mb9 12:38 BP 229 / 145; Pulse 87; Resp 20; Pulse Ox 98% on 4 lpm NC; mb9 12:51 BP 153 / 67; Pulse 63; Resp 22; Pulse Ox 94% on 4 lpm NC; mb9 ED Course: 11:35 Patient arrived in ED. ll1 11:35 Manuel Lubin MD is Attending Physician. hattie 11:42 Dinorah Huddleston, RN is Primary Nurse. os 11:44 Triage completed. os 12:24 Initial lab(s) drawn, by me, sent to lab. aw1 12:24 EKG done, by ED staff. aw1 12:36 XRAY Chest (1 view) In Process Unspecified. EDMS 12:41 Bed in low position. Call light in reach. Side rails up X 1. Client placed on mb9 continuous cardiac and pulse oximetry monitoring. NIBP monitoring applied. water chemist on. 13:16 Kei Vaughn MD is Hospitalizing Provider. hattie 13:30 US Extremity Venous W Compression Andrade In Process Unspecified. EDMS 16:11 Manuel Lubin MD is Hospitalizing Provider. os Administered Medications: 12:20 Drug: NS 0.9% IV 1000 ml Route: IV; Rate: 75 ml/hr; Site: left hand; mb9 12:25 Drug: Silver SulfADIAZINE Topical Cream 1 % 1 application Route: Topical; Site: mb9 affected area; 14:04 Follow up: Response: No adverse reaction mb9 12:26 Drug: HydrALAZINE PO 25 mg Route: PO; mb9 14:04 Follow up: Response: No adverse reaction mb9 12:28 Drug: Labetalol PO 200 mg Route: PO; mb9 14:04 Follow up: Response: No adverse reaction mb9 12:30 Drug: hydrALAZINE IVP 10 mg Route: IVP; Site: left hand; mb9 14:04 Follow up: Response: No adverse reaction mb9 12:38 Drug: Labetalol IV 20 mg Route: IV; Rate: per protocol; Infused Over: 2 mins; Site: mb9 left hand; 14:54 Drug: Furosemide IVP 40 mg Route: IVP; Site: left forearm; os 14:54 Drug: ceFAZolin IVPB 2 grams Route: IVPB; Infused Over: 30 mins; Site: left forearm; os Medication: 12:42 VIS not applicable for this client. mb9 Outcome: 13:17 Decision to Hospitalize by Provider. hattie 16:12 Decision to Hospitalize by Provider. os 16:12 Patient left the ED. os Signatures: Dispatcher [employer] EDMS Manuel Lubin MD MD cha Lewis, Lynsay RN RN ll1 Meli Méndez RN RN mb9 Dinorah Huddleston RN RN os Rabia Nielson aw1 Corrections: (The following items were deleted from the chart) 12:55 12:51 Pulse 63bpm; Resp 22bpm; Pulse Ox 94% 4 lpm Nasal Cannula; mb9 mb9
--- NOTE | 2023-04-03 13:18 | EDPHYS ---
Physician Documentation [facility] Name: Calos Marie Age: 63 yrs Sex: Male : 1960 Arrival Date: 04/03/2023 Time: 11:33 Bed 16 Private MD: ED Physician Manuel Lubin HPI: 04/03 13:02 This 63 yrs old Male presents to ER via EMS with complaints of SOB, WEAK AND hattie INFECTED LEG WOUNDS. 13:02 The patient presents with pain, that is acute. The complaints affect the right leg and hattie left leg. Context: The problem was sustained at an unknown site, resulted from an unknown cause, the patient can fully bear weight. Onset: The symptoms/episode began/occurred 1 week(s) ago. Modifying factors: The symptoms are alleviated by elevating leg, the symptoms are aggravated by movement, weight bearing. Associated signs and symptoms: Pertinent positives: calf tenderness, swelling, weakness. The patient has shortness of breath with light activity. The patient's shortness of breath is aggravated by exertion, supine position, talking, walking, is alleviated by rest, sitting up, application of supplemental oxygen. WEAK, LOWER EXT EDEMA, INFECTED WOUNDS. Associated signs and symptoms: Pertinent positives: non-productive cough, nausea. Severity of symptoms: At their worst the symptoms were moderate in the emergency department the symptoms are unchanged. Historical: - Allergies: 11:44 No Known Allergies; os - Immunization history:: Adult Immunizations up to date. - Social history:: Smoking status: Patient denies any tobacco usage or history of. ROS: 13:09 Constitutional: Negative for fever, chills, and weight loss, Eyes: Negative for injury, hattie pain, redness, and discharge, ENT: Negative for injury, pain, and discharge, Neck: Negative for injury, pain, and swelling, Cardiovascular: Negative for chest pain, palpitations, and edema, Abdomen/GI: Negative for abdominal pain, nausea, vomiting, diarrhea, and constipation, Back: Negative for injury and pain, : Negative for injury, bleeding, discharge, and swelling, Neuro: Negative for headache, weakness, numbness, tingling, and seizure, Psych: Negative for depression, anxiety, suicide ideation, homicidal ideation, and hallucinations, Allergy/Immunology: Negative for hives, rash, and allergies, Endocrine: Negative for neck swelling, polydipsia, polyuria, polyphagia, and marked weight changes, Hematologic/Lymphatic: Negative for swollen nodes, abnormal bleeding, and unusual bruising. 13:09 Respiratory: Positive for cough, shortness of breath, on exertion. 13:09 Abdomen/GI: Positive for abdominal distension. 13:09 MS/extremity: Positive for swelling, tenderness, of the right leg and left leg. Exam: 13:09 Constitutional: This is a well developed, well nourished patient who is awake, alert, hattie and in no acute distress. Head/Face: Normocephalic, atraumatic. Eyes: Pupils equal round and reactive to light, extra-ocular motions intact. Lids and lashes normal. Conjunctiva and sclera are non-icteric and not injected. Cornea within normal limits. Periorbital areas with no swelling, redness, or edema. ENT: Nares patent. No nasal discharge, no septal abnormalities noted. Tympanic membranes are normal and external auditory canals are clear. Oropharynx with no redness, swelling, or masses, exudates, or evidence of obstruction, uvula midline. Mucous membranes moist. Neck: Trachea midline, no thyromegaly or masses palpated, and no cervical lymphadenopathy. Supple, full range of motion without nuchal rigidity, or vertebral point tenderness. No Meningismus. Chest/axilla: Normal chest wall appearance and motion. Nontender with no deformity. No lesions are appreciated. Cardiovascular: Regular rate and rhythm with a normal S1 and S2. No gallops, murmurs, or rubs. Normal PMI, no JVD. No pulse deficits. Back: No spinal tenderness. No costovertebral tenderness. Full range of motion. Neuro: Awake and alert, GCS 15, oriented to person, place, time, and situation. Cranial nerves II-XII grossly intact. Motor strength 5/5 in all extremities. Sensory grossly intact. Cerebellar exam normal. Normal gait. Psych: Awake, alert, with orientation to person, place and time. Behavior, mood, and affect are within normal limits. 13:09 ECG was reviewed by the Attending Physician. 13:09 Respiratory: mild respiratory distress is noted, Respirations: labored breathing, that is mild, Breath sounds: rales, that are mild, are located in both bases, decreased breath sounds, that are mild, are scattered, are located in both bases, rhonchi, that are mild, are scattered, stridor, is not appreciated, Respiratory rate: 22 Vital Signs: 11:42 BP 199 / 150; Pulse 98; Resp 24; Temp 97.9; Pulse Ox 99% on 4 lpm NC; os 12:26 BP 226 / 156; Pulse 89; Resp 20; Pulse Ox 97% on 3 lpm NC; mb9 12:38 BP 229 / 145; Pulse 87; Resp 20; Pulse Ox 98% on 4 lpm NC; mb9 12:51 BP 153 / 67; Pulse 63; Resp 22; Pulse Ox 94% on 4 lpm NC; mb9 MDM: 11:35 Patient medically screened. hattie 13:14 Differential diagnosis: contusion, abrasion, tendonitis, Anemia Bronchitis CHF hattie exacerbation, Chronic Obstructive Pulmonary Disease. Antibiotic administration: ANCEF. Differential Diagnosis sepsis. Immunization status: Pneumococcal vaccine: within last 5 years. Influenza vaccine: within last 5 years. Data reviewed: vital signs, nurses notes, lab test result(s), EKG, radiologic studies, plain films. Consideration of Admission/Observation Patient was admitted/placed on observation. Escalation of care including admission/observation considered. I considered the following discharge prescriptions or medication management in the emergency department Medications were administered in the Emergency Department. See MAR. Test considered but Not performed: CT: NO CT CHEST. Care significantly affected by the following chronic conditions: Diabetes, Hypertension, Obesity, Chronic Kidney Disease. Counseling: I had a detailed discussion with the patient and/or guardian regarding: the historical points, exam findings, and any diagnostic results supporting the discharge/admit diagnosis, the presence of at least one elevated blood pressure reading (>120/80) during this emergency department visit, radiology results, the need for outpatient follow up, the need for further work-up and treatment in the hospital. 04/03 11:57 Order name: Basic Metabolic Panel [facility] 04/03 11:57 Order name: CBC with Diff; Complete Time: 12:58 04/03 11:57 Order name: LFT's 04/03 11:57 Order name: Magnesium 04/03 11:57 Order name: NT PRO-BNP 04/03 11:57 Order name: PT-INR; Complete Time: 12:58 04/03 11:57 Order name: Troponin HS 04/03 11:57 Order name: Lipase 04/03 11:57 Order name: Urinalysis w/ reflexes [facility] 04/03 13:51 Order name: CBC with Automated Diff [facility] 04/03 13:51 Order name: CBC with Automated Diff [facility] 04/03 13:51 Order name: Comprehensive Metabolic Panel [facility] 04/03 13:51 Order name: Comprehensive Metabolic Panel [facility] 04/03 11:57 Order name: XRAY Chest (1 view); Complete Time: 12:58 [facility] 04/03 11:57 Order name: US Extremity Venous W Compression Andrade [facility] 04/03 11:57 Order name: EKG; Complete Time: 11:57 [facility] 04/03 13:51 Order name: Heart Healthy [facility] 04/03 11:57 Order name: Cardiac monitoring; Complete Time: 12:23 [facility] 04/03 11:57 Order name: EKG - Nurse/Tech; Complete Time: 12:23 [facility] 04/03 11:57 Order name: IV Saline Lock; Complete Time: 12:23 [facility] 04/03 11:57 Order name: Labs collected and sent; Complete Time: 12:23 [facility] 04/03 11:57 Order name: O2 Per Protocol; Complete Time: 12:08 [facility] 04/03 11:57 Order name: O2 Sat Monitoring; Complete Time: 12:08 [facility] 04/03 11:57 Order name: Wound Care; Complete Time: 12:26 [facility] EC:09 Rate is 88 beats/min. Rhythm is regular. QRS [place] is Normal. [place] interval is normal. QRS hattie interval is normal. QT interval is prolonged at 515 msec. No Q waves. No ST changes noted. Clinical impression: NSR w/ Non-specific ST/T Changes, Abnormal EKG without significant change, and No evidence of ischemia. Interpreted by me. Reviewed by me. Administered Medications: 12:20 Drug: NS 0.9% IV 1000 ml Route: IV; Rate: 75 ml/hr; Site: left hand; mb9 12:25 Drug: Silver SulfADIAZINE Topical Cream 1 % 1 application Route: Topical; Site: mb9 affected area; 14:04 Follow up: Response: No adverse reaction mb9 12:26 Drug: HydrALAZINE PO 25 mg Route: PO; mb9 14:04 Follow up: Response: No adverse reaction mb9 12:28 Drug: Labetalol PO 200 mg Route: PO; mb9 14:04 Follow up: Response: No adverse reaction mb9 12:30 Drug: hydrALAZINE IVP 10 mg Route: IVP; Site: left hand; mb9 14:04 Follow up: Response: No adverse reaction mb9 12:38 Drug: Labetalol IV 20 mg Route: IV; Rate: per protocol; Infused Over: 2 mins; Site: mb9 left hand; 14:54 Drug: Furosemide IVP 40 mg Route: IVP; Site: left forearm; os 14:54 Drug: ceFAZolin IVPB 2 grams Route: IVPB; Infused Over: 30 mins; Site: left forearm; os Disposition Summary: 04/03/23 16:12 Hospitalization Ordered Hospitalization Status: Inpatient Admission(04/03/23 16:12) os Provider: Manuel Lubin(04/03/23 16:12) os Location: Telemetry/MedSurg (observation)(04/03/23 16:12) os Condition: Stable(04/03/23 16:12) os Bed/Room Type: Standard(04/03/23 16:12) os Room Assignment: (04/03/23 16:12) os Diagnosis - Acute on chronic diastolic (congestive) heart failure os Forms: - Medication Reconciliation Form os - SBAR form os Signatures: Dispatcher [employer] Rasheeda Brooks RN RN dw Anderson, Corey, MD MD cha Breneman, Mary Beth, RN RN mb9 Dinorah Hudldeston RN RN os Corrections: (The following items were deleted from the chart) 14:56 13:17 hattie dw 16:09 13:17 Inpatient Admission hattie os 16:09 13:17 Kei Vaughn hattie os 16:09 13:17 Telemetry/MedSurg (Inpatient) hattie os 16:09 13:17 Fair hattie os 16:09 13:17 new hattie os 16:09 13:17 have worsened hattie os 16:09 13:17 Standard hattie os 16:09 13:17 Cardiomegaly hattie os 16:09 13:17 Edema, unspecified hattie os 16:09 13:17 Venous insufficiency (chronic) (peripheral) hattie os 16:09 13:17 Cellulitis and acute lymphangitis of other parts of limb hattie os 16:09 13:17 Acute kidney failure, unspecified - ON CHRONIC hattie os 16:09 13:17 Hypoxemia hattie os 16:09 13:18 Abnormal levels of other serum enzymes - ELEVATED TROPONIN [facility] os 14:56 430 dw os
--- NOTE | 2023-04-03 13:40 | RAD REPORT ---
EXAM DESCRIPTION: USExtrem Venous W Compress Bil04/03/2023 1:29 pm CLINICAL HISTORY: Leg pain COMPARISON: none FINDINGS: The common femoral, superficial femoral, greater saphenous, popliteal and posterior tibial veins bilaterally are compressible and demonstrate augmentation. Doppler demonstrates good flow. Grayscale, color and spectral analysis performed on all vessels IMPRESSION: No evidence of deep venous thrombosis involving either lower extremity.
[2023-04-03] MEDS ORDERED: HYDRALAZINE HCL 20 MG/ML VIAL IV PRN (13:50)
[2023-04-03] MEDS ORDERED: GLUCAGON 1 MG/VIAL IM PRN (13:51)
[2023-04-03] MEDS ORDERED: D10W 250 ML BAG IV PRN (14:19)
[2023-04-03] MEDS ORDERED: POTASSIUM 25 MEQ EFFERV TAB PO ONE (14:22)
--- NOTE | 2023-04-03 14:37 | P.HP ---
Certification for Inpatient Patient admitted to: Observation With expected LOS: <2 Midnights Practitioner: I am a practitioner with admitting privileges, knowledge of patient current condition, hospital course, and medical plan of care. Services: Services provided to patient in accordance with Admission requirements found in Title 42 Section 412.3 of the Code of Federal Regulations Patient History Date of Service: 04/03/23 Reason for admission: Shortness of breath severe hypertension History of Present Illness: Patient is 63 years of age was in hospice care currently he had no AC or oxygen at home due to lack of power became acutely short of breath per tensive diaphoretic and and ended up here in the hospital back on oxygen feels a little better he is got chronic swelling of lower extremity with bilateral lower extremity wounds has terminal congestive heart failure is better Allergies No Known Allergies Allergy (Unverified 09/07/17 15:26) Home Medications: Atorvastatin Calcium 20 mg PO DAILY 01/15/23 Glimepiride 2 mg PO DAILY 01/15/23 Aspirin Chewable [Aspirin Chewable*] 81 mg PO DAILY tab.chew 01/20/23 Isosorbide Mononitrate [Isosorbide Mononitrate ER] 30 mg PO DAILY #30 tab 01/20/23 Torsemide [Demadex*] 40 mg PO DAILY #60 tab 01/20/23 Hydralazine HCl 100 mg PO BID 03/13/23 Metoprolol Tartrate [Lopressor*] 25 mg PO BID 03/13/23 Spironolactone [Aldactone*] 50 mg PO DAILY 03/13/23 - Past Medical/Surgical History Diabetic: No -: CVA -: HTN -: DM II -: CKD 4 (Dr. Merritt) -: Systolic CHF -: None Psychosocial/ Personal History: Patient unemployed lives alone - Family History Father -: Heart disease - Social History Alcohol use: No CD- Drugs: Yes Caffeine use: No Review of Systems General: Weakness Respiratory: Cough, Shortness of Breath Cardiovascular: Edema Physical Examination - Vital Signs Temperature: 7.9 F Blood Pressure: 199/150 Pulse: 98 Respirations: 24 Pulse Ox (%): 97 - Physical Exam General: Alert, Oriented x3 Respiratory: Diminished, Crackles/rales Cardiovascular: Edema (Plus edema with lower extremity wounds on both his calf) Gastrointestinal: Normal bowel sounds, Soft and benign, Non-distended Musculoskeletal: No clubbing, No swelling Integumentary: No rashes, No breakdown Neurological: Normal speech, Normal strength at 5/5 x4 extr - Studies Laboratory Data (last 24 hrs) 04/03/23 12:07: PT 12.2, INR 1.03 04/03/23 12:07: WBC 8.60, Hgb 13.0 L, Hct 40.2, Plt Count 261 04/03/23 12:07: Sodium 138, Potassium 3.1 L, BUN 58 H, Creatinine 3.30 H, Glucose 160 H, Magnesium 2.0, Total Bilirubin 1.6 H, AST 27, ALT 41, Alkaline Phosphatase 84, Lipase 31 Assessment and Plan - Problems (Diagnosis) (1) Congestive heart failure (CHF) Current Visit: Yes Status: Acute Plan: Patient is 63 years of age who is got terminal congestive heart failure was admitted to hospice care currently he lost power and he lost KIMBERLY and oxygen and it appeared in the hospital in respiratory distress extremity edema he is very hypertensive x-ray pulmonary venous congestion is mildly hypokalemic patient also has chronic renal failure [employer] 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 Qualifiers: Heart failure type: systolic Heart failure chronicity: acute on chronic Qualified Code(s): I50.23 - Acute on chronic systolic (congestive) heart failure - Advance Directives Does patient have a Living Will: No Does patient have a Durable POA for Healthcare: No
[2023-04-03] MEDS ORDERED: FUROSEMIDE 20 MG/ 2ML VIAL ONE (14:51)
[2023-04-03] MEDS ORDERED: CEFAZOLIN SODIUM 1 GM/VIAL ONE (14:51)
[2023-04-03] MEDS ORDERED: NA CHLORIDE 0.9% 100 ML ONE (14:53)
[2023-04-03] MEDS: INSULIN -REGULAR HUMAN 50 UNIT/0.5 ML ML SQ SCH ×2 (16:30→22:06)
[2023-04-03 16:59] VITALS: BMI 38.7
[2023-04-03] MEDS: SPIRONOLACTONE 25 MG TABLET PO SCH (17:26)
[2023-04-03] MEDS: METOPROLOL TAR 25 MG TAB PO SCH ×2 (17:26→22:05)
[2023-04-03 18:14] LABS: Specific Gravity 1.013 (1.005-1.030); Urine Bacteria None Seen /HPF (<20); Urine Bilirubin NEGATIVE (Negative); Urine Blood Negative (Negative); Urine Clarity Clear (Clear); Urine Color Light-Yellow (Yellow); Urine Glucose TRACE (Negative); Urine Protein 2+ (Negative); Urine RBC None Seen /HPF (None Seen); Urine Urobilinogen Normal (Normal); Urine pH 5.5 (5.0-7.0)
[2023-04-03] MEDS ORDERED: HOME MED 1 EA UNK (Hydralazine Hcl [Hydralazine Hcl] 50 MG Tablet) PO SCH (21:00)
[2023-04-03] MEDS ORDERED: METOPROLOL TAR 50 MG TAB PO SCH (21:00)
[2023-04-03] MEDS: FUROSEMIDE 40 MG/4 ML VIAL IV SCH (22:05)
[2023-04-03] MEDS: HYDRALAZINE HCL 25 MG TABLET PO SCH (22:05)
[2023-04-04 04:10] LABS: Hematocrit 40.4 % (39.6-49.0); Lymphocytes % 10.6 % (15.3-44.8); MCV 85.4 fL (80-100); MPV 9.2 fL (7.6-11.3); RBC Red Blood Cell Count 4.73 M/uL (4.33-5.43)
[2023-04-04 04:26] LABS: Albumin 3.5 g/dL (3.4-5.0); Bilirubin Total 1.3 mg/dL (0.2-1.0); Potassium 3.4 mEq/L (3.5-5.1)
[2023-04-04] MEDS: INSULIN -REGULAR HUMAN 50 UNIT/0.5 ML ML SQ SCH ×4 (07:30→20:21)
[2023-04-04] MEDS: METOPROLOL TAR 25 MG TAB PO SCH ×2 (08:41→20:19)
[2023-04-04] MEDS: FUROSEMIDE 40 MG/4 ML VIAL IV SCH ×2 (08:41→20:18)
[2023-04-04] MEDS: ASPIRIN 81 MG CHEWABLE TABLET PO SCH (08:41)
[2023-04-04] MEDS: SPIRONOLACTONE 25 MG TABLET PO SCH (08:41)
[2023-04-04] MEDS: HYDRALAZINE HCL 25 MG TABLET PO SCH ×2 (08:41→20:20)
[2023-04-04] MEDS: ATORVASTATIN 20 MG TAB PO SCH (08:41)
[2023-04-04] MEDS: GLIMEPIRIDE 2 MG TABLET PO SCH (08:41)
[2023-04-04] MEDS: ISOSORBIDE MONO SR 30 MG TAB PO SCH (08:46)
[2023-04-04] MEDS ORDERED: SPIRONOLACTONE 25 MG TABLET PO SCH (09:00)
--- NOTE | 2023-04-04 15:16 | P.PN ---
Subjective Date of Service: 04/04/23 Chief Complaint: Shortness of breath severe hypertension No major changes from yesterday. Patient is maintained on oxygen by nasal cannula. Physical Examination - Vital Signs Temperature: 97.3 F Blood Pressure: 146/70 Pulse: 56 Respirations: 18 Pulse Ox (%): 96 - Physical Exam General: Alert, In no apparent distress, Obese HEENT: Mucous membr. moist/pink Neck: JVD not distended Respiratory: Diminished (Bilateral) Cardiovascular: Regular rate/rhythm, Normal S1 S2, Edema (Bilateral lower extremities) Gastrointestinal: Soft and benign, Non-distended Musculoskeletal: Swelling (Bilateral leg) Integumentary: Venous stasis ulcer (Left lower extremity) Neurological: Other (No focal motor deficit) Assessment And Plan - Current Problems (Diagnosis) (1) Chronic respiratory failure with hypoxia Current Visit: Yes Status: Acute (2) Chronic systolic heart failure Current Visit: Yes Status: Acute (3) Venous stasis ulcer of lower extremity Current Visit: Yes Status: Acute - Plan Patient is planned for long-term care placement. Social service consulted to assist with placement. He is currently on baseline oxygen by nasal cannula IV Lasix for CHF Home dose torsemide on hold. Monitor electrolytes. Continue other home medications. Patient is appropriate for hospice and wants to go to the [place] [facility] with [facility].
[2023-04-05] MEDS: INSULIN -REGULAR HUMAN 50 UNIT/0.5 ML ML SQ SCH (07:30)
[2023-04-05] MEDS: FUROSEMIDE 40 MG/4 ML VIAL IV SCH (07:54)
[2023-04-05] MEDS: HYDRALAZINE HCL 25 MG TABLET PO SCH (07:54)
[2023-04-05] MEDS: GLIMEPIRIDE 2 MG TABLET PO SCH ×2 (07:55→07:58)
[2023-04-05] MEDS: ISOSORBIDE MONO SR 30 MG TAB PO SCH (07:56)
[2023-04-05] MEDS: SPIRONOLACTONE 25 MG TABLET PO SCH (07:56)
[2023-04-05] MEDS: METOPROLOL TAR 25 MG TAB PO SCH (07:56)
[2023-04-05] MEDS: ASPIRIN 81 MG CHEWABLE TABLET PO SCH (07:56)
[2023-04-05] MEDS: ATORVASTATIN 20 MG TAB PO SCH (07:56)
[2023-04-05 07:57] VITALS: BP 189/88
[2023-04-05 08:36] VITALS: TEMP 96.8
[2023-04-05 09:54] VITALS: O2SAT 98
--- NOTE | 2023-04-05 11:20 | EKG ---
Test Date: 2023-04-03 Test Time: 12:19:13 Technical Support Engineer: LANCE MEASUREMENT RESULTS: Intervals: Rate: 89 VT: 184 QRSD: 96 QT: 420 QTc: 511 [place]: P: 58 VT: 184 QRS: 72 T: 60 INTERPRETIVE STATEMENTS: Normal sinus rhythm Biatrial enlargement Prolonged QT Abnormal ECG Compared to ECG 03/13/2023 02:00:57 Atrial abnormality now present T-wave abnormality no longer present Electronically Signed On 04-05-23 11:17:34 CDT by Mike Hart
--- NOTE | 2023-04-05 11:41 | P.DS ---
Admission Date: 04/03/23 Discharge Date: 04/05/23 Disposition: HOSPICE-HOME Discharge Condition: FAIR Reason for Admission: Shortness of breath severe hypertension - Problems (1) Chronic respiratory failure with hypoxia Current Visit: Yes Status: Acute (2) Chronic systolic heart failure Current Visit: Yes Status: Acute (3) Venous stasis ulcer of lower extremity Current Visit: Yes Status: Acute Brief History of Present Illness: Patient is 63 years with a history of chronic systolic heart failure of age who was in hospice care was brought to the emergency department due power outage, no AC and no access to oxygen at home.patient became acutely short of breath, hypertensive and diaphoretic. Patient presented to the emergency department for help. He has chronic swelling of lower extremity with bilateral lower extremity wounds and a history of terminal congestive heart failure. Patient was hospitalized for further management. Hospital Course: Patient placed under observation on the medical floor and started on IV Lasix. He feels better on oxygen. Patient would like to go back on hospice. Hospice has been making arrangement for patient to continue care in the [facility]. He is yet to be approved for transfer to [facility] for long-term care. Patient is discharged to home to continue hospice. No changes made in his home medication. Vital Signs/Physical Exam: Temp Pulse Resp BP Pulse Ox 96.8 F 61 17 189/88 H 98 04/05/23 08:00 04/05/23 08:00 04/05/23 08:00 04/05/23 08:00 04/05/23 08:00 General: Alert, In no apparent distress, Oriented x3, Obese HEENT: Mucous membr. moist/pink Neck: Supple, JVD not distended Respiratory: Clear to auscultation bilaterally, Normal air movement Cardiovascular: Regular rate/rhythm, Normal S1 S2, Edema (Bilateral lower extremities) Gastrointestinal: Soft and benign, Non-distended Musculoskeletal: Swelling (Bilateral legs) Neurological: Normal strength at 5/5 x4 extr Laboratory Data at Discharge: WBC 9.60 thou/uL (4.3-10.9) 04/04/23 03:29 Hgb 12.9 g/dL (13.6-17.9) L 04/04/23 03:29 Hct 40.4 % (39.6-49.0) 04/04/23 03:29 Plt Count 268 thou/uL (152-406) 04/04/23 03:29 PT 12.2 SECONDS (9.2-12.8) 04/03/23 12:07 INR 1.03 04/03/23 12:07 Sodium 141 mEq/L (136-145) 04/04/23 03:29 Potassium 3.4 mEq/L (3.5-5.1) L 04/04/23 03:29 BUN 55 mg/dL (7-18) H 04/04/23 03:29 Creatinine 3.20 mg/dL (0.70-1.30) H 04/04/23 03:29 Glucose 100 mg/dL (74-106) 04/04/23 03:29 Magnesium 2.0 mg/dL (1.6-2.4) 04/03/23 12:07 Total Bilirubin 1.3 mg/dL (0.2-1.0) H 04/04/23 03:29 AST 19 U/L (15-37) 04/04/23 03:29 ALT 35 U/L (16-61) 04/04/23 03:29 Alkaline Phosphatase 78 U/L (45-117) 04/04/23 03:29 Lipase 31 U/L (13-75) 04/03/23 12:07 Home Medications: Atorvastatin Calcium 20 mg PO DAILY 01/15/23 Glimepiride 2 mg PO DAILY 01/15/23 Aspirin Chewable [Aspirin Chewable*] 81 mg PO DAILY tab.chew 01/20/23 Isosorbide Mononitrate [Isosorbide Mononitrate ER] 30 mg PO DAILY #30 tab 01/20/23 Torsemide [Demadex*] 40 mg PO DAILY #60 tab 01/20/23 Hydralazine HCl 100 mg PO BID 03/13/23 Metoprolol Tartrate [Lopressor*] 25 mg PO BID 03/13/23 Spironolactone [Aldactone*] 50 mg PO DAILY 03/13/23 Diet: ADA Activity: Fall precautions Followup: NONE,NONE [Primary Care Provider] - Time spent managing pt's care (in minutes): 27
--- NOTE | 2023-04-06 19:35 | EKG ---
Test Date: 2023-04-03 Test Time: 12:20:20 Roving Tester Laboratory: LANCE MEASUREMENT RESULTS: Intervals: Rate: 88 NH: 182 QRSD: 98 QT: 426 QTc: 515 [place]: P: 59 NH: 182 QRS: 76 T: 62 INTERPRETIVE STATEMENTS: Normal sinus rhythm Biatrial enlargement Prolonged QT Abnormal ECG Compared to ECG 04/03/2023 12:19:13 No significant changes Electronically Signed On 04-06-23 19:30:48 CDT by Mauricio Arguelles
== END 2023-04-05 12:30 | disposition hospice, home (50) ==
LOC: ER 11:33 → ERHOLD 13:47 → 4TH 16:58
PROVIDERS: ADMIT Internal Medicine Sleep Medicine; ATTEND Internal Medicine
DX: J96.11 Chronic respiratory failure with hypoxia (principal); I50.23 Acute on chronic systolic (congestive) heart failure; I87.8 Other specified disorders of veins; I87.313 Chronic venous hypertension (idiopathic) with ulcer of bilateral lower extremity
CPT/HCPCS: 93005; 85025 ×2; 81001; 80048; 36415; 83735; 85610; 82947 ×9; 80076; 84484; 83690; 80053; 83880; 71045; 93970; 99285; J1815; J0360 ×3; J1940 ×5; J7030; J0690; G0378

== ENCOUNTER 2024-05-22 12:24 | Emergency (ER) | payer OTHER ==
[2024-05-22] MEDS ORDERED: HYDRALAZINE HCL 20 MG/ML VIAL ONE ×2 (13:27→14:44)
[2024-05-22 13:50] LABS: Absolute Basophils 0.1 K/uL (0-0.5); Absolute Eosinophils 0.3 K/uL (0-0.5); Absolute Lymphocytes (CBC) 1.6 K/uL (0.7-4.9); Absolute Monocytes 0.6 K/uL (0.1-1.3); Absolute Neutrophil 4.2 K/uL (1.8-8.0); Basophils % 0.8 % (0-1.3); Eosinophils % 4.7 % (0-4.4); Hematocrit 44.8 % (39.6-49.0); Hemoglobin 14.6 g/dL (13.6-17.9); Lymphocytes % 23.1 % (15.3-44.8); MCH 28.4 pg (27.0-35.0); MCHC 32.6 g/dL (32.0-36.0); MCV 87.1 fL (80-100); MPV 8.2 fL (7.6-11.3); Monocytes % 9.1 % (3.3-12.3); Neutrophils % 62.3 % (41.7-73.7); Nucleated Red Blood Cells % 0.1 % (0-0); Platelets 187 thou/uL (152-406); RBC Red Blood Cell Count 5.14 M/uL (4.33-5.43); Red Cell Distribution Width 15.4 % (12.1-15.2)
[2024-05-22 14:09] LABS: Troponin High Sensitivity 21.4 pg/mL (<58.9)
--- NOTE | 2024-05-22 14:23 | EDPHYS ---
Physician Documentation [facility] Name: Calos Marie Age: 64 yrs Sex: Male : 1960 Arrival Date: 05/22/2024 Time: 12:24 Bed 20 Private MD: ED Physician Manuel Lubin HPI: 05/22 13:29 This 64 yrs old Male presents to ER via EMS with complaints of jr8 Hypertension/asymptomatic. 13:29 Onset: The symptoms/episode began/occurred today. Associated signs and symptoms: The jr8 patient has no apparent associated signs or symptoms. The patient has experienced similar episodes in the past, a few times. The patient has not recently seen a physician. 64-year-old male patient presented to the emergency room after assisted called them for hypertensive crisis. Patient stated that he is asymptomatic at this time but that blood pressure on scene per EMS was 250/100. Stated that he normally has significant blood pressure issues. [facility] have given him a clonidine prior to calling without any relief. Currently blood pressure in the emergency room 250/118.. Historical: - Allergies: 12:35 No Known Allergies; go2 - Home Meds: 12:35 amlodipine 10 mg tablet 1 tab daily [Active]; aspirin 81 mg Oral tablet, delayed go2 release (enteric coated) 1 tab once [Active]; atorvastatin 40 mg oral tablet 1 tab once [Active]; clonidine HCl 0.1 mg oral tablet 1 tab as needed [Active]; dapagliflozin propanediol 10 mg oral tablet 1 tab once [Active]; Depakote ER 500 mg Oral Tablet, Extended Release 24 hr 1 tab once [Active]; duloxetine 30 mg oral Capsule, Delayed Release Sprinkle 1 cap daily [Active]; famotidine 20 mg Oral tablet 1 tab daily [Active]; hydralazine 100 mg Oral tablet 1 tab once [Active]; losartan oral 30mg [Active]; spironolactone 25 mg Oral tablet 1 tab once [Active]; torsemide 20 mg oral tablet 1 tab once [Active]; - PMHx: 12:44 NSTEMI; Diabetes mellitus; Kidney disease; Hypertensive disorder; Peripheral vascular go2 disease; Anxiety; Congestive heart failure; - Immunization history:: Adult Immunizations. - Infectious Disease History:: Denies. - Social history:: Patient/guardian denies using Smoking status: Patient denies any tobacco usage or history of. ROS: 13:29 Eyes: Negative for injury, pain, redness, and discharge, ENT: Negative for injury, jr8 pain, and discharge, Neck: Negative for injury, pain, and swelling, Cardiovascular: Negative for chest pain, palpitations, and edema, Respiratory: Negative for shortness of breath, cough, wheezing, and pleuritic chest pain, Abdomen/GI: Negative for abdominal pain, nausea, vomiting, diarrhea, and constipation, Back: Negative for injury and pain, MS/Extremity: Negative for injury and deformity, Skin: Negative for injury, rash, and discoloration, Neuro: Negative for headache, weakness, numbness, tingling, and seizure, Exam: 13:29 Constitutional: This is a well developed, well nourished patient who is awake, alert, jr8 and in no acute distress. Eyes: Pupils equal round and reactive to light, extra-ocular motions intact. Lids and lashes normal. Conjunctiva and sclera are non-icteric and not injected. Cornea within normal limits. Periorbital areas with no swelling, redness, or edema. ENT: Nares patent. No nasal discharge, no septal abnormalities noted. Tympanic membranes are normal and external auditory canals are clear. Oropharynx with no redness, swelling, or masses, exudates, or evidence of obstruction, uvula midline. Mucous membranes moist. Neck: Trachea midline, no thyromegaly or masses palpated, and no cervical lymphadenopathy. Supple, full range of motion without nuchal rigidity, or vertebral point tenderness. No Meningismus. Cardiovascular: Regular rate and rhythm with a normal S1 and S2. No gallops, murmurs, or rubs. Normal PMI, no JVD. No pulse deficits. Respiratory: Lungs have equal breath sounds bilaterally, clear to auscultation and percussion. No rales, rhonchi or wheezes noted. No increased work of breathing, no retractions or nasal flaring. Abdomen/GI: Soft, non-tender, with normal bowel sounds. No distension or tympany. No guarding or rebound. No evidence of tenderness throughout. Back: No spinal tenderness. No costovertebral tenderness. Full range of motion. Skin: Warm, dry with normal turgor. Normal color with no rashes, no lesions, and no evidence of cellulitis. MS/ Extremity: Pulses equal, no cyanosis. Neurovascular intact. Full, normal range of motion. Neuro: Awake and alert, GCS 15, oriented to person, place, time, and situation. Cranial nerves II-XII grossly intact. Motor strength 5/5 in all extremities. Sensory grossly intact. 14:20 ECG was reviewed by the Attending Physician. 8 Vital Signs: 12:33 BP 250 / 118; Pulse 62; Resp 14; Temp 98; Pulse Ox 99% ; Weight 117.93 kg; Height 5 ft. go2 10 in. ; 13:39 BP 169 / 144; Pulse 64; Resp 16; Temp 98.6; Pulse Ox 99% ; go2 14:00 BP 194 / 88; Pulse 83; Resp 25; Temp 99; Pulse Ox 97% ; go2 15:28 BP 236 / 100; Pulse 73; Resp 16; Temp 97.6; Pulse Ox 96% ; go2 12:33 Body Mass Index 37.31 (117.93 kg, 177.8 cm) go2 MDM: 12:32 Patient medically screened. [facility] 14:20 Differential diagnosis: Hypertensive emergency, CVA, NSTEMI, STEMI, asymptomatic HTN. jr8 Data reviewed: vital signs, nurses notes, lab test result(s), EKG, radiologic studies, CT scan. Care significantly affected by the following chronic conditions: Hypertension, Obesity, Chronic Kidney Disease. Counseling: I had a detailed discussion with the patient and/or guardian regarding the historical points, exam findings, and any diagnostic results supporting the discharge/admit diagnosis, lab results, radiology results, the need for outpatient follow up, a family practitioner, to return to the emergency department if symptoms worsen or persist or if there are any questions or concerns that arise at home. Response to treatment: the patient's symptoms have markedly improved after treatment. ED course: Patient's blood pressure markedly better. Continues to be hypertensive but did not want to drop more than 20% of the original blood pressure. Asymptomatic still otherwise. Will have him follow-up with primary care. 05/22 12:55 Order name: Basic Metabolic Panel; Complete Time: 14:20 jr8 05/22 12:55 Order name: CBC with Diff; Complete Time: 14:20 jr8 05/22 12:55 Order name: Troponin HS; Complete Time: 14: jr8 05/22 12:55 Order name: Cardiac monitoring; Complete Time: 13:36 8 05/22 12:55 Order name: EKG - Nurse/Tech; Complete Time: 14:00 8 05/22 12:55 Order name: IV Saline Lock; Complete Time: 13:36 8 05/22 12:55 Order name: Labs collected and sent; Complete Time: 13:36 8 05/22 12:55 Order name: O2 Per Protocol; Complete Time: 14:04 8 05/22 12:55 Order name: O2 Sat Monitoring; Complete Time: 13:36 8 EC:20 Rate is 65 beats/min. Rhythm is regular, Normal Sinus Rhythm. QRS Blanco is Normal. CT jr8 interval is normal at 188 msec. QRS interval is normal at 94 msec. QT interval is normal at 446 msec. No Q waves. T waves are Inverted in leads I, aVL. No ST changes noted. Clinical impression: NSR w/ Non-specific ST/T Changes. Interpreted by me. Reviewed by me. Administered Medications: 13:36 Drug: hydrALAZINE IVP 20 mg IVP once Route: IVP; Site: right forearm; go2 14:49 Follow up: Response: No adverse reaction go2 14:48 Drug: hydrALAZINE IVP 10 mg IVP once Route: IVP; Site: right antecubital; go2 14:49 Follow up: Response: No adverse reaction go2 Disposition Summary: 05/22/24 14:23 Discharge Ordered Notes: Location: Home jr8 Problem: new jr8 Symptoms: have improved jr8 Condition: Stable jr8 Diagnosis - Essential (primary) hypertension jr8 Followup: jr8 - With: Private Physician - When: 5 - 6 days - Reason: Recheck today's complaints, Continuance of care, Re-evaluation by your physician Discharge Instructions: - Discharge Summary Sheet jr8 - Hypertension, Adult jr8 Forms: - Medication Reconciliation Form jr8 - Antibiotic Education jr8 - Prescription Opioid Use jr8 - Patient Portal Instructions jr8 - Leadership Thank You Letter jr8 Signatures: Dispatcher [employer] EDMS Da Worrell PA PA jr8 Kristy Goode RN RN go2 Corrections: (The following items were deleted from the chart) 12:56 12:56 BASIC METABOLIC PANEL+C.LAB.BRZ ordered. EDMS EDMS 12:56 12:56 CBC+H.LAB.BRZ ordered. EDMS EDMS 12:56 12:56 Troponin High Sensitivity+C.LAB.BRZ ordered. EDMS EDMS
--- NOTE | 2024-05-22 14:23 | ER ---
Nurse's Notes [facility] Name: Calos Marie Age: 64 yrs Sex: Male : 1960 Arrival Date: 05/22/2024 Time: 12:24 Bed 20 Private MD: Diagnosis: Essential (primary) hypertension Presentation: 05/22 12:33 Chief complaint: Patient states: High blood pressure since this morning. Took BP meds go2 this morning at senior care. Coronavirus screen: Client denies travel out of the [place] in the last 14 days. Ebola Screen: Patient denies travel to an Ebola-affected area in the 21 days before illness onset. Initial Sepsis Screen: Does the patient meet any 2 criteria? No. Patient's initial sepsis screen is negative. Does the patient have a suspected source of infection? No. Patient's initial sepsis screen is negative. Risk Assessment: Do you want to hurt yourself or someone else? Patient reports no desire to harm self or others. Onset of symptoms is unknown. 12:33 Method Of Arrival: EMS: [facility] go2 12:33 Acuity: KRIS 2 aa5 Triage Assessment: 12:47 General: Appears in no apparent distress. comfortable, Behavior is calm, cooperative, go2 appropriate for age. Pain: Denies pain. Historical: - Allergies: 12:35 No Known Allergies; go2 - Home Meds: 12:35 amlodipine 10 mg tablet 1 tab daily [Active]; aspirin 81 mg Oral tablet, delayed go2 release (enteric coated) 1 tab once [Active]; atorvastatin 40 mg oral tablet 1 tab once [Active]; clonidine HCl 0.1 mg oral tablet 1 tab as needed [Active]; dapagliflozin propanediol 10 mg oral tablet 1 tab once [Active]; Depakote ER 500 mg Oral Tablet, Extended Release 24 hr 1 tab once [Active]; duloxetine 30 mg oral Capsule, Delayed Release Sprinkle 1 cap daily [Active]; famotidine 20 mg Oral tablet 1 tab daily [Active]; hydralazine 100 mg Oral tablet 1 tab once [Active]; losartan oral 30mg [Active]; spironolactone 25 mg Oral tablet 1 tab once [Active]; torsemide 20 mg oral tablet 1 tab once [Active]; - PMHx: 12:44 NSTEMI; Diabetes mellitus; Kidney disease; Hypertensive disorder; Peripheral vascular go2 disease; Anxiety; Congestive heart failure; - Immunization history:: Adult Immunizations. - Infectious Disease History:: Denies. - Social history:: Patient/guardian denies using Smoking status: Patient denies any tobacco usage or history of. Screenin:[address] [facility] ED Fall Risk Assessment (Adult) History of falling in the last 3 months, go2 including since admission No falls in past 3 months (0 pts) Confusion or Disorientation No (0 pts) Intoxicated or Sedated No (0 pts) Impaired Gait No (0 pts) Mobility Assist Device Used No (0 pt) Altered Elimination No (0 pt) Score/Fall Risk Level 0 - 2 = Low Risk. Abuse screen: Denies threats or abuse. Denies injuries from another. Nutritional screening: No deficits noted. Tuberculosis screening: No symptoms or risk factors identified. Assessment: 13:40 General: Appears in no apparent distress. comfortable, Behavior is calm, cooperative, go2 appropriate for age, Reports Denies fever, feeling ill, fatigue, chills. Pain: Denies pain. Neuro: No deficits noted. Cardiovascular: Denies chest pain, fatigue, lightheadedness, nausea, palpitations, shortness of breath. 15:09 Reassessment: Spoke to nurse at senior care. [facility] ambulance's ETA \R\30min at this time. go2 Pending pickle cutter to transport to facility. 15:27 Reassessment: No changes from previously documented assessment. Patient is alert, go2 oriented x 3, equal unlabored respirations, skin warm/dry/pink. Vital Signs: 12:33 BP 250 / 118; Pulse 62; Resp 14; Temp 98; Pulse Ox 99% ; Weight 117.93 kg; Height 5 ft. go2 10 in. ; 13:39 BP 169 / 144; Pulse 64; Resp 16; Temp 98.6; Pulse Ox 99% ; go2 14:00 BP 194 / 88; Pulse 83; Resp 25; Temp 99; Pulse Ox 97% ; go2 15:28 BP 236 / 100; Pulse 73; Resp 16; Temp 97.6; Pulse Ox 96% ; go2 12:33 Body Mass Index 37.31 (117.93 kg, 177.8 cm) go2 ED Course: 12:30 Patient arrived in ED. go2 12:31 Gilchrist, Kristy, RN is Primary Nurse. go2 12:32 Da Worrell PA is PHCP. jr8 12:32 Manuel Lubin MD is Attending Physician. jr8 12:35 Triage completed. go2 12:47 Arm band placed on right wrist. Patient placed. go2 12:48 Patient has correct armband on for positive identification. go2 13:36 Troponin HS Sent. go2 13:36 CBC with Diff Sent. go2 13:36 Basic Metabolic Panel Sent. go2 13:36 Inserted saline lock: 20 gauge in right forearm, using aseptic technique. go2 15:05 Provided Education on: na - Soke to nursing staff at senior care about patient's go2 treatment/discharge. . 15:39 IV discontinued, intact, bleeding controlled, No redness/swelling at site. Pressure go2 dressing applied. 15:39 No provider procedures requiring assistance completed. go2 Administered Medications: 13:36 Drug: hydrALAZINE IVP 20 mg IVP once Route: IVP; Site: right forearm; go2 14:49 Follow up: Response: No adverse reaction go2 14:48 Drug: hydrALAZINE IVP 10 mg IVP once Route: IVP; Site: right antecubital; go2 14:49 Follow up: Response: No adverse reaction go2 Medication: 12:48 VIS not applicable for this client. go2 Outcome: 14:23 Discharge ordered by . jr8 15:38 Patient left the ED. aa5 15:39 Discharged to senior care. Report called to [facility] go2 15:39 Condition: good go2 15:39 Discharge instructions given to EMS, Signatures: Josephine Wall RN RN aa5 Da Worrell PA PA jr8 Kristy Goode, RN RN go2 Corrections: (The following items were deleted from the chart) 12:46 12:33 Acuity: KRIS 3 go2 aa5
[2024-05-22 16:13] VITALS: BP 236/100; TEMP 97.6; O2SAT 96
--- NOTE | 2024-05-24 17:51 | EKG ---
Test Date: 2024-05-22 Test Time: 13:57:17 Electronic Page Makeup System Operator: RADHA MEASUREMENT RESULTS: Intervals: Rate: 65 DC: 188 QRSD: 94 QT: 446 QTc: 463 [place]: P: 47 DC: 188 QRS: -21 T: 27 INTERPRETIVE STATEMENTS: Normal sinus rhythm Minimal voltage criteria for LVH, may be normal variant ST & T wave abnormality, consider lateral ischemia Prolonged QT Abnormal ECG Compared to ECG 04/03/2023 12:20:20 Left ventricular hypertrophy now present ST (T wave) deviation now present Possible ischemia now present Atrial abnormality no longer present Electronically Signed On 05-24-24 17:47:34 CDT by Andreas Douglas
== END 2024-05-22 15:38 | disposition home or self-care (01) ==
LOC: ER 12:24
DX: I10 Essential (primary) hypertension (principal); E11.22 Type 2 diabetes mellitus with diabetic chronic kidney disease; N18.9 Chronic kidney disease, unspecified; I50.9 Heart failure, unspecified; I25.2 Old myocardial infarction; Z79.82 Long term (current) use of aspirin
CPT/HCPCS: 93005; 85025; 80048; 36415; 84484; 99284; J0360 ×2

== ENCOUNTER 2024-10-09 20:52 | Emergency (ER) | payer OTHER ==
--- NOTE | 2024-10-09 22:03 | RAD REPORT ---
EXAMINATION: CT HEAD WITHOUT CONTRAST CT CERVICAL SPINE WITHOUT CONTRAST CLINICAL INDICATION: Head and neck injury status post fall. Head and neck pain TECHNIQUE: Axial CT images from the skull base to the vertex without intravenous contrast. Axial CT i mages through the cervical spine were obtained without intravenous contrast. Sagittal and coronal reformatted images were created from the data set. Coronal and sagittal reformatted images were creat ed from the data set. One or more of the following dose reduction techniques were used: Automated exposure control, adjustment of the mA and/or kV according to patient size, and/or iterative reconstr uction. Unless otherwise specified, incidental findings do not require dedicated imaging follow-up. [id number]. Comparison: Head CT 2023 FINDINGS: An intracranial bleed is not seen. Ventricles are normal in caliber. 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 Moderate to large old left occipital lobe infarction No extra-axial fluid collection. No fluid within the sinuses/mastoids No fracture or dislocation is seen involving the cervical spine. Small central disc herniation C3-4. Uncal vertebral and facet hypertrophy C3-4 results in marked left foraminal stenosis IMPRESSION: No acute intracranial abnormality noted A cervical fracture is not seen. If the patient continues to have symptoms to suggest acute SUSTAINABILITY COORDINATOR/spinal pathology then MRI would be rec ommended
--- NOTE | 2024-10-09 22:14 | ER ---
Nurse's Notes [facility] Name: Calos Marie Age: 64 yrs Sex: Male : 1960 Arrival Date: 10/09/2024 Time: 20:52 Bed 20 Private MD: Diagnosis: Mechanical fall;Closed head injury Presentation: 10/09 20:59 Chief complaint: EMS states: fall from standing where he bumped his head twice. Patient cp4 is on blood thinners. Abrasions to right knee and left elbow. Care prior to arrival: None. Mechanism of Injury: Fall from standing position. Trauma event details: Injury occurred in the [facility]. 20:59 Acuity: KRIS 3 cp4 20:59 Method Of Arrival: EMS: [facility] cp4 21:02 Coronavirus screen: Vaccine status: At this time, the client does not indicate any cp4 symptoms associated with coronavirus-19. Ebola Screen: Patient negative for fever greater than or equal to 101.5 degrees Fahrenheit, and additional compatible Ebola Virus Disease symptoms Patient denies exposure to infectious person. Patient denies travel to an Ebola-affected area in the 21 days before illness onset. No symptoms or risks identified at this time. Initial Sepsis Screen: Does the patient meet any 2 criteria? No. Patient's initial sepsis screen is negative. Does the patient have a suspected source of infection? No. Patient's initial sepsis screen is negative. Risk Assessment: Do you want to hurt yourself or someone else? Patient reports no desire to harm self or others. Onset of symptoms was October 09, 2024. Trauma Activation: Not Applicable Physician: ED Physician; Name: ; Notified At: ; Arrived At: Physician: General Surgeon; Name: ; Notified At: ; Arrived At: Physician: Radiology; Name: ; Notified At: ; Arrived At: Physician: Respiratory; Name: ; Notified At: ; Arrived At: Physician: Lab; Name: ; Notified At: ; Arrived At: Historical: - Allergies: 21:03 No Known Allergies; cp4 - Home Meds: 21:03 aspirin 81 mg Oral tablet 1 tab once [Active]; amlodipine 10 mg tablet 1 tab daily cp4 [Active]; atorvastatin 40 mg Oral tablet 1 tab once [Active]; clonidine HCl 0.1 mg Oral tablet 1 tab as needed [Active]; dapagliflozin propanediol 10 mg Oral tablet 1 tab once [Active]; Depakote ER 500 mg Oral Tablet 1 tab once [Active]; duloxetine 30 mg Oral Capsule 1 cap daily [Active]; famotidine 20 mg Oral tablet 1 tab daily [Active]; hydralazine 100 mg Oral tablet 1 tab once [Active]; losartan oral 30mg [Active]; spironolactone 25 mg Oral tablet 1 tab once [Active]; torsemide 20 mg Oral tablet 1 tab once [Active]; - PMHx: 21:03 Anxiety; Congestive heart failure; diabetes mellitus; Hypertensive disorder; NSTEMI; cp4 kidney disease; peripheral vascular disease; - Immunization history: Last tetanus immunization: - up to date. - Infectious Disease History:: Denies. - Social history:: Smoking status: Patient denies any tobacco usage or history of. Screenin:59 Abuse screen: Denies threats or abuse. Nutritional screening: No deficits noted. cp4 Tuberculosis screening: No symptoms or risk factors identified. 21:05 [facility] ED Fall Risk Assessment (Adult) History of falling in the last 3 months, cp4 including since admission Yes- single mechanical fall (1 pt) Confusion or Disorientation No (0 pts) Intoxicated or Sedated No (0 pts) Impaired Gait Yes (1 pt) Mobility Assist Device Used Yes (1 pt) Altered Elimination No (0 pt) Score/Fall Risk Level 3 or more points = High Risk Oriented to surroundings, Maintained a safe environment, Assessed \T\ reinforced patient's understanding of fall precautions, Provided non-skid footwear, Hourly rounding (assess needs \T\ fall precautionary measures) done. Primary Survey: 20:59 NO uncontrolled hemorrhage observed. A: The client is awake and alert. The airway is cp4 patent. Breathing/Chest: Spontaneous respiratory effort, equal unlabored respirations, breath sounds clear bilaterally, regular pattern, symmetrical chest rise and fall. Circulation: No external hemorrhage present. Regular and strong central pulse, skin warm/dry/normal color. Disability Pupils are equal, round, reactive to light and accommodation. Client is alert. Exposure/Environment: A warming method has been applied: A warm blanket has been provided to the patient. Reassessment Alertness and Airway: Awake and alert. The airway is patent. Breathing: Spontaneous respiratory effort, equal unlabored respirations, breath sounds clear bilaterally, regular pattern with symmetrical chest rise and fall. Circulation: No external hemorrhage noted. Regular and strong central pulse, skin warm/dry/normal color. Disability: Pupils Pupils are equal, round, reactive to light and accomodation. Alert. Assessment: 20:59 General: Appears in no apparent distress. comfortable, Behavior is calm, cooperative, cp4 appropriate for age. Pain: Denies pain. Neuro: Level of Consciousness is awake, alert, obeys commands, Oriented to person, place, time, situation. EENT: No signs and/or symptoms were reported regarding the EENT system. Cardiovascular: Patient's skin is warm and dry. Respiratory: Airway is patent Respiratory effort is even, unlabored. GI: No signs and/or symptoms were reported involving the gastrointestinal system. : No signs and/or symptoms were reported regarding the genitourinary system. Derm: No signs and/or symptoms reported regarding the dermatologic system. Musculoskeletal: No signs and/or symptoms reported regarding the musculoskeletal system. 21:05 Reassessment: No changes from previously documented assessment. cp4 22:03 Reassessment: Patient appears in no apparent distress at this time. Patient and/or cp4 family updated on plan of care and expected duration. Pain level reassessed. Patient is alert, oriented x 3, equal unlabored respirations, skin warm/dry/pink. 22:16 Reassessment: Disposition pending transport from [facility]. cp4 22:24 Reassessment: Report given to nurse at [facility]. cp4 Vital Signs: 20:59 BP 178 / 81; Pulse 82; Resp 18; Temp 98; Pulse Ox 99% ; Weight 113.4 kg; Height 5 ft. cp4 11 in. ; Pain 0/10; 22:01 BP 142 / 71; Pulse 77; Resp 18; Pulse Ox 96% ; cp4 23:34 BP 125 / 81; Pulse 74; Resp 18; Pulse Ox 99% ; cp4 20:59 Body Mass Index 34.87 (113.40 kg, 180.34 cm) cp4 20:59 Pain Scale: Adult cp4 Melissa Coma Score: 20:59 Eye Response: spontaneous(4). Motor Response: obeys commands(6). Verbal Response: cp4 oriented(5). Total: 15. Trauma Score (Adult): 20:59 Eye Response: spontaneous(1); Verbal Response: oriented(1); Motor Response: obeys cp4 commands(2); Systolic BP: > 89 mm Hg(4); Respiratory Rate: 10 to 29 per min(4); Melissa Score: 15; Trauma Score: 12 ED Course: 20:58 Patient arrived in ED. rv1 20:58 Georgi Mcknight MD is Attending Physician. rt 20:59 Heidi Horn is Primary Nurse. cp4 20:59 Bed in low position. Call light in reach. Side rails up X2. cp4 20:59 Patient maintains SpO2 saturation greater than 95% on room air. cp4 21:00 Triage completed. cp4 21:03 Arm band placed on right wrist. Patient placed in an exam room, on a stretcher. cp4 21:05 No provider procedures requiring assistance completed. cp4 21:38 CT Head C Spine In Process Unspecified. EDMS 23:36 Provided Education on: fall, head injury. cp4 23:36 Patient did not have IV access during this emergency room visit. cp4 23:36 Thermoregulation: warm blanket given to patient. cp4 Administered Medications: No medications were administered Medication: 21:05 VIS not applicable for this client. cp4 Intake: 20:59 PO: 0ml; Total: 0ml. cp4 Outcome: 22:13 Discharge ordered by . rt 23:35 Discharged to intermediate. Report called to [facility] cp4 23:35 Condition: stable 23:35 Patient's length of stay was not longer than 2 hours. 23:35 Discharge instructions given to EMS, Instructed on discharge instructions, follow up cp4 and referral plans. Demonstrated understanding of instructions, follow-up care, 23:37 Patient left the ED. cp4 Signatures: Dispatcher [employer] [facility] Georgi Mcknight MD MD rt Brit Taylor rv1 Heidi Horn cp4
--- NOTE | 2024-10-09 22:14 | EDPHYS ---
Physician Documentation [facility] Name: Calos Marie Age: 64 yrs Sex: Male : 1960 Arrival Date: 10/09/2024 Time: 20:52 Bed 20 Private MD: ED Physician Georgi Mcknight HPI: 10/09 22:37 This 64 yrs old Male presents to ER via EMS with complaints of Fall Injury. rt 22:37 Patient presents to the ED from [facility] with a fall. The patient reportedly gets rt unsteady on his feet after his medications and this is a known issue for him. Patient fell twice today, hitting his head but denies any loss of consciousness. Reports few scattered abrasions but no other significant pain. Denies of acute complaints at this time, symptoms are moderate severity, no other aggravating elevating factors.. Historical: - Allergies: 21:03 No Known Allergies; cp4 - Home Meds: 21:03 aspirin 81 mg Oral tablet 1 tab once [Active]; amlodipine 10 mg tablet 1 tab daily cp4 [Active]; atorvastatin 40 mg Oral tablet 1 tab once [Active]; clonidine HCl 0.1 mg Oral tablet 1 tab as needed [Active]; dapagliflozin propanediol 10 mg Oral tablet 1 tab once [Active]; Depakote ER 500 mg Oral Tablet 1 tab once [Active]; duloxetine 30 mg Oral Capsule 1 cap daily [Active]; famotidine 20 mg Oral tablet 1 tab daily [Active]; hydralazine 100 mg Oral tablet 1 tab once [Active]; losartan oral 30mg [Active]; spironolactone 25 mg Oral tablet 1 tab once [Active]; torsemide 20 mg Oral tablet 1 tab once [Active]; - PMHx: 21:03 Anxiety; Congestive heart failure; diabetes mellitus; Hypertensive disorder; NSTEMI; cp4 kidney disease; peripheral vascular disease; - Immunization history: Last tetanus immunization: - up to date. - Infectious Disease History:: Denies. - Social history:: Smoking status: Patient denies any tobacco usage or history of. ROS: 22:37 Constitutional: Negative for fever, chills, and weight loss, Cardiovascular: Negative rt for chest pain, palpitations, and edema, Respiratory: Negative for shortness of breath, cough, wheezing, and pleuritic chest pain, Abdomen/GI: Negative for abdominal pain, nausea, vomiting, diarrhea, and constipation, MS/Extremity: Negative for injury and deformity, Skin: Negative for injury, rash, and discoloration, Exam: 22:37 Constitutional: This is a well developed, well nourished patient who is awake, alert, rt and in no acute distress. Head/Face: Normocephalic, atraumatic. Chest/axilla: Normal chest wall appearance and motion. Nontender with no deformity. No lesions are appreciated. Cardiovascular: Regular rate and rhythm with a normal S1 and S2. No gallops, murmurs, or rubs. Normal PMI, no JVD. No pulse deficits. Respiratory: Lungs have equal breath sounds bilaterally, clear to auscultation and percussion. No rales, rhonchi or wheezes noted. No increased work of breathing, no retractions or nasal flaring. Abdomen/GI: Soft, non-tender, with normal bowel sounds. No distension or tympany. No guarding or rebound. No evidence of tenderness throughout. Skin: Warm, dry with normal turgor. Normal color with no rashes, no lesions, and no evidence of cellulitis. MS/ Extremity: Pulses equal, no cyanosis. Neurovascular intact. Full, normal range of motion. Neuro: Awake and alert, GCS 15, oriented to person, place, time, and situation. Cranial nerves II-XII grossly intact. Motor strength 5/5 in all extremities. Sensory grossly intact. Cerebellar exam normal. Normal gait. 22:37 Neck: No posterior cervical midline tenderness, Vital Signs: 20:59 BP 178 / 81; Pulse 82; Resp 18; Temp 98; Pulse Ox 99% ; Weight 113.4 kg; Height 5 ft. cp4 11 in. ; Pain 0/10; 22:01 BP 142 / 71; Pulse 77; Resp 18; Pulse Ox 96% ; cp4 23:34 BP 125 / 81; Pulse 74; Resp 18; Pulse Ox 99% ; cp4 20:59 Body Mass Index 34.87 (113.40 kg, 180.34 cm) cp4 20:59 Pain Scale: Adult cp4 Melissa Coma Score: 20:59 Eye Response: spontaneous(4). Motor Response: obeys commands(6). Verbal Response: cp4 oriented(5). Total: 15. Trauma Score (Adult): 20:59 Eye Response: spontaneous(1); Verbal Response: oriented(1); Motor Response: obeys cp4 commands(2); Systolic BP: > 89 mm Hg(4); Respiratory Rate: 10 to 29 per min(4); Melissa Score: 15; Trauma Score: 12 MDM: 20:58 Medical Screening Exam initiated rt 22:37 Differential diagnosis: closed head injury, Intracranial hemorrhage. Data reviewed: rt vital signs, nurses notes, radiologic studies. Independent interpretation of the following test(s) in the Emergency Department CT Scan: My interpretation is No intracranial hemorrhage seen on interpretation of CT scan images. Test considered but Not performed: Other Details Patient's unsteadiness is a known issue, reportedly due to his medications. He is asymptomatic currently. Do not believe that any labs, EKG are indicated.. Care significantly affected by the following chronic conditions: Hypertension. Counseling: I had a detailed discussion with the patient and/or guardian regarding the historical points, exam findings, and any diagnostic results supporting the discharge/admit diagnosis, radiology results, the need for outpatient follow up. Response to treatment: the patient's symptoms have markedly improved after treatment. 10/09 20:58 Order name: CT Head C Spine; Complete Time: 22:05 rt Administered Medications: No medications were administered Disposition Summary: 10/09/24 22:13 Discharge Ordered Notes: Location: Home rt Problem: new rt Symptoms: have improved rt Condition: Stable rt Diagnosis - Mechanical fall rt - Closed head injury rt Followup: rt - With: Private Physician - When: 2 - 3 days - Reason: Discharge Instructions: - Discharge Summary Sheet rt - Head Injury, Adult rt - Fall Prevention in the Home, Adult rt Forms: - Medication Reconciliation Form rt - Antibiotic Education rt - Prescription Opioid Use rt - Patient Portal Instructions rt - Leadership Thank You Letter rt Signatures: Dispatcher [employer] EDMS Georgi Mcknight MD MD rt Heidi Horn cp4 Corrections: (The following items were deleted from the chart) 20:59 20:59 Head C Spine MPR Wo Con+CT.RAD.BRZ ordered. EDMS EDMS
[2024-10-09 23:42] VITALS: TEMP 98
[2024-10-09 23:44] VITALS: BP 125/81; O2SAT 99
== END 2024-10-09 23:37 | disposition home or self-care (01) ==
LOC: ER 20:52
DX: S00.81XA Abrasion of other part of head, initial encounter (principal); W18.30XA Fall on same level, unspecified, initial encounter; Y92.129 Unspecified place in nursing home as the place of occurrence of the external cause; E11.22 Type 2 diabetes mellitus with diabetic chronic kidney disease; N18.9 Chronic kidney disease, unspecified; I10 Essential (primary) hypertension; I50.9 Heart failure, unspecified; Z79.82 Long term (current) use of aspirin
CPT/HCPCS: 70450; 72125; 99283

== ENCOUNTER 2025-05-14 15:49 | Emergency (ER) | payer OTHER ==
[2025-05-14] MEDS ORDERED: LIDOCAINE 2% W/EPI 1:200,000 MPF 20 ML VIAL IM ONE (16:14)
--- NOTE | 2025-05-14 17:10 | RAD REPORT ---
EXAMINATION: Head C Spine Mpr Wo Con CLINICAL INDICATION: Male, 65 years old. TRAUMA TECHNIQUE: Axial CT images from the skull base to the vertex without intravenous contrast. Axial CT i mages through the cervical spine were obtained without intravenous contrast. Sagittal and coronal reformatted images were created from the data set. Coronal and sagittal reformatted images were creat ed from the data set. One or more of the following dose reduction techniques were used: Automated exposure control, adjustment of the mA and/or kV according to patient size, and/or iterative reconstr uction. Unless otherwise specified, incidental findings do not require dedicated imaging follow-up. [id number]. COMPARISON: 03/14/2025 FINDINGS: Head: INTRACRANIAL: No acute intracranial hemorrhage. Remote left parietal and occipital lobe infarct. No h ydrocephalus. No mass effect or midline shift. Small remote left basal ganglial lacunar infarct. Mild chronic small vessel ischemic changes.Moderate cerebral atrophy. VASCULATURE: No visualized abnormalities in the arteries or dural venous sinuses. SCALP/SKULL: No calvarial fracture identified. No acute soft tissue abnormality. SINUSES: The visualized paranasal sinuses are mostly clear. No significant mastoid fluid. Cervical spine: ALIGNMENT: The cervical spine has normal alignment without scoliosis or spondylolisthesis. BONE: Vertebral body heights are maintained. No aggressive osseous lesions. DEGENERATIVE: Multilevel cervical spondylosis with evidence of bilateral neural foraminal narrowing. No high grade central spinal stenosis. SOFT TISSUE: No significant abnormalities in the soft tissue of the neck. The visualized lung apices are clear. IMPRESSION: No acute intracranial abnormality. No acute fracture or traumatic malalignment of the cervical spine.
--- NOTE | 2025-05-14 17:13 | RAD REPORT ---
EXAMINATION: Facial Bones W/ Mpr CLINICAL INDICATION: Male, 65 years old. TRAUMA TECHNIQUE: Axial images were obtained through the facial bones and orbits without intravenous contras t. Sagittal and coronal reconstructions were created from the data. One or more of the following dose reduction techniques were used: Automated exposure control, adjustment of the mA and/or kV accor ding to patient size, and/or iterative reconstruction. Unless otherwise specified, incidental findings do not require dedicated imaging follow-up. [id number]. COMPARISON: 03/14/2025 FINDINGS: SOFT TISSUE: No significant abnormalities. BONES: Minimally displaced and mildly angulated bilateral nasal bone fractures. Similar rightward mitzi al septal deviation. The bony orbits appear intact. The mandible is intact. ORBITS: The globes are intact. No intraorbital hemorrhage or mass. SINUSES: Air-fluid level left maxillary sinus. BRAIN: No acute abnormalities in the visualized intracranial structures. IMPRESSION: Bilateral nasal bone fractures with flattening deformity along the bridge of the nose. No other facia l fracture identified.
--- NOTE | 2025-05-14 17:32 | EDPHYS ---
Physician Documentation [facility] Name: Calos Marie Age: 65 yrs Sex: Male : 1960 Arrival Date: 05/14/2025 Time: 15:49 Bed 20 Private MD: ED Physician Jennifer Keith HPI: 05/14 16:18 This 65 yrs old Male presents to ER via EMS with complaints of Fall Injury. dr5 16:18 Details of fall: The patient fell from an upright position, while standing. Onset: The dr5 symptoms/episode began/occurred acutely. Patient is a 65-year-old male with a history of anxiety, peripheral vascular disease, diabetes, hypertension, hyperlipidemia coming in to face. Patient only takes aspirin and no other blood thinners. Patient denies loss of consciousness. Patient has small laceration above left eyebrow. EMS put TXA on gauze and inserted into both naris prior to arrival. Patient denies chest pain, abdominal pain, nausea, vomiting, or diarrhea.. Historical: - Allergies: 16:02 No Known Allergies; bp - PMHx: 16:02 Anxiety; peripheral vascular disease; kidney disease; Hypertensive disorder; bp Hyperlipidemia; depressive disorder; Congestive heart failure; diabetes mellitus; GERD (kidney disease); NSTEMI; - Immunization history:: Adult Immunizations. - Infectious Disease History:: Denies. - Social history:: Smoking status: Patient denies any tobacco usage or history of. ROS: 16:18 Constitutional: as per hpi dr5 Exam: 16:18 Constitutional: This is a well developed, well nourished patient who is awake, alert, dr5 and in no acute distress. Head/Face: Normocephalic, traumatic injury noted to nose and above left eye. ENT: Nares patent. No nasal discharge, no septal abnormalities noted. Tympanic membranes are normal and external auditory canals are clear. Oropharynx with no redness, swelling, or masses, exudates, or evidence of obstruction, uvula midline. Mucous membranes moist. Neck: Trachea midline, no thyromegaly or masses palpated, and no cervical lymphadenopathy. Supple, full range of motion without nuchal rigidity, or vertebral point tenderness. No Meningismus. Chest/axilla: Normal chest wall appearance and motion. Nontender with no deformity. No lesions are appreciated. Cardiovascular: Regular rate and rhythm with a normal S1 and S2. Normal PMI, no JVD. No pulse deficits. Respiratory: Lungs have equal breath sounds bilaterally, clear to auscultation. No rales, rhonchi or wheezes noted. No increased work of breathing, no retractions or nasal flaring. Back: No spinal tenderness. No costovertebral tenderness. Full range of motion. Skin: Warm, dry with normal turgor. Normal color with no rashes, no lesions, and no evidence of cellulitis. Linear laceration noted above left eye as well as small laceration to middle of nose. MS/ Extremity: Pulses equal, no cyanosis. Neurovascular intact. Full, normal range of motion. Neuro: Awake and alert, GCS 15, oriented to person, place, time, and situation. Cranial nerves II-XII grossly intact. Motor strength 5/5 in all extremities. Sensory grossly intact. Cerebellar exam normal. Normal gait. Vital Signs: 16:00 BP 128 / 85; Pulse 76; Resp 16; Temp 98; Pulse Ox 98% ; bp 18:30 BP 131 / 79; Pulse 71; Resp 16; Pulse Ox 97% ; bp Laceration: 17:54 Wound Repair of 1.5cm ( 0.6in ) subcutaneous laceration to above left eye. Linear dr5 shaped.. Distal neuro/vascular/tendon intact. Anesthesia: Local anesthetic administered with 1 mls of 1% lidocaine w/ Epi. Wound prep: Moderate cleansing by me. Skin closed with 2 5-0 Chromic Gut using simple sutures and sterile technique. Dressed with non-adherent dressing. Patient tolerated well. 17:54 Wound Repair of .5cm ( 0.2in ) subcutaneous laceration to nose. Linear shaped.. Distal dr5 neuro/vascular/tendon intact. Anesthesia: Local anesthetic administered with 0.3 mls of 1% lidocaine w/ Epi. Wound prep: Simple cleansing by me. Skin closed with 1 5-0 Chromic Gut using simple sutures and sterile technique. Dressed with non-adherent dressing. Patient tolerated well. MDM: 15:55 Medical Screening Exam initiated 17:56 Differential diagnosis: abrasion, closed head injury, contusion, fracture, sprain, dr5 strain. Data reviewed: vital signs, nurses notes, radiologic studies, CT scan. Data reviewed: correction records. Consideration of Admission/Observation Escalation of care including admission/observation considered. Admission considered if patient found to have intracranial hemorrhage. I considered the following discharge prescriptions or medication management in the emergency department I discussed and recommended Over The Counter medications, Medications were administered in the Emergency Department. See MAR. Care significantly affected by the following chronic conditions: Hypertension, Hyperlipidemia, kidney disease, anxiety, peripheral vascular disease. Care significantly affected by the following Social Determinants of Health: Poor access to healthcare and/or lack of insurance, Poor access to transportation, Problems related to employment. Counseling: I had a detailed discussion with the patient and/or guardian regarding the historical points, exam findings, and any diagnostic results supporting the discharge/admit diagnosis, the presence of at least one elevated blood pressure reading (>120/80) during this emergency department visit, radiology results, the need for outpatient follow up, for definitive care, a family practitioner, to return to the emergency department if symptoms worsen or persist or if there are any questions or concerns that arise at home. Special discussion: I have referred the patient to see his PCP for further evaluation of high blood pressure. Based on the patient's history, exam and DX evaluation, there is no indication for emergent intervention or inpatient TX. It is understood by the patient/guardian that if the SXs persist or worsen they need to return immediately for re-evaluation. Based on the history and exam findings, there is no indication for further emergent testing or inpatient evaluation. I discussed with the patient/guardian the need to see the ENT specialist for further evaluation of the symptoms. ED course: Explained the patient that he has nasal fracture. No septal hematoma noted. Explained that sutures will dissolve on their own. Will give Augmentin due to new nasal fracture. Alternate Tylenol Motrin as needed for pain. Patient denies any pain at this time. Patient reports he is much better. Strict ER precautions given. Otherwise attached.. 05/14 15:58 Order name: CT Head C Spine; Complete Time: 17:11 05/14 15:58 Order name: CT Facial Bones W/O Con; Complete Time: 17:15 05/14 16:13 Order name: EKG; Complete Time: 16:14 05/14 15:58 Order name: Dressing - Wound; Complete Time: 15:59 05/14 15:58 Order name: Gloves, Sterile; Complete Time: 15:59 05/14 15:58 Order name: Setup Suture Tray; Complete Time: 15:59 dr5 05/14 16:13 Order name: EKG - Nurse/Tech; Complete Time: 16:17 dr5 EC:07 Rate is 73 beats/min. Rhythm is regular. QRS [place] is Normal. SC interval is normal at dr5 178 msec. QRS interval is normal at 86 msec. QT interval is normal at 428 msec. Clinical impression: Normal ECG and No evidence of ischemia. Administered Medications: 16:17 Drug: Lidocaine-Epinephrine Infiltration -1%: (1:100,000) 20 ml 20 ml Infiltration bp once; to bedside Volume: 20 ml; Route: Infiltration; Disposition Summary: 05/14/25 17:31 Discharge Ordered Notes: Location: Home dr5 Condition: Stable dr5 Diagnosis - Fracture of nasal bones dr5 - Fall on same level, unspecified dr5 Followup: dr5 - With: Emergency Department - When: As needed - Reason: Worsening of condition Followup: dr5 - With: Private Physician - When: 1 - 2 days - Reason: Recheck today's complaints, Continuance of care, Re-evaluation by your physician Discharge Instructions: - Discharge Summary Sheet dr5 - Fall Prevention in the Home, Adult dr5 - Facial Laceration dr5 - Nasal Fracture dr5 Forms: - Medication Reconciliation Form dr5 - Patient Portal Instructions dr5 - Leadership Thank You Letter dr5 Prescriptions: - Augmentin 875-125 mg Oral Tablet - take 1 tablet ORAL route every 12 hours for 10 days; 20 tablet; Refills: 0, dr5 Product Selection Permitted Signatures: Dispatcher [employer] EDRaza Mendoza RN RN bp Williams, Sandra, MD MD sw6 Rashid Rodas, VEGETABLE TESTER-C VEGETABLE TESTER-Cdr5 Corrections: (The following items were deleted from the chart) 16:22 16:18 Constitutional: This is a well developed, well nourished patient who is awake, dr5 alert, and in no acute distress. Head/Face: Normocephalic, traumatic injury noted to nose and above left eye. dr5 17:55 16:18 Constitutional: This is a well developed, well nourished patient who is awake, dr5 alert, and in no acute distress. Head/Face: Normocephalic, traumatic injury noted to nose and above left eye. ENT: Nares patent. No nasal discharge, no septal abnormalities noted. Tympanic membranes are normal and external auditory canals are clear. Oropharynx with no redness, swelling, or masses, exudates, or evidence of obstruction, uvula midline. Mucous membranes moist. Neck: Trachea midline, no thyromegaly or masses palpated, and no cervical lymphadenopathy. Supple, full range of motion without nuchal rigidity, or vertebral point tenderness. No Meningismus. Chest/axilla: Normal chest wall appearance and motion. Nontender with no deformity. No lesions are appreciated. Cardiovascular: Regular rate and rhythm with a normal S1 and S2. Normal PMI, no JVD. No pulse deficits. Respiratory: Lungs have equal breath sounds bilaterally, clear to auscultation. No rales, rhonchi or wheezes noted. No increased work of breathing, no retractions or nasal flaring. Back: No spinal tenderness. No costovertebral tenderness. Full range of motion. Skin: Warm, dry with normal turgor. Normal color with no rashes, no lesions, and no evidence of cellulitis. MS/ Extremity: Pulses equal, no cyanosis. Neurovascular intact. Full, normal range of motion. Neuro: Awake and alert, GCS 15, oriented to person, place, time, and situation. Cranial nerves II-XII grossly intact. Motor strength 5/5 in all extremities. Sensory grossly intact. Cerebellar exam normal. Normal gait. dr5
--- NOTE | 2025-05-14 17:32 | ER ---
Nurse's Notes [facility] Name: Calos Marie Age: 65 yrs Sex: Male : 1960 Arrival Date: 05/14/2025 Time: 15:49 Bed 20 Private MD: Diagnosis: Fracture of nasal bones;Fall on same level, unspecified Presentation: 05/14 16:00 Chief complaint: EMS states: FALL AT [facility], +EPITAXIS, SMALL SUPERFICIAL bp BROW LAC. Coronavirus screen: At this time, the client does not indicate any symptoms associated with coronavirus-19. Ebola Screen: No symptoms or risks identified at this time. Initial Sepsis Screen: Does the patient meet any 2 criteria? No. Patient's initial sepsis screen is negative. Does the patient have a suspected source of infection? No. Patient's initial sepsis screen is negative. Risk Assessment: Do you want to hurt yourself or someone else? Patient reports no desire to harm self or others. Onset of symptoms was May 14, 2025 at 15:30. 16:00 Method Of Arrival: EMS: [facility] bp 16:00 Acuity: KRIS 3 bp Triage Assessment: 16:02 General: Appears in no apparent distress. Behavior is cooperative, appropriate for age, bp anxious. Pain: Complains of pain in face. EENT: No deficits noted. Neuro: Level of Consciousness is awake, alert, obeys commands, Oriented to Appropriate for age. Cardiovascular: No deficits noted. Respiratory: No deficits noted. GI: No signs and/or symptoms were reported involving the gastrointestinal system. : No signs and/or symptoms were reported regarding the genitourinary system. Derm: No deficits noted. Musculoskeletal: No deficits noted. Injury Description: Laceration sustained to left eye. Historical: - Allergies: 16:02 No Known Allergies; bp - PMHx: 16:02 Anxiety; peripheral vascular disease; kidney disease; Hypertensive disorder; bp Hyperlipidemia; depressive disorder; Congestive heart failure; diabetes mellitus; GERD (kidney disease); NSTEMI; - Immunization history:: Adult Immunizations. - Infectious Disease History:: Denies. - Social history:: Smoking status: Patient denies any tobacco usage or history of. Screenin:05 [facility] ED Fall Risk Assessment (Adult) History of falling in the last 3 months, bp including since admission No falls in past 3 months (0 pts) Confusion or Disorientation No (0 pts) Intoxicated or Sedated No (0 pts) Impaired Gait No (0 pts) Mobility Assist Device Used No (0 pt) Altered Elimination No (0 pt) Score/Fall Risk Level 0 - 2 = Low Risk Oriented to surroundings. Abuse screen: Denies threats or abuse. Denies injuries from another. Nutritional screening: No deficits noted. Tuberculosis screening: No symptoms or risk factors identified. Assessment: 16:05 General: SEE TRIAGE NOTE. bp 17:32 Reassessment: NO ANSWER AT [facility]. bp 18:30 Reassessment: REPORT TO [facility] AT [facility]. TRANSPORT ETA \R\45 MIN. bp Vital Signs: 16:00 BP 128 / 85; Pulse 76; Resp 16; Temp 98; Pulse Ox 98% ; bp 18:30 BP 131 / 79; Pulse 71; Resp 16; Pulse Ox 97% ; bp ED Course: 15:52 Patient arrived in ED. bp 15:55 Jennifer Keith MD is Attending Physician. sw6 15:57 [facility]C [facility] 15:59 Raza Byrne, [place] is Primary Nurse. bp 16:01 Triage completed. bp 16:02 Arm band placed on. bp 16:05 Patient has correct armband on for positive identification. bp 16:47 CT Head C Spine In Process Unspecified. EDMS 16:47 CT Facial Bones W/O Con In Process Unspecified. EDMS 17:33 Assist provider with laceration repair on face that was 2.5 cm. or less using sutures. bp Set up tray. Performed by Rashid MERCADO Dressed with Neosporin. 17:56 CALLED [facility] FOR TRANSPORT BACK TO HALFWAY TALKED TO ERINN mitchell 18:55 Patient did not have IV access during this emergency room visit. bp Administered Medications: 16:17 Drug: Lidocaine-Epinephrine Infiltration -1%: (1:100,000) 20 ml 20 ml Infiltration bp once; to bedside Volume: 20 ml; Route: Infiltration; Medication: 16:05 VIS not applicable for this client. bp Outcome: 17:31 Discharge ordered by . dr5 18:54 Discharged to senior care. bp 18:54 Condition: stable 18:54 Discharge instructions given to senior care, Instructed on discharge instructions, follow up and referral plans. wound care, Demonstrated understanding of instructions, follow-up care, medications, wound care, Prescriptions given X 1, 19:00 Patient left the ED. bp Signatures: Dispatcher [employer] EDMS Tiffanie Boykin Brian, RN RN Jennifer Carter MD MD sw6 Rashid Rodas, MANAGER FIELD SERVICE-C MANAGER FIELD SERVICE-Cdr5
[2025-05-14 19:17] VITALS: TEMP 98
[2025-05-14 19:18] VITALS: BP 131/79; O2SAT 97
== END 2025-05-14 19:00 | disposition home or self-care (01) ==
LOC: ER 15:49
DX: S02.2XXA Fracture of nasal bones, initial encounter for closed fracture (principal); W18.30XA Fall on same level, unspecified, initial encounter
CPT/HCPCS: 12011; 70450; 70486; 72125; 76377; 93005; 99284

== ENCOUNTER 2025-05-17 14:20 | Emergency (ER) | payer OTHER ==
--- NOTE | 2025-05-17 15:09 | RAD REPORT ---
EXAMINATION: Head C Spine Mpr Wo Con CLINICAL INDICATION: Male, 65 years old. TRAUMA TECHNIQUE: Axial CT images from the skull base to the vertex without intravenous contrast. Axial CT i mages through the cervical spine were obtained without intravenous contrast. Sagittal and coronal reformatted images were created from the data set. Coronal and sagittal reformatted images were creat ed from the data set. One or more of the following dose reduction techniques were used: Automated exposure control, adjustment of the mA and/or kV according to patient size, and/or iterative reconstr uction. Unless otherwise specified, incidental findings do not require dedicated imaging follow-up. [id number]. COMPARISON: 05/14/2025 FINDINGS: Head: INTRACRANIAL: No acute intracranial hemorrhage. No acute large vascular territory infarct. No hydroce phalus. No mass effect or midline shift. 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 Remote left basal ganglial lacunar infarct. Moderate cerebral atrophy. VASCULATURE: No visualized abnormalities in the arteries or dural venous sinuses. SCALP/SKULL: No calvarial fracture identified. No acute soft tissue abnormality. SINUSES: The visualized paranasal sinuses are mostly clear. No significant mastoid fluid. Cervical spine: ALIGNMENT: The cervical spine has normal alignment without scoliosis or spondylolisthesis. BONE: Vertebral body heights are maintained. No aggressive osseous lesions. DEGENERATIVE: No significant focal degenerative changes. SOFT TISSUE: No significant abnormalities in the soft tissue of the neck. The visualized lung apices are clear. IMPRESSION: No acute intracranial abnormality. No acute fracture or traumatic malalignment of the cervical spine.
--- NOTE | 2025-05-17 15:24 | EDPHYS ---
Physician Documentation [facility] Name: Calos Marie Age: 65 yrs Sex: Male : 1960 Arrival Date: 05/17/2025 Time: 14:20 Bed 7 Private MD: ED Physician Felipe Nova HPI: 05/17 14:36 This 65 yrs old Male presents to ER via Unassigned with complaints of Fall Injury. ms3 14:36 65-year-old male presents to the emergency department via [facility] from [address] for fall. EMS notes patient had fall on Thursday and today's fall aggravated previous wounds patient sustained at that time. Patient states today he was going to his food tray trying not to fall when he slipped. Patient is unsure if he had loss of consciousness. Patient denies nausea or vomiting.. Historical: - Allergies: 14:40 No Known Allergies; hb - PMHx: 14:40 diabetes mellitus; Hyperlipidemia; Hypertensive disorder; Congestive heart failure; hb kidney disease; peripheral vascular disease; depressive disorder; Anxiety; NSTEMI; 14:41 GERD; hb ROS: 14:36 Constitutional: Negative for fever, and chills. Cardiovascular: Negative for chest ms3 pain, and palpitations. Respiratory: Negative for shortness of breath, cough, wheezing, and pleuritic chest pain, Abdomen/GI: Negative for abdominal pain, nausea, vomiting, diarrhea, and constipation, MS/Extremity: Negative for injury and deformity, 14:36 ENT: Positive for nose bleed, 14:36 Skin: Positive for abrasion(s), Exam: 14:36 Constitutional: This is a well developed, well nourished patient who is awake, alert, ms3 and in no acute distress. Head/Face: Normocephalic, atraumatic. Cardiovascular: Regular rate and rhythm with a normal S1 and S2. No gallops, murmurs, or rubs. Normal PMI, no JVD. No pulse deficits. Respiratory: Lungs have equal breath sounds bilaterally, clear to auscultation and percussion. No rales, rhonchi or wheezes noted. No increased work of breathing, no retractions or nasal flaring. Abdomen/GI: Soft, non-tender, with normal bowel sounds. No distension or tympany. No guarding or rebound. No evidence of tenderness throughout. MS/ Extremity: Pulses equal, no cyanosis. Neurovascular intact. Full, normal range of motion. 14:36 Skin: injury, abrasion(s), small abrasion noted, of the left eyebrow, nasal bridge, contusion(s), that are superficial, of the bilateral infraorbital, 15:59 ECG was reviewed by the Attending Physician. ms3 Vital Signs: 14:33 BP 120 / 80; Pulse 71; Resp 16; Temp 97.7; Pulse Ox 100% on R/A; Pain 4/10; hb 17:24 BP 144 / 86; Pulse 64; Resp 16; Pulse Ox 97% on R/A; iw 14:33 Pain Scale: Adult hb MDM: 14:31 Medical Screening Exam initiated ms3 15:59 Differential diagnosis: abrasion, closed head injury, contusion, fracture, sprain, ms3 strain. Data reviewed: vital signs, nurses notes, EKG, radiologic studies, CT scan. Independent interpretation of the following test(s) in the Emergency Department CT Scan: My interpretation is CT Head without contrast images reviewed by me did not reveal ICH. Counseling: I had a detailed discussion with the patient and/or guardian regarding the historical points, exam findings, and any diagnostic results supporting the discharge/admit diagnosis, radiology results, the need for outpatient follow up, to return to the emergency department if symptoms worsen or persist or if there are any questions or concerns that arise at home. Special discussion: I discussed with the patient/guardian in detail that at this point there is no indication for admission to the hospital. It is understood, however, that if the symptoms persist or worsen the patient needs to return immediately for re-evaluation. ED course: Discussed fall precautions with patient. Patient to follow up with primary care physician 2 to 3 days. All questions were answered. Return precautions discussed include worsening symptoms, or any other concerns.. 05/17 14:33 Order name: CT Head C Spine; Complete Time: 15:22 ms3 05/17 14:34 Order name: EKG; Complete Time: 14:34 ms3 05/17 14:34 Order name: EKG - Nurse/Tech; Complete Time: 15:13 ms3 EC:59 Rate is 66 beats/min. Rhythm is regular. QRS [place] is Normal. FL interval is normal. ms3 Clinical impression: NSR w/ Non-specific ST/T Changes. Interpreted by me. Reviewed by me. Administered Medications: No medications were administered Disposition Summary: 05/17/25 15:23 Discharge Ordered Notes: Location: Home ms3 Condition: Stable ms3 Diagnosis - Fall on same level, unspecified ms3 - Facial Abrasions ms3 - Facial Contusion ms3 Followup: ms3 - With: Private Physician - When: 2 - 3 days - Reason: Recheck today's complaints Discharge Instructions: - Discharge Summary Sheet ms3 - Fall Prevention in Hospitals, Adult ms3 Forms: - Medication Reconciliation Form ms3 - Antibiotic Education ms3 - Prescription Opioid Use ms3 - Patient Portal Instructions ms3 - Leadership Thank You Letter ms3 Signatures: Dispatcher [employer] Edwina Cardoza RN RN Felipe Desai DO DO ms3 Corrections: (The following items were deleted from the chart) 14:43 14:40 PMHx: GERD (NSTEMI); hb hb 14:43 14:41 PMHx: GERD (kidney disease); hb hb
--- NOTE | 2025-05-17 15:24 | ER ---
Nurse's Notes [facility] Name: Calos Marie Age: 65 yrs Sex: Male : 1960 Arrival Date: 05/17/2025 Time: 14:20 Bed 7 Private MD: Diagnosis: Fall on same level, unspecified;Facial Abrasions;Facial Contusion Presentation: 05/17 14:33 Chief complaint: EMS states: Seen in ED on 05/14 after mechanical fall with nasal hb fracture, lacerations to bridge of nose and forehead, sent back today for unwitnessed fall, bleeding from nose and previous lacerations. Coronavirus screen: At this time, the client does not indicate any symptoms associated with coronavirus-19. Ebola Screen: No symptoms or risks identified at this time. Initial Sepsis Screen: Does the patient meet any 2 criteria? No. Patient's initial sepsis screen is negative. Does the patient have a suspected source of infection? No. Patient's initial sepsis screen is negative. Risk Assessment: Do you want to hurt yourself or someone else? Patient reports no desire to harm self or others. Onset of symptoms was May 17, 2025. 14:33 Method Of Arrival: EMS: [facility] hb 14:33 Acuity: KRIS 2 hb Historical: - Allergies: 14:40 No Known Allergies; hb - PMHx: 14:40 diabetes mellitus; Hyperlipidemia; Hypertensive disorder; Congestive heart failure; hb kidney disease; peripheral vascular disease; depressive disorder; Anxiety; NSTEMI; 14:41 GERD; hb Screenin:28 [facility] ED Fall Risk Assessment (Adult) History of falling in the last 3 months, iw including since admission Yes- fall prone (multiple falls) (3 pts) Confusion or Disorientation Yes (5 pts) Intoxicated or Sedated No (0 pts) Impaired Gait Yes (1 pt) Mobility Assist Device Used Yes (1 pt) Altered Elimination No (0 pt) Score/Fall Risk Level 3 or more points = High Risk Oriented to surroundings, Maintained a safe environment. Abuse screen: Denies threats or abuse. Nutritional screening: No deficits noted. Tuberculosis screening: No symptoms or risk factors identified. Assessment: 15:13 General: Appears in no apparent distress. Behavior is calm, cooperative. Pain: iw Complains of pain in face. Neuro: Level of Consciousness is awake, alert, obeys commands, Oriented to person, place, time, Moves all extremities. Cardiovascular: Patient's skin is warm and dry. 15:49 Reassessment: Patient appears in no apparent distress at this time. report given to [facility], will arrange for transportation. Vital Signs: 14:33 BP 120 / 80; Pulse 71; Resp 16; Temp 97.7; Pulse Ox 100% on R/A; Pain 4/10; hb 17:24 BP 144 / 86; Pulse 64; Resp 16; Pulse Ox 97% on R/A; iw 14:33 Pain Scale: Adult hb ED Course: 14:31 Patient arrived in ED. iw 14:31 Felipe Nova DO is Attending Physician. ms3 14:40 Triage completed. hb 14:53 CT Head C Spine In Process Unspecified. EDMS 14:54 Edna Keith, RN is Primary Nurse. iw 15:28 Patient placed. iw 15:28 No provider procedures requiring assistance completed. iw 15:49 Patient has correct armband on for positive identification. iw 17:24 Patient did not have IV access during this emergency room visit. iw Administered Medications: No medications were administered Medication: 15:28 VIS not applicable for this client. iw Outcome: 15:23 Discharge ordered by MD. ms3 17:24 Discharged to care home. iw 17:24 Condition: good 17:24 Instructed on discharge instructions, follow up and referral plans. Demonstrated understanding of instructions, follow-up care, 17:25 Patient left the ED. iw Signatures: Dispatcher [employer] EDMS Edna Keith RN RN dEwina Barillas RN RN Felipe Nova DO DO ms3 Corrections: (The following items were deleted from the chart) 14:43 14:40 PMHx: GERD (NSTEMI); hb hb 14:43 14:41 PMHx: GERD (kidney disease); hb hb
[2025-05-17 17:47] VITALS: TEMP 97.7
[2025-05-17 17:49] VITALS: BP 144/86; O2SAT 97
== END 2025-05-17 17:25 | disposition home or self-care (01) ==
LOC: ER 14:20
DX: S00.81XA Abrasion of other part of head, initial encounter (principal); W18.30XA Fall on same level, unspecified, initial encounter
CPT/HCPCS: 70450; 72125; 93005; 99283